=== PATIENT | female | born 1950 | race Caucasian/White ===

== ENCOUNTER 2021-11-17 01:15 | Day surgery (SDC) | payer OTHER, SELFPAY ==
--- NOTE | 2021-10-16 11:09 | SUR.PREOP ---
called pt in regards to upcoming procedure and the prep. message left on voicemail
[2021-10-31 13:36] VITALS: BMI 25.9
--- NOTE | 2021-11-16 14:51 | WPDANESEPPF ---
Anes - Initial Pre Proc Eval Procedure: Operation Date: 11/17/21 10:45 Proposed Procedures p Screening Colonoscopy - Ibrahima Holland MD <Jackson Christopher DO - Last Filed: 11/16/21 14:52> Date/Time: 11/16/21 14:51 <Jackson Christopher DO - Last Filed: 11/16/21 14:52> Surgeon: Ibrahima Holland MD <Jackson Chirstopher DO - Last Filed: 11/16/21 14:52> Pre Op Diagnosis: hx of colon polyps <Jackson Christopher DO - Last Filed: 11/16/21 14:52> Patient Data Age: 71 Gender: F Height: 1.7 m Weight: 75 kg <Jackson Christopher DO - Last Filed: 11/16/21 14:52> Allergies Allergy/AdvReac Type Severity Reaction Status Date / Time erythromycin base Allergy Mild CAUSES Verified 11/17/21 10:13 DIARRHEA <Jackson Christopher DO - Last Filed: 11/16/21 14:52> Home Medications Medication Instructions Recorded Confirmed Type betamethasone dipropionate 0.05 % 1 ea topical EVERY OTHER DAY 10/31/21 10/31/21 History lotion butalbital 50 mg-acetaminophen 325 1 cap PO TID PRN Headache 10/31/21 10/31/21 History mg-caffeine 40 mg-codeine 30 mg cap clobetasol 0.05 % scalp solution 1 applic topical DAILY 10/31/21 10/31/21 History meloxicam 15 mg tablet 1 tablet PO DAILY 10/31/21 10/31/21 History omeprazole 40 mg capsule,delayed 1 cap PO DAILY 10/31/21 10/31/21 History release propranolol 120 mg capsule,24 1 cap PO BID 10/31/21 10/31/21 History hr,extended release raloxifene 60 mg tablet 1 tablet PO DAILY 10/31/21 10/31/21 History rizatriptan 10 mg tablet 1 tablet PO DAILY PRN Migraine 10/31/21 10/31/21 History Headache tramadol 50 mg tablet See Rx Instructions .Route 10/31/21 10/31/21 History .COMPLEX PRN Pain <Jackson Christopher DO - Last Filed: 11/16/21 14:52> Patient hx anesthesia problems: none <Leslie Orozco CRNA - Last Filed: 11/17/21 10:52> Family hx anesthesia problems: none <Leslie Orozco CRNA - Last Filed: 11/17/21 10:52> Results Review: All pre-operative results and documents have been reviewed as part of the pre-operative evaluation. <Jackson Christopher DO - Last Filed: 11/16/21 14:52> [facility] Past Medical History Medical History: Medical History History of skin cancer Hypertrophic cardiomyopathy Irregular heart beat <Jackson Christopher DO - Last Filed: 11/16/21 14:52> Social History Social History: Social History Years smoked: 55 Smoking status: Current every day smoker Tobacco type: cigarettes Living arrangements: with family Spiritual care concerns: No <Jackson Christopher DO - Last Filed: 11/16/21 14:52> Comments pt followed by intravenous therapy nurse in [place]. no records for review. pt denies any complications. states doing well, good activity tolerance. <Leslie Orozco CRNA - Last Filed: 11/17/21 10:52> Anes - Eval Final PreProcedure Day of Procedure 11/16/21 14:51 <Jackson Christopher DO - Last Filed: 11/16/21 14:52> Patient weight: overweight <Jackson Christopher DO - Last Filed: 11/16/21 14:52> Heart: regular rate and rhythm <Jackson Christopher DO - Last Filed: 11/16/21 14:52> Lungs: clear to auscultation <Jackson Christopher DO - Last Filed: 11/16/21 14:52> Airway: Mallampati scale class II <Jackson Christopher DO - Last Filed: 11/16/21 14:52> Neurological: alert and oriented <Jackson Christopher DO - Last Filed: 11/16/21 14:52> Last oral intake: >/= 8 hours <Jackson Christopher DO - Last Filed: 11/16/21 14:52> ASA classification: III <Jackson Christopher DO - Last Filed: 11/16/21 14:52> Emergent: no <Jackson Christopher DO - Last Filed: 11/16/21 14:52> Anesthetic plan: proceed <Jackson Christopher DO - Last Filed: 11/16/21 14:52> A
[2021-11-17 10:14] VITALS: BP 126/70; PULSE 63; RESP 20; TEMP 36.4; O2SAT 98; BMI 25.3
[2021-11-17] MEDS: LACTATED RINGERS 1,000 ML 150 ML IV CONT (10:27)
--- NOTE | 2021-11-17 10:42 | P.HP_ITS ---
H&P: HPI History of Present Illness Date/Time: 11/17/21 10:42 Chief Complaint: history of colon polyps. Narrative: This is a 71-year-old white female patient presents for surveillance colonoscopy. Patient has a history of colon polyps in the past. On several occasions these have been adenomatous polyps. Patient's current weight appetite and bowel movements are normal. She denies abdominal pain. She has had no bleeding. Family history is noncontributory. Review of Systems Review of Systems: Review of systems noncontributory. [facility] Past Medical History Medical History (Updated 11/17/21 @ 10:44 by Ibrahima Holland MD) History of skin cancer Hypertrophic cardiomyopathy Irregular heart beat Social History Social History Years smoked: 55 Smoking status: Current every day smoker Tobacco type: cigarettes Living arrangements: with family Spiritual care concerns: No Meds Home Medications and Allergies Home Medications Medication Instructions Recorded Confirmed Type betamethasone dipropionate 0.05 % 1 ea topical EVERY OTHER DAY 10/31/21 10/31/21 History lotion butalbital 50 mg-acetaminophen 325 1 cap PO TID PRN Headache 10/31/21 10/31/21 History mg-caffeine 40 mg-codeine 30 mg cap clobetasol 0.05 % scalp solution 1 applic topical DAILY 10/31/21 10/31/21 History meloxicam 15 mg tablet 1 tablet PO DAILY 10/31/21 10/31/21 History omeprazole 40 mg capsule,delayed 1 cap PO DAILY 10/31/21 10/31/21 History release propranolol 120 mg capsule,24 1 cap PO BID 10/31/21 10/31/21 History hr,extended release raloxifene 60 mg tablet 1 tablet PO DAILY 10/31/21 10/31/21 History rizatriptan 10 mg tablet 1 tablet PO DAILY PRN Migraine 10/31/21 10/31/21 Hi story Headache tramadol 50 mg tablet See Rx Instructions .Route 10/31/21 10/31/21 History .COMPLEX PRN Pain Allergies Allergy/AdvReac Type Severity Reaction Status Date / Time erythromycin base Allergy Mild CAUSES Verified 11/17/21 10:13 DIARRHEA Vital Signs Vital Signs - 24 hr 11/17/21 10:14 Temperature 97.5 F L Pulse Rate 63 Respiratory Rate 20 Blood Pressure 126/70 Pulse Oximetry 98 Oxygen Delivery Room Air Exam Narrative: Physical exam reveals patient to be alert. Vital signs stable. HEENT exam is unremarkable. Patient is anicteric. Lungs are clear to auscultation and to percussion. Heart is without murmur or extra sounds. Abdominal exam bowel sounds present soft nontender with no organomegaly. Digital external rectal exam is normal. Assessment and Plan Assessment and plan (1) History of colon polyps: Code(s): Z86.010 - Personal history of colonic polyps Status: Acute Assessment and Plan: Patient has a prior history of colon polyps. For this reason surveillance colonoscopy is recommended now and at intervals in the future. Further recommendations will be given after endoscopy.
[2021-11-17 11:26] VITALS: BP 107/64; PULSE 67; RESP 20; O2SAT 97
[2021-11-17 11:36] VITALS: BP 112/61; PULSE 67; RESP 20; O2SAT 98
[2021-11-17 11:46] VITALS: BP 128/81; PULSE 62; RESP 20; O2SAT 99
[2021-11-17 11:55] VITALS: BP 135/78; PULSE 78; RESP 19; O2SAT 100
== END 2021-11-17 11:54 | disposition home or self-care (01) ==
PROVIDERS: Visit Provider Internal Medicine Gastroenterology
PROC: 0DJD8ZZ Inspection of Lower Intestinal Tract, Via Natural or Artificial Opening Endoscopic (ICD-10-PCS; CPT 45378; principal; 2021-11-17 10:45)
DX: Z12.11 Encounter for screening for malignant neoplasm of colon (principal); D12.2 Benign neoplasm of ascending colon; D12.3 Benign neoplasm of transverse colon; D12.5 Benign neoplasm of sigmoid colon; K57.30 Diverticulosis of large intestine without perforation or abscess without bleeding; K64.8 Other hemorrhoids; Z85.828 Personal history of other malignant neoplasm of skin; F17.210 Nicotine dependence, cigarettes, uncomplicated
CPT/HCPCS: 45385; 88305; J2704; J7120

== ENCOUNTER 2024-09-30 21:39 | Emergency (ER) | payer OTHER, SELFPAY ==
--- NOTE | ~2024-09-30 | XR_ITS ---
XR hand RT min 3V Ordering provider: Shaji [place] History: . fall . Comparison: None. FINDINGS: BONES: No acute fracture or dislocation. JOINT SPACES: Narrowing of the proximal and distal interphalangeal joints. Osteoarthritic changes of the first carpometacarpal joint. Narrowing of the radiocarpal joint. SOFT TISSUES: Normal. IMPRESSION: No acute osseous abnormality right hand. Polyarticular osteoarthritic changes. Reviewed, dictated and finalized at location A.
--- NOTE | ~2024-09-30 | XR_ITS ---
XR foot RT min 3V Ordering provider: Shaji [place] MD History: . fall . Comparison: None. FINDINGS: BONES: Longitudinal fractures seen in the proximal phalanx of the right big toe extending to the join t space. JOINT SPACES: Normal. No tarsal coalition. SOFT TISSUES: Normal. IMPRESSION: Fracture in the proximal phalanx of the right big toe Reviewed, dictated and finalized at location A.
--- NOTE | ~2024-09-30 | XR_ITS ---
XR knee RT 3V Ordering provider: Shaji [place] MD History: . fall . Comparison: None. FINDINGS: BONES: No acute fracture or dislocation. JOINT SPACES: Normal. SOFT TISSUES: Normal. IMPRESSION: No acute osseous abnormality right knee. Reviewed, dictated and finalized at location A.
--- OUTSIDE RECORDS SUMMARY | 2024-09-30 21:42 | XMS_ITS | Encounter Summary ---
Author Organization [facility] Facility Care Team Providers Care Nurse Staff Industrial Name Role Phone Calin Christina MD Primary Care Provi hallie Jaqueline Stark NP Primary Care Provider Calin Christina MD Primary Care Provi hallie Jaqueline Stark CULINARY ASSISTANT Primary Care Provider Sultan Roly Elizondo MD Unavailable [phone] Carmen Singletary MD Unavailable [phone] Mary Spencer DO Primary Care Provider + Encounter Details Date Type Department Care Team (Latest Contact Info) Description 11/14/2017 Orders Only [facility] CLINCONV ProviderJosefina MD [address] [place] [address] Social History Tobacco Use Types Packs/Day Years Used Date Smoking Tobacco: Never Assessed Comments Unknown Sex and Gender Information Value Date Recorded Sex Assigned at Not on file 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 us Historical Provider [facility] Final Result documented in this encounter Visit Diagnoses Not on filedocumented in this encounter Care Teams Nurse Staff Industrial Relationship Specialty Start Date End Date Calin Christina MD [address] [place] [address] PCP - General 09/18/18 11/13/21 Jaqueline Stark NP [address] [place] [address] PCP - General Internal Medicine 11/14/21 04/16/22 Calin Christina MD [address] [place] [address] PCP - General Family Medicine 04/17/22 04/19/22 [place] [address] [place] [address] [address] [place], [place] [address] PCP - General Internal Medicine 04/20/22 05/18/24 Mary Spencer DO [address] [place] [address] [place] [address] PCP - General Family Medicine 05/19/24 Sultan Roly Elizondo MD [address] [facility] [place] [address] Consulting Physician Cardiovascular Disease 10/16/22 Carmen Singletary MD [address] [place] [address] Referring Physician Dermatology 10/16/22 documented as of this encounter
--- OUTSIDE RECORDS SUMMARY | 2024-09-30 21:42 | XMS_ITS | Encounter Summary ---
Author Organization [facility] Facility Care Team Providers Care Hot End Operator Name Role Phone Calin Christina MD Primary Care Provi hallie Jaqueline Stark NP Primary Care Provider Calin Christina MD Primary Care Provi hallie Jaqueline Stark AUTOCAD TECHNICIAN Primary Care Provider Sultan Roly Elizondo MD Unavailable [phone] Carmen Singletary MD Unavailable [phone] Mary Spencer DO Primary Care Provider + Encounter Details Date Type Department Care Team (Latest Contact Info) Description 11/02/2017 Orders Only [facility] CLINCONV ProviderJosefina MD [address] [place] [address] Social History Tobacco Use Types Packs/Day Years Used Date Smoking Tobacco: Never Assessed Comments Unknown Sex and Gender Information Value Date Recorded Sex Assigned at Not on file 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 us Historical Provider [facility] Final Result documented in this encounter Visit Diagnoses Not on filedocumented in this encounter Care Teams Hot End Operator Relationship Specialty Start Date End Date Calin Christina MD [address] [place] [address] PCP - General 09/18/18 11/13/21 Jaqueline Stark NP [address] [place] [address] PCP - General Internal Medicine 11/14/21 04/16/22 Calin Christina MD [address] [place] [address] PCP - General Family Medicine 04/17/22 04/19/22 [place] [address] [place] [address] [address] [place], [place] [address] PCP - General Internal Medicine 04/20/22 05/18/24 Mary Spencer DO [address] [place] [address] [place] [address] PCP - General Family Medicine 05/19/24 Sultan Roly Elizondo MD [address] [facility] [place] [address] Consulting Physician Cardiovascular Disease 10/16/22 Carmen Singletary MD [address] [place] [address] Referring Physician Dermatology 10/16/22 documented as of this encounter
--- OUTSIDE RECORDS SUMMARY | 2024-09-30 21:42 | XMS_ITS | Encounter Summary ---
Author Organization [facility] Facility Care Team Providers Care Police Shift Commander Name Role Phone Calin Christina MD Primary Care Provi hallie Jaqueline Stark NP Primary Care Provider Calin Christina MD Primary Care Provi hallie Jaqueline Stark LOADING MACHINE OPERATOR HELPER Primary Care Provider Sultan Roly Elizondo MD Unavailable [phone] Carmen Singletary MD Unavailable [phone] Mary Spencer DO Primary Care Provider + Encounter Details Date Type Department Care Team (Latest Contact Info) Description 11/11/2017 Orders Only [facility] CLINCONV ProviderJosefina MD [address] [place] [address] Social History Tobacco Use Types Packs/Day Years Used Date Smoking Tobacco: Never Assessed Comments Unknown Sex and Gender Information Value Date Recorded Sex Assigned at Not on file 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 us Historical Provider [facility] Final Result documented in this encounter Visit Diagnoses Not on filedocumented in this encounter Care Teams Police Shift Commander Relationship Specialty Start Date End Date Calin Christina MD [address] [place] [address] PCP - General 09/18/18 11/13/21 Jaqueline Stark NP [address] [place] [address] PCP - General Internal Medicine 11/14/21 04/16/22 Calin Christina MD [address] [place] [address] PCP - General Family Medicine 04/17/22 04/19/22 [place] [address] [place] [address] [address] [place], [place] [address] PCP - General Internal Medicine 04/20/22 05/18/24 Mary Spencer DO [address] [place] [address] [place] [address] PCP - General Family Medicine 05/19/24 Sultan Roly Elizondo MD [address] [facility] [place] [address] Consulting Physician Cardiovascular Disease 10/16/22 Carmen Singletary MD [address] [place] [address] Referring Physician Dermatology 10/16/22 documented as of this encounter
--- OUTSIDE RECORDS SUMMARY | 2024-09-30 21:42 | XMS_ITS | Encounter Summary ---
Author Organization [facility] Address [address] [place] [address] [place] [address] Care Team Providers Care Lamination Inspector Name Role Phone Unavailable Primary Care Provider Unavailabl e Encounter Details Date Type Department Care Team (Late st Contact Info) Description 07/17/2019 Lab Requisition [facility] DermPath Lab [address] [facility] [place] [id number] [phone] Carmen Singletary MD [address] [facility] [address] [place] [address] Social History Tobacco Use Types Packs/Day Years Used Date Smoking Tobacco: Never Assessed Comments Unknown Sex and Gender Information Value Date Recorded Sex Assigned at Not on file Legal Sex Female 5:21 PM CYBER 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 SPECIALIST Gender Identity Not on file Sexual Orientation Not on file documented as of this encounter Plan of Treatment Not on file documented as of this encounter Procedures Procedure Name Priority Date/Time Associated Diagnosis Comments DERMATOPATHOLOGY Routine 07/16/2019 12:0 0 AM CDT documented in this encounter Results * DERMATOPATHOLOGY (07/16/2019 12:00 AM CDT) Case Report Dermatopathology Report Case: [id number] Authorizing Provider: Carmen Singletary MD Collected: 07/16/2019 12:00 AM Ordering Location: [facility] DermPath Lab Received: 07/17/2019 07:28 AM Pathologist: Vivian Terrell MD Specimen: Skin, left mejia 0 3:53 PM CDT DERMATOPATHOLOGY LABORATORY Final Diagnosis Specimen A. SKIN, left mejia: SQUAMOUS CELL CARCINOMA, WELL DIFFERENTIATED (C44.729) 0 3:53 PM CDT DERMATOPATHOLOGY LABORATORY at 1553 CDT Clinical History R/O SCC 0 3:53 PM CDT DERMATOPATHOLOGY LABORATORY Gross Description Specimen A: Received is one formalin filled container labeled with the patient's name and designated left mejia. The specimen consists of a shave biopsy measuring [id number] mm, bisected. Jar 0. 0 3:53 PM CDT DERMATOPATHOLOGY LABORATORY Microscopic Description Specimen A. SKIN, left mejia: Arising in the epidermis and extending into the dermis there are irregularly shaped aggregates of keratinocytes showing evidence of premature cornification. 0 3:53 PM CDT DERMATOPATHOLOGY LABORATORY Disclaimer An external and internal positive and negative controls are appropriate for the histochemical, immunohistochemical and immunofluorescence stain(s) in this case (if any), except where stated explicitly. The performance characteristics of the stain(s) cited in this report were developed and its performance characteristic determined by the Dermatopathology Laboratory at [facility], directed by Dr. Pete Guo. These tests need not be, and therefore are not, approved by the [place] Food and Drug Administration. The tests are used for clinical purposes. Billing Codes Specimen Charges Stain Charges 25175 1 0 3:53 PM CDT DERMATOPATHOLOGY LABORATORY Embedded Images 0 3:53 PM CDT DERMATOPATHOLOGY LABORATORY Pathology/Cytolog y TISSUE SPECIMEN FROM SKIN / Unknown 07/16/2019 07/17/2019 7:28 AM CDT us Carmen Singletary MD LAB - PATHOLOGY/CYTOLOGY ORD ERABLES Final Result DERMATOPATHOLOGY LABORATORY [facility] - Department of Dermatology [address] [place] [address], [address] [place] [address], [facility] [phone] documented in this encounter Visit Diagnoses Not on filedocumented in this encounter
--- OUTSIDE RECORDS SUMMARY | 2024-09-30 21:42 | XMS_ITS | Encounter Summary ---
Author Organization [facility] Facility Care Team Providers Care Timber Incisor Operator Name Role Phone Calin Christina MD Primary Care Provi hallie Jaqueline Stark NP Primary Care Provider Calin Christina MD Primary Care Provi hallie Jaqueline Stark LANGUAGE SPECIALIST Primary Care Provider Sultan Roly Elizondo MD Unavailable [phone] Carmen Singletary MD Unavailable [phone] Mary Spencer DO Primary Care Provider + Encounter Details Date Type Department Care Team (Latest Contact Info) Description 11/19/2017 Orders Only [facility] CLINCONV ProviderJosefina MD [address] [place] [address] Social History Tobacco Use Types Packs/Day Years Used Date Smoking Tobacco: Never Assessed Comments Unknown Sex and Gender Information Value Date Recorded Sex Assigned at Not on file 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 us Historical Provider [facility] Final Result documented in this encounter Visit Diagnoses Not on filedocumented in this encounter Care Teams Timber Incisor Operator Relationship Specialty Start Date End Date Calin Christina MD [address] [place] [address] PCP - General 09/18/18 11/13/21 Jaqueline Stark NP [address] [place] [address] PCP - General Internal Medicine 11/14/21 04/16/22 Calin Christina MD [address] [place] [address] PCP - General Family Medicine 04/17/22 04/19/22 [place] [address] [place] [address] [address] [place], [place] [address] PCP - General Internal Medicine 04/20/22 05/18/24 Mary Spencer DO [address] [place] [address] [place] [address] PCP - General Family Medicine 05/19/24 Sultan Roly Elizondo MD [address] [facility] [place] [address] Consulting Physician Cardiovascular Disease 10/16/22 Carmen Singletary MD [address] [place] [address] Referring Physician Dermatology 10/16/22 documented as of this encounter
--- OUTSIDE RECORDS SUMMARY | 2024-09-30 21:42 | XMS_ITS | Encounter Summary ---
Author Organization [facility] Facility Care Team Providers Care Cytotechnologist/Histotechnologist Name Role Phone Calin Christina MD Primary Care Provi hallie Jaqueline Stark NP Primary Care Provider Calin Christina MD Primary Care Provi hallie Jaqueline Stark SPORTS AGENT Primary Care Provider Sultan Roly Elizondo MD Unavailable [phone] Carmen Singletary MD Unavailable [phone] Mary Spencer DO Primary Care Provider + Encounter Details Date Type Department Care Team (Latest Contact Info) Description 11/07/2017 Orders Only [facility] CLINCONV ProviderJosefina MD [address] [place] [address] Social History Tobacco Use Types Packs/Day Years Used Date Smoking Tobacco: Never Assessed Comments Unknown Sex and Gender Information Value Date Recorded Sex Assigned at Not on file 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 us Historical Provider [facility] Final Result documented in this encounter Visit Diagnoses Not on filedocumented in this encounter Care Teams Cytotechnologist/Histotechnologist Relationship Specialty Start Date End Date Calin Christina MD [address] [place] [address] PCP - General 09/18/18 11/13/21 Jaqueline Stark NP [address] [place] [address] PCP - General Internal Medicine 11/14/21 04/16/22 Calin Christina MD [address] [place] [address] PCP - General Family Medicine 04/17/22 04/19/22 [place] [address] [place] [address] [address] [place], [place] [address] PCP - General Internal Medicine 04/20/22 05/18/24 Mary Spencer DO [address] [place] [address] [place] [address] PCP - General Family Medicine 05/19/24 Sultan Roly Elizondo MD [address] [facility] [place] [address] Consulting Physician Cardiovascular Disease 10/16/22 Carmen Singletary MD [address] [place] [address] Referring Physician Dermatology 10/16/22 documented as of this encounter
--- OUTSIDE RECORDS SUMMARY | 2024-09-30 21:42 | XMS_ITS | Encounter Summary ---
Author Organization [facility] Facility Care Team Providers Care Broker Associate Name Role Phone Calin Christina MD Primary Care Provi hallie Jaqueline Stark NP Primary Care Provider Calin Christina MD Primary Care Provi hallie Jaqueline Stark ASSEMBLER MUSICAL INSTRUMENTS Primary Care Provider Sultan Roly Elizondo MD Unavailable [phone] Carmen Singletary MD Unavailable [phone] Mary Spencer DO Primary Care Provider + Encounter Details Date Type Department Care Team (Latest Contact Info) Description 11/10/2017 Orders Only [facility] CLINCONV ProviderJosefina MD [address] [place] [address] Social History Tobacco Use Types Packs/Day Years Used Date Smoking Tobacco: Never Assessed Comments Unknown Sex and Gender Information Value Date Recorded Sex Assigned at Not on file 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 us Historical Provider CV CARDIAC SERVICES PROCE DURES Final Result * CARDIOLOGY REPORT (11/10/2017 12:00 AM CDT) Anatomical Region Laterality Modality Other Narrative 11/10/2017 12:00 AM CDT Ordered by an unspecified provider. us Historical Provider CV CARDIAC SERVICES PROCE DURES Final Result documented in this encounter Visit Diagnoses Not on filedocumented in this encounter Care Teams Broker Associate Relationship Specialty Start Date End Date Calin Christina MD [address] [place] [address] PCP - General 09/18/18 11/13/21 Jaqueline Stark NP [facility] [address] [place] [address] PCP - General Internal Medicine 11/14/21 04/16/22 Calin Christina MD [address] [place] [address] PCP - General Family Medicine 04/17/22 04/19/22 Jaqueline Stark NP [address] [place] [address] PCP - General Internal Medicine 04/20/22 05/18/24 Mary Spencer DO [address] [place] [address] [address] [place] [address] PCP - General Family Medicine 05/19/24 Sultan Roly Elizondo MD [address] [facility] [address] [address] Consulting Physician Cardiovascular Disease 10/16/22 Carmen Singletary MD [address] [place] [address] Referring Physician Dermatology 10/16/22 documented as of this encounter
--- OUTSIDE RECORDS SUMMARY | 2024-09-30 21:42 | XMS_ITS | Encounter Summary ---
Author Organization [facility] Facility Care Team Providers Care Beating Machine Operator Name Role Phone Calin Christina MD Primary Care Provi hallie Jaqueline Stark NP Primary Care Provider Calin Christina MD Primary Care Provi hallie Jaqueline Stark OBSTETRICS TECHNICIAN Primary Care Provider Sultan Roly Elizondo MD Unavailable [phone] Carmen Singletary MD Unavailable [phone] Mary Spencer DO Primary Care Provider + Encounter Details Date Type Department Care Team (Latest Contact Info) Description 11/28/2017 Orders Only [facility] CLINCONV ProviderJosefina MD [address] [place] [address] Social History Tobacco Use Types Packs/Day Years Used Date Smoking Tobacco: Never Assessed Comments Unknown Sex and Gender Information Value Date Recorded Sex Assigned at Not on file 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 us Historical Provider CV CARDIAC SERVICES PROCE DURES Final Result * CARDIOLOGY REPORT (11/28/2017 12:00 AM CDT) Anatomical Region Laterality Modality Other Narrative 11/28/2017 12:00 AM CDT Ordered by an unspecified provider. us Historical Provider CV CARDIAC SERVICES PROCE DURES Final Result documented in this encounter Visit Diagnoses Not on filedocumented in this encounter Care Teams Beating Machine Operator Relationship Specialty Start Date End Date Calin Christina MD [address] [place] [address] PCP - General 09/18/18 11/13/21 Jaqueline Stark NP [facility] [address] [place] [address] PCP - General Internal Medicine 11/14/21 04/16/22 Calin Christina MD [address] [place] [address] PCP - General Family Medicine 04/17/22 04/19/22 Jaqueline Stark NP [address] [place] [address] PCP - General Internal Medicine 04/20/22 05/18/24 Mary Spencer DO [address] [place] [address] [address] [place] [address] PCP - General Family Medicine 05/19/24 Sultan Roly Elizondo MD [address] [facility] [address] [address] Consulting Physician Cardiovascular Disease 10/16/22 Carmen Singletary MD [address] [place] [address] Referring Physician Dermatology 10/16/22 documented as of this encounter
--- OUTSIDE RECORDS SUMMARY | 2024-09-30 21:42 | XMS_ITS | Encounter Summary ---
Author Organization [facility] Facility Care Team Providers Care Gunite Mixer Name Role Phone Calin Christina MD Primary Care Provi hallie Jaqueline Stark NP Primary Care Provider Calin Christina MD Primary Care Provi hallie Jaqueline Stark CONTAINER PACKER OPERATOR Primary Care Provider Sultan Roly Elizondo MD Unavailable [phone] Carmen Singletary MD Unavailable [phone] Mary Spencer DO Primary Care Provider + Encounter Details Date Type Department Care Team (Latest Contact Info) Description 10/31/2017 Orders Only [facility] CLINCONV ProviderJosefina MD [address] [place] [address] Social History Tobacco Use Types Packs/Day Years Used Date Smoking Tobacco: Never Assessed Comments Unknown Sex and Gender Information Value Date Recorded Sex Assigned at Not on file 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 us Historical Provider CV CARDIAC SERVICES MILES ACUNA Final Result documented in this encounter Visit Diagnoses Not on filedocumented in this encounter Care Teams Gunite Mixer Relationship Specialty Start Date End Date Calin Christina MD [address] [place] [address] PCP - General 09/18/18 11/13/21 Jaqueline Stark NP [address] [place] [address] PCP - General Internal Medicine 11/14/21 04/16/22 Calin Christina MD [address] [place] [address] PCP - General Family Medicine 04/17/22 04/19/22 [place] [address] [place] [address] [address] [place], [place] [address] PCP - General Internal Medicine 04/20/22 05/18/24 Mary Spencer DO [address] [place] [address] [place] [address] PCP - General Family Medicine 05/19/24 Sultan Roly Elizondo MD [address] [facility] [place] [address] Consulting Physician Cardiovascular Disease 10/16/22 Carmen Singletary MD [address] [place] [address] Referring Physician Dermatology 10/16/22 documented as of this encounter
--- OUTSIDE RECORDS SUMMARY | 2024-09-30 21:42 | XMS_ITS | Encounter Summary ---
Author Organization [facility] Address [address] [place] [address] [place] [address] Care Team Providers Care Technical Specialist Name Role Phone Unavailable Primary Care Provider Unavailabl e Encounter Details Date Type Department Care Team (Late st Contact Info) Description 12/14/2019 Lab Requisition [facility] DermPath Lab [address] [facility] [place] [address] Carmen Singletary MD [address] [facility] 3 [place] [address] Social History Tobacco Use Types Packs/Day Years Used Date Smoking Tobacco: Never Assessed Comments Unknown Sex and Gender Information Value Date Recorded Sex Assigned at Not on file 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 Gender Identity Not on file Sexual Orientation Not on file documented as of this encounter Plan of Treatment Not on file documented as of this encounter Procedures Procedure Name Priority Date/Time Associated Diagnosis Comments DERMATOPATHOLOGY Routine 12/10/2019 12:0 0 AM CDT documented in this encounter Results * DERMATOPATHOLOGY (12/10/2019 12:00 AM CDT) Case Report Dermatopathology Report Case: [id number] Authorizing Provider: Carmen Singletary MD Collected: 12/10/2019 12:00 AM Ordering Location: [facility] Care DermPath Lab Received: 12/14/2019 12:22 PM Pathologist: Donte Guo MD Specimen: Skin, left chest 0 12:21 PM CDT DERMATOPATHOLOGY LABORATORY Final Diagnosis Specimen A. SKIN, left chest: SQUAMOUS CELL CARCINOMA, KERATOACANTHOMA TYPE (C44.529) 0 12:21 PM CDT DERMATOPATHOLOGY LABORATORY at 1221 CDT Clinical History R/O SCC 0 12:21 PM CDT DERMATOPATHOLOGY LABORATORY Gross Description Specimen A: Received is one formalin filled container labeled with the patient's name and designated left chest. The specimen consists of a shave biopsy measuring 10x9x6 mm, bisected. Jar 0. 0 12:21 PM CDT DERMATOPATHOLOGY LABORATORY Microscopic Description Specimen A. SKIN, left chest: Sections show an endo exophytic crateriform lesion with a keratotic plug, formed by confluent follicle-like structures with relatively large keratinocytes and neutrophilic abscesses. 0 12:21 PM CDT DERMATOPATHOLOGY LABORATORY Disclaimer An external and internal positive and negative controls are appropriate for the histochemical, immunohistochemical and immunofluorescence stain(s) in this case (if any), except where stated explicitly. The performance characteristics of the stain(s) cited in this report were developed and its performance characteristic determined by the Dermatopathology Laboratory at [facility], directed by Dr. Pete Guo. These tests need not be, and therefore are not, approved by the [place] Food and Drug Administration. The tests are used for clinical purposes. Billing Codes Specimen Charges Stain Charges 54862 1 0 12:21 PM CDT DERMATOPATHOLOGY LABORATORY Embedded Images 0 12:21 PM CDT DERMATOPATHOLOGY LABORATORY Pathology/Cytolog y TISSUE SPECIMEN FROM SKIN / Unknown 12/10/2019 12/14/2019 12:22 PM CDT us Carmen Singletary MD LAB - PATHOLOGY/CYTOLOGY ORD ERABLES Final Result DERMATOPATHOLOGY LABORATORY [facility] - Department of Dermatology [facility] [place] [place] [address], [facility] [phone] documented in this encounter Visit Diagnoses Not on filedocumented in this encounter
--- OUTSIDE RECORDS SUMMARY | 2024-09-30 21:42 | XMS_ITS | Encounter Summary ---
Author Organization [facility] Facility Care Team Providers Care Blind Lacer Name Role Phone Calin Christina MD Primary Care Provi hallie Jaqueline Stark NP Primary Care Provider Calin Christina MD Primary Care Provi hallie Jaqueline Stark REEL TENDER Primary Care Provider Sultan Roly Elizondo MD Unavailable [phone] Carmen Singletary MD Unavailable [phone] Mary Spencer DO Primary Care Provider + Encounter Details Date Type Department Care Team (Latest Contact Info) Description 11/09/2017 Orders Only [facility] CLINCONV ProviderJosefina MD [address] [place] [address] Social History Tobacco Use Types Packs/Day Years Used Date Smoking Tobacco: Never Assessed Comments Unknown Sex and Gender Information Value Date Recorded Sex Assigned at Not on file 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 us Historical Provider CV CARDIAC SERVICES MILES ACUNA Final Result documented in this encounter Visit Diagnoses Not on filedocumented in this encounter Care Teams Blind Lacer Relationship Specialty Start Date End Date Calin Christina MD [address] [place] [address] PCP - General 09/18/18 11/13/21 Jaqueline Stark NP [address] [place] [address] PCP - General Internal Medicine 11/14/21 04/16/22 Calin Christina MD [address] [place] [address] PCP - General Family Medicine 04/17/22 04/19/22 [place] [address] [place] [address] [address] [place], [place] [address] PCP - General Internal Medicine 04/20/22 05/18/24 Mary Spencer DO [address] [place] [address] [place] [address] PCP - General Family Medicine 05/19/24 Sultan Roly Elizondo MD [address] [facility] [place] [address] Consulting Physician Cardiovascular Disease 10/16/22 Carmen Singletary MD [address] [place] [address] Referring Physician Dermatology 10/16/22 documented as of this encounter
--- OUTSIDE RECORDS SUMMARY | 2024-09-30 21:42 | XMS_ITS | Encounter Summary ---
Author Organization [facility] Facility Care Team Providers Care Pearl Fisherman Name Role Phone Calin Christina MD Primary Care Provi hallie Jaqueline Stark NP Primary Care Provider Calin Christina MD Primary Care Provi hallie Jaqueline Stark DOWEL MAKER Primary Care Provider Sultan Roly Elizondo MD Unavailable [phone] Carmen Singletary MD Unavailable [phone] Mary Spencer DO Primary Care Provider + Encounter Details Date Type Department Care Team (Latest Contact Info) Description 11/18/2017 Orders Only [facility] CLINCONV ProviderJosefina MD [address] [place] [address] Social History Tobacco Use Types Packs/Day Years Used Date Smoking Tobacco: Never Assessed Comments Unknown Sex and Gender Information Value Date Recorded Sex Assigned at Not on file 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 VP FOUNDATION Gender Identity Not on file Sexual Orientation Not on file documented as of this encounter Plan of Treatment Not on file documented as of this encounter Procedures Procedure Name Priority Date/Time Associated Diagnosis Comments CARDIOLOGY REPORT 11/20/2017 12: 00 AM CDT documented in this encounter Results * CARDIOLOGY REPORT (11/20/2017 12:00 AM CDT) Anatomical Region Laterality Modality Other Narrative 11/20/2017 12:00 AM CDT Ordered by an unspecified provider. us Historical Provider CV CARDIAC SERVICES MILES ACUNA Final Result documented in this encounter Visit Diagnoses Not on filedocumented in this encounter Care Teams Pearl Fisherman Relationship Specialty Start Date End Date Calin Christina MD [address] [place] [address] PCP - General 09/18/18 11/13/21 Jaqueline Stark NP [address] [place] [address] PCP - General Internal Medicine 11/14/21 04/16/22 Calin Christina MD [address] [place] [address] PCP - General Family Medicine 04/17/22 04/19/22 [place] [address] [place] [address] [address] [place], [place] [address] PCP - General Internal Medicine 04/20/22 05/18/24 Mary Spencer DO [address] [place] [address] [place] [address] PCP - General Family Medicine 05/19/24 Sultan Roly Elizondo MD [address] [facility] [place] [address] Consulting Physician Cardiovascular Disease 10/16/22 Carmen Singletary MD [address] [place] [address] Referring Physician Dermatology 10/16/22 documented as of this encounter
--- OUTSIDE RECORDS SUMMARY | 2024-09-30 21:42 | XMS_ITS | Encounter Summary ---
Author Organization [facility] Facility Care Team Providers Care All Source Intelligence Technician Name Role Phone Calin Christina MD Primary Care Provi hallie Jaqueline Stark NP Primary Care Provider Calin Christina MD Primary Care Provi hallie Jaqueline Stark CONCAVER Primary Care Provider Sultan Roly Elizondo MD Unavailable [phone] Carmen Singletary MD Unavailable [phone] Mary Spencer DO Primary Care Provider + Encounter Details Date Type Department Care Team (Latest Contact Info) Description 11/15/2017 Orders Only [facility] CLINCONV ProviderJosefina MD [address] [place] [address] Social History Tobacco Use Types Packs/Day Years Used Date Smoking Tobacco: Never Assessed Comments Unknown Sex and Gender Information Value Date Recorded Sex Assigned at Not on file 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 us Historical Provider CV CARDIAC SERVICES MILES ACUNA Final Result documented in this encounter Visit Diagnoses Not on filedocumented in this encounter Care Teams All Source Intelligence Technician Relationship Specialty Start Date End Date Calin Christina MD [address] [place] [address] PCP - General 09/18/18 11/13/21 Jaqueline Stark NP [address] [place] [address] PCP - General Internal Medicine 11/14/21 04/16/22 Calin Christina MD [address] [place] [address] PCP - General Family Medicine 04/17/22 04/19/22 [place] [address] [place] [address] [address] [place], [place] [address] PCP - General Internal Medicine 04/20/22 05/18/24 Mary Spencer DO [address] [place] [address] [place] [address] PCP - General Family Medicine 05/19/24 Sultan Roly Elizondo MD [address] [facility] [place] [address] Consulting Physician Cardiovascular Disease 10/16/22 Carmen Singletary MD [address] [place] [address] Referring Physician Dermatology 10/16/22 documented as of this encounter
--- OUTSIDE RECORDS SUMMARY | 2024-09-30 21:42 | XMS_ITS | Encounter Summary ---
Author Organization [facility] Address [address] [place], [place] [address] [address] Care Team Providers Care Nursing Technician Name Role Phone Unavailable Primary Care Provider Unavailabl e Encounter Details Date Type Department Care Team (Late st Contact Info) Description 03/04/2024 Lab Requisition [facility] - DermPath Lab [address] [facility], [place] [address] Carmen Singletary MD [address] [facility] 3 [place] [address] Social History Tobacco Use Types Packs/Day Years Used Date Smoking Tobacco: Never Assessed Comments Unknown Sex and Gender Information Value Date Recorded Sex Assigned at Not on file 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 Gender Identity Not on file Sexual Orientation Not on file documented as of this encounter Plan of Treatment Not on file documented as of this encounter Procedures Procedure Name Priority Date/Time Associated Diagnosis Comments DERMATOPATHOLOGY Routine 03/04/2024 10:2 8 AM CDT documented in this encounter Results * DERMATOPATHOLOGY (03/04/2024 10:28 AM CDT) Case Report Dermatopathology Report Case: [id number] Authorizing Provider: Carmen Singletary MD Collected: 03/04/2024 10:28 AM Ordering Location: [facility] Physician [facility] - Received: 03/05/2024 07:21 AM DermPath Lab Pathologist: Monica Terrell MD Specimen: Skin, right index 4 5:30 PM [facility] DERMATOPATHOLOGY LABORATORY Final Diagnosis Specimen A. 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 The specimen consists of a shave biopsy measuring 8x5x1 mm. Jar 0. 5:30 PM [facility] DERMATOPATHOLOGY LABORATORY Microscopic Description Specimen A. SKIN, right index: There are lymphocytes around blood vessels and histiocytes between collagen bundles some of which are arranged in a palisade. The collagen is focally altered. Grocott's methenamine silver (GMS) stain is negative for fungal elements in the sections examined. Foster stain is negative for mycobacteria. A haro-cytokeratin stain is negative within the dermal infiltrate. 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 Clinicopathologic correlation is recommended. 5:30 PM [facility] DERMATOPATHOLOGY LABORATORY Disclaimer An external and internal positive and negative controls are appropriate for the histochemical, immunohistochemical and immunofluorescence stain(s) in this case (if any), except where stated explicitly. The performance characteristics of the stain(s) cited in this report were developed and its performance characteristic determined by the Dermatopathology Laboratory at [facility], directed by Dr. Pete Guo. These tests need not be, and therefore are not, approved by the [place] Food and Drug Administration. The tests are used for clinical purposes. Billing Codes Specimen Charges Stain Charges 99356 1 [id number] 58990 1 1 1 5:30 PM [facility] DERMATOPATHOLOGY LABORATORY Embedded Images 5:30 PM [facility] DERMATOPATHOLOGY LABORATORY Pathology/Cytolo gy TISSUE SPECIMEN FROM SKIN / Unknown 03/04/2024 10:28 AM CDT 03/05/2024 7:21 AM CDT us Carmen Singletary MD LAB - PATHOLOGY/CYTOLOGY ORD ERABLES Final Result DERMATOPATHOLOGY LABORATORY [facility] - Department of Dermatology [address], [address] [phone] documented in this encounter Visit Diagnoses Not on filedocumented in this encounter
--- OUTSIDE RECORDS SUMMARY | 2024-09-30 21:42 | XMS_ITS | Encounter Summary ---
Author Organization [facility] Care Team Providers Care Hide Dyer Name Role Phone Calin Christina MD Primary Care Provi hallie Jaqueline Stark NP Primary Care Provider Calin Christina MD Primary Care Provi hallie Jaqueline Stark RIM FIRE CHARGER OPERATOR Primary Care Provider Sultan Roly Elizondo MD Unavailable [phone] Carmen Singletary MD Unavailable [phone] Mary Spencer DO Primary Care Provider + Encounter Details Date Type Department Care Team (Latest Contact Info) Description 11/23/2017 Orders Only [facility] CLINCON[facility] ProviderJosefina MD [address] [place] [address] Social History Tobacco Use Types Packs/Day Years Used Date Smoking Tobacco: Never Assessed Comments Unknown Sex and Gender Information Value Date Recorded Sex Assigned at Not on file 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 us Historical Provider [facility] Final Result documented in this encounter Visit Diagnoses Not on filedocumented in this encounter Care Teams Hide Dyer Relationship Specialty Start Date End Date Calin Christina MD [address] [place] [address] PCP - General 09/18/18 11/13/21 Jaqueline Stark NP [address] [place] [address] PCP - General Internal Medicine 11/14/21 04/16/22 Calin Christina MD [address] [place] [address] PCP - General Family Medicine 04/17/22 04/19/22 [place] [address] [place] [address] [address] [place], [place] [address] PCP - General Internal Medicine 04/20/22 05/18/24 Mary Spencer DO [address] [place] [address] [place] [address] PCP - General Family Medicine 05/19/24 Sultan Roly Elizondo MD [address] [facility] [place] [address] Consulting Physician Cardiovascular Disease 10/16/22 Carmen Singletary MD [address] [place] [address] Referring Physician Dermatology 10/16/22 documented as of this encounter
--- OUTSIDE RECORDS SUMMARY | 2024-09-30 21:42 | XMS_ITS | Encounter Summary ---
Author Organization [facility] Care Team Providers Care Travel Assistant Name Role Phone Calin Christina MD Primary Care Provi hallie Jaqueline Stark NP Primary Care Provider Calin Christina MD Primary Care Provi hallie Jaqueline Stark PHYSICIAN PRACTICE MARKET MANAGER Primary Care Provider Sultan Roly Elizondo MD Unavailable [phone] Carmen Singletary MD Unavailable [phone] Mary Spencer DO Primary Care Provider + Encounter Details Date Type Department Care Team (Latest Contact Info) Description 11/17/2017 Orders Only [facility] CLINCONV ProviderJosefina MD [address] [place] [address] Social History Tobacco Use Types Packs/Day Years Used Date Smoking Tobacco: Never Assessed Comments Unknown Sex and Gender Information Value Date Recorded Sex Assigned at Not on file 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 us Historical Provider [facility] Final Result documented in this encounter Visit Diagnoses Not on filedocumented in this encounter Care Teams Travel Assistant Relationship Specialty Start Date End Date Calin Christina MD [address] [place] [address] PCP - General 09/18/18 11/13/21 Jaqueline Stark NP [address] [place] [address] PCP - General Internal Medicine 11/14/21 04/16/22 Calin Christina MD [address] [place] [address] PCP - General Family Medicine 04/17/22 04/19/22 [place] [address] [place] [address] [address] [place], [place] [address] PCP - General Internal Medicine 04/20/22 05/18/24 Mary Spencer DO [address] [place] [address] [place] [address] PCP - General Family Medicine 05/19/24 Sultan Roly Elizondo MD [address] [facility] [place] [address] Consulting Physician Cardiovascular Disease 10/16/22 Carmen Singletary MD [address] [place] [address] Referring Physician Dermatology 10/16/22 documented as of this encounter
--- OUTSIDE RECORDS SUMMARY | 2024-09-30 21:42 | XMS_ITS | Clinical Summary ---
Author Organization [facility] [address] Address [address] [place] [address] Care Team Providers Care Plumber Assistant Name Role Phone Sultan Roly Elizondo MD Unavailable Carmen Singletary MD Unavailable [phone] Mary Spencer DO Primary Care Provider + Allergies Active Allergy Reactions Criticality Noted Date Comments Erythromycin Diarrhea Low 10/13/2018 Medications cholecalciferol (VITAMIN D-3) 2000 unit tablet 1 tablet (2,000 Units total) 2 (two) times a day Active fluticasone propionate (FLONASE) 50 mcg/actuation nasal spray 2 sprays daily Act andrew vit B complex no.12/niacin,B3, (VITAMIN B COMPLEX NO.12-NIACIN ORAL) daily Active clobetasoL (TEMOVATE) 0.05 % external solution 1 Active betamethasone dipropionate (DIPROLENE) 0.05 % lotion 2 Active risankizumab-rzaa (Skyrizi) 150 mg/mL pen injector Inject 1 Dose under the skin every 3 (three) months Active traZODone (DESYREL) 50 mg tabletIndications :Primary insomnia TAKE 1 TO 2 TABLETS BY MOUTH EVERY NIGHT AT BEDTIME NEEDED 180 tablet 1 3 Active meloxicam (MOBIC) 15 mg tabletIndications :Acute pain of left knee,Left hip pain TAKE 1 TABLET (15 MG TOTAL) BY MOUTH DAILY. 90 tablet 3 4 Active omeprazole (PriLOSEC) 40 mg capsule TAKE 1 CAPSULE BY MOUTH EVERY DAY 90 capsule 3 4 Active rizatriptan (MAXALT) 10 mg tabletIndications :Migraine with status migrainosus, not intractable, unspecified migraine type Take 1 tablet (10 mg total) by mouth once as needed for migraine May repeat in 2 hours if unresolved. Do not exceed 30 mg in 24 hours. 12 tablet 5 4 Active traMADoL (ULTRAM) 50 mg tablet Take 1 tablet (50 mg total) by mouth every 6 (six) hours as needed for pain 28 tablet 4 Active butalbital-acetam inophen-caffeine- codeine (FIORICET WITH CODEINE) [id number] mg per capsule Take 1 capsule by mouth every 6 (six) hours as needed for headaches 120 capsule 2 4 Active raloxifene (EVISTA) 60 mg tablet TAKE 1 TABLET BY MOUTH EVERY DAY 100 tablet 4 Active propranolol LA (INDERAL LA) 120 mg 24 hr capsule Take 1 capsule (120 mg total) by mouth 2 (two) times a day 180 capsule 1 5 Active rosuvastatin (CRESTOR) 10 mg tablet TAKE 1 TABLET BY MOUTH EVERY DAY AT NIGHT 90 tablet 2 5 Active Active Problems Problem Noted Date Diagnosed Date Coronary artery calcification 04/17/2022 Mixed hyperlipidemia 04/17/2022 Dilatation of thoracic aorta 04/17/2022 Age-related osteoporosis wit hout current pathological fracture 09/26/2021 Multiple thyroid nodules 09/26/2021 Vitamin D deficiency 09/26/2021 Migraine with status migrainosus, not intractabl e 09/26/2021 Primary insomnia 09/26/2021 Fluttering sensation of heart 11/25/2018 Assessment & Plan (01/13/2021 2:54 PM CDT): T4 and a TSH July 2020 were within normal limits. Inderal LA 120 mg b.i.d.. No palpitations described on this visit. Assessment & Plan (07/08/2020 3:22 PM TRAFFIC ENGINEERING TECHNICIAN): Continue to have heart fluttering. The Inderal LA a was changed to 120 mg b.i.d., with some improvement in the heart fluttering. Particularly those occurring in the evenings before the next dose. Previously she had been taking 240 mg bedtime daily. Had heart fluttering for 1 full week recently. EKG today shows normal sinus rhythm, left ventricular hypertrophy, left axis deviation. Will check T4 and TSH. She was told to contact my office if she has recurrence of the heart fluttering. It will be nice to have a a monitor done while she is having the heart fluttering. Assessment & Plan (09/29/2019 11:02 AM CDT): Inderal LA. Continues to have heart fluttering mostly in the evenings. I told to start taking the Inderal LA 120 mg p.o. b.i.d. rather than 240 mg at bedtime daily Assessment & Plan (11/25/2018 8:53 PM CDT): Controlled with Inderal LA. Dyspnea on exertion 11/25/2018 Assessment & Plan (01/12/2021 6:11 PM CDT): Stress echo 11/15/2017 was negative for ischemia. Decreased exercise capacity due to the leg weakness. Dyspnea felt to be due to the variant hypertrophic cardiomyopathy. Assessment & Plan (07/07/2020 7:04 PM TRAFFIC ENGINEERING TECHNICIAN): Stress echo 11/15/2017 was negative for ischemia. Decreased exercise capacity due to the leg weakness Dyspnea due to the variant hypertrophic cardiomyopathy Assessment & Plan (09/25/2019 3:21 PM CDT): Stress echo 11/15/2017 was negative for ischemia. Decreased exercise capacity due to leg weakness. Variant hypertrophic cardiomyopathy. Assessment & Plan (11/25/2018 8:56 PM CDT): The stress echo on 11/15/2017 was negative for ischemia. Decreased exercise capacity due to the leg weakness. The highest heart rate was 136. Echo showed normal left ventricular systolic function. Asymmetrical hypertrophy of the left ventricle with end systolic left ventricular cavity obliteration, suggesting a variant of the hypertrophic. Cardiomyopathy. No outflow tract gradient. Hypertrophic cardiomyopathy 01/08/2018 Assessment & Plan (01/12/2021 6:07 PM CDT): Variant hypertrophic cardiomyopathy. Asymmetrical septal hypertrophy with end systolic cavity obliteration. No outflow tract gradient. Inderal LA. Assessment & Plan (07/07/2020 7:06 PM TRAFFIC ENGINEERING TECHNICIAN): Variant hypertrophic cardiomyopathy. Asymmetrical septal hypertrophy with end systolic cavity obliteration. No outflow tract gradient. Inderal LA. Assessment & Plan (09/25/2019 3:18 PM CDT): Showed normal ejection fraction. Asymmetrical septal hypertrophy with end systolic cavity obliteration of the left ventricle. No abnormal outflow tract gradient. A variant of hypertrophic cardiomyopathy. Inderal LA. Assessment & Plan (11/26/2018 4:03 PM CDT): Echo showed normal left ventricular systolic function. Asymmetrical septal hypertrophy for the end systolic cavity obliteration of the left ventricle. Suggesting a variant of the hypertrophic cardiomyopathy. No abnormal outflow tract gradient. Continue the Inderal LA. EKG today shows normal sinus rhythm, left ventricular hypertrophy, left axis deviation, ST changes. PSVT (paroxysmal supraventricular tachycardia) 0 01/08/2018 Assessment & Plan (01/12/2021 6:08 PM CDT): Recurrent episodes of PSVT on the monitor at 1 point. Inderal LA. Assessment & Plan (07/07/2020 7:07 PM TRAFFIC ENGINEERING TECHNICIAN): Recurrent episodes of PSVT on the monitor at one point. Inderal LA. Assessment & Plan (09/25/2019 3:19 PM CDT): Recurrent episodes of PSVT on the monitor at 1 point. Controlled with Inderal LA. Assessment & Plan (11/25/2018 8:53 PM CDT): Recurrent episodes of PSVT on the monitor at 1 point. Controlled with Inderal LA. Adenomatous polyp of descending colon 10/02/2017 Cigarette nicotine dependence without complicati on 10/02/2017 Annual physical exam 08/27/2016 Assessment & Plan (11/21/2023 12:08 PM CDT): Follow-up 1 year for annual physical. Continue eating healthy. Limit processed foods like white starches, fast food, sweets and soda. Increase your vegetable intake and limit red meat. Continue exercising and wearing your seatbelt at all times. No texting and driving. Continue to manage your stress in a healthy manner. Assessment & Plan (10/16/2022 11:26 AM CDT): Follow-up 1 year for annual physical. Continue eating healthy. Limit processed foods like white starches, fast food, sweets and soda. Increase your vegetable intake and limit red meat. Continue exercising and wearing your seatbelt at all times. No texting and driving. Continue to manage your stress in a healthy manner. Assessment & Plan (09/26/2021 10:45 AM CDT): Follow-up 1 year for annual physical. Continue eating healthy. Limit processed foods like white starches, fast food, sweets and soda. Increase your vegetable intake and limit red meat. Continue exercising and wearing your seatbelt at all times. No texting and driving. Continue to manage your stress in a healthy manner. Assessment & Plan (10/15/2019 10:01 AM CDT): Follow-up 1 year for annual physical. Continue eating healthy. Limit processed foods like white starches, fast food, sweets and soda. Increase your vegetable intake and limit red meat. Continue exercising and wearing your seatbelt at all times. No texting and driving. Continue to manage your stress in a healthy manner. Other specified health status 08/27/2016 Overweight (BMI 25.0-29.9) 08/27/2016 Psoriatic arthritis 08/27/2016 Gastroesophageal reflux disease without esophagi tis 08/09/2016 Low back pain 08/09/2016 Other chronic pain 08/09/2016 Seasonal allergic rhinitis 08/09/2016 Resolved Problems Problem Noted Date Diagnosed Date Resolved Date Atrial flutter 01/01/2018 11/25/2018 Encounters Date Type Department Care Team Description 07/17/2024 Results Follow-Up [facility] [address] [place] [address] Chest WO Contrast F/U Lung Screen Protocol 07/13/2024 11:05 AM CDT - 07/13/2024 11:59 PM CDT Hospital Encounter [facility] [address] [place] [address] Pulmonary nodule; Abnormal screening CT of chest Discharge Disposition: Discharge to home or self care from Last 3 Months Immunizations Immunization Administration Dates Next Due COVID-19 MRNA (MODERNA) .5 M L (50 MCG) VACCINE (12 YEARS AND UP) 02/07/2024 Influenza, Quad, Adjuvantate d, Intramuscular 02/16/2023 Influenza, Quadrivalent, Hig h Dose, Preservative Free, Intrr 01/26/2022,02/21/2021,02/06/2020 Influenza, Trivalent, High D ose, Split, Preservative Free, Intramuscular 02/07/2024,02/23/2019,03/08/2018 Influenza, Trivalent, IM (MDV) 03/08/2018 Influenza, Unspecified 02/09/2022,02/06/2020 Pfizer SARS-CoV-2 Monovalent Vaccination (12+ Yrs) PURPLE 03/07/2021,07/22/2020,07/01/2020 Pneumococcal Conjugate PCV 13 03/08/2018 Pneumococcal Polysaccharide PPV23 07/26/2020 Sars-cov-2 Covid-19 Mrna, Bi valent, Original/omicron Ba.1 02/16/2023 ZOSTER Recombinant 10/07/2021 Surgical History Surgery Date Site/Laterality Comments SKIN CANCER EXCISION back of right leg BREAST CYST ASPIRATION Medical History Medical History Date Comments Allergic Lumbago Headache GERD (gastroesophageal reflux disease) Palpitations Macular degeneration Family History Medical History Relation Name Comments No Known Problems Father No Known Problems Mother No Known Problems Other Son Family his tory of stroke, [place], Nervous illness and liver disease Relation Name Status Comments Father unknown Mother unknown Other Son Alive Social History Tobacco Use Types Packs/Day Years Used Date Smoking Tobacco: Every Day Cigarettes 1 58.4 Started: 1966 Smokeless Tobacco: Never Tobacco Cessation:Ready to Q uit: Not Asked; Counseling Given: Not Answered Comments:Has smoked 1/4 packs per day for the last 6-7 years. 52 pack year history. Alcohol Use Standard Drinks/Week Comments Not Currently 0 (1 standard drink = 0.6 oz pur e alcohol) AUDIT-C Answer Date Recorded Q1: How often do you have a drink containing alcohol? Never 11/21/2023 Q2: How many drinks containi ng alcohol do you have on a typical day when you are drinking? Patient does not drink Q3: How often do you have si x or more drinks on one occasion? Never 11/21/2023 PHQ-2 Answer Date Recorded PHQ-2 Total Score (If total score is 3 or more points, staff should administer the PHQ-9) 2 11/21/2023 Comments No Sex and Gender Information Value Date Recorded Sex Assigned at Not on file 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 TRAFFIC ENGINEERING TECHNICIAN Gender Identity Not on file Sexual Orientation Not on file Obstetrics History Para Term AB IAB SAB Ectopic Multiple Livin g Live Births 2 2 2 Date Outcome GA Total Labor Labor/2nd/3rd Weight Sex Type Anes PTL Lacy A1 A5 Name Clin Term Term Last Filed Vital Signs Vital Sign Reading Time Taken Comments Blood Pressure 110/60 06/29/2024 10:09 AM TRAFFIC ENGINEERING TECHNICIAN Pulse 73 06/29/2024 10:09 AM TRAFFIC ENGINEERING TECHNICIAN Temperature 36.4 C (97.6 F) 11/21/2023 11:32 AM CDT Respiratory Rate 18 11/21/2023 11:32 AM CDT Oxygen Saturation 98% 06/29/2024 10:09 AM TRAFFIC ENGINEERING TECHNICIAN Inhaled Oxygen Concentration - - Weight 68 kg (150 lb) 07/13/2024 11:33 AM CDT Height 170.2 cm (5' 7) 07/13/2024 11:33 AM CDT Body Mass Index 23.49 07/13/2024 11:33 AM CDT Plan of Treatment Health Maintenance Due Date Last Done Comments DTaP/Tdap/Td Vaccine (1 - Tdap) 1961 Hepatitis B Screening 1968 Zoster Vaccine (2 of 2) 12/02/2021 10/07/2021 Colon Cancer Screening-Colonoscopy 11/17/2024 11/17/2021, 09/27/2015, 09/27/2015 Depression Screening 11/20/2024 11/21/2023, 10/16/2022, 10/16/2022, Additional history exists Fall Risk Assessment 11/20/2024 11/21/2023, 10/16/2022, 09/26/2021, Additional history exists Well Visit 65+ 11/20/2024 11/21/2023, 10/04, 09/26/2021, Additional history exists Lung Cancer Screening 01/09/2025 07/13/2024 , 03/24/2024, 01/29/2023, Additional history exists Osteoporosis Screening-Bone Density Scan 01/29/2025 01/29/2023, 11/22/2020, 10/25/2017, Additional history exists Breast Cancer Screening-Mammogram 03/24/2025 03/24/2024, 01/29/2023, 12/19/2021, Additional history exists Pneumococcal vaccine 65+ Completed 07/26/2020, 07/2017 Hepatitis C Screening Completed 09/05/2021 Colon Cancer Screening-CT Colonography Discontinued 11/17/2021, 09/27/2015, 09/27/2015 Colon Cancer Screening-DNA Stool Discontinued 11/17/2021, 09/27/2015, 09/27/2015 Colon Cancer Screening-FIT Discontinued 11/17, 09/27/2015, 09/27/2015, Additional history exists Colon Cancer Screening-Sigmoidoscopy Discontinued 11/17/2021, 09/27/2015, 09/27/2015 Covid-19 Vaccine Discontinued 02/07/2024, , 02/16/2023, Additional history exists Influenza Vaccine Completed 02/07/2024, , 02/09/2022, Additional history exists Procedures Procedure Name Priority Date/Time Associated Diagnosis Comments CT CHEST WO CONTRAST F/U LUNG SCREEN PROTOCOL Schedule Routine, Read Routine (OP Routine) 07/13/2024 11:30 AM CDT Pulmonary nodule Abnormal screening CT of chest SCREENING MAMMOGRAM BILATERAL W GENARO Schedule Routine, Read Routine (OP Routine) 03/24/2024 9:24 AM TRAFFIC ENGINEERING TECHNICIAN Encounter for screening mammogram for malignant neoplasm of breast DEXA AXIAL SKELETON BONE DENSITY 1 OR MORE SITES Schedule Routine, Read Routine (OP Routine) 01/29/2023 12:54 AM CDT Age-related osteoporosis without current pathological fracture COLONOSCOPY Routine 11/17/2021 HEPATITIS PANEL, ACUTE Routine 09/05/2021 10:55 AM CDT from Last 3 Months or Most Recently Relevant to Health Maintenance Results * CT Chest WO Contrast F/U Lung Screen Protocol (07/13/2024 11:30 AM CDT) Anatomical Region Laterality Modality Chest N/A Computed Tomogra phy 07/16/2024 5:58 PM CDT Narrative 07/16/2024 6:10 PM CDT EXAM DESCRIPTION: CT CHEST WO CONTRAST F/U LUNG SCREEN PROTOCOL REASON FOR STUDY: Screening CT of the chest in a current smoker with a 57 pack year smoking history. Additional history: Category 4 examination on 03/24/2024. TECHNIQUE: Low dose CT scan of the chest was performed without intravenous contrast using helical scanning technique. The exam extends from the lung apices through the lung bases. Automatic exposure control was used as a dose optimization technique. NOTE: This study was performed for the specific purposes of lung cancer screening and is not an alternative to diagnostic chest CT. RADIATION DOSE: CT dose index volume (CTDIvol) = 2.37 mGy COMPARISON: 03/24/2024 FINDINGS: SMOKING RELATED LUNG DISEASE: Moderate emphysema. Bibasilar ground-glass and reticulation as evidence for fibrosis. LUNG NODULES: Stable 7 mm right middle lobe nodule (216). 3 mm pleural left upper lobe nodule appears slightly more prominent compared to the prior (148). A 6 mm pleural lingula nodule, previously measured approximately 5 mm (285). An 8 mm pleural left lower lobe nodule, previously measured approximately 9 mm (294). Stable 5 mm central left lower lobe rule along the diaphragm (271). Other smaller nodules are noted. OTHER: No pleural effusion or pneumothorax. No mediastinal hilar lymphadenopathy. Thyroid nodules are better evaluated on thyroid ultrasound dated 03/24/2024. Please refer to that report. The heart is normal in size. Mild coronary calcification is present. The aorta is mildly aneurysmal measuring 4.0 cm. No axillary lymphadenopathy. No chest wall mass is seen. Images of the upper abdomen demonstrate a prominent common bile duct. Indeterminate left renal masses are noted. For reference is a 16 mm lesion (354). 12 mm lesion (332). Bone windows demonstrate no suspicious lytic or sclerotic lesion. No IMPRESSION: 1. Grossly stable pulmonary nodules compared to 03/24/2024. 2. Indeterminate left renal masses. Incompletely evaluated prominent common bile duct. A follow-up abdominal MRI may be performed for further evaluation. Lung-RADS category 3S: Probably benign. Finding other than a pulmonary nodule which is potentially clinically significant. Recommendation: Low dose CT of chest in 6 months. THIS IS AN ELECTRONICALLY VERIFIED FINAL REPORT 07/16/2024 6:10 PM - Electronically signed by Cristobal Armijo M.D. AG: DEMARCUS Report ID: [id number] Reading Location: [id number] Procedure Note Cristobal Armijo MD - 07/16/2024 EXAM DESCRIPTION: CT CHEST WO CONTRAST F/U LUNG SCREEN PROTOCOL REASON FOR STUDY: Screening CT of the chest in a current smoker with a57 pack year smoking history. Additional history: Category 4 examination on 03/24/2024. TECHNIQUE: Low dose CT scan of the chest was performed without intravenous contrast using helical scanning technique. The exam extends from the lung apices through the lung bases. Automatic exposure control was used as adose optimization technique. NOTE: This study was performed for the specific purposes of lung cancer screening and is not an alternative to diagnostic chest CT. RADIATION DOSE: CT dose index volume (CTDIvol) = 2.37 mGy COMPARISON: 03/24/2024 FINDINGS: SMOKING RELATED LUNG DISEASE: Moderate emphysema. Bibasilar ground-glass and reticulation as evidence for fibrosis. LUNG NODULES: Stable 7 mm right middle lobe nodule (216). 3 mm pleuralleft upper lobe nodule appears slightly more prominent compared to the prior(148). A 6 mm pleural lingula nodule, previously measured approximately 5 mm(285). An 8 mm pleural left lower lobe nodule, previously measured approximately9 mm (294). Stable 5 mm central left lower lobe rule along the diaphragm(271). Other smaller nodules are noted. OTHER: No pleural effusion or pneumothorax. No mediastinal hilar lymphadenopathy. Thyroid nodules are better evaluated on thyroidultrasound dated 03/24/2024. Please refer to that report. The heart is normal insize. Mild coronary calcification is present. The aorta is mildly aneurysmal measuring 4.0 cm. No axillary lymphadenopathy. No chest wall mass isseen. Images of the upper abdomen demonstrate a prominent common bile duct. Indeterminate left renal masses are noted. For reference is a 16 mmlesion (354). 12 mm lesion (332). Bone windows demonstrate no suspicious lyticor sclerotic lesion. No IMPRESSION: 1. Grossly stable pulmonary nodules compared to 03/24/2024. 2. Indeterminate left renal masses. Incompletely evaluated prominentcommon bile duct. A follow-up abdominal MRI may be performed for furtherevaluation. Lung-RADS category 3S: Probably benign. Finding other than a pulmonarynodule which is potentially clinically significant. Recommendation: Low dose CT of chest in 6 months. THIS IS AN ELECTRONICALLY VERIFIED FINAL REPORT 07/16/2024 6:10 PM - Electronically signed by Cristobal Armijo M.D. AG: [facility] Report ID: [id number] Reading Location: [place] [address] Jaquelinelulu Mcgill Stark BINDER STRIPPER MACHINE IMG CT PROCEDURES Final Result * Screening Mammogram Bilateral W Genaro (03/24/2024 9:24 AM TRAFFIC ENGINEERING TECHNICIAN) Anatomical Region Laterality Modality Breast Bilateral Mammography Impressions 03/24/2024 10:49 AM TRAFFIC ENGINEERING TECHNICIAN BI-RADS ATLAS category (overall): 1 - Negative There is no mammographic evidence of malignancy. A 1 year screening mammogram is recommended. The patient has been or will be contacted. We recommend annual screening mammography for women at average risk of breast cancer beginning at age 40, based on guidelines of the [place] [employer] (ACR Practice Parameter for the Performance of Screening and Diagnostic Mammography) and [place] [employer]. For women with and elevated risk of breast cancer, please refer to the ACR Practice Parameter for specific screening recommendations. The patient will be entered into a reminder system with a target due date of 1 year for her next screening exam. Narrative 03/24/2024 10:49 AM TRAFFIC ENGINEERING TECHNICIAN Screening Mammogram Bilateral W Genaro: 03/24/24 The study was acquired using full field digital technology and interpreted from soft copy. 2D digital mammographic views, as well as 3D digital tomosynthesis were performed in the CC and MLO projections. CLINICAL: Encounter for screening mammogram for malignant neoplasm of breast. No relevant medical history has been documented for this patient. No known family history of breast cancer. COMPARISONS: 01/29/2023 SCREENING MAMMOGRAM BILATERAL W GENARO 12/19/2021 Screening Mammogram Bilateral W Genaro 11/22/2020 Screening Mammogram Bilateral W Genaro 10/01/2019 Breast Imaging Screening Outside Reference BREAST TISSUE: There are scattered areas of fibroglandular density. FINDINGS: No suspicious masses, suspicious calcifications, or other suspicious findings are seen within either breast. There has been no suspicious change. 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 LEFT HIP: Total BMD is 0.617 g/cm2 T-score is -2.7 This is decreased in comparison to prior exam which is statistically significant. Femoral neck BMD is 0.5.5 g/cm2 T-score is -3.0 FRAX: FRAX not reported due to T-scores of hip, femoral neck and/or spine being at or below -2.5 (Osteoporosis). IMPRESSION: Osteoporosis. REFERENCE: Bone mineral density: Normal (T-score above or = -1.0) Low bone mass (T-score between -1.0 and -2.5) replaces the previously used term osteopenia Osteoporosis (T-score = or below -2.5) Medical evaluation for secondary causes of low bone mineral density may be appropriate. FRAX is a World Health Organization validated fracture risk assessment tool that calculates a person's 10 year probability of a major osteoporosis related fracture and hip fracture. According to the National Osteoporosis Foundation guidelines, postmenopausal women and men age 50 or older with low bone mass and a 10 year probability of a major osteoporosis related fracture = or greater than 20% or a 10 year probability of a hip fracture = or greater than 3% should be considered for treatment. For further information, including treatment recommendations, please refer to the 2019 ISCD Official Positions (http://www.iscd.org) and the NOF's Clinician's Guide to Prevention and Treatment of Osteoporosis (http://www.nof.org/professionals/clinical-guidelines) THIS IS AN ELECTRONICALLY VERIFIED FINAL REPORT 01/29/2023 9:27 PM - Electronically signed by Pavan Eller M.D. 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 LEFT HIP: Total BMD is 0.617 g/cm2 T-score is -2.7 This is decreased in comparison to prior exam which is statistically significant. Femoral neck BMD is 0.5.5 g/cm2 T-score is -3.0 FRAX: FRAX not reported due to T-scores of hip, femoral neck and/or spine beingat or below -2.5 (Osteoporosis). IMPRESSION: Osteoporosis. REFERENCE: Bone mineral density: Normal (T-score above or = -1.0) Low bone mass (T-score between -1.0 and -2.5) replaces thepreviously used term osteopenia Osteoporosis (T-score = or below -2.5) Medical evaluation for secondary causes of low bone mineral density may be appropriate. FRAX is a World Health Organization validated fracture risk assessmenttool that calculates a person's 10 year probability of a major osteoporosisrelated fracture and hip fracture. According to the National OsteoporosisFoundation guidelines, postmenopausal women and men age 50 or older with low bonemass and a 10 year probability of a major osteoporosis related fracture = or greater than 20% or a 10 year probability of a hip fracture = or greaterthan 3% should be considered for treatment. For further information, including treatment recommendations, please referto the 2019 ISCD Official Positions (http://www.iscd.org) and the NOF's Clinician's Guide to Prevention and Treatment of Osteoporosis (http://www.nof.org/professionals/clinical-guidelines) THIS IS AN ELECTRONICALLY VERIFIED FINAL REPORT 01/29/2023 9:27 PM - Electronically signed by Pavan Eller M.D. MF: [email or web address] Report ID: [id number] Reading Location: [id number] Jaqueline Stark BINDER STRIPPER MACHINE IMG DXA PROCEDURES Marilia l Result * Colonoscopy (11/17/2021) Anatomical Region Laterality Modality Other 11/17/2021 Impressions 11/17/2021 Internal hemorrhoids Diverticulosis Colon polyps removed Repeat in 3 years Historical Provider MD ENDOSCOPY PROCEDURES Marilia l Result * Hepatitis panel, acute (09/05/2021 10:55 AM CDT) Hep A IgM Nonreactive Nonreactive [facility] Comment: Interpretive Data: If Hep A IgM Ab is reported as Equivocal, a new sample should be drawn in two weeks for testing. Current interpretive data was last revised on 19. Hep B core IgM Nonreactive Nonreactive [facility] Comment: Interpretive Data If HepB Core IgM Ab is reported as Equivocal, a new sample should be drawn in two weeks for testing. Current interpretive data was last revised on 19. Hep C Ab Nonreactive Nonreactive [facility] Comment: Interpretive Data Nonreactive: Antibodies to HCV not detected. Does NOT exclude the possibility of recent exposure to HCV. Equivocal: Equivocal for HCV antibodies. Supplemental molecular testing will be automatically performed to determine infection status in accordance with current CDC screening recommendations. Reactive: Positive for HCV antibodies. This may represent current or past HCV infection. Supplemental molecular testing will be automatically performed to determine current infection status in accordance with current CDC screening recommendations. Interpretive data was last revised on 2019. HepBsAg Nonreactive Nonreactive [facility] Blood 09/05/2021 10:5 5 AM CDT 09/05/2021 12:33 PM CDT Carmen Singletary MD LAB MICROBIOLOGY - GENERA L ORDERABLES Final Result [facility] [address] [facility] Department [place] [address] from Last 3 Months or Most Recently Relevant to Health Maintenance Insurance [facility] Care Teams Plumber Assistant Relationship Specialty Start Date End Date Mary Spencer DO [address] [place] [address] [place] [address] PCP - General Family Medicine 05/19/24 Sultan Roly Elizondo MD [address] [facility] [place] [address] Consulting Physician Cardiovascular Disease 10/16/22 Carmen Singletary MD [address] [place] [address] Referring Physician Dermatology 10/16/22
--- OUTSIDE RECORDS SUMMARY | 2024-09-30 21:42 | XMS_ITS | Encounter Summary ---
Author Organization [facility] Facility Care Team Providers Care Fisher Hand Line Name Role Phone Calin Christina MD Primary Care Provi hallie Jaqueline Stark NP Primary Care Provider Calin Christina MD Primary Care Provi hallie Jaqueline Stark MERCHANDISE APPRAISER Primary Care Provider Sultan Roly Eilzondo MD Unavailable [phone] Carmen Singletary MD Unavailable [phone] Mary Spencer DO Primary Care Provider + Encounter Details Date Type Department Care Team (Latest Contact Info) Description 11/27/2017 Orders Only [facility] CLINCONV ProviderJosefina MD [address] [place] [address] Social History Tobacco Use Types Packs/Day Years Used Date Smoking Tobacco: Never Assessed Comments Unknown Sex and Gender Information Value Date Recorded Sex Assigned at Not on file 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 us Historical Provider CV CARDIAC SERVICES PROCE DURES Final Result * CARDIOLOGY REPORT (11/27/2017 12:00 AM CDT) Anatomical Region Laterality Modality Other Narrative 11/27/2017 12:00 AM CDT Ordered by an unspecified provider. us Historical Provider CV CARDIAC SERVICES PROCE DURES Final Result documented in this encounter Visit Diagnoses Not on filedocumented in this encounter Care Teams Fisher Hand Line Relationship Specialty Start Date End Date Calin Christina MD [address] [place] [address] PCP - General 09/18/18 11/13/21 Jaqueline Stark NP [facility] [address] [place] [address] PCP - General Internal Medicine 11/14/21 04/16/22 Calin Christina MD [address] [place] [address] PCP - General Family Medicine 04/17/22 04/19/22 Jaqueline Stakr NP [address] [place] [address] PCP - General Internal Medicine 04/20/22 05/18/24 Mary Spencer DO [address] [place] [address] [address] [place] [address] PCP - General Family Medicine 05/19/24 Sultan Roly Elizondo MD [address] [facility] [address] [address] Consulting Physician Cardiovascular Disease 10/16/22 Carmen Singletary MD [address] [place] [address] Referring Physician Dermatology 10/16/22 documented as of this encounter
--- OUTSIDE RECORDS SUMMARY | 2024-09-30 21:42 | XMS_ITS | Referral Summary ---
Author Organization [facility] [address] Address [address] [place] [address] Care Team Providers Care Therapist Respiratory Name Role Phone Sultan Roly Elizondo MD Unavailable [phone] Carmen Singletary MD Unavailable [phone] Mary Spencer DO Primary Care Provider + Encounters Date Type Department Care Team Description 07/17/2024 Results Follow-Up [facility] Family Medicine [address] [place] [address] Chest WO Contrast F/U Lung Screen Protocol 07/13/2024 11:05 AM CDT - 07/13/2024 11:59 PM CDT Hospital Encounter [facility] [address] [place] [address] [id number] Pulmonary nodule; Abnormal screening CT of chest Discharge Disposition: Discharge to home or self care from Last 3 Months Allergies Active Allergy Reactions Criticality Noted Date [...] Active butalbital-acetam inophen-caffeine- codeine (FIORICET WITH CODEINE) 64-151-09-30 mg per capsule Take 1 capsule by [...] visit. Assessment & Plan (07/08/2020 3:22 PM CHIEF QUALITY OFFICER): Continue to have heart fluttering. The Inderal [...] cardiomyopathy. Assessment & Plan (07/07/2020 7:04 PM CHIEF QUALITY OFFICER): Stress echo 11/15/2017 was negative for ischemia. [...] [place]. Assessment & Plan (07/07/2020 7:06 PM CHIEF QUALITY OFFICER): Variant hypertrophic cardiomyopathy. Asymmetrical septal hypertrophy with [...] [place]. 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 [...] Date Resolved Date Atrial flutter 01/01/2018 11/25/2018 Immunizations Immunization Administration Dates Next Due COVID-19 [...] valent, Original/omicron Ba.1 02/16/2023 ZOSTER Recombinant 10/07/2021 Social History Tobacco Use Types Packs/Day Years [...] on file 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 CHIEF QUALITY OFFICER Gender Identity Not on file Sexual Orientation Not on file Last Filed Vital Signs Vital Sign Reading Time Taken Comments Blood Pressure 110/60 06/29/2024 10:09 AM CHIEF QUALITY OFFICER Pulse 73 06/29/2024 10:09 AM CHIEF QUALITY OFFICER Temperature 36.4 C (97.6 F) 11/21/2023 11:32 AM CDT Respiratory Rate 18 11/21/2023 11:32 AM CDT Oxygen Saturation 98% 06/29/2024 10:09 AM CHIEF QUALITY OFFICER Inhaled Oxygen Concentration - - Weight 68 kg (150 lb) 07/13/2024 11:33 AM CDT Height 170.2 cm (5' 7) 07/13/2024 11:33 AM CDT Body Mass Index 23.49 07/13/2024 11:33 AM CDT Plan of Treatment Not on file Procedures Procedure Name Priority Date/Time Associated Diagnosis Comments CT CHEST WO CONTRAST F/U LUNG SCREEN PROTOCOL Schedule Routine, Read Routine (OP Routine) 07/13/2024 11:30 AM CDT Pulmonary nodule Abnormal screening CT of chest SCREENING MAMMOGRAM BILATERAL W GENARO Schedule Routine, Read Routine (OP Routine) 03/24/2024 9:24 AM CHIEF QUALITY OFFICER Encounter for screening mammogram for malignant neoplasm [...] Cristobal Armijo M.D. AG: DEMARCUS Report ID: [id number] Reading Location: [id number] Procedure Note Cristobal Armijo MD - 07/16/2024 [...] Cristobal Armijo M.D. AG: DEMARCUS Report ID: [id number] Reading Location: [place] [address] Jaqueline Stark CUSTODY OFFICER IMG CT PROCEDURES Final Result * Screening Mammogram Bilateral W Genaro (03/24/2024 9:24 AM CHIEF QUALITY OFFICER) Anatomical Region Laterality Modality Breast Bilateral Mammography Impressions 03/24/2024 10:49 AM CHIEF QUALITY OFFICER BI-RADS ATLAS category (overall): 1 - Negative There is no mammographic evidence of malignancy. A 1 year screening mammogram is recommended. The patient has been or will be contacted. We recommend annual screening mammography for women at average risk of breast cancer beginning at age 40, based on guidelines of the [employer] (ACR Practice Parameter for the Performance of Screening and Diagnostic Mammography) and [employer] of Obstetricians [employer] Gynecologists. For women with and elevated risk of breast cancer, please refer to the ACR Practice Parameter for specific screening recommendations. The patient will be entered into a reminder system with a target due date of 1 year for her next screening exam. Narrative 03/24/2024 10:49 AM CHIEF QUALITY OFFICER Screening Mammogram Bilateral W Genaro: 03/24/24 The [...] given history of: screening for osteoporosis Postmenopausal Room Service Manager/Model: [employer] A (S/N [id number]) CLINICAL INFORMATION: Current height: 66.5 inches Maximum [...] Pavan Eller M.D. MF: [email or web address] Report ID: [id number] Reading Location: [place] [address] Procedure Note Pavan Eller MD - 01/29/2023 EXAM DESCRIPTION: DEXA AXIAL SKELETON BONE DENSITY 1 OR MORE SITES REASON FOR STUDY: 72 y/o year old F with given history of: screeningfor osteoporosis Postmenopausal Room Service Manager/Model: [employer] Horizon A (S/N [id number]) CLINICAL INFORMATION: Current height: 66.5 inches Maximum [...] Pavan Eller M.D. MF: VIVEK Report ID: [id number] Reading Location: [place] [address] Jaqueline Stark NP IMG DXA PROCEDURES Marilia l Result * Colonoscopy (11/17/2021) Anatomical Region Laterality Modality Other 11/17/2021 Impressions 11/17/2021 Internal hemorrhoids Diverticulosis Colon polyps removed Repeat in 3 years Historical Provider MD ENDOSCOPY PROCEDURES Marilia l Result * Hepatitis panel, acute (09/05/2021 10:55 AM CDT) Hep A IgM Nonreactive Nonreactive [facility] Comment: Interpretive Data: If Hep A IgM Ab is reported as Equivocal, a new sample should be drawn in two weeks for testing. Current interpretive data was last revised on 19. Hep B core IgM Nonreactive Nonreactive [facility] Comment: Interpretive Data If HepB Core IgM Ab is reported as Equivocal, a new sample should be drawn in two weeks for testing. Current interpretive data was last revised on 19. Hep C Ab Nonreactive Nonreactive [facility] Comment: Interpretive Data Nonreactive: Antibodies to HCV [...] last revised on 2019. HepBsAg Nonreactive Nonreactive [facility] Blood 09/05/2021 10:5 5 AM CDT 09/05/2021 12:33 PM CDT Carmen Singletary MD LAB MICROBIOLOGY - [facility] L ORDERABLES Final Result [facility] [address] [facility] Department [place] [address] from Last 3 Months or Most Recently Relevant to Health Maintenance Insurance [facility] Care Teams Therapist Respiratory Relationship Specialty Start Date End Date Mary Spencer DO [address] [place] [address] [address] [place] [address] PCP - General Family Medicine 05/19/24 Sultan Roly Elizondo MD [address] [facility] [address] Consulting Physician Cardiovascular Disease 10/16/22 Carmen Singletary MD [address] [place] [address] Referring Physician Dermatology 10/16/22
--- OUTSIDE RECORDS SUMMARY | 2024-09-30 21:42 | XMS_ITS | Clinical Summary ---
Author Organization [facility] Address [address] [place] [address] Care Team Providers Care Demonstrator Knitting Name Role Phone Unavailable Primary Care Provider Unavailabl e Source Comments [facility],non-owned Affiliates and Associated Physician Practices is amultiple site organization consisting of ambulatory clinics and hospital sitesin [place], [place], [place] and [place]. This disclosure is being madepursuant to the Care Everywhere program and may not contain all information available regarding this patient. Last updated 18.[facility] [employer] Social History Tobacco Use Types Packs/Day Years Used Date Smoking Tobacco: Never Assessed Comments Unknown Sex and Gender Information Value Date Recorded Sex Assigned at Not on file Legal Sex Female 5:21 PM EXPRESS CLERK Gender Identity Not on file Sexual Orientation Not on file Plan of Treatment Health Maintenance Due Date Last Done Comments BONE DENSITY TESTING 1950 COLOGUARD (AGES 45-75) - COL ON CA SCREENING 1950 COLON MONITORING 1950 COLONOSCOPY - COLON CA SCREENING 1950 CT COLONOGRAPHY - COLON CA SCREENING 1950 Colorectal Cancer Screening 1950 FIT - COLON CA SCREENING 1950 FLEX SIG - COLON CA SCREENING 1950 LIPID TESTING 1950 MAMMOGRAM 1950 MEDICARE AWV 12 MONTHS 1950 HEPATITIS C SCREENING 06/05/1968 DTAP/TDAP/TD VACCINES (1 - Tdap) 1969 PNEUMOCOCCAL VACCINE 50+ (1 of 1 - PCV) 2000 ZOSTER VACCINE (1 of 2) 2000 COVID-19 VACCINE ( - 2023-2 5 season) 2024 DEPRESSION SCREENING 05/06/2024 INFLUENZA VACCINE (Season Ended) 2025 Respiratory Syncytial Virus (RSV) Vaccine Pt: or over 60 yrs (1 - 1-dose 75+ series) 2025 HEPATITIS B VACCINE Aged Out No longe r eligible based on patient's age to complete this topic HIB VACCINE Aged Out No longer eligi ble based on patient's age to complete this topic HPV VACCINE Aged Out No longer eligi ble based on patient's age to complete this topic MENINGOCOCCAL (Group B) VACC INE SHARED DECISION-MAKING Aged Out No longer eligibl e based on patient's age to complete this topic MENINGOCOCCAL GROUPS A/C/Y/W VACCINE Aged Out No longer eligible b ased on patient's age to complete this topic Insurance [employer]ENCE [employer]ICARE E[employer]ENCE MEDICARE
--- OUTSIDE RECORDS SUMMARY | 2024-09-30 21:42 | XMS_ITS | Encounter Summary ---
Author Organization [facility] Facility Care Team Providers Care Body Care Manager Name Role Phone Calin Christina MD Primary Care Provi hallie Jaqueline Stark NP Primary Care Provider Calin Christina MD Primary Care Provi hallie Jaqueline Stark TRADE ECONOMIST Primary Care Provider Sultan Roly Elizondo MD Unavailable [phone] Carmen Singletary MD Unavailable [phone] Mary Spencer DO Primary Care Provider + Encounter Details Date Type Department Care Team (Latest Contact Info) Description 10/30/2017 Orders Only [facility] CLINCONV ProviderJosefina MD [address] [place] [address] Social History Tobacco Use Types Packs/Day Years Used Date Smoking Tobacco: Never Assessed Comments Unknown Sex and Gender Information Value Date Recorded Sex Assigned at Not on file 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 OUTPATIENT CODER Gender Identity Not on file Sexual Orientation [...] on filedocumented in this encounter Care Teams Body Care Manager Relationship Specialty Start Date End Date Calin Christina MD [address] [place] [address] PCP - General 09/18/18 11/13/21 Jaqueline Stark NP [address] [place] [address] PCP - General Internal Medicine 11/14/21 04/16/22 Calin Christina MD [address] [place] [address] PCP - General Family Medicine 04/17/22 04/19/22 [place] [address] [place] [address] [address] [place], [place] [address] PCP - General Internal Medicine 04/20/22 05/18/24 Mary Spencer DO [address] [place] [address] [place] [address] PCP - General Family Medicine 05/19/24 Sultan Roly Elizondo MD [address] [facility] [place] [address] Consulting Physician Cardiovascular Disease 10/16/22 Carmen Singletary MD [address] [place] [address] Referring Physician Dermatology 10/16/22 documented as of this encounter
--- OUTSIDE RECORDS SUMMARY | 2024-09-30 21:42 | XMS_ITS | Encounter Summary ---
Author Organization [facility] Facility Care Team Providers Care Entertainment & Media Correspondent Name Role Phone Calin Christina MD Primary Care Provi hallie Jaqueline Stark NP Primary Care Provider Calin Christina MD Primary Care Provi hallie Jaqueline Stark CARRIAGE RIDER Primary Care Provider Sultan Roly Elizondo MD Unavailable [phone] Carmen Singletary MD Unavailable [phone] Mary Spencer DO Primary Care Provider + Encounter Details Date Type Department Care Team (Latest Contact Info) Description 11/01/2017 Orders Only [facility]G CLINCONV ProviderJosefina MD [address] [place] [address] Social History Tobacco Use Types Packs/Day Years Used Date Smoking Tobacco: Never Assessed Comments Unknown Sex and Gender Information Value Date Recorded Sex Assigned at Not on file 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 us Historical Provider CV CARDIAC SERVICES MILES ACUNA Final Result documented in this encounter Visit Diagnoses Not on filedocumented in this encounter Care Teams Entertainment & Media Correspondent Relationship Specialty Start Date End Date Calin Christina MD [address] [place] [address] PCP - General 09/18/18 11/13/21 Jaqueline Stark NP [address] [place] [address] PCP - General Internal Medicine 11/14/21 04/16/22 Calin Christina MD [address] [place] [address] PCP - General Family Medicine 04/17/22 04/19/22 [place] [address] [place] [address] [address] [place], [place] [address] PCP - General Internal Medicine 04/20/22 05/18/24 Mary Spencer DO [address] [place] [address] [place] [address] PCP - General Family Medicine 05/19/24 Sultan Roly Elizondo MD [address] [facility] [address] Consulting Physician Cardiovascular Disease 10/16/22 Carmen Singletary MD [address] [place] [address] Referring Physician Dermatology 10/16/22 documented as of this encounter
--- OUTSIDE RECORDS SUMMARY | 2024-09-30 21:42 | XMS_ITS | Encounter Summary ---
Author Organization [facility] Facility Care Team Providers Care Project Management Professional Name Role Phone Calin Christina MD Primary Care Provi hallie Jaqueline Stark NP Primary Care Provider Calin Christina MD Primary Care Provi hallie Jaqueline Stark ANODIC TREATER Primary Care Provider Sultan Roly Elizondo MD Unavailable [phone] Carmen Singletary MD Unavailable [phone] Mary Spencer DO Primary Care Provider + Encounter Details Date Type Department Care Team (Latest Contact Info) Description 11/22/2017 Orders Only [facility] CLINCONV ProviderJosefina MD [address] [place] [address] Social History Tobacco Use Types Packs/Day Years Used Date Smoking Tobacco: Never Assessed Comments Unknown Sex and Gender Information Value Date Recorded Sex Assigned at Not on file 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 us Historical Provider CV CARDIAC SERVICES MILES ACUNA Final Result documented in this encounter Visit Diagnoses Not on filedocumented in this encounter Care Teams Project Management Professional Relationship Specialty Start Date End Date Calin Christina MD [address] [place] [address] PCP - General 09/18/18 11/13/21 Jaqueline Stark NP [address] [place] [address] PCP - General Internal Medicine 11/14/21 04/16/22 Calin Christina MD [address] [place] [address] PCP - General Family Medicine 04/17/22 04/19/22 [place] [address] [place] [address] [address] [place], [place] [address] PCP - General Internal Medicine 04/20/22 05/18/24 Mary Spencer DO [address] [place] [address] [place] [address] PCP - General Family Medicine 05/19/24 Sultan Roly Elizondo MD [address] [facility] [place] [address] Consulting Physician Cardiovascular Disease 10/16/22 Carmen Singletary MD [address] [place] [address] Referring Physician Dermatology 10/16/22 documented as of this encounter
--- OUTSIDE RECORDS SUMMARY | 2024-09-30 21:42 | XMS_ITS | Encounter Summary ---
Author Organization [facility] Facility Care Team Providers Care Wrapper Counter Name Role Phone Calin Christina MD Primary Care Provi hallie Jaqueline Stark NP Primary Care Provider Calin Christina MD Primary Care Provi hallie Jaqueline Stark CULINARY ARTS TEACHER Primary Care Provider Sultan Roly Elizondo MD Unavailable [phone] Carmen Singletary MD Unavailable [phone] Mary Spencer DO Primary Care Provider + Encounter Details Date Type Department Care Team (Latest Contact Info) Description 11/04/2017 Orders Only [facility] CLINCONV ProviderJosefina MD [address] [place] [address] Social History Tobacco Use Types Packs/Day Years Used Date Smoking Tobacco: Never Assessed Comments Unknown Sex and Gender Information Value Date Recorded Sex Assigned at Not on file 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 us Historical Provider [facility] AC[facility]NA Final Result documented in this encounter Visit Diagnoses Not on filedocumented in this encounter Care Teams Wrapper Counter Relationship Specialty Start Date End Date Calin Christina MD [address] [place] [address] PCP - General 09/18/18 11/13/21 Jaqueline Stark NP [address] [place] [address] PCP - General Internal Medicine 11/14/21 04/16/22 Calin Christina MD [address] [place] [address] PCP - General Family Medicine 04/17/22 04/19/22 [place] [address] [place] [address] [address] [place], [place] [address] PCP - General Internal Medicine 04/20/22 05/18/24 Mary Spencer DO [address] [place] [address] [place] [address] PCP - General Family Medicine 05/19/24 Sultan Roly Elizondo MD [address] [facility] [place] [address] Consulting Physician Cardiovascular Disease 10/16/22 Carmen Singletary MD [address] [place] [address] Referring Physician Dermatology 10/16/22 documented as of this encounter
--- OUTSIDE RECORDS SUMMARY | 2024-09-30 21:42 | XMS_ITS | Encounter Summary ---
Author Organization [facility] Facility Care Team Providers Care Transit Clerk Name Role Phone Calin Christina MD Primary Care Provi hallie Jaqueline Stark NP Primary Care Provider Calin Christina MD Primary Care Provi hallie Jaqueline Stark TRACK MAINTAINER Primary Care Provider Sultan Roly Elizondo MD Unavailable [phone] Carmen Singletary MD Unavailable [phone] Mary Spencer DO Primary Care Provider + Encounter Details Date Type Department Care Team (Latest Contact Info) Description 09/27/2015 Orders Only [facility] CLINCONV ProviderJosefina MD [address] [place] [address] Social History Tobacco Use Types Packs/Day Years Used Date Smoking Tobacco: Never Assessed Comments Unknown Sex and Gender Information Value Date Recorded Sex Assigned at Not on file 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 us Historical Provider Final Res ult documented in this encounter Visit Diagnoses Not on filedocumented in this encounter Care Teams Transit Clerk Relationship Specialty Start Date End Date Calin Christina MD [address] [place] [address] PCP - General 09/18/18 11/13/21 Jaqueline Stark, ALIA [address] [place] [address] PCP - General Internal Medicine 11/14/21 04/16/22 Calin Crhistina MD [address] [place] [address] PCP - General Family Medicine 04/17/22 04/19/22 Jaquelnie Stark, ALIA [address] [place], [place] [address] PCP - General Internal Medicine 04/20/22 05/18/24 Mary Spencer DO [address] [place] [address] [place] [address] PCP - General Family Medicine 05/19/24 Sultan Roly Elizondo MD [address] [facility] [place] [address] Consulting Physician Cardiovascular Disease 10/16/22 Carmen Singletary MD [address] [place] [address] Referring Physician Dermatology 10/16/22 documented as of this encounter
--- OUTSIDE RECORDS SUMMARY | 2024-09-30 21:42 | XMS_ITS | Encounter Summary ---
Author Organization [facility] Facility Care Team Providers Care Lobby Concierge Name Role Phone Calin Christina MD Primary Care Provi hallie Jaqueline Stark NP Primary Care Provider Calin Christina MD Primary Care Provi hallie Jaqueline Stark GLUING MACHINE ADJUSTER Primary Care Provider Sultan Roly Elizondo MD Unavailable [phone] Carmen Singletary MD Unavailable [phone] Mary Spencer DO Primary Care Provider + Encounter Details Date Type Department Care Team (Latest Contact Info) Description 11/03/2017 Orders Only [facility] CLINCONV ProviderJosefina MD [address] [place] [address] Social History Tobacco Use Types Packs/Day Years Used Date Smoking Tobacco: Never Assessed Comments Unknown Sex and Gender Information Value Date Recorded Sex Assigned at Not on file 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 Gender Identity Not on file Sexual Orientation [...] on filedocumented in this encounter Care Teams Lobby Concierge Relationship Specialty Start Date End Date Calin Christina MD [address] [place] [address] PCP - General 09/18/18 11/13/21 Jaqueline Stark NP [address] [place] [address] PCP - General Internal Medicine 11/14/21 04/16/22 Calin Christina MD [address] [place] [address] PCP - General Family Medicine 04/17/22 04/19/22 [place] [address] [place] [address] [address] [place], [place] [address] PCP - General Internal Medicine 04/20/22 05/18/24 Mary Spencer DO [address] [place] [address] [place] [address] PCP - General Family Medicine 05/19/24 Sultan Roly Elizondo MD [address] [facility] [place] [address] Consulting Physician Cardiovascular Disease 10/16/22 Carmen Singletary MD [address] [place] [address] Referring Physician Dermatology 10/16/22 documented as of this encounter
--- OUTSIDE RECORDS SUMMARY | 2024-09-30 21:42 | XMS_ITS | Encounter Summary ---
Author Organization [facility] Facility Care Team Providers Care Dispensing And Measuring Optician Name Role Phone Calin Christina MD Primary Care Provi hallie Jaqueline Stark NP Primary Care Provider Calin Christina MD Primary Care Provi hallie Jaqueline Stark UTILITY CLERK Primary Care Provider Sultan Roly Elizondo MD Unavailable [phone] Carmen Singletary MD Unavailable [phone] Mary Spencer DO Primary Care Provider + Encounter Details Date Type Department Care Team (Latest Contact Info) Description 11/12/2016 Orders Only [facility] CLINCONV ProviderJosefina MD [address] [place] [address] Social History Tobacco Use Types Packs/Day Years Used Date Smoking Tobacco: Never Assessed Comments Unknown Sex and Gender Information Value Date Recorded Sex Assigned at Not on file 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 us Historical Provider CV CARDIAC [facility] ACUNA Final Result documented in this encounter Visit Diagnoses Not on filedocumented in this encounter Care Teams Dispensing And Measuring Optician Relationship Specialty Start Date End Date Calin Christina MD [address] [place] [address] PCP - General 09/18/18 11/13/21 Jaqueline Stark NP [address] [place] [address] PCP - General Internal Medicine 11/14/21 04/16/22 Calin Christina MD [address] [place] [address] PCP - General Family Medicine 04/17/22 04/19/22 [place] [address] [place] [address] [address] [place], [place] [address] PCP - General Internal Medicine 04/20/22 05/18/24 Mary Spencer DO [address] [place] [address] [place] [address] PCP - General Family Medicine 05/19/24 Sultan Roly Elizondo MD [address] [facility] [place] [address] Consulting Physician Cardiovascular Disease 10/16/22 Carmen Singletary MD [address] [place] [address] Referring Physician Dermatology 10/16/22 documented as of this encounter
--- OUTSIDE RECORDS SUMMARY | 2024-09-30 21:42 | XMS_ITS | Encounter Summary ---
Author Organization [facility] Address [address] [place], [place] [address] [address] Care Team Providers Care Cath Lab Manager Name Role Phone Unavailable Primary Care Provider Unavailabl e Encounter Details Date Type Department Care Team (Late st Contact Info) Description 08/13/2019 Lab Requisition [facility] DermPath Lab [address] [facility], [facility] [place] [address] Carmen Singletary MD [address] [facility] 3 [place] [address] Social History Tobacco Use Types Packs/Day Years Used Date Smoking Tobacco: Never Assessed Comments Unknown Sex and Gender Information Value Date Recorded Sex Assigned at Not on file 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 Gender Identity Not on file Sexual Orientation Not on file documented as of this encounter Plan of Treatment Not on file documented as of this encounter Procedures Procedure Name Priority Date/Time Associated Diagnosis Comments DERMATOPATH TECHNICAL REPORT Routine 08/13/2019 12:00 AM CDT documented in this encounter Results * DERMATOPATH TECHNICAL REPORT (08/13/2019 12:00 AM CDT) Case Report Dermatopathology Report Case: [id number] Authorizing Provider: Carmen Singletary MD Collected: 08/13/2019 12:00 AM Ordering Location: [facility] DermPath Lab Received: 08/13/2019 02:22 PM Pathologist: Donte Guo MD Specimen: Skin, left mejia 0 2:22 PM CDT DERMATOPATHOLOGY LABORATORY Addendum 1 At the request of the diagnosing physician, technical component for Magdaleno-Ep4 was performed on block 5 at [facility] Dermatopathology Laboratory. 0 2:22 PM CDT DERMATOPATHOLOGY LABORATORY Addendum electronically signed by Donte Guo MD on 08/18/2019 at 1422 CDT Clinical History Bx proven SCC, well diff. 0 2:22 PM CDT DERMATOPATHOLOGY LABORATORY Gross Description Specimen A: Received is one formalin filled container labeled with the patient's name and designated left mejia.The specimen consists of an ellipse measuring 09o09u0wn and is oriented with the notch at the 3 o'clock position, not labeled on the requisition. The 12 to 6 o'clock margin is inked green. The 6 o'clock to 12 o'clock margin is inked black. The 12 o'clock tip is submitted in cassette 1. The 6 o'clock tip is submitted in cassette 2. The remainder of the ellipse is serially sectioned and submitted in cassettes 3-5. Jar 0. [facility] Dermatopathology Laboratory performed the technical component only. 0 2:22 PM CDT DERMATOPATHOLOGY LABORATORY Embedded Images 0 2:22 PM CDT DERMATOPATHOLOGY LABORATORY DISCLAIMER An external and internal positive and negative controls are appropriate for the histochemical, immunohistochemical and immunofluorescence stain(s) in this case (if any), except where stated explicitly. The performance characteristics of the stain(s) cited in this report were developed and its performance characteristic determined by the Dermatopathology Laboratory at [facility], directed by Dr. Pete Guo. These tests need not be, and therefore are not, approved by the [place] Food and Drug Administration. The tests are used for clinical purposes. 0 2:22 PM CDT DERMATOPATHOLOGY LABORATORY at 1531 CDT Pathology/Cytolog y TISSUE SPECIMEN FROM SKIN / Unknown 08/13/2019 08/13/2019 2:22 PM CDT us Carmen Singletary MD LAB - PATHOLOGY/CYTOLOGY ORD ERABLES Edited Result - Final DERMATOPATHOLOGY LABORATORY [facility] - Department of Dermatology [facility] [facility], 5th [place] [address], [facility] [phone] documented in this encounter Visit Diagnoses Not on filedocumented in this encounter
--- OUTSIDE RECORDS SUMMARY | 2024-09-30 21:42 | XMS_ITS | Encounter Summary ---
Author Organization [facility] Facility Care Team Providers Care Kettle Girl Name Role Phone Calin Christina MD Primary Care Provi hallie Jaqueline Stark NP Primary Care Provider Calin Christina MD Primary Care Provi hallie Jaqueline Stark ASSISTANT PROFESSOR OF GEOGRAPHY Primary Care Provider Sultan Roly Elizondo MD Unavailable [phone] Carmen Singletary MD Unavailable [phone] Mary Spencer DO Primary Care Provider + Encounter Details Date Type Department Care Team (Latest Contact Info) Description 11/16/2017 Orders Only [facility] CLINCONV ProviderJosefina MD [address] [place] [address] Social History Tobacco Use Types Packs/Day Years Used Date Smoking Tobacco: Never Assessed Comments Unknown Sex and Gender Information Value Date Recorded Sex Assigned at Not on file 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 Gender Identity Not on file Sexual [...] on filedocumented in this encounter Care Teams Kettle Girl Relationship Specialty Start Date End Date Calin Christina MD [address] [place] [address] PCP - General 09/18/18 11/13/21 Jaqueline Stark NP [address] [place] [address] PCP - General Internal Medicine 11/14/21 04/16/22 Calin Christina MD [address] [place] [address] PCP - General Family Medicine 04/17/22 04/19/22 [place] [address] [place] [address] [address] [place], [place] [address] PCP - General Internal Medicine 04/20/22 05/18/24 Mary Spencer DO [address] [place] [address] [place] [address] PCP - General Family Medicine 05/19/24 Sultan Roly Elizondo MD [address] [facility] [place] [address] Consulting Physician Cardiovascular Disease 10/16/22 Carmen Singletary MD [address] [place] [address] Referring Physician Dermatology 10/16/22 documented as of this encounter
--- OUTSIDE RECORDS SUMMARY | 2024-09-30 21:42 | XMS_ITS | Encounter Summary ---
Author Organization [facility] Facility Care Team Providers Care Sales Training Manager Name Role Phone Calin Christina MD Primary Care Provi hallie Jaqueline Stark NP Primary Care Provider Calin Christina MD Primary Care Provi hallie Jaqueline Stark DENIAL MANAGEMENT REPRESENTATIVE Primary Care Provider Sultan Roly Elizondo MD Unavailable [phone] Carmen Singletary MD Unavailable [phone] Mary Spencer DO Primary Care Provider + Encounter Details Date Type Department Care Team (Latest Contact Info) Description 11/12/2017 Orders Only [facility] CLINCONV ProviderJosefina MD [address] [place] [address] Social History Tobacco Use Types Packs/Day Years Used Date Smoking Tobacco: Never Assessed Comments Unknown Sex and Gender Information Value Date Recorded Sex Assigned at Not on file 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 Gender Identity Not on file Sexual [...] on filedocumented in this encounter Care Teams Sales Training Manager Relationship Specialty Start Date End Date Calin Christina MD [address] [place] [address] PCP - General 09/18/18 11/13/21 Jaqueline Stark NP [address] [place] [address] PCP - General Internal Medicine 11/14/21 04/16/22 Calin Christina MD [address] [place] [address] PCP - General Family Medicine 04/17/22 04/19/22 [place] [address] [place] [address] [address] [place], [place] [address] PCP - General Internal Medicine 04/20/22 05/18/24 Mary Spencer DO [address] [place] [address] [place] [address] PCP - General Family Medicine 05/19/24 Sultan Roly Elizondo MD [address] [facility] [place] [address] Consulting Physician Cardiovascular Disease 10/16/22 Carmen Singletary MD [address] [place] [address] Referring Physician Dermatology 10/16/22 documented as of this encounter
--- OUTSIDE RECORDS SUMMARY | 2024-09-30 21:42 | XMS_ITS | Encounter Summary ---
Author Organization [facility] Address [address] [place], [place] [address] [address] Care Team Providers Care Educational Manager Name Role Phone Unavailable Primary Care Provider Unavailabl e Encounter Details Date Type Department Care Team (Late st Contact Info) Description 01/01/2020 Lab Requisition [facility] DermPath Lab [address] [facility], [facility] [place] [address] Carmen Singletary MD [address] [facility] 3 [place] [address] Social History Tobacco Use Types Packs/Day Years Used Date Smoking Tobacco: Never Assessed Comments Unknown Sex and Gender Information Value Date Recorded Sex Assigned at Not on file 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 Gender Identity Not on file Sexual Orientation Not on file documented as of this encounter Plan of Treatment Not on file documented as of this encounter Procedures Procedure Name Priority Date/Time Associated Diagnosis Comments DERMATOPATHOLOGY Routine 12/31/2019 12:0 0 AM CDT documented in this encounter Results * DERMATOPATHOLOGY (12/31/2019 12:00 AM CDT) Case Report Dermatopathology Report Case: [id number] Authorizing Provider: Carmen Singletary MD Collected: 12/31/2019 12:00 AM Ordering Location: [facility] DermPath Lab Received: 01/01/2020 07:16 AM Pathologist: Nano Henderson MD Specimen: Skin, left chest 0 4:37 PM CDT DERMATOPATHOLOGY LABORATORY Final Diagnosis Specimen A. SKIN, left chest: SQUAMOUS CELL CARCINOMA, WELL DIFFERENTIATED (C44.529) NOT PRESENT AT MARGIN DERMAL SCAR (L90.5) 0 4:37 PM CDT DERMATOPATHOLOGY LABORATORY at 1637 CDT Clinical History R/O SCC, keratoacanthoma type; biopsy proven. Previus Bx:[id number]. 0 4:37 PM CDT DERMATOPATHOLOGY LABORATORY Gross Description Specimen A: Received is one formalin filled container labeled with the patient's name and designated left chest.The specimen consists of an ellipse measuring 89x70x5ma and is oriented with the notch at the 3 o'clock position labeled on the requisition as superior. The epidermal surface consists of a centrally located 10x8mm previous biopsy site. The 12 to 6 o'clock margin is inked green. The 6 o'clock to 12 o'clock margin is inked black. The 12 o'clock tip is submitted in cassette 1. The 6 o'clock tip is submitted in cassette 2. The remainder of the ellipse is serially sectioned and submitted in cassettes 3-4. Jar 0. 0 4:37 PM CDT DERMATOPATHOLOGY LABORATORY Microscopic Description Specimen A. SKIN, left chest: Arising in the epidermis and extending into the dermis there are irregularly shaped aggregates of keratinocytes showing evidence of premature cornification. This lesion is not present at the margin of the specimen. There are fibroblasts and collagen bundles oriented parallel to the skin surface with elongated blood vessels, some of which are oriented perpendicular to the skin surface. 0 4:37 PM CDT DERMATOPATHOLOGY LABORATORY Disclaimer An external and internal positive and negative controls are appropriate for the histochemical, immunohistochemical and immunofluorescence stain(s) in this case (if any), except where stated explicitly. The performance characteristics of the stain(s) cited in this report were developed and its performance characteristic determined by the Dermatopathology Laboratory at [facility], directed by Dr. Pete Guo. These tests need not be, and therefore are not, approved by the [place] Food and Drug Administration. The tests are used for clinical purposes. Billing Codes Specimen Charges Stain Charges 03600 1 0 4:37 PM CDT DERMATOPATHOLOGY LABORATORY Embedded Images 0 4:37 PM CDT DERMATOPATHOLOGY LABORATORY Pathology/Cytolog y TISSUE SPECIMEN FROM SKIN / Unknown 12/31/2019 01/01/2020 7:16 AM CDT us Carmen Singletary MD LAB - PATHOLOGY/CYTOLOGY ORD ERABLES Final Result DERMATOPATHOLOGY LABORATORY [facility] - Department of Dermatology [facility] [address] [place] [address], [address] [phone] documented in this encounter Visit Diagnoses Not on filedocumented in this encounter
--- OUTSIDE RECORDS SUMMARY | 2024-09-30 21:42 | XMS_ITS | Encounter Summary ---
Author Organization [facility] Address [address] [place] [address] Care Team Providers Care Market Research Worker Name Role Phone Calin Christina MD Primary Care Provi hallie Jaqueline Stark NP Primary Care Provider Calin Christina MD Primary Care Provi hallie Jaqueline Stark NP Primary Care Provider Sultan Roly Elizondo MD Unavailable [phone] Carmen Singletary MD Unavailable [phone] Mary Spencer DO Primary Care Provider + Encounter Details Date Type Department Care Team (Late st Contact Info) Description 09/27/2015 Orders Only [facility] Health Information Management [address] [place] [address] Scanning, Provider Social History Tobacco Use Types Packs/Day Years Used Date Smoking Tobacco: Never Assessed Comments Unknown Sex and Gender Information Value Date Recorded Sex Assigned at Not on file 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 Gender Identity Not on file Sexual Orientation Not on file documented as of this encounter Plan of Treatment Not on file documented as of this encounter Procedures Procedure Name Priority Date/Time Associated Diagnosis Comments GI - RESULT 09/27/2015 documented in this encounter Results * GI - RESULT (09/27/2015) Anatomical Region Laterality Modality Other us Provider Scanning Final Result documented in this encounter Visit Diagnoses Not on filedocumented in this encounter Care Teams Market Research Worker Relationship Specialty Start Date End Date Calin Christina MD [address] [place] [address] PCP - General 09/18/18 11/13/21 Jaqueline Stark, ALIA [address] [place] [address] PCP - General Internal Medicine 11/14/21 04/16/22 Calin Christina MD [address] [place] [address] PCP - General Family Medicine 04/17/22 04/19/22 Jaqueline Stark, ALIA [address] [place] [address] PCP - General Internal Medicine 04/20/22 05/18/24 Mary Spencer DO [address] [place] [address] [place] [address] PCP - General Family Medicine 05/19/24 Sultan Roly Elizondo MD [address] [facility] [place] [place] [address] Consulting Physician Cardiovascular Disease 10/16/22 Carmen Singletary MD [address] [place] [address] Referring Physician Dermatology 10/16/22 documented as of this encounter
--- OUTSIDE RECORDS SUMMARY | 2024-09-30 21:42 | XMS_ITS | Encounter Summary ---
Author Organization [facility] Facility Care Team Providers Care Supervisor Roller Printing Name Role Phone Calin Christina MD Primary Care Provi hallie Jaqueline Stark NP Primary Care Provider Calin Christina MD Primary Care Provi hallie Jaqueline Stark ANNEALING TORCH OPERATOR Primary Care Provider Sultan Roly Elizondo MD Unavailable [phone] Carmen Singletary MD Unavailable [phone] Mary Spencer DO Primary Care Provider + Encounter Details Date Type Department Care Team (Latest Contact Info) Description 11/20/2017 Orders Only [facility] ProviderJosefina MD [address] [place] [address] Social History Tobacco Use Types Packs/Day Years Used Date Smoking Tobacco: Never Assessed Comments Unknown Sex and Gender Information Value Date Recorded Sex Assigned at Not on file 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 us Historical Provider CV CARDIAC SERVICES PROCE DURES Final Result * CARDIOLOGY REPORT (11/22/2017 12:00 AM CDT) Anatomical Region Laterality Modality Other Narrative 11/22/2017 12:00 AM CDT Ordered by an unspecified provider. us Historical Provider CV CARDIAC SERVICES PROCE DURES Final Result documented in this encounter Visit Diagnoses Not on filedocumented in this encounter Care Teams Supervisor Roller Printing Relationship Specialty Start Date End Date Calin Christina MD [address] [place] [address] PCP - General 09/18/18 11/13/21 Jaqueline Stark NP [facility] [address] [place] [address] PCP - General Internal Medicine 11/14/21 04/16/22 Calin Christina MD [address] [place] [address] PCP - General Family Medicine 04/17/22 04/19/22 Jaqueline Stark NP [address] [place] [address] PCP - General Internal Medicine 04/20/22 05/18/24 Mary Spencer DO [address] [place] [address] [address] [place] [address] PCP - General Family Medicine 05/19/24 Sultan Roly Elizondo MD [address] [facility] [address] [address] Consulting Physician Cardiovascular Disease 10/16/22 Carmen Singletary MD [address] [place] [address] Referring Physician Dermatology 10/16/22 documented as of this encounter
--- OUTSIDE RECORDS SUMMARY | 2024-09-30 21:42 | XMS_ITS | Encounter Summary ---
Author Organization [facility] Facility Care Team Providers Care Radio Engineering Teacher Name Role Phone Calin Christina MD Primary Care Provi hallie Jaqueline Stark NP Primary Care Provider Calin Christina MD Primary Care Provi hallie Jaqueline Stark PEELED POTATO INSPECTOR Primary Care Provider Sultan Roly Elizondo MD Unavailable [phone] Carmen Singletary MD Unavailable [phone] Mary Spencer DO Primary Care Provider + Encounter Details Date Type Department Care Team (Latest Contact Info) Description 11/25/2017 Orders Only [facility] ProviderJosefina MD [address] [place] [address] Social History Tobacco Use Types Packs/Day Years Used Date Smoking Tobacco: Never Assessed Comments Unknown Sex and Gender Information Value Date Recorded Sex Assigned at Not on file 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 us Historical Provider CV CARDIAC SERVICES MILES ACUNA Final Result documented in this encounter Visit Diagnoses Not on filedocumented in this encounter Care Teams Radio Engineering Teacher Relationship Specialty Start Date End Date Calin Christina MD [address] [place] [address] PCP - General 09/18/18 11/13/21 Jaqueline Stark NP [address] [place] [address] PCP - General Internal Medicine 11/14/21 04/16/22 Calin Christina MD [address] [place] [address] PCP - General Family Medicine 04/17/22 04/19/22 [place] [address] [place] [address] [address] [place], [place] [address] PCP - General Internal Medicine 04/20/22 05/18/24 Mary Spencer DO [address] [place] [address] [place] [address] PCP - General Family Medicine 05/19/24 Sultan Roly Elizondo MD [address] [facility] [place] [address] Consulting Physician Cardiovascular Disease 10/16/22 Carmen Singletary MD [address] [place] [address] Referring Physician Dermatology 10/16/22 documented as of this encounter
--- OUTSIDE RECORDS SUMMARY | 2024-09-30 21:42 | XMS_ITS | Encounter Summary ---
Author Organization [facility] Facility Care Team Providers Care Car Attendant Name Role Phone Calin Christina MD Primary Care Provi hallie Jaqueline Stark NP Primary Care Provider Calin Christina MD Primary Care Provi hallie Jaqueline Stark IN STORE DEMONSTRATOR Primary Care Provider Sultan Roly Elizondo MD Unavailable [phone] Carmen Singletary MD Unavailable [phone] Mary Spencer DO Primary Care Provider + Encounter Details Date Type Department Care Team (Latest Contact Info) Description 11/24/2017 Orders Only [facility] ProviderJosefina MD [address] [place] [address] Social History Tobacco Use Types Packs/Day Years Used Date Smoking Tobacco: Never Assessed Comments Unknown Sex and Gender Information Value Date Recorded Sex Assigned at Not on file 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 ADJUTANT GENERAL Gender Identity Not on file Sexual Orientation Not on file documented as of this encounter Plan of Treatment Not on file documented as of this encounter Procedures Procedure Name Priority Date/Time Associated Diagnosis Comments CARDIOLOGY REPORT 11/24/2017 12: 00 AM CDT documented in this encounter Results * CARDIOLOGY REPORT (11/24/2017 12:00 AM CDT) Anatomical Region Laterality Modality Other Narrative 11/24/2017 12:00 AM CDT Ordered by an unspecified provider. us Historical Provider CV CARDIAC SERVICES MILES ACUNA Final Result documented in this encounter Visit Diagnoses Not on filedocumented in this encounter Care Teams Car Attendant Relationship Specialty Start Date End Date Calin Christina MD [address] [place] [address] PCP - General 09/18/18 11/13/21 Jaqueline Stark NP [address] [place] [address] PCP - General Internal Medicine 11/14/21 04/16/22 Calin Christina MD [address] [place] [address] PCP - General Family Medicine 04/17/22 04/19/22 [place] [address] [place] [address] [address] [place], [place] [address] PCP - General Internal Medicine 04/20/22 05/18/24 Mary pSencer DO [address] [place] [address] [place] [address] PCP - General Family Medicine 05/19/24 Sultan Roly Elizondo MD [address] [facility] [place] [address] Consulting Physician Cardiovascular Disease 10/16/22 Carmen Singletary MD [address] [place] [address] Referring Physician Dermatology 10/16/22 documented as of this encounter
--- OUTSIDE RECORDS SUMMARY | 2024-09-30 21:42 | XMS_ITS | Encounter Summary ---
Author Organization [facility] Facility Care Team Providers Care Weigher Operator Name Role Phone Calin Christina MD Primary Care Provi hallie Jaqueline Stark NP Primary Care Provider Calin Christina MD Primary Care Provi hallie Jaqueline Stark MANAGER OF TRAINING AND DEVELOPMENT Primary Care Provider Sultan Roly Elizondo MD Unavailable [phone] Carmen Singletary MD Unavailable [phone] Mary Spencer DO Primary Care Provider + Encounter Details Date Type Department Care Team (Latest Contact Info) Description 11/21/2017 Orders Only [facility] ProviderJosefina MD [address] [place] [address] Social History Tobacco Use Types Packs/Day Years Used Date Smoking Tobacco: Never Assessed Comments Unknown Sex and Gender Information Value Date Recorded Sex Assigned at Not on file 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 MECHANICAL ENGINEER Gender Identity Not on file Sexual [...] on filedocumented in this encounter Care Teams Weigher Operator Relationship Specialty Start Date End Date Calin Christina MD [address] [place] [address] PCP - General 09/18/18 11/13/21 Jaqueline Stark NP [address] [place] [address] PCP - General Internal Medicine 11/14/21 04/16/22 Calin Christina MD [address] [place] [address] PCP - General Family Medicine 04/17/22 04/19/22 [place] [address] [place] [address] [address] [place], [place] [address] PCP - General Internal Medicine 04/20/22 05/18/24 Mary Spencer DO [address] [place] [address] [place] [address] PCP - General Family Medicine 05/19/24 Sultan Roly Elizondo MD [address] [facility] [place] [address] Consulting Physician Cardiovascular Disease 10/16/22 Carmen Singletary MD [address] [place] [address] Referring Physician Dermatology 10/16/22 documented as of this encounter
--- OUTSIDE RECORDS SUMMARY | 2024-09-30 21:42 | XMS_ITS | Encounter Summary ---
Author Organization [facility] Facility Care Team Providers Care Land Appraiser Name Role Phone Calin Christina MD Primary Care Provi hallie Jaqueline Stark NP Primary Care Provider Calin Christina MD Primary Care Provi hallie Jaqueline Stark STAFFING ASSOCIATE Primary Care Provider Sultan Roly Elizondo MD Unavailable [phone] Carmen Singletary MD Unavailable [phone] Mary Spencer DO Primary Care Provider + Encounter Details Date Type Department Care Team (Latest Contact Info) Description 11/08/2017 Orders Only [facility] ProviderJosefina MD [address] [place] [address] Social History Tobacco Use Types Packs/Day Years Used Date Smoking Tobacco: Never Assessed Comments Unknown Sex and Gender Information Value Date Recorded Sex Assigned at Not on file 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 us Historical Provider CV CARDIAC SERVICES PROCE DURES Final Result * CARDIOLOGY REPORT (11/08/2017 12:00 AM CDT) Anatomical Region Laterality Modality Other Narrative 11/08/2017 12:00 AM CDT Ordered by an unspecified provider. us Historical Provider CV CARDIAC SERVICES PROCE DURES Final Result documented in this encounter Visit Diagnoses Not on filedocumented in this encounter Care Teams Land Appraiser Relationship Specialty Start Date End Date Calin Christina MD [address] [place] [address] PCP - General 09/18/18 11/13/21 Jaqueline Stark NP [facility] [address] [place] [address] PCP - General Internal Medicine 11/14/21 04/16/22 Calin Christina MD [address] [place] [address] PCP - General Family Medicine 04/17/22 04/19/22 Jaqueline Stark NP [address] [place] [address] PCP - General Internal Medicine 04/20/22 05/18/24 Mary Spencer DO [address] [place] [address] [address] [place] [address] PCP - General Family Medicine 05/19/24 Sultan Roly Elizondo MD [address] [facility] [address] [address] Consulting Physician Cardiovascular Disease 10/16/22 Carmen Singletary MD [address] [place] [address] Referring Physician Dermatology 10/16/22 documented as of this encounter
--- OUTSIDE RECORDS SUMMARY | 2024-09-30 21:42 | XMS_ITS | Encounter Summary ---
Author Organization [facility] Facility Care Team Providers Care It Sales Executive Name Role Phone Calin Christina MD Primary Care Provi hallie Jaqueline Stark NP Primary Care Provider Calin Christina MD Primary Care Provi hallie Jaqueline Stark ACID PURIFIER Primary Care Provider Sultan Roly Elizondo MD Unavailable [phone] Carmen Singletary MD Unavailable [phone] Mary Spencer DO Primary Care Provider + Encounter Details Date Type Department Care Team (Latest Contact Info) Description 11/13/2017 Orders Only [facility] ProviderJosefina MD [address] [place] [address] Social History Tobacco Use Types Packs/Day Years Used Date Smoking Tobacco: Never Assessed Comments Unknown Sex and Gender Information Value Date Recorded Sex Assigned at Not on file 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 Gender Identity Not on file Sexual Orientation [...] on filedocumented in this encounter Care Teams It Sales Executive Relationship Specialty Start Date End Date Calin Christina MD [address] [place] [address] PCP - General 09/18/18 11/13/21 Jaqueline Stark NP [address] [place] [address] PCP - General Internal Medicine 11/14/21 04/16/22 Calin Christina MD [address] [place] [address] PCP - General Family Medicine 04/17/22 04/19/22 [place] [address] [place] [address] [address] [place], [place] [address] PCP - General Internal Medicine 04/20/22 05/18/24 Mary Spencer DO [address] [place] [address] [place] [address] PCP - General Family Medicine 05/19/24 Sultan Roly Elizondo MD [address] [facility] [place] [address] Consulting Physician Cardiovascular Disease 10/16/22 Carmen Singletary MD [address] [place] [address] Referring Physician Dermatology 10/16/22 documented as of this encounter
--- OUTSIDE RECORDS SUMMARY | 2024-09-30 21:42 | XMS_ITS | Encounter Summary ---
Author Organization [facility] Facility Care Team Providers Care Transfer Controller Name Role Phone Calin Christina MD Primary Care Provi hallie Jaqueline Stark NP Primary Care Provider Calin Christina MD Primary Care Provi hallie Jaqueline Stark ONLINE BANKING SPECIALIST Primary Care Provider Sultan Roly Elizondo MD Unavailable [phone] Carmen Singletary MD Unavailable [phone] Mary Spencer DO Primary Care Provider + Encounter Details Date Type Department Care Team (Latest Contact Info) Description 10/20/2015 Orders Only [facility] ProviderJosefina MD [address] [place] [address] Social History Tobacco Use Types Packs/Day Years Used Date Smoking Tobacco: Never Assessed Comments Unknown Sex and Gender Information Value Date Recorded Sex Assigned at Not on file 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 Historical Provider Final Res ult * SCAN - LABS (10/25/2015 12:00 AM CDT) Narrative 10/25/2015 12:00 AM CDT Ordered by an unspecified provider. Historical Provider Final Res ult * SCAN - LABS (10/24/2015 12:00 AM CDT) Narrative 10/24/2015 12:00 AM CDT Ordered by an unspecified provider. [facility] Provider Final Res ult * SCAN - LABS (10/21/2015 12:00 AM CDT) Narrative 10/21/2015 12:00 AM CDT Ordered by an unspecified provider. [facility] Provider Final Res ult documented in this encounter Visit Diagnoses Not on filedocumented in this encounter Care Teams Transfer Controller Relationship Specialty Start Date End Date Calin Christina MD [address] [place] [address] PCP - General 09/18/18 11/13/21 Jaqueline Stark NP [address] [place] [address] PCP - General Internal Medicine 11/14/21 04/16/22 Calin Christina MD [address] [place] [address] PCP - General Family Medicine 04/17/22 04/19/22 [place] [address] [place] [address] PCP - General Internal Medicine 04/20/22 05/18/24 Mary Spencer DO [facility] [facility] [address] [place] [address] PCP - General Family Medicine 05/19/24 Sultan Roly Elizondo MD [address] [facility] [address] [address] Consulting Physician Cardiovascular Disease 10/16/22 Carmen Singletary MD [address] [place] [address] Referring Physician Dermatology 10/16/22 documented as of this encounter
[2024-09-30 21:54] VITALS: BP 162/102; PULSE 81; RESP 18; TEMP 36.6; O2SAT 97
--- OUTSIDE RECORDS SUMMARY | 2024-10-01 00:31 | XMS_ITS | Encounter Summary ---
Author Organization [facility] Facility Care Team Providers Care Digital Director Name Role Phone Calin Christina MD Primary Care Provi hallie Jaqueline Stark NP Primary Care Provider Calin Christina MD Primary Care Provi hallie Jaqueline Stark SECURITY CONTROLS ASSESSOR Primary Care Provider Sultan Roly Elizondo MD Unavailable [phone] Carmen Singletary MD Unavailable [phone] Mary Spencer DO Primary Care Provider + Encounter Details Date Type Department Care Team (Latest Contact Info) Description 11/08/2017 Orders Only [facility]IN[facility] ProviderJosefina MD [address] [place] [address] Social History Tobacco Use Types Packs/Day Years Used Date Smoking Tobacco: Never Assessed Comments Unknown Sex and Gender Information Value Date Recorded Sex Assigned at Not on file 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 Gender Identity Not on file Sexual Orientation [...] on filedocumented in this encounter Care Teams Digital Director Relationship Specialty Start Date End Date Calin Christina MD [address] [place] [address] PCP - General 09/18/18 11/13/21 Jaqueline Stark NP [facility] [address] [place] [address] PCP - General Internal Medicine 11/14/21 04/16/22 Calin Christina MD [address] [place] [address] PCP - General Family Medicine 04/17/22 04/19/22 Jaqueline Stark NP [address] [place] [address] PCP - General Internal Medicine 04/20/22 05/18/24 Mary Spencer DO [address] [place] [address] [address] [place] [address] PCP - General Family Medicine 05/19/24 Sultan Roly Elizondo MD [address] [facility] [address] [address] Consulting Physician Cardiovascular Disease 10/16/22 Carmen Singletary MD [address] [place] [address] Referring Physician Dermatology 10/16/22 documented as of this encounter
--- OUTSIDE RECORDS SUMMARY | 2024-10-01 00:31 | XMS_ITS | Encounter Summary ---
Author Organization [facility] Facility Care Team Providers Care Import Customs Clearing Agent Name Role Phone Calin Christina MD Primary Care Provi hallie Jaqueline Stark NP Primary Care Provider Calin Christina MD Primary Care Provi hallie Jaqueline Stark PUNCH MOLDER Primary Care Provider Sultan Roly Elizondo MD Unavailable [phone] Carmen Singletary MD Unavailable [phone] Mary Spencer DO Primary Care Provider + Encounter Details Date Type Department Care Team (Latest Contact Info) Description 11/23/2017 Orders Only [facility] CLINCONV ProviderJosefina MD [address] [place] [address] Social History Tobacco Use Types Packs/Day Years Used Date Smoking Tobacco: Never Assessed Comments Unknown Sex and Gender Information Value Date Recorded Sex Assigned at Not on file 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 DRAW FRAME 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 Gender Identity Not on file Sexual Orientation [...] on filedocumented in this encounter Care Teams Import Customs Clearing Agent Relationship Specialty Start Date End Date Calin Christina MD [address] [place] [address] PCP - General 09/18/18 11/13/21 Jaqueline Stark NP [address] [place] [address] PCP - General Internal Medicine 11/14/21 04/16/22 Calin Christina MD [address] [place] [address] PCP - General Family Medicine 04/17/22 04/19/22 [place] [address] [place] [address] [address] [place], [place] [address] PCP - General Internal Medicine 04/20/22 05/18/24 Mary Spencer DO [address] [place] [address] [place] [address] PCP - General Family Medicine 05/19/24 Sultan Roly Elizondo MD [address] [facility] [address] Consulting Physician Cardiovascular Disease 10/16/22 Carmen Singletary MD [address] [place] [address] Referring Physician Dermatology 10/16/22 documented as of this encounter
--- OUTSIDE RECORDS SUMMARY | 2024-10-01 00:31 | XMS_ITS | Encounter Summary ---
Author Organization [facility] Facility Care Team Providers Care Upholstery Cleaner Name Role Phone Calin Christina MD Primary Care Provi hallie Jaqueline Stark NP Primary Care Provider Calin Christina MD Primary Care Provi hallie Jaqueline Stark ALLERGIST Primary Care Provider Sultan Roly Elizondo MD Unavailable [phone] Carmen Singletary MD Unavailable [phone] Mary Spencer DO Primary Care Provider + Encounter Details Date Type Department Care Team (Latest Contact Info) Description 11/12/2017 Orders Only [facility] CLINCONV ProviderJosefina MD [address] [place] [address] Social History Tobacco Use Types Packs/Day Years Used Date Smoking Tobacco: Never Assessed Comments Unknown Sex and Gender Information Value Date Recorded Sex Assigned at Not on file 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 Gender Identity Not on file Sexual Orientation [...] on filedocumented in this encounter Care Teams Upholstery Cleaner Relationship Specialty Start Date End Date Calin Christina MD [address] [place] [address] PCP - General 09/18/18 11/13/21 Jaqueline Stark NP [address] [place] [address] PCP - General Internal Medicine 11/14/21 04/16/22 Calin Christina MD [address] [place] [address] PCP - General Family Medicine 04/17/22 04/19/22 [place] [address] [place] [address] [address] [place], [place] [address] PCP - General Internal Medicine 04/20/22 05/18/24 Mary Spencer DO [address] [place] [address] [place] [address] PCP - General Family Medicine 05/19/24 Sultan Roly Elizondo MD [address] [facility] [place] [address] Consulting Physician Cardiovascular Disease 10/16/22 Carmen Singletary MD [address] [place] [address] Referring Physician Dermatology 10/16/22 documented as of this encounter
--- OUTSIDE RECORDS SUMMARY | 2024-10-01 00:31 | XMS_ITS | Encounter Summary ---
Author Organization [facility] Facility Care Team Providers Care Setter Automatic Spinning Lathe Name Role Phone Calin Christina MD Primary Care Provi hallie Jaqueline Stark NP Primary Care Provider Calin Christina MD Primary Care Provi hallie Jaqueline Stark AIR ANALYSIS TECHNICIAN Primary Care Provider Sultan Roly Elizondo MD Unavailable [phone] Carmen Singletary MD Unavailable [phone] Mary Spencer DO Primary Care Provider + Encounter Details Date Type Department Care Team (Latest Contact Info) Description 11/04/2017 Orders Only [facility] CLINCONV ProviderJosefina MD [address] [place] [address] Social History Tobacco Use Types Packs/Day Years Used Date Smoking Tobacco: Never Assessed Comments Unknown Sex and Gender Information Value Date Recorded Sex Assigned at Not on file 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 Gender Identity Not on file Sexual Orientation [...] on filedocumented in this encounter Care Teams Setter Automatic Spinning Lathe Relationship Specialty Start Date End Date Calin Christina MD [address] [place] [address] PCP - General 09/18/18 11/13/21 Jaqueline Stark NP [address] [place] [address] PCP - General Internal Medicine 11/14/21 04/16/22 Calin Christina MD [address] [place] [address] PCP - General Family Medicine 04/17/22 04/19/22 [place] [address] [place] [address] [address] [place], [place] [address] PCP - General Internal Medicine 04/20/22 05/18/24 Mary Spencer DO [address] [place] [address] [place] [address] PCP - General Family Medicine 05/19/24 Sultan Roly Elizondo MD [address] [facility] [place] [place] [address] Consulting Physician Cardiovascular Disease 10/16/22 Carmen Singletary MD [address] [place] [address] Referring Physician Dermatology 10/16/22 documented as of this encounter
--- OUTSIDE RECORDS SUMMARY | 2024-10-01 00:31 | XMS_ITS | Clinical Summary ---
Author Organization [facility] Address [address] [facility] [place] [address] Care Team Providers Care Crew Foreman Name Role Phone Unavailable Primary Care Provider Unavailabl e Source Comments [facility],non-owned Affiliates and Associated Physician Practices is amultiple site organization consisting of ambulatory clinics and hospital sitesin [place], [place], [place] and [place]. This disclosure is being madepursuant to the Care Everywhere program and may not contain all information available regarding this patient. Last updated 18.[facility] [employer] Social History Tobacco Use Types Packs/Day Years Used Date Smoking Tobacco: Never Assessed Comments Unknown Sex and Gender Information Value Date Recorded Sex Assigned at Not on file Legal Sex Female 5:21 PM TRANSPLANT SURGEON Gender Identity Not on file Sexual Orientation [...] to complete this topic Insurance [employer] [facility] Address: [facility] [employer] [address] [place] [address] [employer]
--- OUTSIDE RECORDS SUMMARY | 2024-10-01 00:31 | XMS_ITS | Encounter Summary ---
Author Organization [facility] Address [address] [place] [address] [place] [address] Care Team Providers Care Marketing Regional Consultant Name Role Phone Unavailable Primary Care Provider Unavailabl e Encounter Details Date Type Department Care Team (Late st Contact Info) Description 12/14/2019 Lab Requisition [facility] DermPath Lab [address] [facility], [facility] [place] [address] Carmen Singletary MD [address] [facility] [address] [place] [address] Social History Tobacco Use Types Packs/Day Years Used Date Smoking Tobacco: Never Assessed Comments Unknown Sex and Gender Information Value Date Recorded Sex Assigned at Not on file 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 Gender Identity Not on file Sexual Orientation Not on file documented as of this encounter Plan of Treatment Not on file documented as of this encounter Procedures Procedure Name Priority Date/Time Associated Diagnosis Comments DERMATOPATHOLOGY Routine 12/10/2019 12:0 0 AM CDT documented in this encounter Results * DERMATOPATHOLOGY (12/10/2019 12:00 AM CDT) Case Report Dermatopathology Report Case: [id number] Authorizing Provider: Carmen Singletary MD Collected: 12/10/2019 12:00 AM Ordering Location: [facility] Care DermPath Lab Received: 12/14/2019 12:22 PM [...] characteristic determined by the Dermatopathology Laboratory at [facility], directed by Dr. Pete Guo. These tests need not be, and therefore are not, approved by the [place] Food and Drug Administration. The tests are used for clinical purposes. Billing Codes Specimen Charges Stain Charges 05873 1 0 12:21 PM CDT DERMATOPATHOLOGY LABORATORY Embedded Images 0 12:21 PM CDT DERMATOPATHOLOGY LABORATORY Pathology/Cytolog y TISSUE SPECIMEN FROM SKIN / Unknown 12/10/2019 12/14/2019 12:22 PM CDT us Carmen Singletary MD LAB - PATHOLOGY/CYTOLOGY ORD ERABLES Final Result DERMATOPATHOLOGY LABORATORY [facility] - Department of Dermatology [facility] [place] [address], [facility] [phone] documented in this encounter Visit Diagnoses Not on filedocumented in this encounter
--- OUTSIDE RECORDS SUMMARY | 2024-10-01 00:31 | XMS_ITS | Encounter Summary ---
Author Organization [facility] Facility Care Team Providers Care Disk Sander Name Role Phone Calin Christina MD Primary Care Provi hallie Jaqueline Stark NP Primary Care Provider Calin Christina MD Primary Care Provi hallie Jaqueline Stark GLAZIER HELPER Primary Care Provider Sultan Roly Elizondo MD Unavailable [phone] Carmen Singletary MD Unavailable [phone] Mary Spencer DO Primary Care Provider + Encounter Details Date Type Department Care Team (Latest Contact Info) Description 11/24/2017 Orders Only [facility] CLINCONV ProviderJosefina MD [address] [place] [address] Social History Tobacco Use Types Packs/Day Years Used Date Smoking Tobacco: Never Assessed Comments Unknown Sex and Gender Information Value Date Recorded Sex Assigned at Not on file 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 Gender Identity Not on file Sexual Orientation [...] on filedocumented in this encounter Care Teams Disk Sander Relationship Specialty Start Date End Date Calin Christina MD [address] [place] [address] PCP - General 09/18/18 11/13/21 Jaqueline Stark NP [address] [place] [address] PCP - General Internal Medicine 11/14/21 04/16/22 Calin Christina MD [address] [place] [address] PCP - General Family Medicine 04/17/22 04/19/22 [place] [address] [place] [address] [address] [place], [place] [address] PCP - General Internal Medicine 04/20/22 05/18/24 Mary Spencer DO [address] [place] [address] [place] [address] PCP - General Family Medicine 05/19/24 Sultan Roly Elizondo MD [address] [facility] [place] [address] Consulting Physician Cardiovascular Disease 10/16/22 Carmen Singletary MD [address] [place] [address] Referring Physician Dermatology 10/16/22 documented as of this encounter
--- OUTSIDE RECORDS SUMMARY | 2024-10-01 00:31 | XMS_ITS | Referral Summary ---
Author Organization [facility] [address] Address [address] [place] [address] Care Team Providers Care Regulatory Affairs Spec Name Role Phone Sultan Roly Elizondo MD Unavailable [phone] Carmen Singletary MD Unavailable [phone] Mary Spencer DO Primary Care Provider + Encounters Date Type Department Care Team Description 07/17/2024 Results Follow-Up [facility] Family Medicine [address] [place] [address] Chest WO Contrast F/U Lung Screen Protocol 07/13/2024 11:05 AM CDT - 07/13/2024 11:59 PM CDT Hospital Encounter [facility] [address] [place] [phone] Pulmonary nodule; Abnormal screening CT of chest [...] Active butalbital-acetam inophen-caffeine- codeine (FIORICET WITH CODEINE) 06-729-74-30 mg per capsule Take 1 capsule by [...] visit. Assessment & Plan (07/08/2020 3:22 PM PRICING STRATEGIST): Continue to have heart fluttering. The Inderal [...] cardiomyopathy. Assessment & Plan (07/07/2020 7:04 PM PRICING STRATEGIST): Stress echo 11/15/2017 was negative for ischemia. [...] LA. 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 Assessment & Plan (07/07/2020 7:07 PM PRICING STRATEGIST): Recurrent episodes of PSVT on the monitor [...] on file 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 PRICING STRATEGIST Gender Identity Not on file Sexual Orientation Not on file Last Filed Vital Signs Vital Sign Reading Time Taken Comments Blood Pressure 110/60 06/29/2024 10:09 AM PRICING STRATEGIST Pulse 73 06/29/2024 10:09 AM PRICING STRATEGIST Temperature 36.4 C (97.6 F) 11/21/2023 11:32 AM CDT Respiratory Rate 18 11/21/2023 11:32 AM CDT Oxygen Saturation 98% 06/29/2024 10:09 AM PRICING STRATEGIST Inhaled Oxygen Concentration - - Weight 68 [...] Read Routine (OP Routine) 03/24/2024 9:24 AM PRICING STRATEGIST Encounter for screening mammogram for malignant neoplasm [...] Cristobal Armijo M.D. AG: DEMARCUS Report ID: [id number] Reading Location: [id number] Procedure Note Cristobal Armijo MD - 07/16/2024 [...] Cristobal Armijo M.D. AG: DEMARCUS Report ID: [id number] Reading Location: [place] [address] Jaqueline Stark TEXTILE MACHINERY SALES REPRESENTATIVE IMG CT PROCEDURES Final Result * Screening Mammogram Bilateral W Genaro (03/24/2024 9:24 AM PRICING STRATEGIST) Anatomical Region Laterality Modality Breast Bilateral Mammography Impressions 03/24/2024 10:49 AM PRICING STRATEGIST BI-RADS ATLAS category (overall): 1 - Negative There is no mammographic evidence of malignancy. A 1 year screening mammogram is recommended. The patient has been or will be contacted. We recommend annual screening mammography for women at average risk of breast cancer beginning at age 40, based on guidelines of the [employer] (ACR Practice Parameter for the Performance of Screening and Diagnostic Mammography) and [employer] of Obstetric[employer] and Gynec[employer]. For women with and elevated risk of breast cancer, please refer to the ACR Practice Parameter for specific screening recommendations. The patient will be entered into a reminder system with a target due date of 1 year for her next screening exam. Narrative 03/24/2024 10:49 AM PRICING STRATEGIST Screening Mammogram Bilateral W Genaro: 03/24/24 The [...] given history of: screening for osteoporosis Postmenopausal Hand Trimmer/Model: IROCKE A (S/N [id number]) CLINICAL INFORMATION: Current height: 66.5 inches Maximum [...] Pavan Eller M.D. MF: VIVEK Report ID: [id number] Reading Location: [place] [address] Procedure Note Pavan Eller MD - 01/29/2023 EXAM DESCRIPTION: DEXA AXIAL SKELETON BONE DENSITY 1 OR MORE SITES REASON FOR STUDY: 72 y/o year old F with given history of: screeningfor osteoporosis Postmenopausal Hand Trimmer/Model: [employer] Horizon A (S/N [id number]) CLINICAL INFORMATION: Current height: 66.5 inches Maximum [...] Pavan Eller M.D. MF: VIVEK Report ID: [id number] Reading Location: [place] [address] Jaqueline Stark NP IMG DXA PROCEDURES Marilia [...] CDT Carmen Singletary MD LAB MICROBIOLOGY - [facility] ORDERABLES Final Result [facility] [address] [facility] Department [place] [address] from Last 3 Months or Most Recently Relevant to Health Maintenance Insurance [facility] Care Teams Regulatory Affairs Spec Relationship Specialty Start Date End Date Mary Spencer DO [address] [place] [address] [address] [place] [address] PCP - General Family Medicine 05/19/24 Sultan Roly Elizondo MD [address] [facility] [place] [address] Consulting Physician Cardiovascular Disease 10/16/22 Carmen Singletary MD [address] [place] [address] Referring Physician Dermatology 10/16/22
--- OUTSIDE RECORDS SUMMARY | 2024-10-01 00:31 | XMS_ITS | Encounter Summary ---
Author Organization [facility] Address [address] [facility] [address] [place] [address] Care Team Providers Care Community Living Coach Name Role Phone Calin Christina MD Primary Care Provi hallie Jaqueline Stark NP Primary Care Provider Calin Christina MD Primary Care Provi hallie Jaqueline Stark NP Primary Care Provider Sultan Roly Elizondo MD Unavailable [phone] Carmen Singletary MD Unavailable [phone] Mary Spencer DO Primary Care Provider + Encounter Details Date Type Department Care Team (Late st Contact Info) Description 09/27/2015 Orders Only [facility] Management [address] [place] [address] Scanning, Provider Social History Tobacco Use Types Packs/Day Years Used Date Smoking Tobacco: Never Assessed Comments Unknown Sex and Gender Information Value Date Recorded Sex Assigned at Not on file 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 DIRECTOR OF RADIO SERVICES Gender Identity Not on file Sexual Orientation [...] on filedocumented in this encounter Care Teams Community Living Coach Relationship Specialty Start Date End Date Calin Christina MD [address] [place] [address] PCP - General 09/18/18 11/13/21 Jaqueline Stark, ALIA [address] [place] [address] PCP - General Internal Medicine 11/14/21 04/16/22 Calin Christina MD [address] [place] [address] PCP - General Family Medicine 04/17/22 04/19/22 Jaqueline Stark, ALIA [address] [place] [address] PCP - General Internal Medicine 04/20/22 05/18/24 Mary Spencer DO [address] [place] [address] [place] [address] PCP - General Family Medicine 05/19/24 Sultan Roly Elizondo MD [address] [facility] [place] [address] Consulting Physician Cardiovascular Disease 10/16/22 Carmen Singletary MD [address] [place] [address] Referring Physician Dermatology 10/16/22 documented as of this encounter
--- OUTSIDE RECORDS SUMMARY | 2024-10-01 00:31 | XMS_ITS | Encounter Summary ---
Author Organization [facility] Facility Care Team Providers Care Resort Housekeeper Name Role Phone Calin Christina MD Primary Care Provi hallie Jaqueline Stark NP Primary Care Provider Calin Christina MD Primary Care Provi hallie Jaqueline Stark RIGHT OF WAY MAN Primary Care Provider Sultan Roly Elizondo MD Unavailable [phone] Carmen Singletary MD Unavailable [phone] Mary Spencer DO Primary Care Provider + Encounter Details Date Type Department Care Team (Latest Contact Info) Description 11/10/2017 Orders Only [facility] CLINCONV ProviderJosefina MD [address] [place] [address] Social History Tobacco Use Types Packs/Day Years Used Date Smoking Tobacco: Never Assessed Comments Unknown Sex and Gender Information Value Date Recorded Sex Assigned at Not on file 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 Gender Identity Not on file Sexual Orientation [...] on filedocumented in this encounter Care Teams Resort Housekeeper Relationship Specialty Start Date End Date Calin Christina MD [address] [place] [address] PCP - General 09/18/18 11/13/21 Jaqueline Stark NP [facility] [address] [place] [address] PCP - General Internal Medicine 11/14/21 04/16/22 Calin Christina MD [address] [place] [address] PCP - General Family Medicine 04/17/22 04/19/22 Jaqueline Stark NP [address] [place] [address] PCP - General Internal Medicine 04/20/22 05/18/24 Mary Spencer DO [address] [place] [address] [address] [place] [address] PCP - General Family Medicine 05/19/24 Sultan Roly Elizondo MD [address] [facility] [address] [address] Consulting Physician Cardiovascular Disease 10/16/22 Carmen Singletary MD [address] [place] [address] Referring Physician Dermatology 10/16/22 documented as of this encounter
--- OUTSIDE RECORDS SUMMARY | 2024-10-01 00:31 | XMS_ITS | Encounter Summary ---
Author Organization [facility] Facility Care Team Providers Care Fan Engine Engineer Name Role Phone Calin Christina MD Primary Care Provi hallie Jaqueline Stark NP Primary Care Provider Calin Christina MD Primary Care Provi hallie Jaquleine Stark CHICKEN CATCHER Primary Care Provider Sultan Roly Elizondo MD Unavailable [phone] Carmen Singletary MD Unavailable [phone] Mary Spencer DO Primary Care Provider + Encounter Details Date Type Department Care Team (Latest Contact Info) Description 11/17/2017 Orders Only [facility] CLINCONV ProviderJosefina MD [address] [place] [address] Social History Tobacco Use Types Packs/Day Years Used Date Smoking Tobacco: Never Assessed Comments Unknown Sex and Gender Information Value Date Recorded Sex Assigned at Not on file 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 Gender Identity Not on file Sexual [...] on filedocumented in this encounter Care Teams Fan Engine Engineer Relationship Specialty Start Date End Date Calin Christina MD [address] [place] [address] PCP - General 09/18/18 11/13/21 Jaqueline Stark NP [address] [place] [address] PCP - General Internal Medicine 11/14/21 04/16/22 Calin Christina MD [address] [place] [address] PCP - General Family Medicine 04/17/22 04/19/22 [place] [address] [place] [address] [address] [place], [place] [address] PCP - General Internal Medicine 04/20/22 05/18/24 Mary Spencer DO [address] [place] [address] [place] [address] PCP - General Family Medicine 05/19/24 Sultan Roly Elizondo MD [address] [facility] [place] [address] Consulting Physician Cardiovascular Disease 10/16/22 Carmen Singletary MD [address] [place] [address] Referring Physician Dermatology 10/16/22 documented as of this encounter
--- OUTSIDE RECORDS SUMMARY | 2024-10-01 00:31 | XMS_ITS | Encounter Summary ---
Author Organization [facility] Facility Care Team Providers Care Technical Services Assistant Name Role Phone Calin Christina MD Primary Care Provi hallie Jaqueline Stark NP Primary Care Provider Calin Christina MD Primary Care Provi hallie Jaqueline Stark OFFICE WORKER Primary Care Provider Sultan Roly Elizondo MD Unavailable [phone] Carmen Singletary MD Unavailable [phone] Mary Spencer DO Primary Care Provider + Encounter Details Date Type Department Care Team (Latest Contact Info) Description 11/14/2017 Orders Only [facility] CLINCONV ProviderJosefina MD [address] [place] [address] Social History Tobacco Use Types Packs/Day Years Used Date Smoking Tobacco: Never Assessed Comments Unknown Sex and Gender Information Value Date Recorded Sex Assigned at Not on file 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 Gender Identity Not on file Sexual Orientation [...] on filedocumented in this encounter Care Teams Technical Services Assistant Relationship Specialty Start Date End Date Calin Christina MD [address] [place] [address] PCP - General 09/18/18 11/13/21 Jaqueline Stark NP [address] [place] [address] PCP - General Internal Medicine 11/14/21 04/16/22 Calin Christina MD [address] [place] [address] PCP - General Family Medicine 04/17/22 04/19/22 [place] [address] [place] [address] [address] [place], [place] [address] PCP - General Internal Medicine 04/20/22 05/18/24 Mary Spencer DO [address] [place] [address] [place] [address] PCP - General Family Medicine 05/19/24 Sultan Roly Elizondo MD [address] [facility] [place] [address] Consulting Physician Cardiovascular Disease 10/16/22 Carmen Singletary MD [address] [place] [address] Referring Physician Dermatology 10/16/22 documented as of this encounter
--- OUTSIDE RECORDS SUMMARY | 2024-10-01 00:31 | XMS_ITS | Encounter Summary ---
Author Organization [facility] Facility Care Team Providers Care Trimming Inspector Name Role Phone Calin Christina MD Primary Care Provi hallie Jaqueline Stark NP Primary Care Provider Calin Christina MD Primary Care Provi hallie Jaqueline Stark BOLT SORTER Primary Care Provider Sultan Roly Elizondo MD Unavailable [phone] Carmen Singletary MD Unavailable [phone] Mary Spencer DO Primary Care Provider + Encounter Details Date Type Department Care Team (Latest Contact Info) Description 11/03/2017 Orders Only [facility] CLINCONV ProviderJosefina MD [address] [place] [address] Social History Tobacco Use Types Packs/Day Years Used Date Smoking Tobacco: Never Assessed Comments Unknown Sex and Gender Information Value Date Recorded Sex Assigned at Not on file 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 Gender Identity Not on file Sexual [...] on filedocumented in this encounter Care Teams Trimming Inspector Relationship Specialty Start Date End Date Calin Christina MD [address] [place] [address] PCP - General 09/18/18 11/13/21 Jaqueline Stark NP [address] [place] [address] PCP - General Internal Medicine 11/14/21 04/16/22 Calin Christina MD [address] [place] [address] PCP - General Family Medicine 04/17/22 04/19/22 [place] [address] [place] [address] [address] [place], [place] [address] PCP - General Internal Medicine 04/20/22 05/18/24 Mary Spencer DO [address] [place] [address] [place] [address] PCP - General Family Medicine 05/19/24 Sultan Roly Elizondo MD [address] [facility] [place] [address] Consulting Physician Cardiovascular Disease 10/16/22 Carmen Singletary MD [address] [place] [address] Referring Physician Dermatology 10/16/22 documented as of this encounter
--- OUTSIDE RECORDS SUMMARY | 2024-10-01 00:31 | XMS_ITS | Encounter Summary ---
Author Organization [facility] Facility Care Team Providers Care Cross Country Truck Driver Name Role Phone Calin Christina MD Primary Care Provi hallie Jaqueline Stark NP Primary Care Provider Calin Christina MD Primary Care Provi hallie Jaqueline Stark TRACKLESS TROLLEY DRIVER Primary Care Provider Sultan Roly Elizondo MD Unavailable [phone] Carmen Singletary MD Unavailable [phone] Mary Spencer DO Primary Care Provider + Encounter Details Date Type Department Care Team (Latest Contact Info) Description 11/01/2017 Orders Only [facility] CLINCONV ProviderJosefina MD [address] [place] [address] Social History Tobacco Use Types Packs/Day Years Used Date Smoking Tobacco: Never Assessed Comments Unknown Sex and Gender Information Value Date Recorded Sex Assigned at Not on file 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 IMPORT/EXPORT CLERK Gender Identity Not on file Sexual [...] on filedocumented in this encounter Care Teams Cross Country Truck Driver Relationship Specialty Start Date End Date Calin Christina MD [address] [place] [address] PCP - General 09/18/18 11/13/21 Jaqueline Stark NP [address] [place] [address] PCP - General Internal Medicine 11/14/21 04/16/22 Calin Christina MD [address] [place] [address] PCP - General Family Medicine 04/17/22 04/19/22 [place] [address] [place] [address] [address] [place], [place] [address] PCP - General Internal Medicine 04/20/22 05/18/24 Mary Spencer DO [address] [place] [address] [place] [address] PCP - General Family Medicine 05/19/24 Sultan Roly Elizondo MD [address] [facility] [place] [address] Consulting Physician Cardiovascular Disease 10/16/22 Carmen Singletary MD [address] [place] [address] Referring Physician Dermatology 10/16/22 documented as of this encounter
--- OUTSIDE RECORDS SUMMARY | 2024-10-01 00:31 | XMS_ITS | Clinical Summary ---
Author Organization [facility] [address] Address [address] [place] [address] Care Team Providers Care Telephone Assembler Name Role Phone Sultan Roly Elizondo MD Unavailable [phone] Carmen Singletary MD Unavailable [phone] Mary Spencer DO Primary Care Provider + [...] Active butalbital-acetam inophen-caffeine- codeine (FIORICET WITH CODEINE) 32-074-49-30 mg per capsule Take 1 capsule by [...] visit. Assessment & Plan (07/08/2020 3:22 PM FOUNDER AND CHIEF EXECUTIVE OFFICER): Continue to have heart fluttering. The [...] cardiomyopathy. Assessment & Plan (07/07/2020 7:04 PM FOUNDER AND CHIEF EXECUTIVE OFFICER): Stress echo 11/15/2017 was negative for [...] LA. Assessment & Plan (07/07/2020 7:06 PM FOUNDER AND CHIEF EXECUTIVE OFFICER): Variant hypertrophic cardiomyopathy. Asymmetrical septal hypertrophy [...] LA. Assessment & Plan (07/07/2020 7:07 PM FOUNDER AND CHIEF EXECUTIVE OFFICER): Recurrent episodes of PSVT on the [...] Department Care Team Description 07/17/2024 Results Follow-Up [facility] Family Medicine [address] [place] [address] Chest WO Contrast F/U Lung Screen Protocol 07/13/2024 11:05 AM CDT - 07/13/2024 11:59 PM CDT Hospital Encounter [facility] [address] [place] [address] Pulmonary nodule; Abnormal screening CT of chest [...] on file 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 FOUNDER AND CHIEF EXECUTIVE OFFICER Gender Identity Not on file Sexual Orientation Not on file Obstetrics History Para Term AB IAB SAB Ectopic Multiple Livin g Live Births 2 2 2 Date Outcome GA Total Labor Labor/2nd/3rd Weight Sex Type Anes PTL Lacy A1 A5 Name Clin Term Term Last Filed Vital Signs Vital Sign Reading Time Taken Comments Blood Pressure 110/60 06/29/2024 10:09 AM FOUNDER AND CHIEF EXECUTIVE OFFICER Pulse 73 06/29/2024 10:09 AM FOUNDER AND CHIEF EXECUTIVE OFFICER Temperature 36.4 C (97.6 F) 11/21/2023 11:32 AM CDT Respiratory Rate 18 11/21/2023 11:32 AM CDT Oxygen Saturation 98% 06/29/2024 10:09 AM FOUNDER AND CHIEF EXECUTIVE OFFICER Inhaled Oxygen Concentration - - Weight [...] Read Routine (OP Routine) 03/24/2024 9:24 AM FOUNDER AND CHIEF EXECUTIVE OFFICER Encounter for screening mammogram for malignant [...] Cristobal Armijo M.D. AG: DEMARCUS Report ID: [id number] Reading Location: [id number] Procedure Note Cristobal Armijo MD - 07/16/2024 [...] Cristobal Armijo M.D. AG: DEMARCUS Report ID: [id number] Reading Location: [place] [address] Jaquelinelulu Mcgill Stark CHIEF PRIVACY OFFICER IMG CT PROCEDURES Final Result * Screening Mammogram Bilateral W Genaro (03/24/2024 9:24 AM FOUNDER AND CHIEF EXECUTIVE OFFICER) Anatomical Region Laterality Modality Breast Bilateral Mammography Impressions 03/24/2024 10:49 AM FOUNDER AND CHIEF EXECUTIVE OFFICER BI-RADS ATLAS category (overall): 1 - Negative There is no mammographic evidence of malignancy. A 1 year screening mammogram is recommended. The patient has been or will be contacted. We recommend annual screening mammography for women at average risk of breast cancer beginning at age 40, based on guidelines of the [place] [employer] (ACR Practice Parameter for the Performance of Screening and Diagnostic Mammography) and [place] [employer]. For women with and elevated risk of breast cancer, please refer to the ACR Practice Parameter for specific screening recommendations. The patient will be entered into a reminder system with a target due date of 1 year for her next screening exam. Narrative 03/24/2024 10:49 AM FOUNDER AND CHIEF EXECUTIVE OFFICER Screening Mammogram Bilateral W Genaro: 03/24/24 [...] given history of: screening for osteoporosis Postmenopausal Hedge Fund Principal/Model: [employer] A (S/N [id number]) CLINICAL INFORMATION: Current height: 66.5 inches Maximum [...] Pavan Eller M.D. MF: VIVEK Report ID: [id number] Reading Location: [address] Note Pavan Eller MD - 01/29/2023 EXAM DESCRIPTION: DEXA AXIAL SKELETON BONE DENSITY 1 OR MORE SITES REASON FOR STUDY: 72 y/o year old F with given history of: screeningfor osteoporosis Postmenopausal Hedge Fund Principal/Model: [employer] A (S/N [id number]) CLINICAL INFORMATION: Current height: 66.5 inches Maximum [...] Pavan Eller M.D. MF: VIVEK Report ID: [id number] Reading Location: [id number] Jaqueline Stark CHIEF PRIVACY OFFICER IMG DXA PROCEDURES Marilia l Result * Colonoscopy (11/17/2021) Anatomical Region Laterality Modality Other 11/17/2021 Impressions 11/17/2021 Internal hemorrhoids Diverticulosis Colon polyps removed Repeat in 3 years Historical Provider MD ENDOSCOPY PROCEDURES Marilia l Result * Hepatitis panel, acute (09/05/2021 10:55 AM CDT) Hep A IgM Nonreactive Nonreactive [facility] Comment: Interpretive Data: If Hep A IgM Ab is reported as Equivocal, a new sample should be drawn in two weeks for testing. Current interpretive data was last revised on 19. Hep B core IgM Nonreactive Nonreactive [facility] Comment: Interpretive Data If HepB Core IgM Ab is reported as Equivocal, a new sample should be drawn in two weeks for testing. Current interpretive data was last revised on 19. Hep C Ab Nonreactive Nonreactive [facility] Comment: Interpretive Data Nonreactive: Antibodies to HCV [...] last revised on 2019. HepBsAg Nonreactive Nonreactive [facility] Blood 09/05/2021 10:5 5 AM CDT 09/05/2021 12:33 PM CDT Carmen Singletary MD LAB MICROBIOLOGY - GENERA L ORDERABLES Final Result [facility] [address] [facility] [place] [address] from Last 3 Months or Most Recently Relevant to Health Maintenance Insurance [facility] Care Teams Telephone Assembler Relationship Specialty Start Date End Date Mary Spencer DO [address] [place] [address] [place] [address] PCP - General Family Medicine 05/19/24 Sultan Roly Elizondo MD [address] [facility] [place] [address] Consulting Physician Cardiovascular Disease 10/16/22 Carmen Singletary MD [address] [place] [address] Referring Physician Dermatology 10/16/22
--- OUTSIDE RECORDS SUMMARY | 2024-10-01 00:31 | XMS_ITS | Encounter Summary ---
Author Organization [facility] Facility Care Team Providers Care Him Coder Name Role Phone Calin Christina MD Primary Care Provi hallie Jaqueline Stark NP Primary Care Provider Calin Christina MD Primary Care Provi hallie Jaqueline Stark TRIM AND BURR OPERATOR Primary Care Provider Sultan Roly Elizondo MD Unavailable [phone] Carmen Singletary MD Unavailable [phone] Mary Spencer DO Primary Care Provider + Encounter Details Date Type Department Care Team (Latest Contact Info) Description 11/11/2017 Orders Only [facility] CLINCONV ProviderJosefina MD [address] [place] [address] Social History Tobacco Use Types Packs/Day Years Used Date Smoking Tobacco: Never Assessed Comments Unknown Sex and Gender Information Value Date Recorded Sex Assigned at Not on file 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 SECURITY REP Gender Identity Not on file Sexual Orientation [...] on filedocumented in this encounter Care Teams Him Coder Relationship Specialty Start Date End Date Calin Christina MD [address] [place] [address] PCP - General 09/18/18 11/13/21 Jaqueline Stark NP [address] [place] [address] PCP - General Internal Medicine 11/14/21 04/16/22 Calin Christina MD [address] [place] [address] PCP - General Family Medicine 04/17/22 04/19/22 [place] [address] [place] [address] [address] [place], [place] [address] PCP - General Internal Medicine 04/20/22 05/18/24 Mary Spencer DO [address] [place] [address] [place] [address] PCP - General Family Medicine 05/19/24 Sultan Roly Elizondo MD [address] [facility] [place] [address] Consulting Physician Cardiovascular Disease 10/16/22 Carmen Singletary MD [address] [place] [address] Referring Physician Dermatology 10/16/22 documented as of this encounter
--- OUTSIDE RECORDS SUMMARY | 2024-10-01 00:31 | XMS_ITS | Encounter Summary ---
Author Organization [facility] Address [address] [place] [address] [place] [address] Care Team Providers Care Label Drier Name Role Phone Unavailable Primary Care Provider Unavailabl e Encounter Details Date Type Department Care Team (Late st Contact Info) Description 07/17/2019 Lab Requisition [facility] DermPath Lab [address] [facility] [place] [address] [phone] Carmen Singletary MD [address] [facility] 3 DEPT [place] [address] Social History Tobacco Use Types Packs/Day Years Used Date Smoking Tobacco: Never Assessed Comments Unknown Sex and Gender Information Value Date Recorded Sex Assigned at Not on file Legal Sex Female 5:21 PM DYE BLENDER Gender Identity Not on file Sexual Orientation Not on file documented as of this encounter Plan of Treatment Not on file documented as of this encounter Procedures Procedure Name Priority Date/Time Associated Diagnosis Comments DERMATOPATHOLOGY Routine 07/16/2019 12:0 0 AM CDT documented in this encounter Results * DERMATOPATHOLOGY (07/16/2019 12:00 AM CDT) Case Report Dermatopathology Report Case: [id number] Authorizing Provider: Carmen Singletary MD Collected: 07/16/2019 12:00 AM Ordering Location: [facility] DermPath Lab Received: 07/17/2019 07:28 AM Pathologist: [...] specimen consists of a shave biopsy measuring 84c57y2 mm, bisected. Jar 0. 0 3:53 PM [...] characteristic determined by the Dermatopathology Laboratory at [facility], directed by Dr. Pete Guo. These tests need not be, and therefore are not, approved by the [place] Food and Drug Administration. The tests are used for clinical purposes. Billing Codes Specimen Charges Stain Charges 57868 1 0 3:53 PM CDT DERMATOPATHOLOGY LABORATORY Embedded Images 0 3:53 PM CDT DERMATOPATHOLOGY LABORATORY Pathology/Cytolog y TISSUE SPECIMEN FROM SKIN / Unknown 07/16/2019 07/17/2019 7:28 AM CDT us Carmen Singletary MD LAB - PATHOLOGY/CYTOLOGY ORD ERABLES Final Result DERMATOPATHOLOGY LABORATORY [facility] - Department of Dermatology [address] [place] [address], 5th [place] [address], [facility] [phone] documented in this encounter Visit Diagnoses Not on filedocumented in this encounter
--- OUTSIDE RECORDS SUMMARY | 2024-10-01 00:31 | XMS_ITS | Encounter Summary ---
Author Organization [facility] Facility Care Team Providers Care Extension Edger Name Role Phone Calin Christina MD Primary Care Provi hallie Jaqueline Stark NP Primary Care Provider Calin Christina MD Primary Care Provi hallie Jaqueline Stark FINANCE ADVISOR Primary Care Provider Sultan Roly Elizondo MD Unavailable [phone] Carmen Singletary MD Unavailable [phone] Mary Spencer DO Primary Care Provider + Encounter Details Date Type Department Care Team (Latest Contact Info) Description 10/31/2017 Orders Only [facility]G CLINCONV ProviderJosefina MD [address] [place] [address] Social History Tobacco Use Types Packs/Day Years Used Date Smoking Tobacco: Never Assessed Comments Unknown Sex and Gender Information Value Date Recorded Sex Assigned at Not on file 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 ASSEMBLER MOVEMENT Gender Identity Not on file Sexual Orientation [...] on filedocumented in this encounter Care Teams Extension Edger Relationship Specialty Start Date End Date Calin Christina MD [address] [place] [address] PCP - General 09/18/18 11/13/21 Jaqueline Stark NP [address] [place] [address] PCP - General Internal Medicine 11/14/21 04/16/22 Calin Christina MD [address] [place] [address] PCP - General Family Medicine 04/17/22 04/19/22 [place] [address] [place] [address] [address] [place], [place] [address] PCP - General Internal Medicine 04/20/22 05/18/24 Mary Spencer DO [address] [place] [address] [place] [address] PCP - General Family Medicine 05/19/24 Sultan Roly Elizondo MD [address] [facility] [place] [address] Consulting Physician Cardiovascular Disease 10/16/22 Carmen Singletary MD [address] [place] [address] Referring Physician Dermatology 10/16/22 documented as of this encounter
--- OUTSIDE RECORDS SUMMARY | 2024-10-01 00:31 | XMS_ITS | Encounter Summary ---
Author Organization [facility] Facility Care Team Providers Care Veterinary Meat Inspector Name Role Phone Calin Christina MD Primary Care Provi hallie Jaqueline Stark NP Primary Care Provider Calin Christina MD Primary Care Provi hallie Jaqueline Stark SLEEVE FIXER Primary Care Provider Sultan Roly Elizondo MD Unavailable [phone] Carmen Singletary MD Unavailable [phone] Mary Spencer DO Primary Care Provider + Encounter Details Date Type Department Care Team (Latest Contact Info) Description 11/20/2017 Orders Only [facility]G CLINCONV ProviderJosefina MD [address] [place] [address] Social History Tobacco Use Types Packs/Day Years Used Date Smoking Tobacco: Never Assessed Comments Unknown Sex and Gender Information Value Date Recorded Sex Assigned at Not on file 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 IMPLEMENTATION TECHNICIAN Gender Identity Not on file Sexual [...] on filedocumented in this encounter Care Teams Veterinary Meat Inspector Relationship Specialty Start Date End Date Calin Christina MD [address] [place] [address] PCP - General 09/18/18 11/13/21 Jaqueline Stark NP [facility] [address] [place] [address] PCP - General Internal Medicine 11/14/21 04/16/22 Calin Christina MD [address] [place] [address] PCP - General Family Medicine 04/17/22 04/19/22 Jaqueline Stark NP [address] [place] [address] PCP - General Internal Medicine 04/20/22 05/18/24 Mary Spencer DO [address] [place] [address] [address] [place] [address] PCP - General Family Medicine 05/19/24 Sultan Roly Elizondo MD [address] [facility] [address] [address] Consulting Physician Cardiovascular Disease 10/16/22 Carmen Singletary MD [address] [place] [address] Referring Physician Dermatology 10/16/22 documented as of this encounter
--- OUTSIDE RECORDS SUMMARY | 2024-10-01 00:31 | XMS_ITS | Encounter Summary ---
Author Organization [facility] Facility Care Team Providers Care Lawyer Real Estate Name Role Phone Calin Christina MD Primary Care Provi hallie Jaqueline Stark NP Primary Care Provider Calin Christina MD Primary Care Provi hallie Jaqueline Stark RURAL CARRIER Primary Care Provider Sultan Roly Elizondo MD Unavailable [phone] Carmen Singletary MD Unavailable [phone] Mary Spencer DO Primary Care Provider + Encounter Details Date Type Department Care Team (Latest Contact Info) Description 11/12/2016 Orders Only [facility] CLINCONV ProviderJosefina MD [address] [place] [address] Social History Tobacco Use Types Packs/Day Years Used Date Smoking Tobacco: Never Assessed Comments Unknown Sex and Gender Information Value Date Recorded Sex Assigned at Not on file 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 EXECUTIVE COACH Gender Identity Not on file Sexual Orientation [...] on filedocumented in this encounter Care Teams Lawyer Real Estate Relationship Specialty Start Date End Date Calni Christina MD [address] [place] [address] PCP - General 09/18/18 11/13/21 Jaqueline Stark NP [address] [place] [address] PCP - General Internal Medicine 11/14/21 04/16/22 Calin Christina MD [address] [place] [address] PCP - General Family Medicine 04/17/22 04/19/22 [place] [address] [place] [address] [address] [place], [place] [address] PCP - General Internal Medicine 04/20/22 05/18/24 Mary Spencer DO [address] [place] [address] [place] [address] PCP - General Family Medicine 05/19/24 Sultan Roly Elizondo MD [address] [facility] [place] [address] Consulting Physician Cardiovascular Disease 10/16/22 Carmen Singletary MD [address] [place] [address] Referring Physician Dermatology 10/16/22 documented as of this encounter
--- OUTSIDE RECORDS SUMMARY | 2024-10-01 00:31 | XMS_ITS | Encounter Summary ---
Author Organization [facility] Facility Care Team Providers Care Case Repairer Name Role Phone Calin Christina MD Primary Care Provi hallie Jaqueline Stark NP Primary Care Provider Calin Christina MD Primary Care Provi hallie Jaqueline Stark PROFESSIONAL FEE CODER Primary Care Provider Sultan Roly Elizondo MD Unavailable [phone] Carmen Singletary MD Unavailable [phone] Mary Spencer DO Primary Care Provider + Encounter Details Date Type Department Care Team (Latest Contact Info) Description 11/02/2017 Orders Only [facility] CLINCONV ProviderJosefina MD [address] [place] [address] Social History Tobacco Use Types Packs/Day Years Used Date Smoking Tobacco: Never Assessed Comments Unknown Sex and Gender Information Value Date Recorded Sex Assigned at Not on file 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 GRAPHIC ART TECHNICIAN Gender Identity Not on file Sexual [...] on filedocumented in this encounter Care Teams Case Repairer Relationship Specialty Start Date End Date Calin Christina MD [address] [place] [address] PCP - General 09/18/18 11/13/21 Jaqueline Stark NP [address] [place] [address] PCP - General Internal Medicine 11/14/21 04/16/22 Calin Christina MD [address] [place] [address] PCP - General Family Medicine 04/17/22 04/19/22 [place] [address] [place] [address] [address] [place], [place] [address] PCP - General Internal Medicine 04/20/22 05/18/24 Mary Spencer DO [address] [place] [address] [place] [address] PCP - General Family Medicine 05/19/24 Sultan Roly Elizondo MD [address] [facility] [place] [address] Consulting Physician Cardiovascular Disease 10/16/22 Carmen Singletary MD [address] [place] [address] Referring Physician Dermatology 10/16/22 documented as of this encounter
--- OUTSIDE RECORDS SUMMARY | 2024-10-01 00:31 | XMS_ITS | Encounter Summary ---
Author Organization [facility] Facility Care Team Providers Care Airline Stewardess Name Role Phone Calin Christina MD Primary Care Provi hallie Jaqueline Stark NP Primary Care Provider Calin Christina MD Primary Care Provi hallie Jaqueline Stark CRITICAL CARE NURSE SPECIALIST Primary Care Provider Sultan Roly Elizondo MD Unavailable [phone] Carmen Singletary MD Unavailable [phone] Mary Spencer DO Primary Care Provider + Encounter Details Date Type Department Care Team (Latest Contact Info) Description 11/27/2017 Orders Only [facility] CLINCONV ProviderJosefina MD [address] [place] [address] Social History Tobacco Use Types Packs/Day Years Used Date Smoking Tobacco: Never Assessed Comments Unknown Sex and Gender Information Value Date Recorded Sex Assigned at Not on file 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 INDUSTRIAL TECHNOLOGY EDUCATION TEACHER Gender Identity Not on file Sexual Orientation [...] on filedocumented in this encounter Care Teams Airline Stewardess Relationship Specialty Start Date End Date Calin Christina MD [address] [place] [address] PCP - General 09/18/18 11/13/21 Jaqueline Stark NP [facility] [address] [place] [address] PCP - General Internal Medicine 11/14/21 04/16/22 Calin Christina MD [address] [place] [address] PCP - General Family Medicine 04/17/22 04/19/22 Jaqueline Stark NP [address] [place] [address] PCP - General Internal Medicine 04/20/22 05/18/24 Mary Spencer DO [address] [place] [address] [address] [place] [address] PCP - General Family Medicine 05/19/24 Sultan Roly Elizondo MD [address] [facility] [address] [address] Consulting Physician Cardiovascular Disease 10/16/22 Carmen Singletary MD [address] [place] [address] Referring Physician Dermatology 10/16/22 documented as of this encounter
--- OUTSIDE RECORDS SUMMARY | 2024-10-01 00:31 | XMS_ITS | Encounter Summary ---
Author Organization [facility] Address [address] [place], [place] [address] [address] Care Team Providers Care Translator Name Role Phone Unavailable Primary Care Provider Unavailabl e Encounter Details Date Type Department Care Team (Late st Contact Info) Description 01/01/2020 Lab Requisition [facility] DermPath Lab [address] [facility] [place] [address] Carmen Singletary MD [address] [facility] [address] [place] [address] Social History Tobacco Use Types Packs/Day Years Used Date Smoking Tobacco: Never Assessed Comments Unknown Sex and Gender Information Value Date Recorded Sex Assigned at Not on file Legal Sex Female 5:21 PM LOAN 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 Gender Identity Not on file Sexual Orientation Not on file documented as of this encounter Plan of Treatment Not on file documented as of this encounter Procedures Procedure Name Priority Date/Time Associated Diagnosis Comments DERMATOPATHOLOGY Routine 12/31/2019 12:0 0 AM CDT documented in this encounter Results * DERMATOPATHOLOGY (12/31/2019 12:00 AM CDT) Case Report Dermatopathology Report Case: [id number] Authorizing Provider: Carmen Singletary MD Collected: 12/31/2019 12:00 AM Ordering Location: [facility] DermPath Lab Received: 01/01/2020 07:16 AM Pathologist: Nano Henderson MD Specimen: Skin, left chest 0 4:37 PM CDT DERMATOPATHOLOGY LABORATORY Final Diagnosis Specimen A. SKIN, left chest: SQUAMOUS CELL CARCINOMA, WELL DIFFERENTIATED (C44.529) NOT PRESENT AT MARGIN DERMAL SCAR (L90.5) 0 4:37 PM CDT DERMATOPATHOLOGY LABORATORY at 1637 CDT Clinical History R/O SCC, keratoacanthoma type; biopsy proven. Previus Bx:[id number]. 0 4:37 PM CDT DERMATOPATHOLOGY LABORATORY Gross Description Specimen A: Received is one formalin filled container labeled with the patient's name and designated left chest.The specimen consists of an ellipse measuring [id number] and is oriented with the notch at [...] determined by the Dermatopathology Laboratory at [facility], directed by Dr. Pete Guo. These tests need not be, and therefore are not, approved by the [place] Food and Drug Administration. The tests are used for clinical purposes. Billing Codes Specimen Charges Stain Charges 63928 1 0 4:37 PM CDT DERMATOPATHOLOGY LABORATORY Embedded Images 0 4:37 PM CDT DERMATOPATHOLOGY LABORATORY Pathology/Cytolog y TISSUE SPECIMEN FROM SKIN / Unknown 12/31/2019 01/01/2020 7:16 AM CDT us Carmen Singletary MD LAB - PATHOLOGY/CYTOLOGY ORD ERABLES Final Result DERMATOPATHOLOGY LABORATORY [facility] - Department of Dermatology [facility] [address] [place] [address], [address] [phone] documented in this encounter Visit Diagnoses Not on filedocumented in this encounter
--- OUTSIDE RECORDS SUMMARY | 2024-10-01 00:31 | XMS_ITS | Encounter Summary ---
Author Organization [facility] Facility Care Team Providers Care Warp Trucker Name Role Phone Calin Christina MD Primary Care Provi hallie Jaqueline Stark NP Primary Care Provider Calin Christina MD Primary Care Provi hallie Jaqueline Stark LICENSED FINAL EXPENSE AGENTS Primary Care Provider Sultan Roly Elizondo MD Unavailable [phone] Carmen Singletary MD Unavailable [phone] Mary Spencer DO Primary Care Provider + Encounter Details Date Type Department Care Team (Latest Contact Info) Description 11/18/2017 Orders Only [facility] CLINCONV ProviderJosefina MD [address] [place] [address] Social History Tobacco Use Types Packs/Day Years Used Date Smoking Tobacco: Never Assessed Comments Unknown Sex and Gender Information Value Date Recorded Sex Assigned at Not on file 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 WINDER TENDER Gender Identity Not on file Sexual [...] on filedocumented in this encounter Care Teams Warp Trucker Relationship Specialty Start Date End Date Calin Christina MD [address] [place] [address] PCP - General 09/18/18 11/13/21 Jaqueline Stark NP [address] [place] [address] PCP - General Internal Medicine 11/14/21 04/16/22 Calin Christina MD [address] [place] [address] PCP - General Family Medicine 04/17/22 04/19/22 [place] [address] [place] [address] [address] [place], [place] [address] PCP - General Internal Medicine 04/20/22 05/18/24 Mary Spencer DO [address] [place] [address] [place] [address] PCP - General Family Medicine 05/19/24 Sultan Roly Elizondo MD [address] [facility] [place] [address] Consulting Physician Cardiovascular Disease 10/16/22 Carmen Singletary MD [address] [place] [address] Referring Physician Dermatology 10/16/22 documented as of this encounter
--- OUTSIDE RECORDS SUMMARY | 2024-10-01 00:31 | XMS_ITS | Encounter Summary ---
Author Organization [facility]/Health system Facility Care Team Providers Care Landcare Facilitator Name Role Phone Calin Christina MD Primary Care Provi hallie Jaqueline Stark NP Primary Care Provider Calin Christina MD Primary Care Provi hallie Jaqueline Stark DIESEL AUTOMOTIVE TECHNICIAN Primary Care Provider Sultan Roly Elizondo MD Unavailable [phone] Carmen Singletary MD Unavailable [phone] Mary Spencer DO Primary Care Provider + Encounter Details Date Type Department Care Team (Latest Contact Info) Description 11/21/2017 Orders Only [facility] CLINCONV ProviderJosefina MD [address] [place] [address] Social History Tobacco Use Types Packs/Day Years Used Date Smoking Tobacco: Never Assessed Comments Unknown Sex and Gender Information Value Date Recorded Sex Assigned at Not on file 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 REFERENCE SERVICES HEAD Gender Identity Not on file Sexual Orientation [...] on filedocumented in this encounter Care Teams Landcare Facilitator Relationship Specialty Start Date End Date Calin Christina MD [address] [place] [address] PCP - General 09/18/18 11/13/21 Jaqueline Stark NP [address] [place] [address] PCP - General Internal Medicine 11/14/21 04/16/22 Calin Christina MD [address] [place] [address] PCP - General Family Medicine 04/17/22 04/19/22 [place] [address] [place] [address] [address] [place], [place] [address] PCP - General Internal Medicine 04/20/22 05/18/24 Mary Spencer DO [address] [place] [address] [place] [address] PCP - General Family Medicine 05/19/24 Sultan Roly Elizondo MD [address] [place] [address] Consulting Physician Cardiovascular Disease 10/16/22 Carmen Singletary MD [address] [place] [address] Referring Physician Dermatology 10/16/22 documented as of this encounter
--- OUTSIDE RECORDS SUMMARY | 2024-10-01 00:31 | XMS_ITS | Encounter Summary ---
Author Organization [facility] Facility Care Team Providers Care Grain Buyer Name Role Phone Calin Christina MD Primary Care Provi hallie Jaqueline Stark NP Primary Care Provider Calin Christina MD Primary Care Provi hallie Jaqueline Stark PRECINCT COMMANDING OFFICER Primary Care Provider Sultan Roly Elizondo MD Unavailable [phone] Carmen Singletary MD Unavailable [phone] Mary Spencer DO Primary Care Provider + Encounter Details Date Type Department Care Team (Latest Contact Info) Description 10/20/2015 Orders Only [facility] CLINCONV ProviderJosefina MD [address] [place] [address] Social History Tobacco Use Types Packs/Day Years Used Date Smoking Tobacco: Never Assessed Comments Unknown Sex and Gender Information Value Date Recorded Sex Assigned at Not on file 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 PASSENGER SOLICITOR Gender Identity Not on file Sexual Orientation [...] AM CDT Ordered by an unspecified provider. [facility] Provider Final Res ult * SCAN - LABS (10/21/2015 12:00 AM CDT) Narrative 10/21/2015 12:00 AM CDT Ordered by an unspecified provider. [facility] Provider Final Res ult documented in this encounter Visit Diagnoses Not on filedocumented in this encounter Care Teams Grain Buyer Relationship Specialty Start Date End Date Calin Christina MD [address] [place] [address] PCP - General 09/18/18 11/13/21 Jaqueline Stark NP [address] [place] [address] PCP - General Internal Medicine 11/14/21 04/16/22 Calin Christina MD [address] [place] [address] PCP - General Family Medicine 04/17/22 04/19/22 [place] [address] [place] [address] PCP - General Internal Medicine 04/20/22 05/18/24 Mary Spencer DO [facility] [facility] [address] [place] [address] PCP - General Family Medicine 05/19/24 Sultan Roly Elizondo MD [address] [facility] [address] [address] Consulting Physician Cardiovascular Disease 10/16/22 Carmen Singletary MD [address] [place] [address] Referring Physician Dermatology 10/16/22 documented as of this encounter
--- OUTSIDE RECORDS SUMMARY | 2024-10-01 00:31 | XMS_ITS | Encounter Summary ---
Author Organization [facility] Facility Care Team Providers Care Microsoft Access Developer Name Role Phone Calin Christina MD Primary Care Provi hallie Jaqueline Stark NP Primary Care Provider Calin Christina MD Primary Care Provi hallie Jaqueline Stark FLAT KNITTER HELPER Primary Care Provider Sultan Roly Elizondo MD Unavailable [phone] Carmen Singletary MD Unavailable [phone] Mary Spencer DO Primary Care Provider + Encounter Details Date Type Department Care Team (Latest Contact Info) Description 10/30/2017 Orders Only [facility] CLINCONV ProviderJosefina MD [address] [place] [address] Social History Tobacco Use Types Packs/Day Years Used Date Smoking Tobacco: Never Assessed Comments Unknown Sex and Gender Information Value Date Recorded Sex Assigned at Not on file 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 AWNING CRAFTSPERSON Gender Identity Not on file Sexual Orientation [...] on filedocumented in this encounter Care Teams Microsoft Access Developer Relationship Specialty Start Date End Date Calin Christina MD [address] [place] [address] PCP - General 09/18/18 11/13/21 Jaqueline Stark NP [address] [place] [address] PCP - General Internal Medicine 11/14/21 04/16/22 Calin Christina MD [address] [place] [address] PCP - General Family Medicine 04/17/22 04/19/22 [place] [address] [place] [address] [address] [place], [place] [address] PCP - General Internal Medicine 04/20/22 05/18/24 Mary Spencer DO [address] [place] [address] [place] [address] PCP - General Family Medicine 05/19/24 Sultan Roly Elizondo MD [address] [facility] [place] [address] Consulting Physician Cardiovascular Disease 10/16/22 Carmen Singletary MD [address] [place] [address] Referring Physician Dermatology 10/16/22 documented as of this encounter
--- OUTSIDE RECORDS SUMMARY | 2024-10-01 00:31 | XMS_ITS | Encounter Summary ---
Author Organization [facility] Facility Care Team Providers Care Almond Roaster Name Role Phone Calin Christina MD Primary Care Provi hallie Jaqueline Stark NP Primary Care Provider Calin Christina MD Primary Care Provi hallie Jaqueline Stark TREATMENT SUPERVISOR Primary Care Provider Sultan Roly Elizondo MD Unavailable [phone] Carmen Singletary MD Unavailable [phone] Mary Spencer DO Primary Care Provider + Encounter Details Date Type Department Care Team (Latest Contact Info) Description 11/16/2017 Orders Only [facility] CLINCONV ProviderJosefina MD [address] [place] [address] Social History Tobacco Use Types Packs/Day Years Used Date Smoking Tobacco: Never Assessed Comments Unknown Sex and Gender Information Value Date Recorded Sex Assigned at Not on file 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 RN ENDOSCOPY Gender Identity Not on file Sexual Orientation [...] on filedocumented in this encounter Care Teams Almond Roaster Relationship Specialty Start Date End Date Calin Christina MD [address] [place] [address] PCP - General 09/18/18 11/13/21 Jaqueline Stark NP [address] [place] [address] PCP - General Internal Medicine 11/14/21 04/16/22 Calin Christina MD [address] [place] [address] PCP - General Family Medicine 04/17/22 04/19/22 [place] [address] [place] [address] [address] [place], [place] [address] PCP - General Internal Medicine 04/20/22 05/18/24 Mary Spencer DO [address] [place] [address] [place] [address] PCP - General Family Medicine 05/19/24 Sultan Roly Elizondo MD [address] [facility] [place] [address] Consulting Physician Cardiovascular Disease 10/16/22 Carmen Singletary MD [address] [place] [address] Referring Physician Dermatology 10/16/22 documented as of this encounter
--- OUTSIDE RECORDS SUMMARY | 2024-10-01 00:31 | XMS_ITS | Encounter Summary ---
Author Organization [facility] Facility Care Team Providers Care Assistant Hall Director Name Role Phone Calin Christina MD Primary Care Provi hallie Jaqueline Stark NP Primary Care Provider Calin Christina MD Primary Care Provi hallie Jaqueline Stark MAINTENANCE TECHNICIAN 3RD SHIFT Primary Care Provider Sultan Roly Elizondo MD Unavailable [phone] Carmen Singletary MD Unavailable [phone] Mary Spencer DO Primary Care Provider + Encounter Details Date Type Department Care Team (Latest Contact Info) Description 11/07/2017 Orders Only [facility]G CLINCONV ProviderJosefina MD [address] [place] [address] Social History Tobacco Use Types Packs/Day Years Used Date Smoking Tobacco: Never Assessed Comments Unknown Sex and Gender Information Value Date Recorded Sex Assigned at Not on file 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 RADIOLOGY TRANSPORTER Gender Identity Not on file Sexual Orientation [...] on filedocumented in this encounter Care Teams Assistant Hall Director Relationship Specialty Start Date End Date Calin Christina MD [address] [place] [address] PCP - General 09/18/18 11/13/21 Jaqueline Stark NP [address] [place] [address] PCP - General Internal Medicine 11/14/21 04/16/22 Calin Christina MD [address] [place] [address] PCP - General Family Medicine 04/17/22 04/19/22 [place] [address] [place] [address] [address] [place], [place] [address] PCP - General Internal Medicine 04/20/22 05/18/24 Mary Spencer DO [address] [place] [address] [place] [address] PCP - General Family Medicine 05/19/24 Sultan Roly Elizondo MD [address] [facility] [place] [address] Consulting Physician Cardiovascular Disease 10/16/22 Carmen Singletary MD [address] [place] [address] Referring Physician Dermatology 10/16/22 documented as of this encounter
--- OUTSIDE RECORDS SUMMARY | 2024-10-01 00:31 | XMS_ITS | Encounter Summary ---
Author Organization [facility] Facility Care Team Providers Care Internal Sales Name Role Phone Calin Christina MD Primary Care Provi hallie Jaqueline Stark NP Primary Care Provider Calin Christina MD Primary Care Provi hallie Jaqueline Stark PROTEIN PURIFICATION SCIENTIST Primary Care Provider Sultan Roly Elizondo MD Unavailable [phone] Carmen Singletary MD Unavailable [phone] Mary Spencer DO Primary Care Provider + Encounter Details Date Type Department Care Team (Latest Contact Info) Description 11/15/2017 Orders Only [facility]G CLINCONV ProviderJosefina MD [address] [place] [address] Social History Tobacco Use Types Packs/Day Years Used Date Smoking Tobacco: Never Assessed Comments Unknown Sex and Gender Information Value Date Recorded Sex Assigned at Not on file 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 REMELT SUGAR BOILER Gender Identity Not on file Sexual Orientation [...] on filedocumented in this encounter Care Teams Internal Sales Relationship Specialty Start Date End Date Calin Christina MD [address] [place] [address] PCP - General 09/18/18 11/13/21 Jaqueline Stark NP [address] [place] [address] PCP - General Internal Medicine 11/14/21 04/16/22 Calin Christina MD [address] [place] [address] PCP - General Family Medicine 04/17/22 04/19/22 [place] [address] [place] [address] [address] [place], [place] [address] PCP - General Internal Medicine 04/20/22 05/18/24 Mary Specner DO [address] [place] [address] [place] [address] PCP - General Family Medicine 05/19/24 Sultan Roly Elizondo MD [address] [facility] [place] [address] Consulting Physician Cardiovascular Disease 10/16/22 Carmen Singletary MD [address] [place] [address] Referring Physician Dermatology 10/16/22 documented as of this encounter
--- OUTSIDE RECORDS SUMMARY | 2024-10-01 00:31 | XMS_ITS | Encounter Summary ---
Author Organization [facility] Facility Care Team Providers Care Groover And Striper Operator Name Role Phone Calin Christina MD Primary Care Provi hallie Jaqueline Stark NP Primary Care Provider Calin Christina MD Primary Care Provi hallie Jaqueline Stark INSURANCE BUSINESS ANALYST Primary Care Provider Sultan Roly Elizondo MD Unavailable [phone] Carmen Singletary MD Unavailable [phone] Mary Spencer DO Primary Care Provider + Encounter Details Date Type Department Care Team (Latest Contact Info) Description 11/13/2017 Orders Only [facility] CLINCONV ProviderJosefina MD [address] [place] [address] Social History Tobacco Use Types Packs/Day Years Used Date Smoking Tobacco: Never Assessed Comments Unknown Sex and Gender Information Value Date Recorded Sex Assigned at Not on file 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 DELIVERY TECHNICIAN Gender Identity Not on file Sexual [...] on filedocumented in this encounter Care Teams Groover And Striper Operator Relationship Specialty Start Date End Date Calin Christina MD [address] [place] [address] PCP - General 09/18/18 11/13/21 Jaqueline Stark NP [address] [place] [address] PCP - General Internal Medicine 11/14/21 04/16/22 Calin Christina MD [address] [place] [address] PCP - General Family Medicine 04/17/22 04/19/22 [place] [address] [place] [address] [address] [place], [place] [address] PCP - General Internal Medicine 04/20/22 05/18/24 Mary Spencer DO [address] [place] [address] [place] [address] PCP - General Family Medicine 05/19/24 Sultan Roly Elizondo MD [address] [facility] [place] [address] Consulting Physician Cardiovascular Disease 10/16/22 Carmen Singletary MD [address] [place] [address] Referring Physician Dermatology 10/16/22 documented as of this encounter
--- OUTSIDE RECORDS SUMMARY | 2024-10-01 00:31 | XMS_ITS | Encounter Summary ---
Author Organization [facility] Facility Care Team Providers Care Canvass Manager Name Role Phone Calin Christina MD Primary Care Provi hallie Jaqueline Stark NP Primary Care Provider Calin Christina MD Primary Care Provi hallie Jaqueline Stark STOCK PARTS FABRICATOR Primary Care Provider Sultan Roly Elizondo MD Unavailable [phone] Carmen Singletary MD Unavailable [phone] Mary Spencer DO Primary Care Provider + Encounter Details Date Type Department Care Team (Latest Contact Info) Description 11/25/2017 Orders Only [facility] CLINCONV ProviderJosefina MD [address] [place] [address] Social History Tobacco Use Types Packs/Day Years Used Date Smoking Tobacco: Never Assessed Comments Unknown Sex and Gender Information Value Date Recorded Sex Assigned at Not on file 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 INDUSTRIAL MILLWRIGHT Gender Identity Not on file Sexual Orientation [...] on filedocumented in this encounter Care Teams Canvass Manager Relationship Specialty Start Date End Date Calin Christina MD [address] [place] [address] PCP - General 09/18/18 11/13/21 Jaqueline Stark NP [address] [place] [address] PCP - General Internal Medicine 11/14/21 04/16/22 Calin Christina MD [address] [place] [address] PCP - General Family Medicine 04/17/22 04/19/22 [place] [address] [place] [address] [address] [place], [place] [address] PCP - General Internal Medicine 04/20/22 05/18/24 Mary Spencer DO [address] [place] [address] [place] [address] PCP - General Family Medicine 05/19/24 Sultan Roly Elizondo MD [address] [facility] [place] [address] Consulting Physician Cardiovascular Disease 10/16/22 Carmen Singletary MD [address] [place] [place] [address] Referring Physician Dermatology 10/16/22 documented as of this encounter
--- OUTSIDE RECORDS SUMMARY | 2024-10-01 00:31 | XMS_ITS | Encounter Summary ---
Author Organization [facility] Facility Care Team Providers Care Fire Extinguisher Tester Name Role Phone Calin Christina MD Primary Care Provi hallie Jaqueline Stark NP Primary Care Provider Calin Christina MD Primary Care Provi hallie Jaqueline Stark MESS ATTENDANT Primary Care Provider Sultan Roly Elizondo MD Unavailable [phone] Carmen Singletary MD Unavailable [phone] Mary Spencer DO Primary Care Provider + Encounter Details Date Type Department Care Team (Latest Contact Info) Description 11/09/2017 Orders Only [facility]G CLINCONV ProviderJosefina MD [address] [place] [address] Social History Tobacco Use Types Packs/Day Years Used Date Smoking Tobacco: Never Assessed Comments Unknown Sex and Gender Information Value Date Recorded Sex Assigned at Not on file 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 PSYCHIATRIC THERAPIST Gender Identity Not on file Sexual Orientation [...] on filedocumented in this encounter Care Teams Fire Extinguisher Tester Relationship Specialty Start Date End Date Calin Christina MD [address] [place] [address] PCP - General 09/18/18 11/13/21 Jaqueline Stark NP [address] [place] [address] PCP - General Internal Medicine 11/14/21 04/16/22 Calin Christina MD [address] [place] [address] PCP - General Family Medicine 04/17/22 04/19/22 [place] [address] [place] [address] [address] [place], [place] [address] PCP - General Internal Medicine 04/20/22 05/18/24 Mary Spencer DO [address] [place] [address] [place] [address] PCP - General Family Medicine 05/19/24 Sultan Roly Elizondo MD [address] [facility] [place] [address] Consulting Physician Cardiovascular Disease 10/16/22 Carmen Singletary MD [address] [place] [address] Referring Physician Dermatology 10/16/22 documented as of this encounter
--- OUTSIDE RECORDS SUMMARY | 2024-10-01 00:31 | XMS_ITS | Encounter Summary ---
Author Organization [facility] Facility Care Team Providers Care Supervisor Hairspring Fabrication Name Role Phone Calin Christina MD Primary Care Provi hallie Jaqueline Stark NP Primary Care Provider Calin Christina MD Primary Care Provi hallie Jaqueline Stark AUTOMATIC TIRE TESTER Primary Care Provider Sultan Roly Elizondo MD Unavailable [phone] Carmen Singletary MD Unavailable [phone] Mary Spencer DO Primary Care Provider + Encounter Details Date Type Department Care Team (Latest Contact Info) Description 11/22/2017 Orders Only [facility]G CLINCONV ProviderJosefina MD [address] [place] [address] Social History Tobacco Use Types Packs/Day Years Used Date Smoking Tobacco: Never Assessed Comments Unknown Sex and Gender Information Value Date Recorded Sex Assigned at Not on file 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 ELECTRICAL MACHINE BUILDER Gender Identity Not on file Sexual Orientation [...] filedocumented in this encounter Care Teams Supervisor Hairspring Fabrication Relationship Specialty Start Date End Date Calin Christina MD [address] [place] [address] PCP - General 09/18/18 11/13/21 Jaqueline Stark NP [address] [place] [address] PCP - General Internal Medicine 11/14/21 04/16/22 Calin Christina MD [address] [place] [address] PCP - General Family Medicine 04/17/22 04/19/22 [place] [address] [place] [address] [address] [place], [place] [address] PCP - General Internal Medicine 04/20/22 05/18/24 Mary Spencer DO [address] [place] [address] [place] [address] PCP - General Family Medicine 05/19/24 Sultan Roly Elizondo MD [address] [facility] [place] [address] Consulting Physician Cardiovascular Disease 10/16/22 Carmen Singletary MD [address] [place] [address] Referring Physician Dermatology 10/16/22 documented as of this encounter
--- OUTSIDE RECORDS SUMMARY | 2024-10-01 00:31 | XMS_ITS | Encounter Summary ---
Author Organization [facility] Facility Care Team Providers Care Immigration Case Manager Name Role Phone Calin Christina MD Primary Care Provi hallie Jaqueline Stark NP Primary Care Provider Calin Christina MD Primary Care Provi hallie Jaqueline Stark LINE HAUL DRIVER Primary Care Provider Sultan Roly Elizondo MD Unavailable [phone] Carmen Singletary MD Unavailable [phone] Mary Spencer DO Primary Care Provider + Encounter Details Date Type Department Care Team (Latest Contact Info) Description 11/28/2017 Orders Only [facility]G CLINCONV ProviderJosefina MD [address] [place] [address] Social History Tobacco Use Types Packs/Day Years Used Date Smoking Tobacco: Never Assessed Comments Unknown Sex and Gender Information Value Date Recorded Sex Assigned at Not on file 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 DISPENSER OPERATOR Gender Identity Not on file Sexual [...] on filedocumented in this encounter Care Teams Immigration Case Manager Relationship Specialty Start Date End Date Calin Christina MD [address] [place] [address] PCP - General 09/18/18 11/13/21 Jaqueline Stark NP [facility] [address] [place] [address] PCP - General Internal Medicine 11/14/21 04/16/22 Calin Christina MD [address] [place] [address] PCP - General Family Medicine 04/17/22 04/19/22 Jaqueline Stark NP [address] [place] [address] PCP - General Internal Medicine 04/20/22 05/18/24 Mary Spencer DO [address] [place] [address] [address] [place] [address] PCP - General Family Medicine 05/19/24 Sultan Roly Elizondo MD [address] [facility] [address] [address] Consulting Physician Cardiovascular Disease 10/16/22 Carmen Singletary MD [address] [place] [address] Referring Physician Dermatology 10/16/22 documented as of this encounter
--- OUTSIDE RECORDS SUMMARY | 2024-10-01 00:31 | XMS_ITS | Encounter Summary ---
Author Organization [facility] Address [address] [place], [place] [address] [address] Care Team Providers Care Chief Unit Forester Name Role Phone Unavailable Primary Care Provider Unavailabl e Encounter Details Date Type Department Care Team (Late st Contact Info) Description 03/04/2024 Lab Requisition [facility] - DermPath Lab [address] [facility], [place] [address] Carmen Singletary MD [address] [facility] 3 [place] [address] Social History Tobacco Use Types Packs/Day Years Used Date Smoking Tobacco: Never Assessed Comments Unknown Sex and Gender Information Value Date Recorded Sex Assigned at Not on file Legal Sex Female 5:21 PM FISHER PURSE SEINE Gender Identity Not on file Sexual Orientation Not on file documented as of this encounter Plan of Treatment Not on file documented as of this encounter Procedures Procedure Name Priority Date/Time Associated Diagnosis Comments DERMATOPATHOLOGY Routine 03/04/2024 10:2 8 AM CDT documented in this encounter Results * DERMATOPATHOLOGY (03/04/2024 10:28 AM CDT) Case Report Dermatopathology Report Case: [id number] Authorizing Provider: Carmen Singletary MD Collected: 03/04/2024 10:28 AM Ordering Location: [facility] - Received: 03/05/2024 07:21 AM DermPath Lab Pathologist: Monica Terrell MD Specimen: Skin, right index 4 5:30 PM [facility] DERMATOPATHOLOGY LABORATORY Final Diagnosis Specimen A. SKIN, right index: PALISADED AND NECROBIOTIC GRANULOMATOUS DERMATITIS, SUPERFICIAL PORTIONS OF (L92.0) (see microscopic description and comment) 4 5:30 PM [facility] DERMATOPATHOLOGY LABORATORY at [address] Clinical History Favor GA; annular pink plaque 5:30 PM [facility] DERMATOPATHOLOGY LABORATORY Gross Description Specimen A: Received is one formalin filled container labeled with the patient's name and designated right index. The specimen consists of a shave biopsy measuring 8x5x1 mm. Jar 0. 5:30 PM [facility] DERMATOPATHOLOGY LABORATORY Microscopic Description Specimen [...] annulare. Clinicopathologic correlation is recommended. 5:30 PM [facility] DERMATOPATHOLOGY LABORATORY Disclaimer An external [...] purposes. Billing Codes Specimen Charges Stain Charges 81089 1 [id number] 1 1 1 5:30 PM [facility] DERMATOPATHOLOGY LABORATORY Embedded Images 5:30 PM [facility] DERMATOPATHOLOGY LABORATORY Pathology/Cytolo gy TISSUE SPECIMEN FROM SKIN / Unknown 03/04/2024 10:28 AM CDT 03/05/2024 7:21 AM CDT us Carmen Singletary MD LAB - PATHOLOGY/CYTOLOGY ORD ERABLES Final Result DERMATOPATHOLOGY LABORATORY [facility] - Department of Dermatology [address], [address] [phone] documented in this encounter Visit Diagnoses Not on filedocumented in this encounter
--- OUTSIDE RECORDS SUMMARY | 2024-10-01 00:31 | XMS_ITS | Encounter Summary ---
Author Organization [facility] Address [address] [place], [place] [address] [address] Care Team Providers Care Claims Coordinator Name Role Phone Unavailable Primary Care Provider Unavailabl e Encounter Details Date Type Department Care Team (Late st Contact Info) Description 08/13/2019 Lab Requisition [facility] DermPath Lab [address] [facility] [place] [address] Carmen Singletary MD [address] [facility] 3 [place] [address] Social History Tobacco Use Types Packs/Day Years Used Date Smoking Tobacco: Never Assessed Comments Unknown Sex and Gender Information Value Date Recorded Sex Assigned at Not on file 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 Gender Identity Not on file Sexual Orientation Not on file documented as of this encounter Plan of Treatment Not on file documented as of this encounter Procedures Procedure Name Priority Date/Time Associated Diagnosis Comments DERMATOPATH TECHNICAL REPORT Routine 08/13/2019 12:00 AM CDT documented in this encounter Results * DERMATOPATH TECHNICAL REPORT (08/13/2019 12:00 AM CDT) Case Report Dermatopathology Report Case: [id number] Authorizing Provider: Carmen Singletary MD Collected: 08/13/2019 12:00 AM Ordering Location: [facility] DermPath Lab Received: 08/13/2019 02:22 PM Pathologist: Donte Guo MD Specimen: Skin, left mejia 0 2:22 PM CDT DERMATOPATHOLOGY LABORATORY Addendum 1 At the request of the diagnosing physician, technical component for Magdaleno-Ep4 was performed on block 5 at [facility] Dermatopathology Laboratory. 0 2:22 PM CDT DERMATOPATHOLOGY LABORATORY Addendum electronically signed by Donte Guo MD on 08/18/2019 at 1422 CDT Clinical History Bx proven SCC, well diff. 0 2:22 PM CDT DERMATOPATHOLOGY LABORATORY Gross Description Specimen A: Received is one formalin filled container labeled with the patient's name and designated left mejia.The specimen consists of an ellipse measuring [id number] and is oriented with the notch at [...] and submitted in cassettes 3-5. Jar 0. [facility] Dermatopathology Laboratory performed the technical [...] characteristic determined by the Dermatopathology Laboratory at [facility], directed by Dr. Pete Guo. [...] DERMATOPATHOLOGY LABORATORY [facility] - Department of Dermatology [facility] [facility], 5th [place] [address], [facility] [phone] documented in this encounter Visit Diagnoses Not on filedocumented in this encounter
--- OUTSIDE RECORDS SUMMARY | 2024-10-01 00:31 | XMS_ITS | Encounter Summary ---
Author Organization [facility] Facility Care Team Providers Care Excelsior Picker Name Role Phone Calin Christina MD Primary Care Provi hallie Jaqueline Stark NP Primary Care Provider Calin Christina MD Primary Care Provi hallie Jaqueline Stark SILK SCREEN PAINTER Primary Care Provider Sultan Roly Elizondo MD Unavailable [phone] Carmen Singletary MD Unavailable [phone] Mary Spencer DO Primary Care Provider + Encounter Details Date Type Department Care Team (Latest Contact Info) Description 11/19/2017 Orders Only [facility] CLINCONV ProviderJosefina MD [address] [place] [address] Social History Tobacco Use Types Packs/Day Years Used Date Smoking Tobacco: Never Assessed Comments Unknown Sex and Gender Information Value Date Recorded Sex Assigned at Not on file 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 Gender Identity Not on file Sexual Orientation [...] on filedocumented in this encounter Care Teams Excelsior Picker Relationship Specialty Start Date End Date Calin Christina MD [address] [place] [address] PCP - General 09/18/18 11/13/21 Jaqueline Stark NP [address] [place] [address] PCP - General Internal Medicine 11/14/21 04/16/22 Calin Christina MD [address] [place] [address] PCP - General Family Medicine 04/17/22 04/19/22 [place] [address] [place] [address] [address] [place], [place] [address] PCP - General Internal Medicine 04/20/22 05/18/24 Mary Spencer DO [address] [place] [address] [place] [address] PCP - General Family Medicine 05/19/24 Sultan Roly Elizondo MD [address] [facility] [place] [place] [address] Consulting Physician Cardiovascular Disease 10/16/22 Carmen Singletary MD [address] [place] [address] Referring Physician Dermatology 10/16/22 documented as of this encounter
--- OUTSIDE RECORDS SUMMARY | 2024-10-01 00:32 | XMS_ITS | Encounter Summary ---
Author Organization [facility] Facility Care Team Providers Care Film Library Clerk Name Role Phone Calin Christina MD Primary Care Provi hallie Jaqueline Stark NP Primary Care Provider Calin Christina MD Primary Care Provi hallie Jaqueline Stark COUNTERINTELLIGENCE/HUMINT SPECIALIST Primary Care Provider Sultan Roly Elizondo MD Unavailable [phone] Carmen Singletary MD Unavailable [phone] Mary Spencer DO Primary Care Provider + Encounter Details Date Type Department Care Team (Latest Contact Info) Description 09/27/2015 Orders Only [facility]G CLINCONV ProviderJosefina MD [address] [place] [address] Social History Tobacco Use Types Packs/Day Years Used Date Smoking Tobacco: Never Assessed Comments Unknown Sex and Gender Information Value Date Recorded Sex Assigned at Not on file 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 Gender Identity Not on file Sexual [...] on filedocumented in this encounter Care Teams Film Library Clerk Relationship Specialty Start Date End Date Calin Christina MD [address] [place] [address] PCP - General 09/18/18 11/13/21 Jaqueline Stark, ALIA [address] [place] [address] PCP - General Internal Medicine 11/14/21 04/16/22 Calin Christina MD [address] [place] [address] PCP - General Family Medicine 04/17/22 04/19/22 Jaqueline Stark, ALIA [address] [place], [place] [address] PCP - General Internal Medicine 04/20/22 05/18/24 Mary Spencer DO [address] [place] [address] [place] [address] PCP - General Family Medicine 05/19/24 Sultan Roly Elizondo MD [address] [facility] [place] [address] Consulting Physician Cardiovascular Disease 10/16/22 Carmen Singletary MD [address] [place] [address] Referring Physician Dermatology 10/16/22 documented as of this encounter
[2024-10-01 00:37] VITALS: BP 141/90; PULSE 83; RESP 16; O2SAT 99
[2024-10-01 00:39] VITALS: BP 141/90; TEMP 36.7; O2SAT 100
[2024-10-01 00:40] VITALS: O2SAT 99
[2024-10-01] MEDS: HYDROcodone/acetaminophen (*CRX) 5-325 MG TABLET 1 TAB PO (00:58)
--- NOTE | 2024-10-01 01:04 | ED_ITS ---
HPI - Fall General Chief Complaint: Fall Stated Complaint: Fall, injury to RT foot and RT thumb Time Seen by Provider: 10/01/24 00:23 History of Present Illness HPI Narrative: Patient is a 74-year-old female who presents to the ER after sustaining a fall at her house. She reports she was walking in kitchen and tripped over the station worker. At time of examination patient endorses pain to her right knee, right hand, and right great toe. She denies any decreased range of motion besides in her right great toe. Patient is unsure when she had tetanus shot and has an open laceration to her right pinky finger. She has a medical history of high blood pressure, migraine headaches, and arthritis. Patient denies any calf pain, hip pain, urinary symptoms, or numbness/tingling in her extremities. Related Data Home Medications ?Medication ?Instructions ?Recorded ?Confirmed ?Last Taken ?Type clobetasol 0.05 % scalp solution 1 applic topical DAILY 10/31/21 06/03/24 Unknown History omeprazole 40 mg capsule,delayed 1 cap PO DAILY 10/31/21 06/03/24 11/16/21 History release propranolol 120 mg capsule,24 1 cap PO BID 10/31/21 06/03/24 11/17/21 History hr,extended release rizatriptan 10 mg tablet 1 tablet PO DAILY PRN Migraine 10/31/21 06/03/24 Unknown History Headache betamethasone dipropionate 0.05 % 1 ea topical DAILY 06/03/24 06/03/24 Unknown History lotion butalbital 50 mg-acetaminophen 325 1 cap PO QID PRN Headache 06/03/24 06/03/24 Unknown History mg-caffeine 40 mg-codeine 30 mg cap cholecalciferol (vitamin D3) 50 50 mcg PO DAILY 06/03/24 06/03/24 Unknown History mcg (2,000 unit) capsule docusate sodium 100 mg capsule 100 mg PO DAILY 06/03/24 06/03/24 Unknown History (Stool Softener) magnesium 200 mg tablet 200 mg PO DAILY 06/03/24 06/03/24 Unknown History mecobalamin (vitamin B12) 1,000 1,000 mcg PO DAILY 06/03/24 06/03/24 Unknown History mcg chewable tablet risankizumab-rzaa [Skyrizi] subcut 06/03/24 06/03/24 Unknown History rosuvastatin 10 mg tablet 10 mg PO DAILY 06/03/24 06/03/24 Unknown History trazodone 50 mg tablet 50 mg PO QHS 06/03/24 06/03/24 Unknown History Allergies Allergy/AdvReac Type Severity Reaction Status Date / Time erythromycin base Allergy Mild CAUSES Verified 06/03/24 11:26 DIARRHEA Review of Systems Review of Systems: All systems reviewed & are unremarkable except as noted in HPI and below PMFSH Past Medical History Medical History Psoriasis Thyroid disorder Heart disease Migraine COPD (chronic obstructive pulmonary disease) Arthritis History of skin cancer Irregular heart beat Hypertrophic cardiomyopathy Surgical History Surgical History Status post surgical removal of malignant neoplasm of skin Family History Family History Father Alcoholism Carcinoma of colon Sibling Alcoholism Cervical cancer Other Throat cancer Child Social History Social History Social History: Caffeine-3 cups daily Years smoked: 55 Smoking status: Current every day smoker Tobacco type: cigarettes Alcohol intake: never Substance use: never Substance use type: does not use Do You Feel Safe in your Home?: Yes Lack of Transportation: No Lack of Food: Never True Current Housing: I Have Housing Concerned About Future Housing: No Difficulty Paying Gas/Electric Bills: No Difficulty Paying for Meds: No Currently Unemployed: No Education: High School Diploma/GED Difficulty w/ Childcare or Family Care: YES Living arrangements: with family Occupation/Education: retired Gender identity (if verbalized by the patient): Female Spiritual care concerns: No Agree to blood products: Yes Exam Narrative: GENERAL: Well appearing, well-nourished, non-toxic, in no acute distress. HEAD: Normocephalic, atraumatic. NECK: Supple. No adenopathy, no masses. RESPIRATORY: Airway patent, respirations nonlabored. Clear to auscultation bilaterally, no rales, rhonchi, wheezing. CARDIOVASCULAR: Regular rate and rhythm without murmurs, rubs, or gallops. Peripheral pulses 2+ and equal bilaterally. ABDOMINAL: Soft, nontender, nondistended, no hepatosplenomegaly. Normoactive BS. MUSCULOSKELETAL: Moves all extremities. Strength/ROM intact without gross deformities. Decreased ROM in R great toe. SKIN: Warm, dry, normal color. No rashes. R pinky finger laceration approximately 1/2 cm, bleeding controlled. Hematoma to pt's R great toe with bruising down first and second metatarsal. Mild R knee edema. NEURO: A&O X3. Speech clear. Cranial nerves II-XII intact. No ataxic movements. PSYCHIATRIC: Appropriate mood and affect. Normal interaction. Course Vital Signs Vital signs: Vital Signs Temperature 36.6 C 09/30/24 21:54 Pulse Rate 81 09/30/24 21:54 Respiratory Rate 18 09/30/24 21:54 Blood Pressure 162/102 H 09/30/24 21:54 Pulse Oximetry 97 09/30/24 21:54 Oxygen Delivery Room Air 09/30/24 21:54 Temperature 36.6 C 09/30/24 21:54 Pulse Rate 83 10/01/24 00:37 Respiratory Rate 16 10/01/24 00:37 Blood Pressure 141/90 H 10/01/24 00:37 Pulse Oximetry 99 10/01/24 00:37 Oxygen Delivery Room Air 09/30/24 21:54 MDM - Fall MDM Narrative Medical decision making narrative: Patient is a 74-year-old female who presents to the ER after sustaining a fall at her house. She reports she was walking in kitchen and tripped over the station worker. At time of examination patient endorses pain to her right knee, right hand, and right great toe. She denies any decreased range of motion besides in her right great toe. Patient is unsure when she had tetanus shot and has an open laceration to her right pinky finger. She has a medical history of high blood pressure, migraine headaches, and arthritis. Patient denies any calf pain, hip pain, urinary symptoms, or numbness/tingling in her extremities. Imaging Ordered: Right hand x-ray, right knee x-ray, right foot x-ray Medications Ordered: Couderay p.o., Tdap Results: Pt's R hand x-ray indicates fracture in the proximal phalanx of the right big toe. No other acute abnormalities on x-rays. Diagnosis: R proximal phalanx fracture Consults: orthopedics (outpatient), drencher (outpatient) Patient Education/Shared MDM: Results of imaging shared with patient. She endorses ongoing pain with the most significant pain in her R distal foot/first, second, and third metatarsals. Will give pt a Couderay for pain control. Pt's this is will be wrapped with an Reg wrap and she will be placed in a walking boot. She was given strict instructions to not walk on her injured foot, although patient is declining crutches. Pt reports she has a wheelchair and walker at home she can use. Patient should follow-up with orthopedics or podiatrics as soon as possible. Until then patient should rest, ice and elevate the right lower extremity. Patient's right pinky was irrigated with saline. Super glue was placed on patient's right pinky laceration. Steri-Strips were placed over the site and it was covered with a dressing by RN. She will be discharged home with a prescription for Couderay. Strict return precautions provided. Patient verbalized understanding and is in agreement with plan. Vital signs stable at time of discharge. All questions answered. Differential Diagnosis Differential diagnosis: Likely other (Right metatarsal fracture, right ankle fracture, right knee fracture, right knee sprain, right wrist fracture, right 5th digit fracture, right 5th digit laceration) Lab Data Attestation: I reviewed the patient's lab results. Imaging Data Attestation: I personally reviewed and interpreted this imaging study as follows: Radiologist's impression: Impressions Foot X-Ray 09/30/24 23:41 IMPRESSION: Fracture in the proximal phalanx of the right big toe Knee X-Ray 09/30/24 23:43 IMPRESSION: No acute osseous abnormality right knee. Hand X-Ray 09/30/24 23:45 IMPRESSION: No acute osseous abnormality right hand. Polyarticular osteoarthritic changes. Discharge Plan Discharge Clinical Impression: Closed fracture of proximal phalanx of right great toe, Laceration of right little finger, Traumatic hematoma of right knee, Acute pain of right foot Patient Disposition: Home Condition: Stable Instructions: Antibiotic Form, Laceration (ED), Toe Fracture (ED), P.R.I.C.E. Treatment (ED) Additional Instructions: Please return to the ER with any worsening symptoms. Follow-up with orthopedics or podiatry as soon as possible. Take all medications as prescribed, including regularly scheduled medications. You may use Couderay for pain control. Please try not to put any pressure on your right foot/right toe. Keep your foot wrapped in in the walking boot until you have follow-up. Patient Language: Mohawk Prescriptions: New hydrocodone-acetaminophen 5-325 mg tablet 1 tablet PO Q6H PRN (Reason: pain) Qty: 14 0RF No Action trazodone 50 mg tablet 50 mg PO QHS rosuvastatin 10 mg tablet 10 mg PO DAILY docusate sodium [Stool Softener] 100 mg capsule 100 mg PO DAILY cholecalciferol (vitamin D3) 50 mcg (2,000 unit) capsule 50 mcg PO DAILY mecobalamin (vitamin B12) 1,000 mcg tablet,chewable 1,000 mcg PO DAILY magnesium 200 mg tablet 200 mg PO DAILY risankizumab-rzaa [Skyrizi] subcut tramadol 50 mg tablet See Rx Instructions .ROUTE .COMPLEX PRN (Reason: Pain) Qty: 28 0RF Rx Instructions: 1 tablet orally as needed every 6 hrs rizatriptan 10 mg tablet 1 tablet PO DAILY PRN (Reason: Migraine Headache) omeprazole 40 mg capsule,delayed release(DR/EC) 1 cap PO DAILY propranolol 120 mg capsule,extended release 24 hr 1 cap PO BID clobetasol 0.05 % solution 1 applic TOPICAL DAILY betamethasone dipropionate 0.05 % lotion 1 ea TOPICAL DAILY mcblbntlbn-yzweqnlrtr-cmm-cod 25-784-98-30 mg capsule 1 cap PO QID PRN (Reason: Headache) meloxicam 15 mg tablet 15 mg PO DAILY Qty: 90 1RF raloxifene 60 mg tablet 60 mg PO DAILY Qty: 90 1RF Follow-up/Referrals: Vlad Gonzales DPM [Physician] - (podiatry) Collins De Dios MD [Physician] - (orthopedics) Jose Reddy Jr., DPM [Physician] - (podiatry ) Mary Spencer DO [Primary Care Provider] - Time of Disposition: 02:00
[2024-10-01 01:31] VITALS: BP 147/99; O2SAT 98
[2024-10-01] MEDS: TETANUS,DIPHTHERIA,AC PERTUSSIS ADULT (0.5 ML) BOOSTRIX IM (01:34)
== END 2024-10-01 02:37 | disposition home or self-care (01) ==
PROVIDERS: Emergency Provider Registered Nurse; PCP Family Medicine
DX: S61.216A Laceration without foreign body of right little finger without damage to nail, initial encounter (principal); S92.411A Displaced fracture of proximal phalanx of right great toe, initial encounter for closed fracture; S80.01XA Contusion of right knee, initial encounter; S90.31XA Contusion of right foot, initial encounter; Z23 Encounter for immunization; I42.2 Other hypertrophic cardiomyopathy; I11.9 Hypertensive heart disease without heart failure; J44.9 Chronic obstructive pulmonary disease, unspecified; E07.9 Disorder of thyroid, unspecified; L40.9 Psoriasis, unspecified; M19.90 Unspecified osteoarthritis, unspecified site; Z85.828 Personal history of other malignant neoplasm of skin; F17.210 Nicotine dependence, cigarettes, uncomplicated; Z79.899 Other long term (current) drug therapy; W18.09XA Striking against other object with subsequent fall, initial encounter
CPT/HCPCS: 12001; 73130; 73562; 73630; 90471; 90715; 99284; A9270

== ENCOUNTER 2025-01-21 11:47 | Outpatient (CLI) | payer OTHER, SELFPAY ==
--- OUTSIDE RECORDS SUMMARY | 2025-01-21 12:02 | XMS_ITS | Encounter Summary ---
Author Organization [facility] Facility Care Team Providers Care Philosophy Instructor Name Role Phone Calin Christina MD Primary Care Provi hallie Jaqueline Stark NP Primary Care Provider Calin Christina MD Primary Care Provi hallie Jaqueline Stark PARAPROFESSIONAL INTERPRETER Primary Care Provider Sultan Roly Elizondo MD Unavailable [phone] Carmen Singletary MD Unavailable [phone] Mary Spencer DO Primary Care Provider + Encounter Details Date Type Department Care Team (Latest Contact Info) Description 11/18/2017 Orders Only [facility] CLINCONV ProviderJosefina MD [address] [place] [address] Social History Tobacco Use Types Packs/Day Years Used Date Smoking Tobacco: Never Assessed Comments Unknown Sex and Gender Information Value Date Recorded Sex Assigned at Not on file 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 Gender Identity Not on file Sexual [...] on filedocumented in this encounter Care Teams Philosophy Instructor Relationship Specialty Start Date End Date Calin Christina MD [address] [place] [address] PCP - General 09/18/18 11/13/21 Jaqueline Stark, ALIA [address] [place] [address] PCP - General Internal Medicine 11/14/21 04/16/22 Calin Christina MD [address] [place] [address] PCP - General Family Medicine 04/17/22 04/19/22 Jaqueline Stark, ALIA [address] [place] [address] PCP - General Internal Medicine 04/20/22 05/18/24 Mary Spencer DO [address] [place] [address] [address] [place] [address] PCP - General Family Medicine 05/19/24 Sultan Roly Elizondo MD [address] [place] [address] Consulting Physician Cardiovascular Disease 10/16/22 Cramen Singletary MD [address] [place] [address] Referring Physician Dermatology 10/16/22 documented as of this encounter
--- OUTSIDE RECORDS SUMMARY | 2025-01-21 12:02 | XMS_ITS | Encounter Summary ---
Author Organization [facility] Facility Care Team Providers Care Analyst Market Intelligence Name Role Phone Calin Christina MD Primary Care Provi hallie Jaqueline Stark NP Primary Care Provider Calin Christina MD Primary Care Provi hallie Jaqueline Stark PRESS SETUP OPERATOR Primary Care Provider Sultan Roly Elizondo MD Unavailable [phone] Carmen Singletary MD Unavailable [phone] Mary Spencer DO Primary Care Provider + Encounter Details Date Type Department Care Team (Latest Contact Info) Description 11/14/2017 Orders Only [facility] CLINCONV ProviderJosefina MD [address] [place] [address] Social History Tobacco Use Types Packs/Day Years Used Date Smoking Tobacco: Never Assessed Comments Unknown Sex and Gender Information Value Date Recorded Sex Assigned at Not on file 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 Gender Identity Not on file Sexual Orientation [...] on filedocumented in this encounter Care Teams Analyst Market Intelligence Relationship Specialty Start Date End Date Calin Christina MD [address] [place] [address] PCP - General 09/18/18 11/13/21 Jaqueline Stark, ALIA [address] [place] [address] PCP - General Internal Medicine 11/14/21 04/16/22 Calin Christina MD [address] [place] [address] PCP - General Family Medicine 04/17/22 04/19/22 Jaqueline Strak, ALIA [address] [place] [address] PCP - General Internal Medicine 04/20/22 05/18/24 Mary Spencer DO [address] [place] [address] [address] [place] [address] PCP - General Family Medicine 05/19/24 Sultan Roly Elizondo MD [address] [facility] [place] [address] Consulting Physician Cardiovascular Disease 10/16/22 Carmen Singletary MD [address] [place] [address] Referring Physician Dermatology 10/16/22 documented as of this encounter
--- OUTSIDE RECORDS SUMMARY | 2025-01-21 12:02 | XMS_ITS | Encounter Summary ---
Author Organization [facility] Care Team Providers Care Pants Maker Name Role Phone Calin Christina MD Primary Care Provi hallie Jaqueline Stark NP Primary Care Provider Calin Christina MD Primary Care Provi hallie Jaqueline Stark SHOE STICKS REPAIRER Primary Care Provider Sultan Roly Elizondo MD Unavailable [phone] Carmen Singletary MD Unavailable [phone] Mary Spencer DO Primary Care Provider + Encounter Details Date Type Department Care Team (Latest Contact Info) Description 11/16/2017 Orders Only [facility] CLINCONV ProviderJosefina MD [address] [place] [address] Social History Tobacco Use Types Packs/Day Years Used Date Smoking Tobacco: Never Assessed Comments Unknown Sex and Gender Information Value Date Recorded Sex Assigned at Not on file 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 Gender Identity Not on file Sexual [...] on filedocumented in this encounter Care Teams Pants Maker Relationship Specialty Start Date End Date Calin Christina MD [address] [place] [address] PCP - General 09/18/18 11/13/21 Jaqueline Stark, ALIA [address] [place] [address] PCP - General Internal Medicine 11/14/21 04/16/22 Calin Christina MD [address] [place] [address] PCP - General Family Medicine 04/17/22 04/19/22 Jaqueline Stark, ALIA [address] [place] [address] PCP - General Internal Medicine 04/20/22 05/18/24 Mary Spencer DO [address] [place] [address] [address] [place] [address] PCP - General Family Medicine 05/19/24 Sultan Roly Elizondo MD [address] [facility] [place] [address] Consulting Physician Cardiovascular Disease 10/16/22 Carmen iSngletary MD [address] [place] [address] Referring Physician Dermatology 10/16/22 documented as of this encounter
--- OUTSIDE RECORDS SUMMARY | 2025-01-21 12:02 | XMS_ITS | Encounter Summary ---
Author Organization [facility] Facility Care Team Providers Care Glass Selector Name Role Phone Calin Christina MD Primary Care Provi hallie Jaqueline Stark NP Primary Care Provider Calin Christina MD Primary Care Provi hallie Jaqueline Stark BYPRODUCTS SUPERVISOR Primary Care Provider Sultan Roly Elizondo MD Unavailable [phone] Carmen Singletary MD Unavailable [phone] Mary Spencer DO Primary Care Provider + Encounter Details Date Type Department Care Team (Latest Contact Info) Description 11/15/2017 Orders Only [facility] CLINCONV ProviderJosefina MD [address] [place] [address] Social History Tobacco Use Types Packs/Day Years Used Date Smoking Tobacco: Never Assessed Comments Unknown Sex and Gender Information Value Date Recorded Sex Assigned at Not on file 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 Gender Identity Not on file Sexual [...] on filedocumented in this encounter Care Teams Glass Selector Relationship Specialty Start Date End Date Calin Christina MD [address] [place] [address] PCP - General 09/18/18 11/13/21 Jaqueline Stark, ALIA [address] [place] [address] PCP - General Internal Medicine 11/14/21 04/16/22 Calin Christina MD [address] [place] [address] PCP - General Family Medicine 04/17/22 04/19/22 Jaqueline Stark, ALIA [address] [place] [address] PCP - General Internal Medicine 04/20/22 05/18/24 Mary Spencer DO [address] [place] [address] [address] [place] [address] PCP - General Family Medicine 05/19/24 Sultan Roly Elizondo MD [address] [facility] [place] [address] Consulting Physician Cardiovascular Disease 10/16/22 Carmen Singletary MD [address] [place] [address] Referring Physician Dermatology 10/16/22 documented as of this encounter
--- OUTSIDE RECORDS SUMMARY | 2025-01-21 12:02 | XMS_ITS | Clinical Summary ---
Author Organization [facility] Address [address] [place] [address] Care Team Providers Care Coke Worker Name Role Phone Unavailable Primary Care Provider Unavailabl e Source Comments [facility],non-owned Affiliates and Associated Physician Practices is amultiple site organization consisting of ambulatory clinics and hospital sitesin [place], [place], [place] and [place]. This disclosure is being madepursuant to the Care Everywhere program and may not contain all information available regarding this patient. 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
--- OUTSIDE RECORDS SUMMARY | 2025-01-21 12:02 | XMS_ITS | Encounter Summary ---
Author Organization [facility] Facility Care Team Providers Care Foundation Drill Operator Helper Name Role Phone Calin Christina MD Primary Care Provi hallie Jaqueline Stark NP Primary Care Provider Calin Christina MD Primary Care Provi hallie Jaqueline Stark TEXTILE SCRAP SALVAGER Primary Care Provider Sultan Roly Elizondo MD Unavailable [phone] Carmen Singletary MD Unavailable [phone] Mary Spencer DO Primary Care Provider + Encounter Details Date Type Department Care Team (Latest Contact Info) Description 11/17/2017 Orders Only [facility] CLINCONV ProviderJosefina MD [address] [place] [address] Social History Tobacco Use Types Packs/Day Years Used Date Smoking Tobacco: Never Assessed Comments Unknown Sex and Gender Information Value Date Recorded Sex Assigned at Not on file 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 Gender Identity Not on file Sexual Orientation [...] on filedocumented in this encounter Care Teams Foundation Drill Operator Helper Relationship Specialty Start Date End Date Calin Christina MD [address] [place] [address] PCP - General 09/18/18 11/13/21 Jaqueline Stark, ALIA [address] [place] [address] PCP - General Internal Medicine 11/14/21 04/16/22 Calin Christina MD [address] [place] [address] PCP - General Family Medicine 04/17/22 04/19/22 Jaqueline Stark, ALIA [address] [place] [address] PCP - General Internal Medicine 04/20/22 05/18/24 Mary Spencer DO [address] [place] [address] [address] [place] [address] PCP - General Family Medicine 05/19/24 Sultan Roly Elizondo MD [address] [facility] [place] [address] Consulting Physician Cardiovascular Disease 10/16/22 Carmen Singletary MD [address] [place] [address] Referring Physician Dermatology 10/16/22 documented as of this encounter
--- OUTSIDE RECORDS SUMMARY | 2025-01-21 12:03 | XMS_ITS | Encounter Summary ---
Author Organization [facility] Address [address] [place], [place] [address] [address] Care Team Providers Care Waiter/Waitress Informal Name Role Phone Unavailable Primary Care Provider Unavailabl e Encounter Details Date Type Department Care Team (Late st Contact Info) Description 01/01/[address] 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 DermPath Lab Received: 01/01/2020 07:16 AM Pathologist: Nano Henderson MD Specimen: Skin, left chest 0 4:37 PM CDT DERMATOPATHOLOGY LABORATORY Final Diagnosis Specimen A. SKIN, left chest: SQUAMOUS CELL CARCINOMA, WELL DIFFERENTIATED (C44.529) NOT PRESENT AT MARGIN DERMAL SCAR (L90.5) 0 4:37 PM CDT DERMATOPATHOLOGY LABORATORY at 1637 CDT Clinical History R/O SCC, keratoacanthoma type; biopsy proven. Previus Bx:[id number]. 0 4:37 PM CDT DERMATOPATHOLOGY LABORATORY Gross Description Specimen A: Received is one formalin filled container labeled with the patient's name and designated left chest.The specimen consists of an ellipse measuring [id number] and is oriented with the notch at [...] characteristic determined by the Dermatopathology Laboratory at [facility], directed by Dr. Pete Guo. These tests need not be, and therefore are not, approved by the [place] Food and Drug Administration. The tests are used for clinical purposes. Billing Codes Specimen Charges Stain Charges 53900 1 0 4:37 PM CDT DERMATOPATHOLOGY LABORATORY Embedded Images 0 4:37 PM CDT DERMATOPATHOLOGY LABORATORY Pathology/Cytolog y TISSUE SPECIMEN FROM SKIN / Unknown 12/31/2019 01/01/2020 7:16 AM CDT us Carmen Singletary MD LAB - PATHOLOGY/CYTOLOGY ORD ERABLES Final Result DERMATOPATHOLOGY LABORATORY [facility] - Department of Dermatology [facility] [address] [place] [address], [address]rd Floor [address] [phone] documented in this encounter Visit Diagnoses Not on filedocumented in this encounter
--- OUTSIDE RECORDS SUMMARY | 2025-01-21 12:03 | XMS_ITS | Encounter Summary ---
Author Organization [facility] Facility Care Team Providers Care Cutting Table Operator First Name Role Phone Calin Christina MD Primary Care Provi hallie Jaqueline Stark NP Primary Care Provider Calin Christina MD Primary Care Provi hallie Jaqueline Stark NAILING MACHINE OPERATOR Primary Care Provider Sultan Roly Elizondo MD Unavailable [phone] Carmen Singletary MD Unavailable [phone] Mary Spencer DO Primary Care Provider + Encounter Details Date Type Department Care Team (Latest Contact Info) Description 11/20/2017 Orders Only [facility] CLINCONV ProviderJosefina MD [address] [place] [address] Social History Tobacco Use Types Packs/Day Years Used Date Smoking Tobacco: Never Assessed Comments Unknown Sex and Gender Information Value Date Recorded Sex Assigned at Not on file 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 Historical Provider CV CARDIAC SERVICES PROCE DURES Final Result * CARDIOLOGY REPORT (11/22/2017 12:00 AM CDT) Anatomical Region Laterality Modality Other Narrative 11/22/2017 12:00 AM CDT Ordered by an unspecified provider. Historical Provider CV CARDIAC SERVICES PROCE DURES Final Result documented in this encounter Visit Diagnoses Not on filedocumented in this encounter Care Teams Cutting Table Operator First Relationship Specialty Start Date End Date Calin Christina MD [address] [place] [address] PCP - General 09/18/18 11/13/21 Jaqueline Stark NP [address] [place] [address] PCP - General Internal Medicine 11/14/21 04/16/22 Calin Christina MD [address] [place], [place] [address] PCP - General Family Medicine 04/17/22 04/19/22 Jaqueline Stark NP [address] [place], [place] [address] PCP - General Internal Medicine 04/20/22 05/18/24 Mary Spencer DO [address] [place] [address] [address] PA[address] [place] [id number] PCP - General Family Medicine 05/19/24 Sultan Roly Elizondo MD [address] [facility] [address] [address] Consulting Physician Cardiovascular Disease 10/16/22 Carmen Singletary MD [address] [place] [address] Referring Physician Dermatology 10/16/22 documented as of this encounter
--- OUTSIDE RECORDS SUMMARY | 2025-01-21 12:03 | XMS_ITS | Encounter Summary ---
Author Organization [facility] Facility Care Team Providers Care Line Walker Name Role Phone Calin Christina MD Primary Care Provi hallie Jaqueline Stark NP Primary Care Provider Calin Christina MD Primary Care Provi hallie Jaqueline Stark WORKDAY CONSULTANT Primary Care Provider Sultan Roly Elizondo MD Unavailable [phone] Carmen Singletary MD Unavailable [phone] Mary Spencer DO Primary Care Provider + Encounter Details Date Type Department Care Team (Latest Contact Info) Description 10/30/2017 Orders Only [facility] CLINCONV ProviderJosefina MD [address] [place] [address] Social History Tobacco Use Types Packs/Day Years Used Date Smoking Tobacco: Never Assessed Comments Unknown Sex and Gender Information Value Date Recorded Sex Assigned at Not on file 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 Gender Identity Not on file Sexual Orientation [...] on filedocumented in this encounter Care Teams Line Walker Relationship Specialty Start Date End Date Calin Christina MD [address] [place] [address] PCP - General 09/18/18 11/13/21 Jaqueline Stark, ALIA [address] [place] [address] PCP - General Internal Medicine 11/14/21 04/16/22 Calin Christina MD [address] [place] [address] PCP - General Family Medicine 04/17/22 04/19/22 Jaqueline Stark, ALIA [address] [place] [address] PCP - General Internal Medicine 04/20/22 05/18/24 Mary Spencer DO [address] [place] [address] [address] PA[address] [place] [address] PCP - General Family Medicine 05/19/24 Sultan Roly Elizondo MD [address] [facility] [place] [address] Consulting Physician Cardiovascular Disease 10/16/22 Carmen Singletary MD [address] [place] [address] Referring Physician Dermatology 10/16/22 documented as of this encounter
--- OUTSIDE RECORDS SUMMARY | 2025-01-21 12:03 | XMS_ITS | Encounter Summary ---
Author Organization [facility] Facility Care Team Providers Care Animator Name Role Phone Calin Christina MD Primary Care Provi hallie Jaqueline Stark NP Primary Care Provider Calin Christina MD Primary Care Provi hallie Jaqueline Stark SPRING WINDER Primary Care Provider Sultan Roly Elizondo MD Unavailable [phone] Carmen Singletary MD Unavailable [phone] Mary Spencer DO Primary Care Provider + Encounter Details Date Type Department Care Team (Latest Contact Info) Description 11/01/2017 Orders Only [facility] CLINCONV ProviderJosefina MD [address] [place] [address] Social History Tobacco Use Types Packs/Day Years Used Date Smoking Tobacco: Never Assessed Comments Unknown Sex and Gender Information Value Date Recorded Sex Assigned at Not on file 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 Gender Identity Not on file Sexual [...] on filedocumented in this encounter Care Teams Animator Relationship Specialty Start Date End Date Calin Christina MD [address] [place] [address] PCP - General 09/18/18 11/13/21 Jaqueline Stark, ALIA [address] [place] [address] PCP - General Internal Medicine 11/14/21 04/16/22 Calin Christina MD [address] [place] [address] PCP - General Family Medicine 04/17/22 04/19/22 Jaqueline Stark, ALIA [address] [place] [address] PCP - General Internal Medicine 04/20/22 05/18/24 Mary Spencer DO [address] [place] [address] [address] [place] [address] PCP - General Family Medicine 05/19/24 Sultan Roly Elizondo MD [address] [place] [address] Consulting Physician Cardiovascular Disease 10/16/22 Carmen Singletary MD [address] [place] [address] Referring Physician Dermatology 10/16/22 documented as of this encounter
--- OUTSIDE RECORDS SUMMARY | 2025-01-21 12:03 | XMS_ITS | Encounter Summary ---
Author Organization [facility] Facility Care Team Providers Care Emergency Room Rn Name Role Phone Calin Christina MD Primary Care Provi hallie Jaqueline Stark NP Primary Care Provider Calin Christina MD Primary Care Provi hallie Jaqueline Stark POCKETED SPRING MACHINE OPERATOR Primary Care Provider Sultan Roly Elizondo MD Unavailable [phone] Carmen Singletary MD Unavailable [phone] Mary Spencer DO Primary Care Provider + Encounter Details Date Type Department Care Team (Latest Contact Info) Description 11/23/2017 Orders Only [facility] CLINCONV ProviderJosefina MD [address] [place] [address] Social History Tobacco Use Types Packs/Day Years Used Date Smoking Tobacco: Never Assessed Comments Unknown Sex and Gender Information Value Date Recorded Sex Assigned at Not on file 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 Gender Identity Not on file Sexual Orientation [...] on filedocumented in this encounter Care Teams Emergency Room Rn Relationship Specialty Start Date End Date Calin Christina MD [address] [place] [address] PCP - General 09/18/18 11/13/21 Jaqueline Stark, ALIA [address] [place] [address] PCP - General Internal Medicine 11/14/21 04/16/22 Calin Christina MD [address] [place] [address] PCP - General Family Medicine 04/17/22 04/19/22 Jaqueline Stark, ALIA [address] [place] [address] PCP - General Internal Medicine 04/20/22 05/18/24 Mary Spencer DO [address] [place] [address] [address] [place] [address] PCP - General Family Medicine 05/19/24 Sultan Roly Elizondo MD [address] [facility] [place] [address] Consulting Physician Cardiovascular Disease 10/16/22 Carmen Singletary MD [address] [place] [address] Referring Physician Dermatology 10/16/22 documented as of this encounter
--- OUTSIDE RECORDS SUMMARY | 2025-01-21 12:03 | XMS_ITS | Clinical Summary ---
Author Organization [facility] Address [address] [place] [address] Care Team Providers Care Landscaping Manager Name Role Phone Calin Christina MD Primary Care Provider Social History Tobacco Use Types Packs/Day Years Used Date Smoking Tobacco: Never Assessed Comments Unknown Sex and Gender Information Value Date Recorded Sex Assigned at Not on file Legal Sex Female 5:07 PM CDT Gender Identity Not on file Sexual Orientation Not on file Plan of Treatment Health Maintenance Due Date Last Done Comments Colorectal Cancer Screening Colonoscopy (10 Years) 1950 DTaP, Tdap and Td Vaccines ( 1 - Tdap) 1969 Zoster Vaccines (1 of 2) 2000 Annual Medicare Wellness Visit 2015 Pneumococcal Vaccine: 50+ Years (2 of 2 - PPSV23) 03/08/2019 03/08/2018 Mammogram Screening 09/30/2021 10/01/2019, 10/25/2017 COVID-19 Vaccine ( - 2023-2 5 season) 2025 RSV Immunization or 60+ Years (1 - 1-dose 75+ series) 2025 Hepatitis C Completed 10/20/2015 Dexa Scan (General) Completed 10/25/2017 Meningococcal B Vaccine Aged Out No l onger eligible based on patient's age to complete this topic Meningococcal Vaccine Aged Out No jagruti lucinda eligible based on patient's age to complete this topic RSV Immunizations Under 20 Months Aged Out No longer eligible b ased on patient's age to complete this topic Procedures Procedure Name Priority Date/Time Associated Diagnosis Comments MG SCREENING W EMILEE MERRICK DIGI Routine 10/01/2019 10:35 AM CDT Encounter for screening mammogram for malignant neoplasm of breast BONE DENSITY/DEXA Routine 10/25/2017 1:2 1 PM CDT Screening for osteoporosis HEPATITIS C ANTIBODY Routine 10/20/2015 4:07 PM CDT from Last 3 Months or Most Recently Relevant to Health Maintenance Results * MG SCREENING W EMILEE MERRICK DIGI (10/01/2019 10:35 AM CDT) Anatomical Region Laterality Modality Breast Bilateral Mammography 10/01/2019 11:2 7 AM CDT Impressions 10/01/2019 11:36 AM CDT =====IMPRESSION:===== No mammographic findings suggestive of malignancy. ASSESSMENT: ACR BI-RADS CATEGORY 2 - BENIGN FINDING(S) RECOMMENDATION: 1: Routine screening mammogram bilateral in 1 year COMMENTS: Narrative 10/01/2019 11:36 AM CDT EXAMINATION: Digital bilateral screening mammogram with 3-D tomosynthesis EXAM DATE/TIME: 10/01/2019 10:19 AM REASON FOR EXAM: Encounter for screening mammogram for malignant neoplasm of breast No current complaints COMPARISON: 10/25/2017, 09/24/2016, 07/29/2015 TECHNIQUE: Digital screening mammography of both breasts was performed in addition to 3-D Tomosynthesis technique. This study was read with the assistance of a computer-aided detection system. TISSUE DENSITY: The breast tissue contains scattered fibroglandular densities. FINDINGS: No suspicious masses, malignant appearing calcifications, skin thickening or other abnormalities are present. No significant change from the prior exam. us Calin Christina MD MAMMO Final Result * BONE DENSITY/DEXA (10/25/2017 1:21 PM CDT) Anatomical Region Laterality Modality Bone Mammography 10/25/2017 2:27 PM CDT Impressions 10/25/2017 2:29 PM CDT =====IMPRESSION:===== Lumbar spine bone density: Osteoporosis. Bilateral femoral neck bone density: Osteoporosis. Bilateral total femur bone density: Osteoporosis Narrative 10/25/2017 2:29 PM CDT Examination: Bone Density Axial Exam date/time: 10/25/2017 1:21 PM Reason For Exam: Postmenopausal. Fosamax therapy. Previous fracture. Family history of fracture. Smoking history. Rheumatoid arthritis. Steroid usage. Comparison: None Findings: DEXA bone densitometry The bone mineral density (BMD) was determined by dual-energy x-ray absorptiometry, the results are as follows: AP Lumbar Spine L1 through L4 BMD Patient (GM/SQCM): 0.750 T-Score (Standard deviations from young adult peak bone density): -2.7 Bilateral femoral neck: BMD Patient (GM/SQCM): 0.528 T-Score (Standard deviations from young adult peak bone density): -2.9 Total femur: BMD Patient (GM/SQCM): 0.625 T-Score (Standard deviations from young adult peak bone density): -2.6 Procedure Note Brian Bolanos MD - 10/25/2017 Examination: Bone Density Axial Exam date/time: 10/25/2017 1:21 PM Reason For Exam: Postmenopausal. Fosamax therapy. Previous fracture. Family history of fracture. Smoking history. Rheumatoid arthritis. Steroid usage. Comparison: None Findings: DEXA bone densitometry The bone mineral density (BMD) was determined by dual-energy x-ray absorptiometry, the results are as follows: AP Lumbar Spine L1 through L4 BMD Patient (GM/SQCM): 0.750 T-Score (Standard deviations from young adult peakbone density): -2.7 Bilateral femoral neck: BMD Patient (GM/SQCM): 0.528 T-Score (Standard deviations from young adult peakbone density): -2.9 Total femur: BMD Patient (GM/SQCM): 0.625 T-Score (Standard deviations from young adult peakbone density): -2.6 =====IMPRESSION:===== Lumbar spine bone density: Osteoporosis. Bilateral femoral neck bone density: Osteoporosis. Bilateral total femur bone density: Osteoporosis us Calin Christina MD DEXA Final Result * HEPATITIS C ANTIBODY (10/20/2015 4:07 PM CDT) HEPATITIS C AB NON-REACTI VE NON-REACTI VE 10/21/2015 5:51 PM CDT [facility] Comment: TESTING PERFORMED AT [facility] [address] [place] [address] SERUM OR PLASMA SPECIMEN / Unknown 10/20/2015 4:07 PM CDT 10/20/2015 4:56 PM CDT us Generic Conversion Md [facility] Final R esult [facility] [address] [place] [address], [place] [phone] from Last 3 Months or Most Recently Relevant to Health [place] [id number] Care Teams Landscaping Manager Relationship Specialty Start Date End Date Calin Christina MD PCP - General 09/24/16
--- OUTSIDE RECORDS SUMMARY | 2025-01-21 12:03 | XMS_ITS | Encounter Summary ---
Author Organization [facility] Facility Care Team Providers Care Refrigerator Assembler Name Role Phone Calin Christina MD Primary Care Provi hallie Jaqueline Stark NP Primary Care Provider Calin Christina MD Primary Care Provi hallie Jaqueline Stark HAZMAT TANKER DRIVER Primary Care Provider Sultan Roly Elizondo MD Unavailable [phone] Carmen Singletary MD Unavailable [phone] Mary Spencer DO Primary Care Provider + Encounter Details Date Type Department Care Team (Latest Contact Info) Description 11/04/2017 Orders Only MMG CLINCONV ProviderJosefina MD [address] [place] [address] Social History Tobacco Use Types Packs/Day Years Used Date Smoking Tobacco: Never Assessed Comments Unknown Sex and Gender Information Value Date Recorded Sex Assigned at Not on file 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 Gender Identity Not on file Sexual Orientation [...] on filedocumented in this encounter Care Teams Refrigerator Assembler Relationship Specialty Start Date End Date Calin Christina MD [address] [place] [address] PCP - General 09/18/18 11/13/21 Jaqueline Stark, ALIA [address] [place] [address] PCP - General Internal Medicine 11/14/21 04/16/22 Calin Christina MD [address] [place] [address] PCP - General Family Medicine 04/17/22 04/19/22 Jaqueline Stark, ALIA [address] [place] [address] PCP - General Internal Medicine 04/20/22 05/18/24 Mary Spencer DO [address] [place] [address] [address] [place] [address] PCP - General Family Medicine 05/19/24 Sultan Roly Elizondo MD [address] [facility] [place] [address] Consulting Physician Cardiovascular Disease 10/16/22 Carmen Singletary MD [address] [place] [address] Referring Physician Dermatology 10/16/22 documented as of this encounter
--- OUTSIDE RECORDS SUMMARY | 2025-01-21 12:03 | XMS_ITS | Encounter Summary ---
Author Organization [facility] Facility Care Team Providers Care Chronometer Adjuster Name Role Phone Calin Christina MD Primary Care Provi hallie Jaqueline Stark NP Primary Care Provider Calin Christina MD Primary Care Provi hallie Jaqueline Stark WELL DRILLER HELPER Primary Care Provider Sultan Roly Elizondo MD Unavailable [phone] Carmen Singletary MD Unavailable [phone] Mary Spencer DO Primary Care Provider + Encounter Details Date Type Department Care Team (Latest Contact Info) Description 11/12/2016 Orders Only [facility]G CLINCONV ProviderJosefina MD [address] [place] [address] Social History Tobacco Use Types Packs/Day Years Used Date Smoking Tobacco: Never Assessed Comments Unknown Sex and Gender Information Value Date Recorded Sex Assigned at Not on file 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 AND 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 Gender Identity Not on file Sexual Orientation [...] on filedocumented in this encounter Care Teams Chronometer Adjuster Relationship Specialty Start Date End Date Calin Christina MD [address] [place] [address] PCP - General 09/18/18 11/13/21 Jaqueline Stark, ALIA [address] [place] [address] PCP - General Internal Medicine 11/14/21 04/16/22 Calin Christina MD [address] [place] [address] PCP - General Family Medicine 04/17/22 04/19/22 Jaqueline Stark, ALIA [address] [place] [address] PCP - General Internal Medicine 04/20/22 05/18/24 Mary Spencer DO [address] [place] [address] [address] [place] [address] PCP - General Family Medicine 05/19/24 Sultan Roly Elizondo MD [address] [facility] [place] [address] Consulting Physician Cardiovascular Disease 10/16/22 Carmen Singletary MD [address] [place] [address] Referring Physician Dermatology 10/16/22 documented as of this encounter
--- OUTSIDE RECORDS SUMMARY | 2025-01-21 12:03 | XMS_ITS | Encounter Summary ---
Author Organization [facility] Facility Care Team Providers Care Xerox Machine Operator Name Role Phone Calin Christina MD Primary Care Provi hallie Jaqueline Stark NP Primary Care Provider Calin Christina MD Primary Care Provi hallie Jaqueline Stark DIRECTOR OF EXTENSION WORK Primary Care Provider Sultan Roly Elizondo MD Unavailable [phone] Carmen Singletary MD Unavailable [phone] Mary Spencer DO Primary Care Provider + Encounter Details Date Type Department Care Team (Latest Contact Info) Description 11/13/2017 Orders Only [facility]G CLINCONV ProviderJosefina MD [address] [place] [address] Social History Tobacco Use Types Packs/Day Years Used Date Smoking Tobacco: Never Assessed Comments Unknown Sex and Gender Information Value Date Recorded Sex Assigned at Not on file 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 Gender Identity Not on file [...] on filedocumented in this encounter Care Teams Xerox Machine Operator Relationship Specialty Start Date End Date Calin Christina MD [address] [place] [address] PCP - General 09/18/18 11/13/21 Jaqueline Stark, ALIA [address] [place] [address] PCP - General Internal Medicine 11/14/21 04/16/22 Calin Christina MD [address] [place] [address] PCP - General Family Medicine 04/17/22 04/19/22 Jaqueline Stark, ALIA [address] [place] [address] PCP - General Internal Medicine 04/20/22 05/18/24 Mary Spencer DO [address] [place] [address] [address] [place] [address] PCP - General Family Medicine 05/19/24 Sultan Roly Elizondo MD [address] [facility] [place] [address] Consulting Physician Cardiovascular Disease 10/16/22 Carmen Singletary MD [address] [place] [address] Referring Physician Dermatology 10/16/22 documented as of this encounter
--- OUTSIDE RECORDS SUMMARY | 2025-01-21 12:03 | XMS_ITS | Encounter Summary ---
Author Organization [facility] Address [address] [place], [place] [address] [address] Care Team Providers Care Networking Technician Name Role Phone Unavailable Primary Care Provider Unavailabl e Encounter Details Date Type Department Care Team (Late st Contact Info) Description 03/04/2024 Lab Requisition [facility] - DermPath Lab [address] [facility], [place] [address] Carmen Singletary MD [address] [facility] 3 [place] [address] Social History Tobacco Use Types Packs/Day Years Used Date Smoking Tobacco: Never Assessed Comments Unknown Sex and Gender Information Value Date Recorded Sex Assigned at Not on file Legal Sex Female 5:21 PM AIRCONDITIONING ENGINEER Gender Identity Not on file Sexual Orientation Not on file documented as of this encounter Plan of Treatment Not on file documented as of this encounter Procedures Procedure Name Priority Date/Time Associated Diagnosis Comments DERMATOPATHOLOGY Routine 03/04/2024 10:2 8 AM CDT documented in this encounter Results * DERMATOPATHOLOGY (03/04/2024 10:28 AM CDT) Case Report Dermatopathology Report Case: [id number] Authorizing Provider: Carmen Singletary MD Collected: 03/04/2024 10:28 AM Ordering Location: [facility] Physician [facility] - Received: 03/05/2024 07:21 AM DermPath Lab Pathologist: Monica Terrell MD Specimen: Skin, right index 4 5:30 PM [facility] Final Diagnosis Specimen A. SKIN, right index: PALISADED AND NECROBIOTIC GRANULOMATOUS DERMATITIS, SUPERFICIAL PORTIONS OF (L92.0) (see microscopic description and comment) 4 5:30 PM [facility]ERMAT[facility] at 1730 AIRCONDITIONING ENGINEER Clinical History Favor [place]; annular pink plaque 5:30 PM [facility] Gross Description Specimen A: Received is one formalin filled container labeled with the patient's name and designated right index. The specimen consists of a shave biopsy measuring 8x5x1 mm. Jar 0. 5:30 PM [facility] Microscopic Description Specimen A. SKIN, [...] annulare. Clinicopathologic correlation is recommended. 5:30 PM [facility] Disclaimer An external and internal positive and negative controls are appropriate for the histochemical, immunohistochemical and immunofluorescence stain(s) in this case (if any), except where stated explicitly. The performance characteristics of the stain(s) cited in this report were developed and its performance characteristic determined by the Dermatopathology Laboratory at [facility], directed by Dr. Pete Guo. These tests need not be, and therefore are not, approved by the [place] Food and Drug Administration. The tests are used for clinical purposes. Billing Codes Specimen Charges Stain Charges 02827 1 17718 33330 50491 1 1 1 5:30 PM [facility] Embedded Images 5:30 PM [facility] Pathology/Cytolo gy TISSUE SPECIMEN FROM SKIN / Unknown 03/04/2024 10:28 AM CDT 03/05/2024 7:21 AM CDT us Carmen Singletary MD LAB - PATHOLOGY/CYTOLOGY ORD ERABLES Final Result DERMATOPATHOLOGY LABORATORY [facility] - Department of Dermatology [address], [address] Floor [address] [phone] documented in this encounter Visit Diagnoses Not on filedocumented in this encounter
--- OUTSIDE RECORDS SUMMARY | 2025-01-21 12:03 | XMS_ITS | Encounter Summary ---
Author Organization [facility] Facility Care Team Providers Care Polysilicon Preparation Worker Name Role Phone Calin Christina MD Primary Care Provi hallie Jaqueline Stark NP Primary Care Provider Calin Christina MD Primary Care Provi hallie Jaqueline Stark ALL AROUND PRESSER Primary Care Provider Sultan Roly Elizondo MD Unavailable [phone] Carmen Singletary MD Unavailable [phone] Mary Spencer DO Primary Care Provider + Encounter Details Date Type Department Care Team (Latest Contact Info) Description 09/27/2015 Orders Only [facility] CLINCON[facility] ProviderJosefina MD [address] [place] [address] Social History Tobacco Use Types Packs/Day Years Used Date Smoking Tobacco: Never Assessed Comments Unknown Sex and Gender Information Value Date Recorded Sex Assigned at Not on file 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 AIR DIRECTOR Gender Identity Not on file Sexual [...] on filedocumented in this encounter Care Teams Polysilicon Preparation Worker Relationship Specialty Start Date End Date Calin Christina MD [address] [place] [address] PCP - General 09/18/18 11/13/21 Jaqueline Stark, ALIA [address] [place] [address] PCP - General Internal Medicine 11/14/21 04/16/22 Calin Christina MD [address] [place] [address] PCP - General Family Medicine 04/17/22 04/19/22 Jaqueline Stark, ALIA [address] [place] [address] PCP - General Internal Medicine 04/20/22 05/18/24 Mary Spencer DO [address] [place] [address] [place] [address] PCP - General Family Medicine 05/19/24 Sultan Roly Elizondo MD [address] [facility] [place] [address] Consulting Physician Cardiovascular Disease 10/16/22 Carmen Singletary MD [address] [place] [address] Referring Physician Dermatology 10/16/22 documented as of this encounter
--- OUTSIDE RECORDS SUMMARY | 2025-01-21 12:03 | XMS_ITS | Encounter Summary ---
Author Organization [facility] Facility Care Team Providers Care Production Posting Clerk Name Role Phone Calin Christina MD Primary Care Provi hallie Jaqueline Stark NP Primary Care Provider Calin Christina MD Primary Care Provi hallie Jaqueline Stark BRANCH SALES AND SERVICE REPRESENTATIVE Primary Care Provider Sultan Roly Elizondo MD Unavailable [phone] Carmen Singletary MD Unavailable [phone] Mary Spencer DO Primary Care Provider + Encounter Details Date Type Department Care Team (Latest Contact Info) Description 11/10/2017 Orders Only [facility] CLINCON[facility] ProviderJosefina MD [address] [place] [address] Social History Tobacco Use Types Packs/Day Years Used Date Smoking Tobacco: Never Assessed Comments Unknown Sex and Gender Information Value Date Recorded Sex Assigned at Not on file 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 MANAGER Gender Identity Not on file Sexual [...] on filedocumented in this encounter Care Teams Production Posting Clerk Relationship Specialty Start Date End Date Calin Christina MD [address] [place] [address] PCP - General 09/18/18 11/13/21 Jaqueline Stark NP [address] [place] [address] PCP - General Internal Medicine 11/14/21 04/16/22 Calin Christina MD [address] [place], [place] [address] PCP - General Family Medicine 04/17/22 04/19/22 Jaqueline Stark NP [address] [place], [place] [address] PCP - General Internal Medicine 04/20/22 05/18/24 Mary Spencer DO [address] [place] [address] [address] PA[address] [place] [id number] PCP - General Family Medicine 05/19/24 Sultan Roly Elizondo MD [address] [facility] [address] [address] Consulting Physician Cardiovascular Disease 10/16/22 Carmen Singletary MD [address] [place] [address] Referring Physician Dermatology 10/16/22 documented as of this encounter
--- OUTSIDE RECORDS SUMMARY | 2025-01-21 12:03 | XMS_ITS | Encounter Summary ---
Author Organization [facility] Facility Care Team Providers Care Liaison Planner Name Role Phone Calin Christina MD Primary Care Provi hallie Jaqueline Stark NP Primary Care Provider Calin Christina MD Primary Care Provi hallie Jaqueline Stark MARINE FIRE FIGHTER Primary Care Provider Sultan Roly Elizondo MD Unavailable [phone] Carmen Singletary MD Unavailable [phone] Mary Spencer DO Primary Care Provider + Encounter Details Date Type Department Care Team (Latest Contact Info) Description 11/22/2017 Orders Only [facility] CLINCON[facility] ProviderJosefina MD [address] [place] [address] Social History Tobacco Use Types Packs/Day Years Used Date Smoking Tobacco: Never Assessed Comments Unknown Sex and Gender Information Value Date Recorded Sex Assigned at Not on file 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 DIE MAKER TRIM Gender Identity Not on file Sexual Orientation [...] on filedocumented in this encounter Care Teams Liaison Planner Relationship Specialty Start Date End Date Calin Christina MD [address] [place] [address] PCP - General 09/18/18 11/13/21 Jaqueline Stark, ALIA [address] [place] [address] PCP - General Internal Medicine 11/14/21 04/16/22 Calin Christina MD [address] [place] [address] PCP - General Family Medicine 04/17/22 04/19/22 Jaqueline Stark, ALIA [address] [place] [address] PCP - General Internal Medicine 04/20/22 05/18/24 Mary Spencer DO [address] [place] [address] [address] [place] [address] PCP - General Family Medicine 05/19/24 Sultan Roly Elizondo MD [address] [facility] [place] [address] Consulting Physician Cardiovascular Disease 10/16/22 Carmen Singletary MD [address] [place] [address] Referring Physician Dermatology 10/16/22 documented as of this encounter
--- OUTSIDE RECORDS SUMMARY | 2025-01-21 12:03 | XMS_ITS | Encounter Summary ---
Author Organization [facility] Address [address] [facility] [address] [place] [address] Care Team Providers Care Anatomic Pathology Assistant Name Role Phone Calin Christina MD Primary Care Provi hallie Jaqueline Stark CLEAT BLANKER Primary Care Provider Calin Christina MD Primary Care Provi hallie Jaqueline Stark CLEAT BLANKER Primary Care Provider Sultan Roly Elizondo MD Unavailable [phone] Carmen Singletary MD Unavailable [phone] Mary Spencer DO Primary Care Provider + Encounter Details Date Type Department Care Team (Late st Contact Info) Description 09/27/2015 Orders Only [facility] Health Information Management [address] [place] [address] Scanning, Provider Social History Tobacco Use Types Packs/Day Years Used Date Smoking Tobacco: Never Assessed Comments Unknown Sex and Gender Information Value Date Recorded Sex Assigned at Not on file 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 WINDER CONTORT OPERATOR Gender Identity Not on file Sexual [...] on filedocumented in this encounter Care Teams Anatomic Pathology Assistant Relationship Specialty Start Date End Date Calin Christina MD [address] [place] [address] PCP - General 09/18/18 11/13/21 Jaqueline Stark, ALIA [address] [place] [address] PCP - General Internal Medicine 11/14/21 04/16/22 Calin Christina MD [address] [place], [place] [address] PCP - General Family Medicine 04/17/22 04/19/22 Jaqueline Stark, ALIA [address] [place], [place] [address] PCP - General Internal Medicine 04/20/22 05/18/24 Mary Spencer DO [address] [place] [address] [place] [address] PCP - General Family Medicine 05/19/24 Sultan Roly Elizondo MD [address] [facility] [place] [address] Consulting Physician Cardiovascular Disease 10/16/22 Carmen Singletary MD [facility] [place] [address] Referring Physician Dermatology 10/16/22 documented as of this encounter
--- OUTSIDE RECORDS SUMMARY | 2025-01-21 12:03 | XMS_ITS | Encounter Summary ---
Author Organization [facility] Facility Care Team Providers Care Clark Driver Name Role Phone Calin Christina MD Primary Care Provi hallie Jaqueline Stark NP Primary Care Provider Calin Christina MD Primary Care Provi hallie Jaqueline Stark HAND TIRE TRIMMER Primary Care Provider Sultan Roly Elizondo MD Unavailable [phone] Carmen Singletary MD Unavailable [phone] Mary Spencer DO Primary Care Provider + Encounter Details Date Type Department Care Team (Latest Contact Info) Description 11/21/2017 Orders Only [facility] CLINCON[facility] ProviderJosefina MD [address] [place] [address] Social History Tobacco Use Types Packs/Day Years Used Date Smoking Tobacco: Never Assessed Comments Unknown Sex and Gender Information Value Date Recorded Sex Assigned at Not on file 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 AQUACULTURE DIRECTOR Gender Identity Not on file Sexual [...] on filedocumented in this encounter Care Teams Clark Driver Relationship Specialty Start Date End Date Calin Christina MD [address] [place] [address] PCP - General 09/18/18 11/13/21 Jaqueline Stark, ALIA [address] [place] [address] PCP - General Internal Medicine 11/14/21 04/16/22 Calin Christina MD [address] [place] [address] PCP - General Family Medicine 04/17/22 04/19/22 Jaqueline Stark, ALIA [address] [place] [address] PCP - General Internal Medicine 04/20/22 05/18/24 Mary Spencer DO [address] [place] [address] DR [address] [place] [address] PCP - General Family Medicine 05/19/24 Sultan Roly Elizondo MD [address] [facility] [place] [address] Consulting Physician Cardiovascular Disease 10/16/22 Carmen Singletary MD [address] [place] [address] Referring Physician Dermatology 10/16/22 documented as of this encounter
--- OUTSIDE RECORDS SUMMARY | 2025-01-21 12:03 | XMS_ITS | Encounter Summary ---
Author Organization [facility] Facility Care Team Providers Care Fabrication Inspector Name Role Phone Calin Christina MD Primary Care Provi hallie Jaqueline Stark NP Primary Care Provider Calin Christina MD Primary Care Provi hallie Jaqueline Stark IT SOFTWARE ENGINEER Primary Care Provider Sultan Roly Elizondo MD Unavailable [phone] Carmen Singletary MD Unavailable [phone] Mary Spencer DO Primary Care Provider + Encounter Details Date Type Department Care Team (Latest Contact Info) Description 10/20/2015 Orders Only [facility] CLINCONV ProviderJosefina MD [address] [place] [address] Social History Tobacco Use Types Packs/Day Years Used Date Smoking Tobacco: Never Assessed Comments Unknown Sex and Gender Information Value Date Recorded Sex Assigned at Not on file 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 SPLIT LEATHER DEPARTMENT SUPERVISOR Gender Identity Not on file Sexual [...] unspecified provider. Historical Provider Final Res ult documented in this encounter Visit Diagnoses Not on filedocumented in this encounter Care Teams Fabrication Inspector Relationship Specialty Start Date End Date Calin Christina MD [address] [address] [place], [place] [address] PCP - General 09/18/18 11/13/21 Jaqueline Stark NP [address] [facility] [address] [place], [place] [address] PCP - General Internal Medicine 11/14/21 04/16/22 Calin Christina MD [address] [place] [address] [address] [place], [place] [address] PCP - General Family Medicine 04/17/22 04/19/22 Jaqueline Stark NP [address] [facility] [address] [place] [address] PCP - General Internal Medicine 04/20/22 05/18/24 Mary Spencer DO [address] [place] [address] [address] [place] [address] PCP - General Family Medicine 05/19/24 Sultan Rloy Elizondo MD [address] [facility] [address] [address] Consulting Physician Cardiovascular Disease 10/16/22 Carmen Singletary MD [address] [place] [address] Referring Physician Dermatology 10/16/22 documented as of this encounter
--- OUTSIDE RECORDS SUMMARY | 2025-01-21 12:03 | XMS_ITS | Encounter Summary ---
Author Organization [facility] Facility Care Team Providers Care Water Jet Operator Name Role Phone Calin Christina MD Primary Care Provi hallie Jaqueline Stark NP Primary Care Provider Calin Christina MD Primary Care Provi hallie Jaqueline Stark FLUTE POLISHER Primary Care Provider Sultan Roly Elizondo MD Unavailable [phone] Carmen Singletary MD Unavailable [phone] Mary Spencer DO Primary Care Provider + Encounter Details Date Type Department Care Team (Latest Contact Info) Description 11/24/2017 Orders Only [facility] CLINCONV ProviderJosefina MD [address] [place] [address] Social History Tobacco Use Types Packs/Day Years Used Date Smoking Tobacco: Never Assessed Comments Unknown Sex and Gender Information Value Date Recorded Sex Assigned at Not on file 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 CUT OFF WORKER Gender Identity Not on file Sexual Orientation [...] on filedocumented in this encounter Care Teams Water Jet Operator Relationship Specialty Start Date End Date Calin Christina MD [address] [place] [address] PCP - General 09/18/18 11/13/21 Jaqueline Stark, ALIA [address] [place] [address] PCP - General Internal Medicine 11/14/21 04/16/22 Calin Christina MD [address] [place] [address] PCP - General Family Medicine 04/17/22 04/19/22 Jaqueline Stark, ALIA [address] [place] [address] PCP - General Internal Medicine 04/20/22 05/18/24 Mary Spencer DO [address] [place] [address] [place] [address] PCP - General Family Medicine 05/19/24 Sultan Roly Elizondo MD [address] [facility] [place] [address] Consulting Physician Cardiovascular Disease 10/16/22 Carmen Singletary MD [address] [place] [address] Referring Physician Dermatology 10/16/22 documented as of this encounter
--- OUTSIDE RECORDS SUMMARY | 2025-01-21 12:03 | XMS_ITS | Encounter Summary ---
Author Organization [facility] Facility Care Team Providers Care Photographic Enlarger Operator Name Role Phone Calin Christina MD Primary Care Provi hallie Jaqueline Stark NP Primary Care Provider Calin Christina MD Primary Care Provi hallie Jaqueline Stark ELECTRICAL INSPECTOR Primary Care Provider Sultan Roly Elizondo MD Unavailable [phone] Carmen Singletary MD Unavailable [phone] Mary Spencer DO Primary Care Provider + Encounter Details Date Type Department Care Team (Latest Contact Info) Description 11/12/2017 Orders Only [facility] CLINCONV ProviderJosefina MD [address] [place] [address] Social History Tobacco Use Types Packs/Day Years Used Date Smoking Tobacco: Never Assessed Comments Unknown Sex and Gender Information Value Date Recorded Sex Assigned at Not on file 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 WINCH DERRICK OPERATOR Gender Identity Not on file Sexual [...] on filedocumented in this encounter Care Teams Photographic Enlarger Operator Relationship Specialty Start Date End Date Calin Christina MD [address] [place] [address] PCP - General 09/18/18 11/13/21 Jaqueline Stark, ALIA [address] [place] [address] PCP - General Internal Medicine 11/14/21 04/16/22 Calin Christina MD [address] [place] [address] PCP - General Family Medicine 04/17/22 04/19/22 Jaqueline Stark, ALIA [address] [place] [address] PCP - General Internal Medicine 04/20/22 05/18/24 Mary Spencer DO [address] [place] [address] [address] [place] [address] PCP - General Family Medicine 05/19/24 Sultan Roly Elizondo MD [address] [facility] [place] [address] Consulting Physician Cardiovascular Disease 10/16/22 Carmen Singletary MD [address] [place] [address] Referring Physician Dermatology 10/16/22 documented as of this encounter
--- OUTSIDE RECORDS SUMMARY | 2025-01-21 12:03 | XMS_ITS | Encounter Summary ---
Author Organization [facility] Facility Care Team Providers Care Exterminator Name Role Phone Calin Christina MD Primary Care Provi hallie Jaqueline Stark NP Primary Care Provider Calin Christina MD Primary Care Provi hallie Jaqueline Stark SKIDDER RUNNER Primary Care Provider Sultan Roly Elizondo MD Unavailable [phone] Carmen Singletary MD Unavailable [phone] Mary Spencer DO Primary Care Provider + Encounter Details Date Type Department Care Team (Latest Contact Info) Description 11/19/2017 Orders Only [facility] CLINCONV ProviderJosefina MD [address] [place] [address] Social History Tobacco Use Types Packs/Day Years Used Date Smoking Tobacco: Never Assessed Comments Unknown Sex and Gender Information Value Date Recorded Sex Assigned at Not on file 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 MEAT SCRUBBER Gender Identity Not on file Sexual Orientation [...] on filedocumented in this encounter Care Teams Exterminator Relationship Specialty Start Date End Date Calin Christina MD [address] [place] [address] PCP - General 09/18/18 11/13/21 Jaqueline Stark, ALIA [address] [place] [address] PCP - General Internal Medicine 11/14/21 04/16/22 Calin Christina MD [address] [place] [address] PCP - General Family Medicine 04/17/22 04/19/22 Jaqueline Stark, ALIA [address] [place] [address] PCP - General Internal Medicine 04/20/22 05/18/24 Mary Spencer DO [address] [place] [address] [address] [place] [address] PCP - General Family Medicine 05/19/24 Sultan Roly Elizondo MD [address] [facility] [place] [address] Consulting Physician Cardiovascular Disease 10/16/22 Carmen Singletary MD [address] [place] [address] Referring Physician Dermatology 10/16/22 documented as of this encounter
--- OUTSIDE RECORDS SUMMARY | 2025-01-21 12:03 | XMS_ITS | Encounter Summary ---
Author Organization [facility] Facility Care Team Providers Care Storekeeper Engineering Name Role Phone Calin Christina MD Primary Care Provi hallie Jaqueline Stark NP Primary Care Provider Calin Christina MD Primary Care Provi hallie Jaqueline Stark PRIVATE MORTGAGE BANKER SAFE Primary Care Provider Sultan Roly Elizondo MD Unavailable [phone] Carmen Singletary MD Unavailable [phone] Mary Spencer DO Primary Care Provider + Encounter Details Date Type Department Care Team (Latest Contact Info) Description 11/11/2017 Orders Only [facility] CLINCONV ProviderJosefina MD [address] [place] [address] Social History Tobacco Use Types Packs/Day Years Used Date Smoking Tobacco: Never Assessed Comments Unknown Sex and Gender Information Value Date Recorded Sex Assigned at Not on file 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 ONLINE CONTENT COORDINATOR Gender Identity Not on file Sexual [...] on filedocumented in this encounter Care Teams Storekeeper Engineering Relationship Specialty Start Date End Date Calin Christina MD [address] [place] [address] PCP - General 09/18/18 11/13/21 Jaqueline Stark, ALIA [address] [place] [address] PCP - General Internal Medicine 11/14/21 04/16/22 Calin Christina MD [address] [place] [address] PCP - General Family Medicine 04/17/22 04/19/22 Jaqueline Stark, ALIA [address] [place] [address] PCP - General Internal Medicine 04/20/22 05/18/24 Mary Spencer DO [address] [place] [address] [address] [place] [address] PCP - General Family Medicine 05/19/24 Sultan Roly Elizondo MD [address] [facility] [place] [address] Consulting Physician Cardiovascular Disease 10/16/22 Carmen Singletary MD [address] [place] [address] Referring Physician Dermatology 10/16/22 documented as of this encounter
--- OUTSIDE RECORDS SUMMARY | 2025-01-21 12:03 | XMS_ITS | Encounter Summary ---
Author Organization [facility] Facility Care Team Providers Care Potato Inspector Name Role Phone Calin Christina MD Primary Care Provi hallie Jaqueline Stark NP Primary Care Provider Calin Christina MD Primary Care Provi hallie Jaqueline Stark TRAIN STATION SERVER Primary Care Provider Sultan Roly Elizondo MD Unavailable [phone] Carmen Singletary MD Unavailable [phone] Mary Spencer DO Primary Care Provider + Encounter Details Date Type Department Care Team (Latest Contact Info) Description 11/02/2017 Orders Only [facility] CLINCONV ProviderJosefina MD [address] [place] [address] Social History Tobacco Use Types Packs/Day Years Used Date Smoking Tobacco: Never Assessed Comments Unknown Sex and Gender Information Value Date Recorded Sex Assigned at Not on file 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 Gender Identity Not on file Sexual [...] on filedocumented in this encounter Care Teams Potato Inspector Relationship Specialty Start Date End Date Calin Christina MD [address] [place] [address] PCP - General 09/18/18 11/13/21 Jaqueline Stark, ALIA [address] [place] [address] PCP - General Internal Medicine 11/14/21 04/16/22 Calin Christina MD [address] [place] [address] PCP - General Family Medicine 04/17/22 04/19/22 Jaqueline Stark, ALIA [address] [place] [address] PCP - General Internal Medicine 04/20/22 05/18/24 Mary Spencer DO [address] [place] [address] [address] PA[address] [place] [address] PCP - General Family Medicine 05/19/24 Sultan Roly Elizondo MD [address] [facility] [place] [address] Consulting Physician Cardiovascular Disease 10/16/22 Carmen Singletary MD [address] [place] [address] Referring Physician Dermatology 10/16/22 documented as of this encounter
--- OUTSIDE RECORDS SUMMARY | 2025-01-21 12:03 | XMS_ITS | Encounter Summary ---
Author Organization [facility] Facility Care Team Providers Care Ballistic Technician Name Role Phone Calin Christina MD Primary Care Provi hallie Jaqueline Stark NP Primary Care Provider Calin Christina MD Primary Care Provi hallie Jaqueline Stark SHELLACKER Primary Care Provider Sultan Roly Elizondo MD Unavailable [phone] Carmen Singletary MD Unavailable [phone] Mary Spencer DO Primary Care Provider + Encounter Details Date Type Department Care Team (Latest Contact Info) Description 11/09/2017 Orders Only [facility] CLINCONV ProviderJosefina MD [address] [place] [address] Social History Tobacco Use Types Packs/Day Years Used Date Smoking Tobacco: Never Assessed Comments Unknown Sex and Gender Information Value Date Recorded Sex Assigned at Not on file 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 Gender Identity Not on file Sexual Orientation [...] on filedocumented in this encounter Care Teams Ballistic Technician Relationship Specialty Start Date End Date Calin Christina MD [address] [place] [address] PCP - General 09/18/18 11/13/21 Jaqueline Stark, ALIA [address] [place] [address] PCP - General Internal Medicine 11/14/21 04/16/22 Calin Christina MD [address] [place] [address] PCP - General Family Medicine 04/17/22 04/19/22 Jaqueline Stark, ALIA [address] [place] [address] PCP - General Internal Medicine 04/20/22 05/18/24 Mary Spencer DO [address] [place] [address] [address] [place] [address] PCP - General Family Medicine 05/19/24 Sultan Roly Elizondo MD [address] [facility] [place] [address] Consulting Physician Cardiovascular Disease 10/16/22 Carmen Singletary MD [address] [place] [address] Referring Physician Dermatology 10/16/22 documented as of this encounter
--- OUTSIDE RECORDS SUMMARY | 2025-01-21 12:03 | XMS_ITS | Encounter Summary ---
Author Organization [facility] Facility Care Team Providers Care Stock Sorter Name Role Phone Calin Christina MD Primary Care Provi hallie Jaqueline Stark NP Primary Care Provider Calin Christina MD Primary Care Provi hallie Jaqueline Stark GUIDE DELEGATE Primary Care Provider Sultan Roly Elizondo MD Unavailable [phone] Carmen Singletary MD Unavailable [phone] Mary Spencer DO Primary Care Provider + Encounter Details Date Type Department Care Team (Latest Contact Info) Description 11/27/2017 Orders Only [facility] CLINCONV ProviderJosefina MD [address] [place] [address] Social History Tobacco Use Types Packs/Day Years Used Date Smoking Tobacco: Never Assessed Comments Unknown Sex and Gender Information Value Date Recorded Sex Assigned at Not on file 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 COUNTER TOP 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 Gender Identity Not on file Sexual Orientation [...] on filedocumented in this encounter Care Teams Stock Sorter Relationship Specialty Start Date End Date Calin Christina MD [address] [place] [address] PCP - General 09/18/18 11/13/21 Jaqueline Stark NP [address] [place] [address] PCP - General Internal Medicine 11/14/21 04/16/22 Calin Christina MD [address] [place], [place] [address] PCP - General Family Medicine 04/17/22 04/19/22 Jaqueline Stark NP [address] [place], [place] [address] PCP - General Internal Medicine 04/20/22 05/18/24 Mary Spencer DO [address] [place] [address] [address] [place] [id number] PCP - General Family Medicine 05/19/24 Sultan Roly Elizondo MD [address] [facility] [address] [address] Consulting Physician Cardiovascular Disease 10/16/22 Carmen Singletary MD [address] [place] [address] Referring Physician Dermatology 10/16/22 documented as of this encounter
--- OUTSIDE RECORDS SUMMARY | 2025-01-21 12:03 | XMS_ITS | Encounter Summary ---
Author Organization [facility] Facility Care Team Providers Care Wind Project Manager Name Role Phone Calin Christina MD Primary Care Provi hallie Jaqueline Stark NP Primary Care Provider Calin Christina MD Primary Care Provi hallie Jaqueline Stark PUMPER GAUGER Primary Care Provider Sultan Roly Elizondo MD Unavailable [phone] Carmen Singletary MD Unavailable [phone] Mary Spencer DO Primary Care Provider + Encounter Details Date Type Department Care Team (Latest Contact Info) Description 11/07/2017 Orders Only [facility] CLINCONV ProviderJosefina MD [address] [place] [address] Social History Tobacco Use Types Packs/Day Years Used Date Smoking Tobacco: Never Assessed Comments Unknown Sex and Gender Information Value Date Recorded Sex Assigned at Not on file 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 Gender Identity Not on file Sexual [...] on filedocumented in this encounter Care Teams Wind Project Manager Relationship Specialty Start Date End Date Calin Christina MD [address] [place] [address] PCP - General 09/18/18 11/13/21 Jaqueline Stark, ALIA [address] [place] [address] PCP - General Internal Medicine 11/14/21 04/16/22 Calin Christina MD [address] [place] [address] PCP - General Family Medicine 04/17/22 04/19/22 Jaqueline Stark, ALIA [address] [place] [address] PCP - General Internal Medicine 04/20/22 05/18/24 Mary Spencer DO [address] [place] [address] [address] [place] [address] PCP - General Family Medicine 05/19/24 Sultan Roly Elizondo MD [address] [facility] [place] [address] Consulting Physician Cardiovascular Disease 10/16/22 Carmen Singletary MD [address] [place] [address] Referring Physician Dermatology 10/16/22 documented as of this encounter
--- OUTSIDE RECORDS SUMMARY | 2025-01-21 12:03 | XMS_ITS | Encounter Summary ---
Author Organization [facility] Facility Care Team Providers Care Window Assembler Name Role Phone Calin Christina MD Primary Care Provi hallie Jaqueline Stark NP Primary Care Provider Calin Christina MD Primary Care Provi hallie Jaqueline Stark CERTIFIED FRAUD EXAMINER Primary Care Provider Sultan Roly Elizondo MD Unavailable [phone] Carmen Singletary MD Unavailable [phone] Mary Spencer DO Primary Care Provider + Encounter Details Date Type Department Care Team (Latest Contact Info) Description 10/31/2017 Orders Only [facility] CLINCONV ProviderJosefina MD [address] [place] [address] Social History Tobacco Use Types Packs/Day Years Used Date Smoking Tobacco: Never Assessed Comments Unknown Sex and Gender Information Value Date Recorded Sex Assigned at Not on file 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 Gender Identity Not on file Sexual [...] on filedocumented in this encounter Care Teams Window Assembler Relationship Specialty Start Date End Date Calin Christina MD [address] [place] [address] PCP - General 09/18/18 11/13/21 Jaqueline Stark, ALIA [address] [place] [address] PCP - General Internal Medicine 11/14/21 04/16/22 Calin Christina MD [address] [place] [address] PCP - General Family Medicine 04/17/22 04/19/22 Jaqueline Stark, ALIA [address] [place] [address] PCP - General Internal Medicine 04/20/22 05/18/24 Mary Spencer DO [address] [place] [address] [address] [place] [address] PCP - General Family Medicine 05/19/24 Sultan Roly Elizondo MD [address] [facility] [place] [address] Consulting Physician Cardiovascular Disease 10/16/22 Carmen Singletary MD [address] [place] [address] Referring Physician Dermatology 10/16/22 documented as of this encounter
--- OUTSIDE RECORDS SUMMARY | 2025-01-21 12:03 | XMS_ITS | Encounter Summary ---
Author Organization [facility] Facility Care Team Providers Care Wholesale And Retail Merchant Name Role Phone Calin Christina MD Primary Care Provi hallie Jaqueline Stark NP Primary Care Provider Calin Christina MD Primary Care Provi hallie Jaqueline Stark MANAGER STERILE Primary Care Provider Sultan Roly Elizondo MD Unavailable [phone] Carmen Singletary MD Unavailable [phone] Mary Spencer DO Primary Care Provider + Encounter Details Date Type Department Care Team (Latest Contact Info) Description 11/08/2017 Orders Only [facility] CLINCONV ProviderJosefina MD [address] [place] [address] Social History Tobacco Use Types Packs/Day Years Used Date Smoking Tobacco: Never Assessed Comments Unknown Sex and Gender Information Value Date Recorded Sex Assigned at Not on file 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 Gender Identity Not on file Sexual Orientation [...] on filedocumented in this encounter Care Teams Wholesale And Retail Merchant Relationship Specialty Start Date End Date Calin Christina MD [address] [place] [address] PCP - General 09/18/18 11/13/21 Jaqueline Stark NP [address] [place] [address] PCP - General Internal Medicine 11/14/21 04/16/22 Calin Christina MD [address] [place], [place] [address] PCP - General Family Medicine 04/17/22 04/19/22 Jaqueline Stark NP [address] [place], [place] [address] PCP - General Internal Medicine 04/20/22 05/18/24 Mary Spencer DO [address] [place] [address] [address] [place] [id number] PCP - General Family Medicine 05/19/24 Sultan Roly Elizondo MD [address] [facility] [address] [address] Consulting Physician Cardiovascular Disease 10/16/22 Carmen Singletary MD [address] [place] [address] Referring Physician Dermatology 10/16/22 documented as of this encounter
--- OUTSIDE RECORDS SUMMARY | 2025-01-21 12:03 | XMS_ITS | Encounter Summary ---
Author Organization [facility] Address [address] [place] [address] [place] [address] Care Team Providers Care Forensic Chemist Name Role Phone Unavailable Primary Care Provider Unavailabl e Encounter Details Date Type Department Care Team (Late st Contact Info) Description 12/14/2019 Lab Requisition [facility] DermPath Lab [address] [facility], [facility] [place] [address] Carmen Singletary MD [address] [facility] [address] [place] [address] Social History Tobacco Use Types Packs/Day Years Used Date Smoking Tobacco: Never Assessed Comments Unknown Sex and Gender Information Value Date Recorded Sex Assigned at Not on file Legal Sex Female 5:21 PM CAPITAL PROJECT ENGINEER Gender Identity Not on file Sexual Orientation Not on file documented as of this encounter Plan of Treatment Not on file documented as of this encounter Procedures Procedure Name Priority Date/Time Associated Diagnosis Comments DERMATOPATHOLOGY Routine 12/10/2019 12:0 0 AM CDT documented in this encounter Results * DERMATOPATHOLOGY (12/10/2019 12:00 AM CDT) Case Report Dermatopathology Report Case: [id number] Authorizing Provider: Carmen Singletary MD Collected: 12/10/2019 12:00 AM Ordering Location: [facility] Care DermPath Lab Received: 12/14/2019 12:22 PM [...] characteristic determined by the Dermatopathology Laboratory at [facility], directed by Dr. Pete Guo. These tests need not be, and therefore are not, approved by the [place] Food and Drug Administration. The tests are used for clinical purposes. Billing Codes Specimen Charges Stain Charges 13626 1 0 12:21 PM CDT DERMATOPATHOLOGY LABORATORY Embedded Images 0 12:21 PM CDT DERMATOPATHOLOGY LABORATORY Pathology/Cytolog y TISSUE SPECIMEN FROM SKIN / Unknown 12/10/2019 12/14/2019 12:22 PM CDT us Carmen Singletary MD LAB - PATHOLOGY/CYTOLOGY ORD ERABLES Final Result DERMATOPATHOLOGY LABORATORY [facility] - Department of Dermatology [facility] [place] [address], [facility] [phone] documented in this encounter Visit Diagnoses Not on filedocumented in this encounter
--- OUTSIDE RECORDS SUMMARY | 2025-01-21 12:03 | XMS_ITS | Encounter Summary ---
Author Organization [facility] Facility Care Team Providers Care Food And Drink Factory Workers Name Role Phone Calin Christina MD Primary Care Provi hallie Jaqueline Stark NP Primary Care Provider Calin Christina MD Primary Care Provi hallie Jaqueline Stark NETWORK ENGINEER ADMINISTRATOR Primary Care Provider Sultan Roly Elizondo MD Unavailable [phone] Carmen Singletary MD Unavailable [phone] Mary Spencer DO Primary Care Provider + Encounter Details Date Type Department Care Team (Latest Contact Info) Description 11/25/2017 Orders Only [facility] CLINCONV ProviderJosefina MD [address] [place] [address] Social History Tobacco Use Types Packs/Day Years Used Date Smoking Tobacco: Never Assessed Comments Unknown Sex and Gender Information Value Date Recorded Sex Assigned at Not on file 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 BEHAVIORAL 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 ASSISTANT Gender Identity Not on file Sexual Orientation [...] on filedocumented in this encounter Care Teams Food And Drink Factory Workers Relationship Specialty Start Date End Date Calin Christina MD [address] [place] [address] PCP - General 09/18/18 11/13/21 Jaqueline Stark, ALIA [address] [place] [address] PCP - General Internal Medicine 11/14/21 04/16/22 Calin Christina MD [address] [place] [address] PCP - General Family Medicine 04/17/22 04/19/22 Jaqueline Stark, ALIA [address] [place] [address] PCP - General Internal Medicine 04/20/22 05/18/24 Mary Spencer DO [address] [place] [address] [address] [place] [address] PCP - General Family Medicine 05/19/24 Sultan Roly Elizondo MD [address] [facility] [place] [address] Consulting Physician Cardiovascular Disease 10/16/22 Carmen Singletary MD [address] [place] [address] Referring Physician Dermatology 10/16/22 documented as of this encounter
--- OUTSIDE RECORDS SUMMARY | 2025-01-21 12:03 | XMS_ITS | Clinical Summary ---
Author Organization [facility] [address] Address [address] [place] [address] Care Team Providers Care Electrodynamicist Name Role Phone Sultan Roly Elizondo MD Unavailable [phone] Carmen Singletary MD Unavailable [phone] Mary Spencer DO Primary Care Provider + [...] Active butalbital-acetam inophen-caffeine- codeine (FIORICET WITH CODEINE) [phone] mg per capsule Take 1 capsule by mouth every 6 (six) hours as needed for headaches 120 capsule 2 4 Active raloxifene (EVISTA) 60 mg tablet TAKE 1 TABLET BY MOUTH EVERY DAY 100 tablet 4 Active rosuvastatin (CRESTOR) 10 mg tablet TAKE 1 TABLET BY MOUTH EVERY DAY AT NIGHT 90 tablet 2 5 Active propranolol LA (INDERAL LA) 120 mg 24 hr capsule TAKE 1 CAPSULE BY MOUTH TWICE A DAY 180 capsule 5 Active HYDROcodone-aceta minophen (VICODIN) 5-300 mg per tablet Take 1 tablet by mouth every 6 (six) hours as needed for moderate pain (pain scale 5-7) Active Active Problems Problem Noted Date Diagnosed [...] visit. Assessment & Plan (07/08/2020 3:22 PM TAKE DOWN INSPECTOR): Continue to have heart fluttering. The Inderal [...] cardiomyopathy. Assessment & Plan (07/07/2020 7:04 PM TAKE DOWN INSPECTOR): Stress echo 11/15/2017 was negative for ischemia. [...] LA. 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 Assessment & Plan (07/07/2020 7:07 PM TAKE DOWN INSPECTOR): Recurrent episodes of PSVT on the monitor [...] Encounters Date Type Department Care Team Description 12/28/2024 10:15 AM CDT Office Visit [facility] Cardiology [address] [facility] [address] [place] [address] Sultan Roly Elizondo MD Mixed hyperlipidemia (Primary Dx) from Last 3 Months Immunizations Immunization Administration [...] Date Smoking Tobacco: Every Day Cigarettes 1 58.7 Started: 1966 Smokeless Tobacco: Never Tobacco Cessation:Ready [...] on file 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 TAKE DOWN INSPECTOR Gender Identity Not on file Sexual Orientation Not on file Obstetrics History Para Term AB IAB SAB Ectopic Multiple Livin g Live Births 2 2 2 Date Outcome GA Total Labor Labor/2nd/3rd Weight Sex Type Anes PTL Lacy A1 A5 Name Clin Term Term Last Filed Vital Signs Vital Sign Reading Time Taken Comments Blood Pressure 120/74 12/28/2024 10:16 AM CDT Pulse 73 12/28/2024 10:16 AM CDT Temperature 36.4 C (97.6 F) 11/21/2023 11:32 AM CDT Respiratory Rate 18 11/21/2023 11:32 AM CDT Oxygen Saturation 96% 12/28/2024 10:16 AM CDT Inhaled Oxygen Concentration - - Weight 68 kg (150 lb) 12/28/2024 10:16 AM CDT Height 170.2 cm (5' 7) 07/13/2024 11:33 AM CDT Body Mass Index 23.49 07/13/2024 11:33 AM CDT Plan of Treatment Health Maintenance Due Date Last Done Comments Hepatitis B Screening 1968 Zoster Vaccine (2 of 2) 12/02/2021 10/07/2021 Colon Cancer Screening-Colonoscopy 11/17/2024 11/17/2021, 09/27/2015, 09/27/2015 Depression Screening 11/20/2024 11/21/2023, 10/16/2022, 10/16/2022, Additional history exists Fall Risk Assessment 11/20/2024 11/21/2023, 10/16/2022, 09/26/2021, Additional history exists Well Visit 65+ 11/20/2024 11/21/2023, 10/04, 09/26/2021, Additional history exists Influenza Vaccine (#1) 2025 , 02/16/2023, 02/09/2022, Additional history exists Lung Cancer Screening 01/09/2025 07/13/2024 , 03/24/2024, 01/29/2023, Additional history exists Osteoporosis Screening-Bone Density Scan 01/29/2025 01/29/2023, 11/22/2020, 10/25/2017, Additional history exists Breast Cancer Screening-Mammogram 03/24/2025 03/24/2024, 01/29/2023, 12/19/2021, Additional history exists DTaP/Tdap/Td Vaccine (2 - Td or Tdap) 10/01/2034 10/01/2024 Pneumococcal vaccine 65+ Completed 07/26/2020, 07/2017 Hepatitis C Screening Completed 09/05/2021 Colon Cancer Screening-CT Colonography Discontinued 11/17/2021, 09/27/2015, 09/27/2015 Colon Cancer Screening-DNA Stool Discontinued 11/17/2021, 09/27/2015, 09/27/2015 Colon Cancer Screening-FIT Discontinued 11/17, 09/27/2015, 09/27/2015, Additional history exists Colon Cancer Screening-Sigmoidoscopy Discontinued 11/17/2021, 09/27/2015, 09/27/2015 Covid-19 Vaccine Discontinued 02/07/2024, , 02/16/2023, Additional history exists Procedures Procedure Name Priority Date/Time Associated Diagnosis Comments CT CHEST WO CONTRAST F/U LUNG SCREEN PROTOCOL Schedule Routine, Read Routine (OP Routine) 07/13/2024 11:30 AM CDT Pulmonary nodule Abnormal screening CT of chest SCREENING MAMMOGRAM BILATERAL W GENARO Schedule Routine, Read Routine (OP Routine) 03/24/2024 9:24 AM TAKE DOWN INSPECTOR Encounter for screening mammogram for malignant neoplasm [...] Electronically signed by Cristobal Armijo M.D. AG: AG Report ID: [id number] Reading Location: [place] [address] Procedure Note Cristobal Armijo MD - 07/16/2024 [...] Cristobal Armijo M.D. AG: DEMARCUS Report ID: [id number] Reading Location: [id number] Jaqueline Stark DECORATOR MANNEQUIN IMG CT PROCEDURES Final Result * Screening Mammogram Bilateral W Genaro (03/24/2024 9:24 AM TAKE DOWN INSPECTOR) Anatomical Region Laterality Modality Breast Bilateral Mammography Impressions 03/24/2024 10:49 AM TAKE DOWN INSPECTOR BI-RADS ATLAS category (overall): 1 - Negative There is no mammographic evidence of malignancy. A 1 year screening mammogram is recommended. The patient has been or will be contacted. We recommend annual screening mammography for women at average risk of breast cancer beginning at age 40, based on guidelines of the [employer] (ACR Practice Parameter for the Performance of Screening and Diagnostic Mammography) and [employer]. For women with and elevated risk of breast cancer, please refer to the ACR Practice Parameter for specific screening recommendations. The patient will be entered into a reminder system with a target due date of 1 year for her next screening exam. Narrative 03/24/2024 10:49 AM TAKE DOWN INSPECTOR Screening Mammogram Bilateral W Genaro: 03/24/24 The [...] given history of: screening for osteoporosis Postmenopausal Mold Builder/Model: Lumiant A ([id number]/N [id number]) CLINICAL INFORMATION: Current height: 66.5 inches Maximum [...] Pavan Eller M.D. MF: VIVEK Report ID: [id number] Reading Location: [address] Note Pavan Eller MD - 01/29/2023 EXAM DESCRIPTION: DEXA AXIAL SKELETON BONE DENSITY 1 OR MORE SITES REASON FOR STUDY: 72 y/o year old F with given history of: screeningfor osteoporosis Postmenopausal Mold Builder/Model: Hologic Horizon A (S/N [id number]) CLINICAL INFORMATION: Current height: 66.5 inches Maximum [...] Pavan Eller M.D. MF: VIVEK Report ID: [id number] Reading Location: [id number] Jaqueline Stark DECORATOR MANNEQUIN IMG DXA PROCEDURES Marilia l Result * Colonoscopy (11/17/2021) Anatomical Region Laterality Modality Other 11/17/2021 Impressions 11/17/2021 Internal hemorrhoids Diverticulosis Colon polyps removed Repeat in 3 years Historical Provider MD ENDOSCOPY PROCEDURES Marilia l Result * Hepatitis panel, acute (09/05/2021 10:55 AM CDT) Hep A IgM Nonreactive Nonreactive [facility] Comment: Interpretive Data: If Hep A IgM Ab is reported as Equivocal, a new sample should be drawn in two weeks for testing. Current interpretive data was last revised on 19. Hep B core IgM Nonreactive Nonreactive [facility] Comment: Interpretive Data If HepB Core IgM Ab is reported as Equivocal, a new sample should be drawn in two weeks for testing. Current interpretive data was last revised on 19. Hep C Ab Nonreactive Nonreactive [facility] Comment: Interpretive Data Nonreactive: Antibodies to HCV [...] last revised on 2019. HepBsAg Nonreactive Nonreactive [facility] Blood 09/05/2021 10:5 5 AM CDT 09/05/2021 12:33 PM CDT Carmen Singletary MD LAB MICROBIOLOGY - GENERA L ORDERABLES Final Result [facility] [address] [facility] Department [place] [address] from Last 3 Months or Most Recently Relevant to Health Maintenance Insurance [facility] Care Teams Electrodynamicist Relationship Specialty Start Date End Date Mary Spencer DO [address] [place] [address] [place] [address] PCP - General Family Medicine 05/19/24 Sultan Roly Elizondo MD [address] [facility] [facility] [place] [address] Consulting Physician Cardiovascular Disease 10/16/22 Carmen Singletary MD [address] [place] [address] Referring Physician Dermatology 10/16/22
--- OUTSIDE RECORDS SUMMARY | 2025-01-21 12:03 | XMS_ITS | Encounter Summary ---
Author Organization [facility] Address [address] [place] [address] [place] [address] Care Team Providers Care Student Life Dean Name Role Phone Unavailable Primary Care Provider Unavailabl e Encounter Details Date Type Department Care Team (Late st Contact Info) Description 07/17/2019 Lab Requisition [facility] [address] [facility], [facility] [place] [phone] Carmen Singletary MD [address] [facility] [address] [place] [address] Social History Tobacco Use Types Packs/Day Years Used Date Smoking Tobacco: Never Assessed Comments Unknown Sex and Gender Information Value Date Recorded Sex Assigned at Not on file Legal Sex Female 5:21 PM NUT CULLER Gender Identity Not on file Sexual Orientation Not on file documented as of this encounter Plan of Treatment Not on file documented as of this encounter Procedures Procedure Name Priority Date/Time Associated Diagnosis Comments DERMATOPATHOLOGY Routine 07/16/2019 12:0 0 AM CDT documented in this encounter Results * DERMATOPATHOLOGY (07/16/2019 12:00 AM CDT) Case Report Dermatopathology Report Case: [id number] Authorizing Provider: Carmen Singletary MD Collected: 07/16/2019 12:00 AM Ordering Location: [facility] Received: 07/17/2019 07:28 AM Pathologist: [...] specimen consists of a shave biopsy measuring [id number] mm, bisected. Jar 0. 0 3:53 PM [...] by the Dermatopathology Laboratory at [facility], directed by Dr. Pete Guo. These tests need not be, and therefore are not, approved by the [place] Food and Drug Administration. The tests are used for clinical purposes. Billing Codes Specimen Charges Stain Charges 49895 1 0 3:53 PM CDT DERMATOPATHOLOGY LABORATORY Embedded Images 0 3:53 PM CDT DERMATOPATHOLOGY LABORATORY Pathology/Cytolog y TISSUE SPECIMEN FROM SKIN / Unknown 07/16/2019 07/17/2019 7:28 AM CDT us Carmen Singletary MD LAB - PATHOLOGY/CYTOLOGY ORD ERABLES Final Result DERMATOPATHOLOGY LABORATORY [facility] - Department of Dermatology [address] [place] [address], [address] [place] [address], [facility] [phone] documented in this encounter Visit Diagnoses Not on filedocumented in this encounter
--- OUTSIDE RECORDS SUMMARY | 2025-01-21 12:03 | XMS_ITS | Encounter Summary ---
Author Organization [facility] Facility Care Team Providers Care Picking Machine Operator Name Role Phone Calin Christina MD Primary Care Provi hallie Jaqueline Stark NP Primary Care Provider Calin Christina MD Primary Care Provi hallie Jaqueline Stark [employer] Primary Care Provider Sultan Roly Elizondo MD Unavailable [phone] Carmen Singletary MD Unavailable [phone] Mary Spencer DO Primary Care Provider + Encounter Details Date Type Department Care Team (Latest Contact Info) Description 11/28/2017 Orders Only [facility] CLINCONV ProviderJosefina MD [address] [place] [address] Social History Tobacco Use Types Packs/Day Years Used Date Smoking Tobacco: Never Assessed Comments Unknown Sex and Gender Information Value Date Recorded Sex Assigned at Not on file 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 JUSTICE 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 Gender Identity Not on file Sexual Orientation [...] on filedocumented in this encounter Care Teams Picking Machine Operator Relationship Specialty Start Date End Date Calin Christina MD [address] [place] [address] PCP - General 09/18/18 11/13/21 Jaqueline Stark NP [address] [place] [address] PCP - General Internal Medicine 11/14/21 04/16/22 Calin Christina MD [address] [place], [place] [address] PCP - General Family Medicine 04/17/22 04/19/22 Jaqueline Stark NP [address] [place], [place] [address] PCP - General Internal Medicine 04/20/22 05/18/24 Mary Spencer DO [address] [place] [address] [address] PA[address] [place] [id number] PCP - General Family Medicine 05/19/24 Sultan Roly Elizondo MD [address] [facility] [address] [address] Consulting Physician Cardiovascular Disease 10/16/22 Carmen Singletary MD [address] [place] [address] Referring Physician Dermatology 10/16/22 documented as of this encounter
--- OUTSIDE RECORDS SUMMARY | 2025-01-21 12:03 | XMS_ITS | Encounter Summary ---
Author Organization [facility] Address [address] [place], [place] [address] [address] Care Team Providers Care Lettuce Trimmer Name Role Phone Unavailable Primary Care Provider Unavailabl e Encounter Details Date Type Department Care Team (Late st Contact Info) Description 08/13/2019 Lab Requisition [facility] Lab [address] [facility], [facility] [place] [address] Carmen Singletary MD [address] [facility] 3 [place] [address] Social History Tobacco Use Types Packs/Day Years Used Date Smoking Tobacco: Never Assessed Comments Unknown Sex and Gender Information Value Date Recorded Sex Assigned at Not on file Legal Sex Female 5:21 PM KNOTTING MACHINE OPERATOR PORTABLE Gender Identity Not on file Sexual Orientation Not on file documented as of this encounter Plan of Treatment Not on file documented as of this encounter Procedures Procedure Name Priority Date/Time Associated Diagnosis Comments DERMATOPATH TECHNICAL REPORT Routine 08/13/2019 12:00 AM CDT documented in this encounter Results * DERMATOPATH TECHNICAL REPORT (08/13/2019 12:00 AM CDT) Case Report Dermatopathology Report Case: [id number] Authorizing Provider: Carmen Singletary MD Collected: 08/13/2019 12:00 AM Ordering Location: [facility] Care DermPath Lab Received: 08/13/2019 02:22 PM Pathologist: Donte Guo MD Specimen: Skin, left mejia 0 2:22 PM CDT DERMATOPATHOLOGY LABORATORY Addendum 1 At the request of the diagnosing physician, technical component for Magdaleno-Ep4 was performed on block 5 at [facility] Dermatopathology Laboratory. 0 2:22 PM CDT DERMATOPATHOLOGY LABORATORY Addendum electronically signed by Donte Guo MD on 08/18/2019 at 1422 CDT Clinical History Bx proven SCC, well diff. 0 2:22 PM CDT DERMATOPATHOLOGY LABORATORY Gross Description Specimen A: Received is one formalin filled container labeled with the patient's name and designated left mejia.The specimen consists of an ellipse measuring [id number] and is oriented with the notch at [...] and submitted in cassettes 3-5. Jar 0. [facility] Dermatopathology Laboratory performed the technical [...] characteristic determined by the Dermatopathology Laboratory at [facility], directed by Dr. Pete Guo. [...] DERMATOPATHOLOGY LABORATORY [facility] - Department of Dermatology [facility] [facility], 5th [place] [address], [facility] [phone] documented in this encounter Visit Diagnoses Not on filedocumented in this encounter
--- OUTSIDE RECORDS SUMMARY | 2025-01-21 12:03 | XMS_ITS | Encounter Summary ---
Author Organization [facility] Facility Care Team Providers Care Thoracic Surgeon Name Role Phone Calin Christina MD Primary Care Provi hallie Jaqueline Stark NP Primary Care Provider Calin Christina MD Primary Care Provi hallie Jaqueline Stark MANAGER CORPORATE Primary Care Provider Sultan Roly Elizondo MD Unavailable [phone] Carmen Singletary MD Unavailable [phone] Mary Spencer DO Primary Care Provider + Encounter Details Date Type Department Care Team (Latest Contact Info) Description 11/03/2017 Orders Only [facility] CLINCONV ProviderJosefina MD [address] [place] [address] Social History Tobacco Use Types Packs/Day Years Used Date Smoking Tobacco: Never Assessed Comments Unknown Sex and Gender Information Value Date Recorded Sex Assigned at Not on file 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 OFFC SPEC Gender Identity Not on file Sexual Orientation [...] on filedocumented in this encounter Care Teams Thoracic Surgeon Relationship Specialty Start Date End Date Calin Christina MD [address] [place] [address] PCP - General 09/18/18 11/13/21 Jaqueline Stark, ALIA [address] [place] [address] PCP - General Internal Medicine 11/14/21 04/16/22 Calin Christina MD [address] [place] [address] PCP - General Family Medicine 04/17/22 04/19/22 Jaqueline Stark, ALIA [address] [place] [address] PCP - General Internal Medicine 04/20/22 05/18/24 Mary Spencer DO [address] [place] [address] [address] [place] [address] PCP - General Family Medicine 05/19/24 Sultan Roly Elizondo MD [address] [facility] [place] [address] Consulting Physician Cardiovascular Disease 10/16/22 Carmen Singletary MD [address] [place] [address] Referring Physician Dermatology 10/16/22 documented as of this encounter
[2025-01-21 13:33] LABS: Hematocrit 41.1 % (37.0-47.0); Hemoglobin 13.4 g/dL (12.0-15.0); Immature Granulocyte Percent A 0.5 % (0-0.5); Lymphocytes Absolute Auto 2.19 K/mm3 (0.9-3.2); Mean Corpuscular HGB Conc 32.6 g/dl (32-36); Mean Corpuscular Hemoglobin 32.1 pg (26-34); Mean Corpuscular Volume 98.3 fl (80-100); Nucleated Red Blood Cells Absolute Auto 0.000 K/mm3 (0.0-0.012); Nucleated Red Blood Cells Perc 0.0 % (0.0-0.2); Platelet Count Result 215 k/mm3 (150-375); Red Blood Count 4.18 M/mm3 (4.2-5.4); White Blood Count 8.8 K/mm3 (4.5-10.0)
[2025-01-21 13:42] LABS: Hemoglobin A1C 5.0 % (<5.7)
[2025-01-21 13:55] LABS: Alanine Aminotransferase 11 U/L (6-35); Albumin Level 3.9 g/dL (3.5-5.1); Alkaline Phosphatase 110 U/L (38-126); Anion Gap 3 mmol/L (4-12); Aspartate Amino Transferase 25 U/L (14-36); Bilirubin,Total 0.6 mg/dL (0.2-1.3); Blood Urea Nitrogen 13 mg/dL (7-17); Calcium 9.6 mg/dL (8.4-10.2); Carbon Dioxide 32 mmol/L (22-30); Chloride 106 mmol/L (98-107); Cholesterol 130 mg/dL (0-200); Estimated Glomerular Filt Rate > 60; Glucose 91 mg/dL (65-110); HDL Direct 63 mg/dL; Potassium 3.2 mmol/L (3.4-5.0); Sodium 141 mmol/L (137-145); Total Protein 7.1 g/dL (6.3-8.2); Triglycerides 79 mg/dL (<150)
[2025-01-21 14:20] LABS: Free T4 Free Thyroxine 1.77 ng/dL (0.78-2.19)
[2025-01-21 14:30] LABS: Thyroid Stimulating Hormone 1.020 uIU/mL (0.465-4.680)
[2025-01-21 16:06] LABS: Vitamin B12 950.0 pg/mL (239-931)
== END 2025-01-21 11:48 | disposition home or self-care (01) ==
PROVIDERS: PCP Family Medicine; Referring Provider Dermatology; Visit Provider Family Medicine
DX: I42.2 Other hypertrophic cardiomyopathy (principal); I51.9 Heart disease, unspecified; E07.9 Disorder of thyroid, unspecified; M81.0 Age-related osteoporosis without current pathological fracture; R73.9 Hyperglycemia, unspecified; E55.9 Vitamin D deficiency, unspecified; R20.2 Paresthesia of skin; E78.2 Mixed hyperlipidemia
CPT/HCPCS: 36415; 80053; 80061; 82306; 82607; 83036; 84207; 84439; 84443; 85025; 86480

== ENCOUNTER 2025-01-27 13:31 | Outpatient (CLI) | payer OTHER, SELFPAY ==
--- NOTE | ~2025-01-27 | XR_ITS ---
MODIFIED ESOPHAGRAM HISTORY: Dysphagia. TECHNIQUE: Modified barium esophagram was performed on 01/27/2025. I administered fluoroscopy and performed the exam with speech pathologist. Patient was seated for lateral fluoroscopic imaging for ingestion of thin liquids, pudding, solids and quantified amounts, followed by thin liquids in uncontrolled amounts. This was recorded on tape. A single fluoroscopic spot image was also recorded. The DAP for this procedure was 0.5 Gycm2. The amount of fluoroscopy time used during this procedure was 0.9 minutes. FINDINGS: Oral stage: Adequate function. Pharyngeal stage: Adequate function. Cervical/esophageal stage: Adequate function. IMPRESSION: Patient tolerated regular consistency oral feedings in the upright position. Please correlate with speech pathologist findings and specific feeding recommendations. Reviewed, dictated and finalized at location A. IMPRESSION: Patient tolerated regular consistency oral feedings in the upright position. Please correlate with speech pathologist findings and specific feedi ng recommendations.
--- OUTSIDE RECORDS SUMMARY | 2025-01-27 13:37 | XMS_ITS | Encounter Summary ---
Author Organization [facility] Facility Care Team Providers Care Labor Relations Worker Name Role Phone Calin Christina MD Primary Care Provi hallie Jaqueline Stark NEUROLOGICAL PHYSIOTHERAPIST Primary Care Provider Calin Christina MD Primary Care Provi hallie Jaqueline Stark NEUROLOGICAL PHYSIOTHERAPIST Primary Care Provider Sultan Roly Elizondo MD Unavailable [phone] Carmen Singletary MD Unavailable [phone] Mary Spencer DO Primary Care Provider + Encounter Details Date Type Department Care Team (Latest Contact Info) Description 11/10/2017 Orders Only [facility] CLINCONV ProviderJosefina MD [address] [place] [address] Social History Tobacco Use Types Packs/Day Years Used Date Smoking Tobacco: Never Assessed Comments Unknown Sex and Gender Information Value Date Recorded Sex Assigned at Not on file 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 Gender Identity Not on file Sexual Orientation [...] on filedocumented in this encounter Care Teams Labor Relations Worker Relationship Specialty Start Date End Date Calin Christina MD [address] [place] [address] PCP - General 09/18/18 11/13/21 Jaqueline Stark NP [address] [place] [address] PCP - General Internal Medicine 11/14/21 04/16/22 Calin Christina MD [address] [place] [address] PCP - General Family Medicine 04/17/22 04/19/22 Jaqueline Stark NP [address] [place] [address] PCP - General Internal Medicine 04/20/22 05/18/24 Mary Spencer DO [address] [place] [address] [place] [address] PCP - General Family Medicine 05/19/24 Sultan Roly Elizondo MD [address] [facility] [address] [address] Consulting Physician Cardiovascular Disease 10/16/22 Carmen Singletary MD [address] [place] [address] Referring Physician Dermatology 10/16/22 documented as of this encounter
--- OUTSIDE RECORDS SUMMARY | 2025-01-27 13:37 | XMS_ITS | Clinical Summary ---
Author Organization [facility] Address [address] [place] [address] Care Team Providers Care Lapper Name Role Phone Calin Christina MD Primary [...] VE NON-REACTI VE 10/21/2015 5:51 PM CDT [facility] Comment: TESTING PERFORMED AT [facility] [address] [place] [address] SERUM OR PLASMA SPECIMEN / Unknown 10/20/2015 4:07 PM CDT 10/20/2015 4:56 PM CDT us Generic Conversion Md [facility] Final R esult [facility] [address] [place] [address], [place] [phone] from Last 3 Months or Most Recently Relevant to Health [id number] Care Teams Lapper Relationship Specialty Start Date End Date Calin Christina MD PCP - General 09/24/16
--- OUTSIDE RECORDS SUMMARY | 2025-01-27 13:37 | XMS_ITS | Encounter Summary ---
Author Organization [facility] Facility Care Team Providers Care Bowling Ball Weigher And Packer Name Role Phone Calin Christina MD Primary Care Provi hallie Jaqueline Stark [employer] Primary Care Provider Calin Christina MD Primary Care Provi hallie Jaqueline Stark [employer] Primary Care Provider Sultan Roly Elizondo MD Unavailable [phone] Carmen Singletary MD Unavailable [phone] Mary Spencer DO Primary Care Provider + Encounter Details Date Type Department Care Team (Latest Contact Info) Description 11/27/2017 Orders Only [facility] CLINCONV ProviderJosefina MD [address] [place] [address] Social History Tobacco Use Types Packs/Day Years Used Date Smoking Tobacco: Never Assessed Comments Unknown Sex and Gender Information Value Date Recorded Sex Assigned at Not on file 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 DINING ROOM ATTENDANT Gender Identity Not on file Sexual Orientation [...] on filedocumented in this encounter Care Teams Bowling Ball Weigher And Packer Relationship Specialty Start Date End Date Calin Christina MD [address] [place] [address] PCP - General 09/18/18 11/13/21 Jaqueline Stark NP [address] [place] [address] PCP - General Internal Medicine 11/14/21 04/16/22 Calin Christina MD [address] [place] [address] PCP - General Family Medicine 04/17/22 04/19/22 Jaqueline Stark NP [address] [place] [address] PCP - General Internal Medicine 04/20/22 05/18/24 Mary Spencer DO [address] [place] [address] [place] [address] PCP - General Family Medicine 05/19/24 Sultan Roly Elizondo MD [address] [facility] [address] [address] Consulting Physician Cardiovascular Disease 10/16/22 Carmen Singletary MD [address] [place] [address] Referring Physician Dermatology 10/16/22 documented as of this encounter
--- OUTSIDE RECORDS SUMMARY | 2025-01-27 13:37 | XMS_ITS | Encounter Summary ---
Author Organization [facility] Facility Care Team Providers Care Food Operations Manager Name Role Phone Calin Christina MD Primary Care Provi hallie Jaqueline Stark TECHNOLOGY INSTRUCTOR Primary Care Provider Calin Christina MD Primary Care Provi hallie Jaqueline Stark TECHNOLOGY INSTRUCTOR Primary Care Provider Sultan Roly Elizondo MD Unavailable [phone] Carmen Singletary MD Unavailable [phone] Mary Spencer DO Primary Care Provider + Encounter Details Date Type Department Care Team (Latest Contact Info) Description 10/31/2017 Orders Only [facility] CLINCONV ProviderJosefina MD [address] [place] [address] Social History Tobacco Use Types Packs/Day Years Used Date Smoking Tobacco: Never Assessed Comments Unknown Sex and Gender Information Value Date Recorded Sex Assigned at Not on file 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 DUSTLESS OPERATOR Gender Identity Not on file Sexual [...] filedocumented in this encounter Care Teams Food Operations Manager Relationship Specialty Start Date End Date Calin Christina MD [address] [place] [address] PCP - General 09/18/18 11/13/21 Jaqueline Stark NP [address] [place] [address] PCP - General Internal Medicine 11/14/21 04/16/22 Calin Christina MD [address] [place] [address] PCP - General Family Medicine 04/17/22 04/19/22 Jaqueline Stark, ALIA [address] [place] [address] PCP - General Internal Medicine 04/20/22 05/18/24 Mary Spencer DO [address] [place] [address] [place] [address] PCP - General Family Medicine 05/19/24 Sultan Roly Elizondo MD [address] [facility] [address] [place] [address] Consulting Physician Cardiovascular Disease 10/16/22 Carmen Singletary MD [address] [place] [address] Referring Physician Dermatology 10/16/22 documented as of this encounter
--- OUTSIDE RECORDS SUMMARY | 2025-01-27 13:37 | XMS_ITS | Encounter Summary ---
Author Organization [facility] Facility Care Team Providers Care Hogshead Stock Clerk Name Role Phone Calin Christina MD Primary Care Provi hallie Jaqueline Stark CERTIFIED OPTICIAN Primary Care Provider Calin Christina MD Primary Care Provi hallie Jaqueline Stark CERTIFIED OPTICIAN Primary Care Provider Sultan Roly Elizondo MD Unavailable [phone] Carmen Singletary MD Unavailable [phone] Mary Spencer DO Primary Care Provider + Encounter Details Date Type Department Care Team (Latest Contact Info) Description 09/27/2015 Orders Only [facility] CLINCONV ProviderJosefina MD [address] [place] [address] Social History Tobacco Use Types Packs/Day Years Used Date Smoking Tobacco: Never Assessed Comments Unknown Sex and Gender Information Value Date Recorded Sex Assigned at Not on file 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 ANIMAL LABORATORY TECHNICIAN Gender Identity Not on file Sexual [...] on filedocumented in this encounter Care Teams Hogshead Stock Clerk Relationship Specialty Start Date End Date Calin Christina MD [address] [place] [address] PCP - General 09/18/18 11/13/21 Jaqueline Stark NP [address] [place] [address] PCP - General Internal Medicine 11/14/21 04/16/22 Calin Christina MD [address] [place] [address] PCP - General Family Medicine 04/17/22 04/19/22 Jaqueline Stark, ALIA [address] [place] [address] PCP - General Internal Medicine 04/20/22 05/18/24 Mary Spencer DO [address] [place] [address] [place] [address] PCP - General Family Medicine 05/19/24 [place] [address] [place] [address] [place] [address] Consulting Physician Cardiovascular Disease 10/16/22 Carmen Singletary MD [address] [place] [address] Referring Physician Dermatology 10/16/22 documented as of this encounter
--- OUTSIDE RECORDS SUMMARY | 2025-01-27 13:37 | XMS_ITS | Encounter Summary ---
Author Organization [facility] Facility Care Team Providers Care Online Merchandiser Name Role Phone Calin Christina MD Primary Care Provi hallie Jaqueline Stark SPORTS INSTRUCTOR Primary Care Provider Calin Christina MD Primary Care Provi hallie Jaqueline Stark SPORTS INSTRUCTOR Primary Care Provider Sultan Roly Elizondo MD Unavailable [phone] Carmen Singletary MD Unavailable [phone] Mary Spencer DO Primary Care Provider + Encounter Details Date Type Department Care Team (Latest Contact Info) Description 10/20/2015 Orders Only [facility] CLINCONV ProviderJosefina MD [address] [place] [address] Social History Tobacco Use Types Packs/Day Years Used Date Smoking Tobacco: Never Assessed Comments Unknown Sex and Gender Information Value Date Recorded Sex Assigned at Not on file 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 TERADATA DEVELOPER Gender Identity Not on file Sexual Orientation [...] on filedocumented in this encounter Care Teams Online Merchandiser Relationship Specialty Start Date End Date Calin Christina MD [address] [place], [place] [address] PCP - General 09/18/18 11/13/21 Jaqueline Stark NP [address] [place], [place] [address] PCP - General Internal Medicine 11/14/21 04/16/22 Calin Christina MD [address] [place], [place] [address] PCP - General Family Medicine 04/17/22 04/19/22 Jaqueline Stark NP [facility] [place] [address] PCP - General Internal Medicine 04/20/22 05/18/24 Mary Spencer DO [address] [place] [address] [address] PA[address] [place] [address] PCP - General Family Medicine 05/19/24 Sultan Roly Elizondo MD [address] [facility] [place] [address] Consulting Physician Cardiovascular Disease 10/16/22 Carmen Singletary MD [address] [place] [address] Referring Physician Dermatology 10/16/22 documented as of this encounter
--- OUTSIDE RECORDS SUMMARY | 2025-01-27 13:37 | XMS_ITS | Encounter Summary ---
Author Organization [facility] Address [address] [place], [place] [address] [address] Care Team Providers Care Silvering Applicator Name Role Phone Unavailable Primary Care Provider Unavailabl e Encounter Details Date Type Department Care Team (Late st Contact Info) Description 03/04/2024 Lab Requisition [facility] - DermPath Lab [address] [facility], [place] [address] Carmen Singletary MD [address] [facility] [address] [place] [address] Social History Tobacco Use Types Packs/Day Years Used Date Smoking Tobacco: Never Assessed Comments Unknown Sex and Gender Information Value Date Recorded Sex Assigned at Not on file Legal Sex Female 5:21 PM SAMPLER PICKUP Gender Identity Not on file Sexual Orientation Not on file documented as of this encounter Plan of Treatment Not on file documented as of this encounter Procedures Procedure Name Priority Date/Time Associated Diagnosis Comments DERMATOPATHOLOGY Routine 03/04/2024 10:2 8 AM CDT documented in this encounter Results * DERMATOPATHOLOGY (03/04/2024 10:28 AM CDT) Case Report Dermatopathology Report Case: [id number] Authorizing Provider: Carmen Singletary MD Collected: 03/04/2024 10:28 AM Ordering Location: [facility] Physician [facility] - Received: 03/05/2024 07:21 AM DermPath Lab Pathologist: Monica Terrell MD Specimen: Skin, right index 4 5:30 PM [facility] DERMATOPATHOLOGY LABORATORY Final Diagnosis Specimen A. SKIN, right index: PALISADED AND NECROBIOTIC GRANULOMATOUS DERMATITIS, SUPERFICIAL PORTIONS OF (L92.0) (see microscopic description and comment) 4 5:30 PM [facility] DERMATOPATHOLOGY LABORATORY at 1730 SAMPLER PICKUP Clinical History Favor [place]; annular pink plaque 5:30 PM [facility] DERMATOPATHOLOGY LABORATORY Gross Description Specimen A: Received is one formalin filled container labeled with the patient's name and designated right index. The specimen consists of a shave biopsy measuring 8x5x1 mm. Jar 0. 5:30 PM [facility] DERMATOPATHOLOGY LABORATORY Microscopic Description [...] annulare. Clinicopathologic correlation is recommended. 5:30 PM [facility] DERMATOPATHOLOGY LABORATORY Disclaimer An external and internal positive and negative controls are appropriate for the histochemical, immunohistochemical and immunofluorescence stain(s) in this case (if any), except where stated explicitly. The performance characteristics of the stain(s) cited in this report were developed and its performance characteristic determined by the Dermatopathology Laboratory at [facility], directed by Dr. Pete Guo. These tests need not be, and therefore are not, approved by the [place] Food and Drug Administration. The tests are used for clinical purposes. Billing Codes Specimen Charges Stain Charges 72463 1 57028 24081 08204 1 1 1 5:30 PM [facility] DERMATOPATHOLOGY LABORATORY Embedded Images 5:30 PM [facility] DERMATOPATHOLOGY LABORATORY Pathology/Cytolo gy TISSUE SPECIMEN FROM SKIN / Unknown 03/04/2024 10:28 AM CDT 03/05/2024 7:21 AM CDT us Carmen Singletary MD LAB - PATHOLOGY/CYTOLOGY ORD ERABLES Final Result DERMATOPATHOLOGY LABORATORY [facility] - Department of Dermatology [address], [address] [phone] documented in this encounter Visit Diagnoses Not on filedocumented in this encounter
--- OUTSIDE RECORDS SUMMARY | 2025-01-27 13:37 | XMS_ITS | Encounter Summary ---
Author Organization [facility] Facility Care Team Providers Care Stockroom Helper Name Role Phone Calin Christina MD Primary Care Provi hallie Jaqueline Stark GREETER GUEST SERVICES Primary Care Provider Calin Christina MD Primary Care Provi hallie Jaqueline Stark GREETER GUEST SERVICES Primary Care Provider Sultan Roly Elizondo MD Unavailable [phone] Carmen Singletary MD Unavailable [phone] Mary Spencer DO Primary Care Provider + Encounter Details Date Type Department Care Team (Latest Contact Info) Description 11/22/2017 Orders Only [facility] CLINCONV ProviderJosefina MD [address] [place] [address] Social History Tobacco Use Types Packs/Day Years Used Date Smoking Tobacco: Never Assessed Comments Unknown Sex and Gender Information Value Date Recorded Sex Assigned at Not on file 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 WASTE COLLECTION DRIVER Gender Identity Not on file Sexual [...] on filedocumented in this encounter Care Teams Stockroom Helper Relationship Specialty Start Date End Date Calin Christina MD [address] [place] [address] PCP - General 09/18/18 11/13/21 Jaqueline Stark NP [address] [place] [address] PCP - General Internal Medicine 11/14/21 04/16/22 Calin Christina MD [address] [place] [address] PCP - General Family Medicine 04/17/22 04/19/22 Jaqueline Stark, ALIA [address] [place] [address] PCP - General Internal Medicine 04/20/22 05/18/24 Mary Spencer DO [address] [place] [address] [place] [address] PCP - General Family Medicine 05/19/24 Sultan Roly Elizondo MD [address] [facility] [place] [address] Consulting Physician Cardiovascular Disease 10/16/22 Carmen Singletary MD [address] [place] [address] Referring Physician Dermatology 10/16/22 documented as of this encounter
--- OUTSIDE RECORDS SUMMARY | 2025-01-27 13:37 | XMS_ITS | Encounter Summary ---
Author Organization [facility] Facility Care Team Providers Care Licensed Nuclear Control Room Operator Name Role Phone Calin Christina MD Primary Care Provi hallie Jaqueline Stark BIRTH CERTIFICATE CLERK Primary Care Provider Calin Christina MD Primary Care Provi hallie Jaqueline Stark BIRTH CERTIFICATE CLERK Primary Care Provider Sultan Roly Elizondo MD Unavailable [phone] Carmen Singletary MD Unavailable [phone] Mary Spencer DO Primary Care Provider + Encounter Details Date Type Department Care Team (Latest Contact Info) Description 11/14/2017 Orders Only [facility] CLINCONV ProviderJosefina MD [address] [place] [address] Social History Tobacco Use Types Packs/Day Years Used Date Smoking Tobacco: Never Assessed Comments Unknown Sex and Gender Information Value Date Recorded Sex Assigned at Not on file 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 Gender Identity Not on file Sexual [...] on filedocumented in this encounter Care Teams Licensed Nuclear Control Room Operator Relationship Specialty Start Date End Date Calin Christina MD [address] [place] [address] PCP - General 09/18/18 11/13/21 Jaqueline Stark NP [address] [place] [address] PCP - General Internal Medicine 11/14/21 04/16/22 Calin Christina MD [address] [place] [address] PCP - General Family Medicine 04/17/22 04/19/22 Jaqueline Stark, ALIA [address] [place] [address] PCP - General Internal Medicine 04/20/22 05/18/24 Mary Spencer DO [address] [place] [address] [place] [address] PCP - General Family Medicine 05/19/24 Sultan Roly Elizondo MD [address] [facility] [place] [address] Consulting Physician Cardiovascular Disease 10/16/22 Carmen Singletary MD [address] [place] [address] Referring Physician Dermatology 10/16/22 documented as of this encounter
--- OUTSIDE RECORDS SUMMARY | 2025-01-27 13:37 | XMS_ITS | Encounter Summary ---
Author Organization [facility] Facility Care Team Providers Care Nuclear Test Technician Name Role Phone Calin Christina MD Primary Care Provi hallie Jaqueline Stark PROMOTIONS MANAGER Primary Care Provider Calin Christina MD Primary Care Provi hallie Jaqueline Stark PROMOTIONS MANAGER Primary Care Provider Sultan Roly Elizondo MD Unavailable [phone] Carmen Singletary MD Unavailable [phone] Mary Spencer DO Primary Care Provider + Encounter Details Date Type Department Care Team (Latest Contact Info) Description 11/16/2017 Orders Only [facility] CLINCONV ProviderJosefina MD [address] [place] [address] Social History Tobacco Use Types Packs/Day Years Used Date Smoking Tobacco: Never Assessed Comments Unknown Sex and Gender Information Value Date Recorded Sex Assigned at Not on file 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 Gender Identity Not on file Sexual [...] on filedocumented in this encounter Care Teams Nuclear Test Technician Relationship Specialty Start Date End Date Calin Christina MD [address] [place] [address] PCP - General 09/18/18 11/13/21 Jaqueline Stark NP [address] [place] [address] PCP - General Internal Medicine 11/14/21 04/16/22 Calin Christina MD [address] [place] [address] PCP - General Family Medicine 04/17/22 04/19/22 Jaqueline Stark, ALIA [address] [place] [address] PCP - General Internal Medicine 04/20/22 05/18/24 Mary Spencer DO [address] [place] [address] [place] [address] PCP - General Family Medicine 05/19/24 Sultan Roly Elizondo MD [address] [facility] [place] [address] Consulting Physician Cardiovascular Disease 10/16/22 Carmen Singletary MD [address] [place] [address] Referring Physician Dermatology 10/16/22 documented as of this encounter
--- OUTSIDE RECORDS SUMMARY | 2025-01-27 13:37 | XMS_ITS | Encounter Summary ---
Author Organization [facility] Facility Care Team Providers Care Tunneling Machine Operator Name Role Phone Calin Christina MD Primary Care Provi hallie Jaqueline Stark NAIL ARTIST Primary Care Provider Calin Christina MD Primary Care Provi hallie Jaqueline Stark NAIL ARTIST Primary Care Provider Sultan Roly Elizondo MD Unavailable [phone] Carmen Singletary MD Unavailable [phone] Mary Spencer DO Primary Care Provider + Encounter Details Date Type Department Care Team (Latest Contact Info) Description 11/04/2017 Orders Only [facility] CLINCONV ProviderJosefina MD [address] [place] [address] Social History Tobacco Use Types Packs/Day Years Used Date Smoking Tobacco: Never Assessed Comments Unknown Sex and Gender Information Value Date Recorded Sex Assigned at Not on file 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 Gender Identity Not on file Sexual [...] on filedocumented in this encounter Care Teams Tunneling Machine Operator Relationship Specialty Start Date End Date Calin Christina MD [address] [place] [address] PCP - General 09/18/18 11/13/21 Jaqueline Stark NP [address] [place] [address] PCP - General Internal Medicine 11/14/21 04/16/22 Calin Christina MD [address] [place] [address] PCP - General Family Medicine 04/17/22 04/19/22 Jaqueline Stark, ALIA [address] [place] [address] PCP - General Internal Medicine 04/20/22 05/18/24 Mary Spencer DO [address] [place] [address] [place] [address] PCP - General Family Medicine 05/19/24 Sultan Roly Elizondo MD [address] [facility] [address] [place] [address] Consulting Physician Cardiovascular Disease 10/16/22 Carmen Singletary MD [address] [place] [address] Referring Physician Dermatology 10/16/22 documented as of this encounter
--- OUTSIDE RECORDS SUMMARY | 2025-01-27 13:37 | XMS_ITS | Encounter Summary ---
Author Organization [facility] Address [address] [facility] [address] [place] [address] Care Team Providers Care Fashion Buyer Name Role Phone Calin Christina MD Primary Care Provi hallie Jaqueline Stark RN SANE Primary Care Provider Calin Christina MD Primary Care Provi hallie Jaqueline Stark RN SANE Primary Care Provider Sultan Roly Elizondo MD Unavailable [phone] Carmen Singletary MD Unavailable [phone] Mary Spencer DO Primary Care Provider + Encounter Details Date Type Department Care Team (Late st Contact Info) Description 09/27/2015 Orders Only [facility] Health Information Management [address] [place] [address] Scanning, Provider Social History Tobacco Use Types Packs/Day Years Used Date Smoking Tobacco: Never Assessed Comments Unknown Sex and Gender Information Value Date Recorded Sex Assigned at Not on file 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 Gender Identity Not on file Sexual [...] on filedocumented in this encounter Care Teams Fashion Buyer Relationship Specialty Start Date End Date Calin Christina MD [address] [place] [address] PCP - General 09/18/18 11/13/21 Jaqueline Stark, ALIA [address] [place] [address] PCP - General Internal Medicine 11/14/21 04/16/22 Calin Christina MD [address] [place] [address] PCP - General Family Medicine 04/17/22 04/19/22 Jaqueline Stark, RN SANE [address] [place] [address] PCP - General Internal Medicine 04/20/22 05/18/24 Mary Spencer DO [address] [place] [address] [place] [address] PCP - General Family Medicine 05/19/24 Sultan Roly Elizondo MD [address] [facility] [place] [address] Consulting Physician Cardiovascular Disease 10/16/22 Carmen Singletary MD [facility] [place] [address] Referring Physician Dermatology 10/16/22 documented as of this encounter
--- OUTSIDE RECORDS SUMMARY | 2025-01-27 13:37 | XMS_ITS | Encounter Summary ---
Author Organization [facility] Facility Care Team Providers Care Textiles Sales Representative Name Role Phone Calin Christina MD Primary Care Provi hallie Jaqueline Stark CITY LIBRARY DIRECTOR Primary Care Provider Calin Christina MD Primary Care Provi hallie Jaqueline Stark CITY LIBRARY DIRECTOR Primary Care Provider Sultan Roly Elizondo MD Unavailable [phone] Carmen Singletary MD Unavailable [phone] Mary Spencer DO Primary Care Provider + Encounter Details Date Type Department Care Team (Latest Contact Info) Description 11/11/2017 Orders Only [facility] CLINCONV ProviderJosefina MD [address] [place] [address] Social History Tobacco Use Types Packs/Day Years Used Date Smoking Tobacco: Never Assessed Comments Unknown Sex and Gender Information Value Date Recorded Sex Assigned at Not on file 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 Gender Identity Not on file Sexual [...] on filedocumented in this encounter Care Teams Textiles Sales Representative Relationship Specialty Start Date End Date Calin Christina MD [address] [place] [address] PCP - General 09/18/18 11/13/21 Jaqueline Stark NP [address] [place] [address] PCP - General Internal Medicine 11/14/21 04/16/22 Calin Christina MD [address] [place] [address] PCP - General Family Medicine 04/17/22 04/19/22 Jaqueline Stark, ALIA [address] [place] [address] PCP - General Internal Medicine 04/20/22 05/18/24 Mary Spencer DO [address] [place] [address] [place] [address] PCP - General Family Medicine 05/19/24 Sultan Roly Elizondo MD [address] [facility] [place] [address] Consulting Physician Cardiovascular Disease 10/16/22 Carmen Singletary MD [address] [place] [address] Referring Physician Dermatology 10/16/22 documented as of this encounter
--- OUTSIDE RECORDS SUMMARY | 2025-01-27 13:37 | XMS_ITS | Encounter Summary ---
Author Organization [facility] Healthcare Address [address] [place] [address] Care Team Providers Care Rose Grading Supervisor Name Role Phone Sultan Roly Elizondo MD Unavailable [phone] Carmen Singletary MD Unavailable [phone] Mary Spencer DO Primary Care Provider + Encounter Details Date Type Department Care Team (Late st Contact Info) Description 01/25/2025 Orders Only [facility] Medical Group Cardiology [address] [facility] [address] [address] Sultan Roly Eilzondo MD [address] [place] [address] Social History Tobacco Use Types Packs/Day Years Used Date Smoking Tobacco: Every Day Cigarettes 1 58.7 Started: 1966 Smokeless Tobacco: Never Comments:Has smoked 1/4 pack s per day for the last 6-7 years. 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 Gender Identity Not on file Sexual Orientation Not on file documented as of this encounter Plan of Treatment Not on file documented as of this encounter Procedures Procedure Name Priority Date/Time Associated Diagnosis Comments QUANTIFERON-TB GOLD PLUS Routine 01/21/2025 2:27 PM CDT documented in this encounter Results * QuantiFERON-TB Gold Plus (01/21/2025 2:27 PM CDT) us Historical Provider LAB BLOOD ORDERABLES Edit ed Result - Final EXTERNAL LAB documented in this encounter Visit Diagnoses Not on filedocumented in this encounter Care Teams Rose Grading Supervisor Relationship Specialty Start Date End Date Mary Spencer DO [address] [place] [address] [place] [address] PCP - General Family Medicine 05/19/24 Sultan Roly Elizondo MD [address] [facility] [place] [address] Consulting Physician Cardiovascular Disease 10/16/22 Carmen Singletary MD [address] [place] [address] Referring Physician Dermatology 10/16/22 documented as of this encounter
--- OUTSIDE RECORDS SUMMARY | 2025-01-27 13:37 | XMS_ITS | Clinical Summary ---
Author Organization [facility] Address [address] [facility] [place] [address] Care Team Providers Care Work Over Rig Operator Name Role Phone Unavailable Primary Care Provider Unavailabl e Source Comments [facility],non-owned Affiliates and Associated Physician Practices is amultiple site organization consisting of ambulatory clinics and hospital sitesin [place], [place], [place] and [place]. This disclosure is being madepursuant to the Care Everywhere program and may not contain all information available regarding this patient. Last updated 18.[facility] [employer] Social History Tobacco Use Types Packs/Day Years Used Date Smoking Tobacco: Never Assessed Comments Unknown Sex and Gender Information Value Date Recorded Sex Assigned at Not on file Legal Sex Female 5:21 PM PHYSICAL CHEMIST Gender Identity Not on file Sexual Orientation [...] to complete this topic Insurance [employer] [facility] [place] Address: [facility] CLAIMS [address] [place] [id number] [employer]
--- OUTSIDE RECORDS SUMMARY | 2025-01-27 13:37 | XMS_ITS | Encounter Summary ---
Author Organization [facility] Facility Care Team Providers Care Industrial Chemist Name Role Phone Calin Christina MD Primary Care Provi hallie Jaqueline Stark CANDY SUPERVISOR Primary Care Provider Calin Christina MD Primary Care Provi hallie Jaqueline Stark CANDY SUPERVISOR Primary Care Provider Sultan Roly Elizondo MD Unavailable [phone] Carmen Singletary MD Unavailable [phone] Mary Spencer DO Primary Care Provider + Encounter Details Date Type Department Care Team (Latest Contact Info) Description 11/03/2017 Orders Only [facility] CLINCONV ProviderJosefina MD [address] [place] [address] Social History Tobacco Use Types Packs/Day Years Used Date Smoking Tobacco: Never Assessed Comments Unknown Sex and Gender Information Value Date Recorded Sex Assigned at Not on file 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 Gender Identity Not on file Sexual [...] on filedocumented in this encounter Care Teams Industrial Chemist Relationship Specialty Start Date End Date Calin Christina MD [address] [place] [address] PCP - General 09/18/18 11/13/21 Jaqueline Stark NP [address] [place] [address] PCP - General Internal Medicine 11/14/21 04/16/22 Calin Christina MD [address] [place] [address] PCP - General Family Medicine 04/17/22 04/19/22 Jaqueline Stark, ALIA [address] [place] [address] PCP - General Internal Medicine 04/20/22 05/18/24 Mary Spencer DO [address] [place] [address] [place] [address] PCP - General Family Medicine 05/19/24 Sultan Roly Elizondo MD [address] [facility] [place] [address] Consulting Physician Cardiovascular Disease 10/16/22 Carmen Singletary MD [address] [place] [address] Referring Physician Dermatology 10/16/22 documented as of this encounter
--- OUTSIDE RECORDS SUMMARY | 2025-01-27 13:37 | XMS_ITS | Encounter Summary ---
Author Organization [facility] Address [address] [place], [place] [address] [address] Care Team Providers Care Piece Work Checker Name Role Phone Unavailable Primary Care Provider Unavailabl e Encounter Details Date Type Department Care Team (Late st Contact Info) Description 08/13/2019 Lab Requisition [facility] DermPath Lab [address] [facility], [facility] [place] [address] Carmen Singletary MD [address] [facility] 3 [place] [address] Social History Tobacco Use Types Packs/Day Years Used Date Smoking Tobacco: Never Assessed Comments Unknown Sex and Gender Information Value Date Recorded Sex Assigned at Not on file 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 Female 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 Gender Identity Not on file Sexual Orientation Not on file documented as of this encounter Plan of Treatment Not on file documented as of this encounter Procedures Procedure Name Priority Date/Time Associated Diagnosis Comments DERMATOPATH TECHNICAL REPORT Routine 08/13/2019 12:00 AM CDT documented in this encounter Results * DERMATOPATH TECHNICAL REPORT (08/13/2019 12:00 AM CDT) Case Report Dermatopathology Report Case: [id number] Authorizing Provider: Carmen Singletary MD Collected: 08/13/2019 12:00 AM Ordering Location: [facility] Care DermPath Lab Received: 08/13/2019 02:22 PM Pathologist: Donte Guo MD Specimen: Skin, left mejia 0 2:22 PM CDT DERMATOPATHOLOGY LABORATORY Addendum 1 At the request of the diagnosing physician, technical component for Magdaleno-Ep4 was performed on block 5 at [facility] Dermatopathology Laboratory. 0 2:22 PM CDT DERMATOPATHOLOGY LABORATORY Addendum electronically signed by Donte Guo MD on 08/18/2019 at 1422 CDT Clinical History Bx proven SCC, well diff. 0 2:22 PM CDT DERMATOPATHOLOGY LABORATORY Gross Description Specimen A: Received is one formalin filled container labeled with the patient's name and designated left mejia.The specimen consists of an ellipse measuring [id number] and is oriented with the notch at [...] and submitted in cassettes 3-5. Jar 0. [facility] Dermatopathology [facility] performed the technical component only. [...] characteristic determined by the Dermatopathology Laboratory at [facility], directed by Dr. Pete Guo. These [...] DERMATOPATHOLOGY LABORATORY [facility] - Department of Dermatology [facility] [facility], 5th [place] [address], [facility] [phone] documented in this encounter Visit Diagnoses Not on filedocumented in this encounter
--- OUTSIDE RECORDS SUMMARY | 2025-01-27 13:37 | XMS_ITS | Encounter Summary ---
Author Organization [facility] Facility Care Team Providers Care Wash Barrel Leader Name Role Phone Calin Christina MD Primary Care Provi hallie Jaqueline Stark UROLOGIST PHYSICIAN Primary Care Provider Calin Christina MD Primary Care Provi hallie Jaqueline Stark UROLOGIST PHYSICIAN Primary Care Provider Sultan Roly Elizondo MD Unavailable [phone] Carmen Singletary MD Unavailable [phone] Mary Spencer DO Primary Care Provider + Encounter Details Date Type Department Care Team (Latest Contact Info) Description 10/30/2017 Orders Only [facility] CLINCONV ProviderJosefina MD [address] [place] [address] Social History Tobacco Use Types Packs/Day Years Used Date Smoking Tobacco: Never Assessed Comments Unknown Sex and Gender Information Value Date Recorded Sex Assigned at Not on file 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 Gender Identity Not on file Sexual Orientation [...] on filedocumented in this encounter Care Teams Wash Barrel Leader Relationship Specialty Start Date End Date Calin Christina MD [address] [place] [address] PCP - General 09/18/18 11/13/21 Jaqueline Stark NP [address] [place] [address] PCP - General Internal Medicine 11/14/21 04/16/22 Calin Christina MD [address] [place] [address] PCP - General Family Medicine 04/17/22 04/19/22 Jaqueline Stark, ALIA [address] [place] [address] PCP - General Internal Medicine 04/20/22 05/18/24 Mary Spencer DO [address] [place] [address] [place] [address] PCP - General Family Medicine 05/19/24 Sultan Roly Elizondo MD [address] [facility] [address] [place] [address] Consulting Physician Cardiovascular Disease 10/16/22 Carmen Singletary MD [address] [place] [address] Referring Physician Dermatology 10/16/22 documented as of this encounter
--- OUTSIDE RECORDS SUMMARY | 2025-01-27 13:37 | XMS_ITS | Encounter Summary ---
Author Organization [facility] Facility Care Team Providers Care Dowel Inspector Name Role Phone Calin Christina MD Primary Care Provi hallie Jaqueline Stark FINISHING INSPECTOR Primary Care Provider Calin Christina MD Primary Care Provi hallie Jaqueline Stark FINISHING INSPECTOR Primary Care Provider Sultan Roly Elizondo MD Unavailable [phone] Carmen Singletary MD Unavailable [phone] Mary Spencer DO Primary Care Provider + Encounter Details Date Type Department Care Team (Latest Contact Info) Description 11/20/2017 Orders Only [facility] CLINCONV ProviderJosefina MD [address] [place] [address] Social History Tobacco Use Types Packs/Day Years Used Date Smoking Tobacco: Never Assessed Comments Unknown Sex and Gender Information Value Date Recorded Sex Assigned at Not on file 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 Gender Identity Not on file Sexual Orientation [...] on filedocumented in this encounter Care Teams Dowel Inspector Relationship Specialty Start Date End Date Calin Christina MD [address] [place] [address] PCP - General 09/18/18 11/13/21 Jaqueline Stark NP [address] [place] [address] PCP - General Internal Medicine 11/14/21 04/16/22 Calin Christina MD [address] [place] [address] PCP - General Family Medicine 04/17/22 04/19/22 Jaqueline Stark NP [address] [place] [address] PCP - General Internal Medicine 04/20/22 05/18/24 Mary Spencer DO [address] [place] [address] [place] [address] PCP - General Family Medicine 05/19/24 Sultan Roly Elizondo MD [address] [facility] [address] [address] Consulting Physician Cardiovascular Disease 10/16/22 Carmen Singletary MD [address] [place] [address] Referring Physician Dermatology 10/16/22 documented as of this encounter
--- OUTSIDE RECORDS SUMMARY | 2025-01-27 13:37 | XMS_ITS | Encounter Summary ---
Author Organization [facility] Facility Care Team Providers Care Implementation Project Coordinator Name Role Phone Calin Christina MD Primary Care Provi hallie Jaqueline Stark CUSTOMER SERVICE ANALYST Primary Care Provider Calin Christina MD Primary Care Provi hallie Jaqueline Stark CUSTOMER SERVICE ANALYST Primary Care Provider Sultan Roly Elizondo MD Unavailable [phone] Carmen Singletary MD Unavailable [phone] Mary Spencer DO Primary Care Provider + Encounter Details Date Type Department Care Team (Latest Contact Info) Description 11/07/2017 Orders Only [facility] CLINCONV ProviderJosefina MD [address] [place] [address] Social History Tobacco Use Types Packs/Day Years Used Date Smoking Tobacco: Never Assessed Comments Unknown Sex and Gender Information Value Date Recorded Sex Assigned at Not on file 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 Gender Identity Not on file Sexual Orientation [...] on filedocumented in this encounter Care Teams Implementation Project Coordinator Relationship Specialty Start Date End Date Calin Christina MD [address] [place] [address] PCP - General 09/18/18 11/13/21 Jaqueline Stark NP [address] [place] [address] PCP - General Internal Medicine 11/14/21 04/16/22 Calin Christina MD [address] [place] [address] PCP - General Family Medicine 04/17/22 04/19/22 Jaqueline Stark, ALIA [address] [place] [address] PCP - General Internal Medicine 04/20/22 05/18/24 Mary Spencer DO [address] [place] [address] [place] [address] PCP - General Family Medicine 05/19/24 Sultan Roly Elizondo MD [address] [facility] [address] [place] [address] Consulting Physician Cardiovascular Disease 10/16/22 Carmen Singletary MD [address] [place] [address] Referring Physician Dermatology 10/16/22 documented as of this encounter
--- OUTSIDE RECORDS SUMMARY | 2025-01-27 13:37 | XMS_ITS | Encounter Summary ---
Author Organization [facility] Facility Care Team Providers Care Supervisor Plastering Name Role Phone Calin Christina MD Primary Care Provi hallie Jaqueline Stark PEER EDUCATOR Primary Care Provider Calin Christina MD Primary Care Provi hallie Jaqueline Stark PEER EDUCATOR Primary Care Provider Sultan Roly Elizondo MD Unavailable [phone] Carmen Singletary MD Unavailable [phone] Mary Spencer DO Primary Care Provider + Encounter Details Date Type Department Care Team (Latest Contact Info) Description 11/17/2017 Orders Only [facility] CLINCONV ProviderJosefina MD [address] [place] [address] Social History Tobacco Use Types Packs/Day Years Used Date Smoking Tobacco: Never Assessed Comments Unknown Sex and Gender Information Value Date Recorded Sex Assigned at Not on file 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 IMMIGRATION COORDINATOR Gender Identity Not on file Sexual [...] filedocumented in this encounter Care Teams Supervisor Plastering Relationship Specialty Start Date End Date Calin Christina MD [address] [place] [address] PCP - General 09/18/18 11/13/21 Jaqueline Stark NP [address] [place] [address] PCP - General Internal Medicine 11/14/21 04/16/22 Calin Christina MD [address] [place] [address] PCP - General Family Medicine 04/17/22 04/19/22 Jaqueline Stark, ALIA [address] [place] [address] PCP - General Internal Medicine 04/20/22 05/18/24 Mary Spencer DO [address] [place] [address] [place] [address] PCP - General Family Medicine 05/19/24 Sultan Roly Elizondo MD [address] [facility] [address] [place] [address] Consulting Physician Cardiovascular Disease 10/16/22 Carmen Singletary MD [address] [place] [address] Referring Physician Dermatology 10/16/22 documented as of this encounter
--- OUTSIDE RECORDS SUMMARY | 2025-01-27 13:37 | XMS_ITS | Encounter Summary ---
Author Organization [facility] Facility Care Team Providers Care Counter Supply Worker Name Role Phone Calin Christina MD Primary Care Provi hallie Jaqueline Stark CROCHET BEADER Primary Care Provider Calin Christina MD Primary Care Provi hallie Jaqueline Stark CROCHET BEADER Primary Care Provider Sultan Roly Elizondo MD Unavailable [phone] Carmen Singletary MD Unavailable [phone] Mary Spencer DO Primary Care Provider + Encounter Details Date Type Department Care Team (Latest Contact Info) Description 11/12/2017 Orders Only [facility] CLINCONV ProviderJosefina MD [address] [place] [address] Social History Tobacco Use Types Packs/Day Years Used Date Smoking Tobacco: Never Assessed Comments Unknown Sex and Gender Information Value Date Recorded Sex Assigned at Not on file 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 us Historical Provider [facility] Final Result documented in this encounter Visit Diagnoses Not on filedocumented in this encounter Care Teams Counter Supply Worker Relationship Specialty Start Date End Date Calin Christina MD [address] [place] [address] PCP - General 09/18/18 11/13/21 Jaqueline Stark NP [address] [place] [address] PCP - General Internal Medicine 11/14/21 04/16/22 Calin Christina MD [address] [place] [address] PCP - General Family Medicine 04/17/22 04/19/22 Jaqueline Stark, ALIA [address] [place] [address] PCP - General Internal Medicine 04/20/22 05/18/24 Mary Spencer DO [address] [place] [address] [place] [address] PCP - General Family Medicine 05/19/24 Sultan Roly Elizondo MD [address] [facility] [address] [place] [address] Consulting Physician Cardiovascular Disease 10/16/22 Carmen Singletary MD [address] [place] [address] Referring Physician Dermatology 10/16/22 documented as of this encounter
--- OUTSIDE RECORDS SUMMARY | 2025-01-27 13:37 | XMS_ITS | Encounter Summary ---
Author Organization [facility] Facility Care Team Providers Care Head Sugar Reprocess Operator Name Role Phone Calin Christina MD Primary Care Provi hallie Jaqueline Stark HEAD OF DATA Primary Care Provider Calin Christina MD Primary Care Provi hallie Jaqueline Stark HEAD OF DATA Primary Care Provider Sultan Roly Elizondo MD Unavailable [phone] Carmen Singletary MD Unavailable [phone] Mary Spencer DO Primary Care Provider + Encounter Details Date Type Department Care Team (Latest Contact Info) Description 11/18/2017 Orders Only [facility] CLINCONV ProviderJosefina MD [address] [place] [address] Social History Tobacco Use Types Packs/Day Years Used Date Smoking Tobacco: Never Assessed Comments Unknown Sex and Gender Information Value Date Recorded Sex Assigned at Not on file 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 BELLHOP Gender Identity Not on file Sexual Orientation [...] on filedocumented in this encounter Care Teams Head Sugar Reprocess Operator Relationship Specialty Start Date End Date Calin Christina MD [address] [place] [address] PCP - General 09/18/18 11/13/21 Jaqueline Stark NP [address] [place] [address] PCP - General Internal Medicine 11/14/21 04/16/22 Calin Christina MD [address] [place] [address] PCP - General Family Medicine 04/17/22 04/19/22 Jaqueline Stark, ALIA [address] [place] [address] PCP - General Internal Medicine 04/20/22 05/18/24 Mary Spencer DO [address] [place] [address] [place] [address] PCP - General Family Medicine 05/19/24 Sultan Roly Elizondo MD [address] [facility] [address] [place] [address] Consulting Physician Cardiovascular Disease 10/16/22 Carmen Singletary MD [address] [place] [address] Referring Physician Dermatology 10/16/22 documented as of this encounter
--- OUTSIDE RECORDS SUMMARY | 2025-01-27 13:37 | XMS_ITS | Encounter Summary ---
Author Organization [facility] Facility Care Team Providers Care Tin Assorter Name Role Phone Calin Christina MD Primary Care Provi hallie Jaqueline Stark ANESTHESIA RESIDENT Primary Care Provider Calin Christina MD Primary Care Provi hallie Jaqueline Stark ANESTHESIA RESIDENT Primary Care Provider Sultan Roly Elizondo MD Unavailable [phone] Carmen Singletary MD Unavailable [phone] Mary Spencer DO Primary Care Provider + Encounter Details Date Type Department Care Team (Latest Contact Info) Description 11/24/2017 Orders Only [facility] CLINCONV ProviderJosefina MD [address] [place] [address] Social History Tobacco Use Types Packs/Day Years Used Date Smoking Tobacco: Never Assessed Comments Unknown Sex and Gender Information Value Date Recorded Sex Assigned at Not on file 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 ABSTRACT SEARCHER Gender Identity Not on file Sexual Orientation [...] on filedocumented in this encounter Care Teams Tin Assorter Relationship Specialty Start Date End Date Calin Christina MD [address] [place] [address] PCP - General 09/18/18 11/13/21 Jaqueline Stark NP [address] [place] [address] PCP - General Internal Medicine 11/14/21 04/16/22 Calin Christina MD [address] [place] [address] PCP - General Family Medicine 04/17/22 04/19/22 Jaqueline Stark, ALIA [address] [place] [address] PCP - General Internal Medicine 04/20/22 05/18/24 Mary Spencer DO [address] [place] [address] [place] [address] PCP - General Family Medicine 05/19/24 Sultan Roly Elizondo MD [address] [facility] [address] [place] [address] Consulting Physician Cardiovascular Disease 10/16/22 Carmen Singletary MD [address] [place] [address] Referring Physician Dermatology 10/16/22 documented as of this encounter
--- OUTSIDE RECORDS SUMMARY | 2025-01-27 13:37 | XMS_ITS | Encounter Summary ---
Author Organization [facility] Facility Care Team Providers Care Crematorium Operator Name Role Phone Calin Christina MD Primary Care Provi hallie Jaqueline Stark THRESHING MACHINE OPERATOR Primary Care Provider Calin Christina MD Primary Care Provi hallie Jaqueline Stark THRESHING MACHINE OPERATOR Primary Care Provider Sultan Roly Elizondo MD Unavailable [phone] Carmen Singletary MD Unavailable [phone] Mary Spencer DO Primary Care Provider + Encounter Details Date Type Department Care Team (Latest Contact Info) Description 11/13/2017 Orders Only [facility] CLINCONV ProviderJosefina MD [address] [place] [address] Social History Tobacco Use Types Packs/Day Years Used Date Smoking Tobacco: Never Assessed Comments Unknown Sex and Gender Information Value Date Recorded Sex Assigned at Not on file 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 TIE PULLER Gender Identity Not on file Sexual Orientation [...] on filedocumented in this encounter Care Teams Crematorium Operator Relationship Specialty Start Date End Date Calin Christina MD [address] [place] [address] PCP - General 09/18/18 11/13/21 Jaqueline Stark NP [address] [place] [address] PCP - General Internal Medicine 11/14/21 04/16/22 Calin Christina MD [address] [place] [address] PCP - General Family Medicine 04/17/22 04/19/22 Jaqueline Stark, ALIA [address] [place] [address] PCP - General Internal Medicine 04/20/22 05/18/24 Mary Spencer DO [address] [place] [address] [place] [address] PCP - General Family Medicine 05/19/24 Sultan Roly Elizondo MD [address] [facility] [address] [place] [address] Consulting Physician Cardiovascular Disease 10/16/22 Carmen Singletary MD [address] [place] [address] Referring Physician Dermatology 10/16/22 documented as of this encounter
--- OUTSIDE RECORDS SUMMARY | 2025-01-27 13:37 | XMS_ITS | Encounter Summary ---
Author Organization [facility] Facility Care Team Providers Care Middle School Baseball Coach Name Role Phone Calin Christina MD Primary Care Provi hallie Jaqueline Stark BATCH TRUCKER Primary Care Provider Calin Christina MD Primary Care Provi hallie Jaqueline Stark BATCH TRUCKER Primary Care Provider Sultan Roly Elizondo MD Unavailable [phone] Carmen Singletary MD Unavailable [phone] Mary Spencer DO Primary Care Provider + Encounter Details Date Type Department Care Team (Latest Contact Info) Description 11/08/2017 Orders Only [facility] CLINCONV ProviderJosefina MD [address] [place] [address] Social History Tobacco Use Types Packs/Day Years Used Date Smoking Tobacco: Never Assessed Comments Unknown Sex and Gender Information Value Date Recorded Sex Assigned at Not on file 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 APPLICATION ASSISTANT Gender Identity Not on file Sexual [...] on filedocumented in this encounter Care Teams Middle School Baseball Coach Relationship Specialty Start Date End Date Calin Christina MD [address] [place] [address] PCP - General 09/18/18 11/13/21 Jaqueline Stark NP [address] [place] [address] PCP - General Internal Medicine 11/14/21 04/16/22 Calin Christina MD [address] [place] [address] PCP - General Family Medicine 04/17/22 04/19/22 Jaqueline Stark NP [address] [place] [address] PCP - General Internal Medicine 04/20/22 05/18/24 Mary Spencer DO [address] [place] [address] [place] [address] PCP - General Family Medicine 05/19/24 Sultan Roly Elizondo MD [address] [facility] [address] [address] Consulting Physician Cardiovascular Disease 10/16/22 Carmen Singletary MD [address] [place] [address] Referring Physician Dermatology 10/16/22 documented as of this encounter
--- OUTSIDE RECORDS SUMMARY | 2025-01-27 13:37 | XMS_ITS | Encounter Summary ---
Author Organization [facility] Facility Care Team Providers Care Smooth And Burr Worker Composites Name Role Phone Calin Christina MD Primary Care Provi hallie Jaqueline Stark JAVA WEB USER INTERFACE DEVELOPER Primary Care Provider Calin Christina MD Primary Care Provi hallie Jaqueline Stark JAVA WEB USER INTERFACE DEVELOPER Primary Care Provider Sultan Roly Elizondo MD Unavailable [phone] Carmen Singletary MD Unavailable [phone] Mary Spencer DO Primary Care Provider + Encounter Details Date Type Department Care Team (Latest Contact Info) Description 11/28/2017 Orders Only [facility] CLINCONV ProviderJosefina MD [address] [place] [address] Social History Tobacco Use Types Packs/Day Years Used Date Smoking Tobacco: Never Assessed Comments Unknown Sex and Gender Information Value Date Recorded Sex Assigned at Not on file 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 ASSISTANT DIRECTOR OF SECURITY Gender Identity Not on file Sexual Orientation [...] on filedocumented in this encounter Care Teams Smooth And Burr Worker Composites Relationship Specialty Start Date End Date Calin Christina MD [address] [place] [address] PCP - General 09/18/18 11/13/21 Jaqueline Stark NP [address] [place] [address] PCP - General Internal Medicine 11/14/21 04/16/22 Calin Christina MD [address] [place] [address] PCP - General Family Medicine 04/17/22 04/19/22 Jaqueline Stark NP [address] [place] [address] PCP - General Internal Medicine 04/20/22 05/18/24 Mary Spencer DO [address] [place] [address] [place] [address] PCP - General Family Medicine 05/19/24 Sultan Roly Elizondo MD [address] [facility] [address] [address] Consulting Physician Cardiovascular Disease 10/16/22 Carmen Singletary MD [address] [place] [address] Referring Physician Dermatology 10/16/22 documented as of this encounter
--- OUTSIDE RECORDS SUMMARY | 2025-01-27 13:37 | XMS_ITS | Encounter Summary ---
Author Organization [facility] Address [address] [place], [place] [address] [address] Care Team Providers Care Customizer Name Role Phone Unavailable Primary Care Provider Unavailabl e Encounter Details Date Type Department Care Team (Late st Contact Info) Description 01/01/2020 Lab Requisition [facility] DermPath Lab [address] [facility], [facility] [address] Carmen Singletary MD [address] [facility] 3 [place] [address] Social History Tobacco Use Types Packs/Day Years Used Date Smoking Tobacco: Never Assessed Comments Unknown Sex and Gender Information Value Date Recorded Sex Assigned at Not on file Legal Sex Female 5:21 PM RAND TACKER Gender Identity Not on file Sexual Orientation Not on file documented as of this encounter Plan of Treatment Not on file documented as of this encounter Procedures Procedure Name Priority Date/Time Associated Diagnosis Comments DERMATOPATHOLOGY Routine 12/31/2019 12:0 0 AM CDT documented in this encounter Results * DERMATOPATHOLOGY (12/31/2019 12:00 AM CDT) Case Report Dermatopathology Report Case: [id number] Authorizing Provider: Carmen Singletary MD Collected: 12/31/2019 12:00 AM Ordering Location: [facility] DermPath Lab Received: 01/01/2020 07:16 AM Pathologist: Nano Henderson MD Specimen: Skin, left chest 0 4:37 PM CDT DERMATOPATHOLOGY LABORATORY Final Diagnosis Specimen A. SKIN, left chest: SQUAMOUS CELL CARCINOMA, WELL DIFFERENTIATED (C44.529) NOT PRESENT AT MARGIN DERMAL SCAR (L90.5) 0 4:37 PM CDT DERMATOPATHOLOGY LABORATORY at 1637 CDT Clinical History R/O SCC, keratoacanthoma type; biopsy proven. Previus Bx:[id number]. 0 4:37 PM CDT DERMATOPATHOLOGY LABORATORY Gross Description Specimen A: Received is one formalin filled container labeled with the patient's name and designated left chest.The specimen consists of an ellipse measuring [id number] and is oriented with the notch at [...] characteristic determined by the Dermatopathology Laboratory at [facility], directed by Dr. Pete Guo. These tests need not be, and therefore are not, approved by the [place] Food and Drug Administration. The tests are used for clinical purposes. Billing Codes Specimen Charges Stain Charges 64191 1 0 4:37 PM CDT DERMATOPATHOLOGY LABORATORY Embedded Images 0 4:37 PM CDT DERMATOPATHOLOGY LABORATORY Pathology/Cytolog y TISSUE SPECIMEN FROM SKIN / Unknown 12/31/2019 01/01/2020 7:16 AM CDT us Carmen Singletary MD LAB - PATHOLOGY/CYTOLOGY ORD ERABLES Final Result DERMATOPATHOLOGY LABORATORY [facility] - Department of Dermatology [facility] [address] [place] [address], [address]rd Floor [address] [phone] documented in this encounter Visit Diagnoses Not on filedocumented in this encounter
--- OUTSIDE RECORDS SUMMARY | 2025-01-27 13:37 | XMS_ITS | Clinical Summary ---
Author Organization [facility] [address] Address [address] [place] [address] Care Team Providers Care Retail Store Manager Name Role Phone Sultan Roly Elizondo MD Unavailable [phone] Carmen Singletary MD Unavailable [phone] Mary Spencer DO Primary Care Provider + [...] Active butalbital-acetam inophen-caffeine- codeine (FIORICET WITH CODEINE) [phone] mg per capsule Take 1 capsule by [...] visit. Assessment & Plan (07/08/2020 3:22 PM GAS PROVER): Continue to have heart fluttering. The Inderal [...] cardiomyopathy. Assessment & Plan (07/07/2020 7:04 PM GAS PROVER): Stress echo 11/15/2017 was negative for ischemia. [...] LA. Assessment & Plan (07/07/2020 7:06 PM GAS PROVER): Variant hypertrophic cardiomyopathy. Asymmetrical septal hypertrophy with [...] LA. Assessment & Plan (07/07/2020 7:07 PM GAS PROVER): Recurrent episodes of PSVT on the monitor [...] Encounters Date Type Department Care Team Description 01/25/2025 Orders Only [facility] Cardiology [address] [facility] [address] [place] [address] Sultan Roly Elizondo MD 01/25/2025 Orders Only [facility] Cardiology [address] [facility] [address] [place] [address] Sultan Roly Elizondo MD 01/25/2025 Orders Only [facility] Cardiology [address] [facility] [address] [place] [phone] ProviderJosefina MD 12/28/2024 10:15 AM CDT Office Visit [facility] Cardiology [address] [facility] [address] [place] [address] Sultan Roly Elizondo MD Mixed hyperlipidemia (Primary [...] on file 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 GAS PROVER Gender Identity Not on file Sexual Orientation [...] 10/01/2034 10/01/2024 Pneumococcal vaccine 65+ Completed 07/26/2020, 1107/2017 Hepatitis C Screening Completed 09/05/2021 Colon Cancer Screening-CT Colonography Discontinued 11/17/2021, 09/27/2015, 09/27/2015 Colon Cancer Screening-DNA Stool Discontinued 11/17/2021, 09/27/2015, 09/27/2015 Colon Cancer Screening-FIT Discontinued 11/17, 09/27/2015, 09/27/2015, Additional history exists Colon Cancer Screening-Sigmoidoscopy Discontinued 11/17/2021, 09/27/2015, 09/27/2015 Covid-19 Vaccine Discontinued 02/07/2024, , 02/16/2023, Additional history exists Procedures Procedure Name Priority Date/Time Associated Diagnosis Comments QUANTIFERON-TB GOLD PLUS Routine 01/21/2025 2:27 PM CDT COMPREHENSIVE METABOLIC PANEL Routine 01/21/2025 1:33 PM CDT HEMOGLOBIN A1C Routine 01/21/2025 1:[address] CHEST WO CONTRAST F/U LUNG SCREEN PROTOCOL Schedule Routine, Read Routine (OP Routine) 07/13/2024 11:30 AM CDT Pulmonary nodule Abnormal screening CT of chest SCREENING MAMMOGRAM BILATERAL W GENARO Schedule Routine, Read Routine (OP Routine) 03/24/2024 9:24 AM GAS PROVER Encounter for screening mammogram for malignant neoplasm of breast DEXA AXIAL SKELETON BONE DENSITY 1 OR MORE SITES Schedule Routine, Read Routine (OP Routine) 01/29/2023 12:54 AM CDT Age-related osteoporosis without current pathological fracture COLONOSCOPY Routine 11/17/2021 HEPATITIS PANEL, ACUTE Routine 09/05/2021 10:55 AM CDT from Last 3 Months or Most Recently Relevant to Health Maintenance Results * QuantiFERON-TB Gold Plus (01/21/2025 2:27 PM CDT) us Historical Provider LAB BLOOD ORDERABLES Edit ed Result - Final EXTERNAL LAB * (ABNORMAL) Comprehensive metabolic panel (01/21/2025 1:33 PM CDT) SCRIBED Sodium 141 135 - 145 mmol/L EXTERNAL LAB SCRIBED Potassium 3.2(A) 3.3 - 5.2 mmol/L EXTERNAL LAB SCRIBED Chloride 106 97 - 110 mmol/L EXTERNAL LAB SCRIBED Carbon Dioxide 32 22 - 32 mmol/L EXTERNAL LAB SCRIBED Anion Gap 3 2 - 15 mmol/L EXTERNAL LAB SCRIBED Urea Nitrogen (BUN) 13 6 - 25 mg/dL EXTERNAL LAB SCRIBED Creatinine 0.90 0.60 - 1.10 mg/dL EXTERNAL LAB SCRIBED Glucose 91 70 - 199 mg/dL EXTERNAL LAB SCRIBED Calcium 9.6 8.5 - 10.3 mg/dL EXTERNAL LAB SCRIBED Bilirubin 0.6 0.1 - 1.2 mg/dL EXTERNAL LAB SCRIBED Plasma Protein 7.1 6.5 - 8.5 g/dL EXTERNAL LAB SCRIBED Albumin 3.9 3.5 - 5.0 g/dL EXTERNAL LAB SCRIBED Alkaline Phosphatase 110 40 - 130 Units/L EXTERNAL LAB SCRIBED Alanine Transaminase (ALT) 11 7 - 45 Units/L EXTERNAL LAB SCRIBED Aspartate Transaminase (AST) 25 10 - 45 Units/L EXTERNAL LAB SCRIBED eGFR 60 >60 mL/min/1.7 3 m2 EXTERNAL LAB Blood Historical Provider MD LAB BLOOD ORDERABLES Edit ed Result - Final EXTERNAL LAB * Hemoglobin A1c (01/21/2025 1:32 PM CDT) SCRIBED Hemoglobin A1c 5.0 4.0 - 5.6 % EXTERNAL LAB Blood [facility] Provider MD LAB BLOOD ORDERABLES Edit ed Result - Final EXTERNAL LAB * CT Chest WO Contrast F/U Lung [...] Cristobal Armijo M.D. AG: DEMARCUS Report ID: [id number] Reading Location: [id number] Procedure Note Cristobal Armijo MD - 07/16/2024 [...] Cristobal Armijo M.D. AG: DEMARCUS Report ID: [id number] Reading Location: [id number] us Jaqueline Stark NP IMG CT PROCEDURES Final Result * Screening Mammogram Bilateral W Genaro (03/24/2024 9:24 AM GAS PROVER) Anatomical Region Laterality Modality Breast Bilateral Mammography Impressions 03/24/2024 10:49 AM GAS PROVER BI-RADS ATLAS category (overall): 1 - Negative There is no mammographic evidence of malignancy. A 1 year screening mammogram is recommended. The patient has been or will be contacted. We recommend annual screening mammography for women at average risk of breast cancer beginning at age 40, based on guidelines of the [employer] [employer] (ACR Practice Parameter for the Performance of Screening and Diagnostic Mammography) and [place] [employer]. For women with and elevated risk of breast cancer, please refer to the ACR Practice Parameter for specific screening recommendations. The patient will be entered into a reminder system with a target due date of 1 year for her next screening exam. Narrative 03/24/2024 10:49 AM GAS PROVER Screening Mammogram Bilateral W Genaro: 03/24/24 The [...] breast. There has been no suspicious change. us Jaqueline Stark NP IMG MAMMO PROCEDURES Fi [...] given history of: screening for osteoporosis Postmenopausal Senior Software Tester/Model: [employer]elerator A (S/N [id number]) CLINICAL INFORMATION: Current height: 66.5 inches Maximum [...] Pavan Eller M.D. MF: VIVEK Report ID: [id number] Reading Location: [id number] Procedure Note Pavan Eller MD - 01/29/2023 EXAM DESCRIPTION: DEXA AXIAL SKELETON BONE DENSITY 1 OR MORE SITES REASON FOR STUDY: 72 y/o year old F with given history of: screeningfor osteoporosis Postmenopausal Senior Software Tester/Model: [employer]elerator A (S/N [id number]) CLINICAL INFORMATION: Current height: 66.5 inches Maximum [...] Pavan Eller M.D. MF: VIVEK Report ID: [id number] Reading Location: [id number] Jaqueline Stark NET MOBILE DEVELOPER IMG DXA PROCEDURES Marilia l Result * Colonoscopy (11/17/2021) Anatomical Region Laterality Modality Other 11/17/2021 Impressions 11/17/2021 Internal hemorrhoids Diverticulosis Colon polyps removed Repeat in 3 years Historical Provider MD ENDOSCOPY PROCEDURES Marilia l Result * Hepatitis panel, acute (09/05/2021 10:55 AM CDT) Hep A IgM Nonreactive Nonreactive [facility] Comment: Interpretive Data: If Hep A IgM Ab is reported as Equivocal, a new sample should be drawn in two weeks for testing. Current interpretive data was last revised on 19. Hep B core IgM Nonreactive Nonreactive [facility] Comment: Interpretive Data If HepB Core IgM Ab is reported as Equivocal, a new sample should be drawn in two weeks for testing. Current interpretive data was last revised on 19. Hep C Ab Nonreactive Nonreactive [facility] Comment: Interpretive Data Nonreactive: Antibodies to HCV [...] last revised on 2019. HepBsAg Nonreactive Nonreactive [facility] Blood 09/05/2021 10:5 5 AM CDT 09/05/2021 12:33 PM CDT Carmen Singletary MD LAB MICROBIOLOGY - GENERA L ORDERABLES Final Result [facility] [address] [facility] Department [place] [address] from Last 3 Months or Most Recently Relevant to Health Maintenance Insurance [facility] Care Teams Retail Store Manager Relationship Specialty Start Date End Date Mary Spencer DO [address] [place] [address] [place] [address] PCP - General Family Medicine 05/19/24 Sultan Roly Elizondo MD [address] [facility] [address] [address] Consulting Physician Cardiovascular Disease 10/16/22 Carmen Singletary MD [address] [place] [address] Referring Physician Dermatology 10/16/22
--- OUTSIDE RECORDS SUMMARY | 2025-01-27 13:37 | XMS_ITS | Encounter Summary ---
Author Organization [facility] Facility Care Team Providers Care Sander Operator Name Role Phone Calin Christina MD Primary Care Provi hallie Jaqueline Stark SILK WORKER Primary Care Provider Calin Christina MD Primary Care Provi hallie Jaqueline Stark SILK WORKER Primary Care Provider Sultan Roly Elizondo MD Unavailable [phone] Carmen Singletary MD Unavailable [phone] Mary Spencer DO Primary Care Provider + Encounter Details Date Type Department Care Team (Latest Contact Info) Description 11/02/2017 Orders Only [facility] CLINCONV ProviderJosefina MD [address] [place] [address] Social History Tobacco Use Types Packs/Day Years Used Date Smoking Tobacco: Never Assessed Comments Unknown Sex and Gender Information Value Date Recorded Sex Assigned at Not on file 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 DATA PROCESSING CONTROL CLERK Gender Identity Not on file Sexual [...] on filedocumented in this encounter Care Teams Sander Operator Relationship Specialty Start Date End Date Calin Christina MD [address] [place] [address] PCP - General 09/18/18 11/13/21 Jaqueline Stark NP [address] [place] [address] PCP - General Internal Medicine 11/14/21 04/16/22 Calin Christina MD [address] [place] [address] PCP - General Family Medicine 04/17/22 04/19/22 Jaqueline Stark, ALIA [address] [place] [address] PCP - General Internal Medicine 04/20/22 05/18/24 Mary Spencer DO [address] [place] [address] [place] [address] PCP - General Family Medicine 05/19/24 Sultan Roly Elizondo MD [address] [facility] [address] [place] [address] Consulting Physician Cardiovascular Disease 10/16/22 Carmen Singletary MD [address] [place] [address] Referring Physician Dermatology 10/16/22 documented as of this encounter
--- OUTSIDE RECORDS SUMMARY | 2025-01-27 13:37 | XMS_ITS | Encounter Summary ---
Author Organization [facility] Healthcare Address [address] [place] [address] Care Team Providers Care Brewery Technician Name Role Phone Sultan Roly Elizondo MD Unavailable [phone] Carmen Singletary MD Unavailable [phone] Mary Spencer DO Primary Care Provider + Encounter Details Date Type Department Care Team (Late st Contact Info) Description 01/25/2025 Orders Only [facility] Cardiology [address] [facility] [address] [place] [phone] Provider, MD Josefina [facility] [place] [address] Social History Tobacco Use Types Packs/Day Years Used Date Smoking Tobacco: Every Day Cigarettes 1 58.7 Started: 1967 Smokeless Tobacco: Never Comments:Has smoked 1/4 pack [...] on file 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 Gender Identity Not on file Sexual Orientation Not on file documented as of this encounter Plan of Treatment Not on file documented as of this encounter Procedures Procedure Name Priority Date/Time Associated Diagnosis Comments COMPREHENSIVE METABOLIC PANEL Routine 01/21/2025 1:33 PM CDT HEMOGLOBIN A1C Routine 01/21/2025 1:32 PM CDT documented in this encounter Results * (ABNORMAL) Comprehensive metabolic panel (01/21/2025 1:33 [...] >60 mL/min/1.7 3 m2 EXTERNAL LAB Blood us Historical Provider LAB BLOOD ORDERABLES Edit ed Result - Final EXTERNAL LAB * Hemoglobin A1c (01/21/2025 1:32 PM CDT) SCRIBED Hemoglobin A1c 5.0 4.0 - 5.6 % EXTERNAL LAB Blood us Historical Provider LAB BLOOD ORDERABLES Edit ed Result - Final EXTERNAL LAB documented in this encounter Visit Diagnoses Not on filedocumented in this encounter Care Teams Brewery Technician Relationship Specialty Start Date End Date Mary Spencer DO [address] [facility] [place] [address] PCP - General Family Medicine 05/19/24 Sultan Roly Elizondo MD [address] [facility] [place] [address] Consulting Physician Cardiovascular Disease 10/16/22 Carmen Singletary MD [facility] [place] [address] Referring Physician Dermatology 10/16/22 documented as of this encounter
--- OUTSIDE RECORDS SUMMARY | 2025-01-27 13:37 | XMS_ITS | Encounter Summary ---
Author Organization [facility] Address [address] [place] [address] [place] [address] Care Team Providers Care Army Manager Name Role Phone Unavailable Primary Care Provider Unavailabl e Encounter Details Date Type Department Care Team (Late st Contact Info) Description 12/14/2019 Lab Requisition [facility] DermPath Lab [address] [facility] [place] [address] Carmen Singletary MD [address] 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 Gender Identity Not on file Sexual Orientation Not on file documented as of this encounter Plan of Treatment Not on file documented as of this encounter Procedures Procedure Name Priority Date/Time Associated Diagnosis Comments DERMATOPATHOLOGY Routine 12/10/2019 12:0 0 AM CDT documented in this encounter Results * DERMATOPATHOLOGY (12/10/2019 12:00 AM CDT) Case Report Dermatopathology Report Case: [id number] Authorizing Provider: Carmen Singletary MD Collected: 12/10/2019 12:00 AM Ordering Location: [facility] DermPath Lab Received: 12/14/2019 12:22 PM [...] characteristic determined by the Dermatopathology Laboratory at [facility], directed by Dr. Pete Guo. These tests need not be, and therefore are not, approved by the [place] Food and Drug Administration. The tests are used for clinical purposes. Billing Codes Specimen Charges Stain Charges 96518 1 0 12:21 PM CDT DERMATOPATHOLOGY LABORATORY Embedded Images 0 12:21 PM CDT DERMATOPATHOLOGY LABORATORY Pathology/Cytolog y TISSUE SPECIMEN FROM SKIN / Unknown 12/10/2019 12/14/2019 12:22 PM CDT us Carmen Singletary MD LAB - PATHOLOGY/CYTOLOGY ORD ERABLES Final Result DERMATOPATHOLOGY LABORATORY [facility] - Department of Dermatology [facility]/[place] [address], [facility] [phone] documented in this encounter Visit Diagnoses Not on filedocumented in this encounter
--- OUTSIDE RECORDS SUMMARY | 2025-01-27 13:37 | XMS_ITS | Encounter Summary ---
Author Organization [facility] Facility Care Team Providers Care Preparole Counseling Aide Name Role Phone Calin Christina MD Primary Care Provi hallie Jaqueline Stark NEIGHBORHOOD WORKER Primary Care Provider Calin Christina MD Primary Care Provi hallie Jaqueline Stark NEIGHBORHOOD WORKER Primary Care Provider Sultan Roly Elizondo MD Unavailable [phone] Carmen Singletary MD Unavailable [phone] Mary Spencer DO Primary Care Provider + Encounter Details Date Type Department Care Team (Latest Contact Info) Description 11/25/2017 Orders Only [facility] CLINCONV ProviderJosefina MD [address] [place] [address] Social History Tobacco Use Types Packs/Day Years Used Date Smoking Tobacco: Never Assessed Comments Unknown Sex and Gender Information Value Date Recorded Sex Assigned at Not on file 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 Gender Identity Not on file Sexual [...] on filedocumented in this encounter Care Teams Preparole Counseling Aide Relationship Specialty Start Date End Date Calin Christina MD [address] [place] [address] PCP - General 09/18/18 11/13/21 Jaqueline Stark NP [address] [place] [address] PCP - General Internal Medicine 11/14/21 04/16/22 Calin Christina MD [address] [place] [address] PCP - General Family Medicine 04/17/22 04/19/22 Jaqueline Stark, ALIA [address] [place] [address] PCP - General Internal Medicine 04/20/22 05/18/24 Mary Spencer DO [address] [place] [address] [place] [address] PCP - General Family Medicine 05/19/24 Sultan Roly Elizondo MD [address] [facility] [address] [place] [address] Consulting Physician Cardiovascular Disease 10/16/22 Carmen Singletary MD [address] [place] [address] Referring Physician Dermatology 10/16/22 documented as of this encounter
--- OUTSIDE RECORDS SUMMARY | 2025-01-27 13:37 | XMS_ITS | Encounter Summary ---
Author Organization [facility] Facility Care Team Providers Care Marketing Sales Supervisor Name Role Phone Calin Christina MD Primary Care Provi hallie Jaqueline Stark THERMAL CUTTER HELPER Primary Care Provider Calin Christina MD Primary Care Provi hallie Jaqueline Stark THERMAL CUTTER HELPER Primary Care Provider Sultan Roly Elizondo MD Unavailable [phone] Carmen Singletary MD Unavailable [phone] Mary Spencer DO Primary Care Provider + Encounter Details Date Type Department Care Team (Latest Contact Info) Description 11/19/2017 Orders Only [facility] CLINCONV ProviderJosefina MD [address] [place] [address] Social History Tobacco Use Types Packs/Day Years Used Date Smoking Tobacco: Never Assessed Comments Unknown Sex and Gender Information Value Date Recorded Sex Assigned at Not on file 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 Gender Identity Not on file Sexual [...] on filedocumented in this encounter Care Teams Marketing Sales Supervisor Relationship Specialty Start Date End Date Calin Christina MD [address] [place] [address] PCP - General 09/18/18 11/13/21 Jaqueline Stark NP [address] [place] [address] PCP - General Internal Medicine 11/14/21 04/16/22 Calin Christina MD [address] [place] [address] PCP - General Family Medicine 04/17/22 04/19/22 Jaqueline Stark, ALIA [address] [place] [address] PCP - General Internal Medicine 04/20/22 05/18/24 Mary Spencer DO [address] [place] [address] [place] [address] PCP - General Family Medicine 05/19/24 Sultan Roly Elizondo MD [address] [facility] [place] [address] Consulting Physician Cardiovascular Disease 10/16/22 Carmen Singletary MD [address] [place] [address] Referring Physician Dermatology 10/16/22 documented as of this encounter
--- OUTSIDE RECORDS SUMMARY | 2025-01-27 13:37 | XMS_ITS | Encounter Summary ---
Author Organization [facility] Facility Care Team Providers Care Manager Software Development Name Role Phone Calin Christina MD Primary Care Provi hallie Jaqueline Stark MENTALLY IMPAIRED TEACHER Primary Care Provider Calin Christina MD Primary Care Provi hallie Jaqueline Stark MENTALLY IMPAIRED TEACHER Primary Care Provider Sultan Roly Elizondo MD Unavailable [phone] Carmen Singletary MD Unavailable [phone] Mary Spencer DO Primary Care Provider + Encounter Details Date Type Department Care Team (Latest Contact Info) Description 11/01/2017 Orders Only [facility] CLINCONV ProviderJosefina MD [address] [place] [address] Social History Tobacco Use Types Packs/Day Years Used Date Smoking Tobacco: Never Assessed Comments Unknown Sex and Gender Information Value Date Recorded Sex Assigned at Not on file 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 Gender Identity Not on file Sexual Orientation [...] on filedocumented in this encounter Care Teams Manager Software Development Relationship Specialty Start Date End Date Calin Christina MD [address] [place] [address] PCP - General 09/18/18 11/13/21 Jaqueline Stark NP [address] [place] [address] PCP - General Internal Medicine 11/14/21 04/16/22 Calin Christina MD [address] [place] [address] PCP - General Family Medicine 04/17/22 04/19/22 Jaqueline Stark, ALIA [address] [place] [address] PCP - General Internal Medicine 04/20/22 05/18/24 Mary Spencer DO [address] [place] [address] [place] [address] PCP - General Family Medicine 05/19/24 Sultan Roly Elizondo MD [address] [facility] [address] [place] [address] Consulting Physician Cardiovascular Disease 10/16/22 Carmen Singletary MD [address] [place] [address] Referring Physician Dermatology 10/16/22 documented as of this encounter
--- OUTSIDE RECORDS SUMMARY | 2025-01-27 13:37 | XMS_ITS | Encounter Summary ---
Author Organization [facility] Facility Care Team Providers Care Nurse First Aid Name Role Phone Calin Christina MD Primary Care Provi hallie Jaqueline Stark BIOSTATISTICS MANAGER Primary Care Provider Calin Christina MD Primary Care Provi hallie Jaqueline Stark BIOSTATISTICS MANAGER Primary Care Provider Sultan Roly Elizondo MD Unavailable [phone] Carmen Singletary MD Unavailable [phone] Mary Spencer DO Primary Care Provider + Encounter Details Date Type Department Care Team (Latest Contact Info) Description 11/15/2017 Orders Only [facility] CLINCONV ProviderJosefina MD [address] [place] [address] Social History Tobacco Use Types Packs/Day Years Used Date Smoking Tobacco: Never Assessed Comments Unknown Sex and Gender Information Value Date Recorded Sex Assigned at Not on file 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 Gender Identity Not on file Sexual [...] filedocumented in this encounter Care Teams Nurse First Aid Relationship Specialty Start Date End Date Calin Christina MD [address] [place] [address] PCP - General 09/18/18 11/13/21 Jaqueline Stark NP [address] [place] [address] PCP - General Internal Medicine 11/14/21 04/16/22 Calin Christina MD [address] [place] [address] PCP - General Family Medicine 04/17/22 04/19/22 Jaqueline Stark, ALIA [address] [place] [address] PCP - General Internal Medicine 04/20/22 05/18/24 Mary Spencer DO [address] [place] [address] [place] [address] PCP - General Family Medicine 05/19/24 Sultan Roly Elizondo MD [address] [facility] [address] [place] [address] Consulting Physician Cardiovascular Disease 10/16/22 Carmen Singletary MD [address] [place] [address] Referring Physician Dermatology 10/16/22 documented as of this encounter
--- OUTSIDE RECORDS SUMMARY | 2025-01-27 13:37 | XMS_ITS | Encounter Summary ---
Author Organization [facility] Address [address] [place] [address] [place] [address] Care Team Providers Care Erp Programmer Name Role Phone Unavailable Primary Care Provider Unavailabl e Encounter Details Date Type Department Care Team (Late st Contact Info) Description 07/17/2019 Lab Requisition [facility] DermPath Lab [address] [facility], [facility] [place] [id number] [phone] Carmen Singletary MD [address] [facility] [address] [place] [address] Social History Tobacco Use Types Packs/Day Years Used Date Smoking Tobacco: Never Assessed Comments Unknown Sex and Gender Information Value Date Recorded Sex Assigned at Not on file 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 Gender Identity Not on file Sexual Orientation Not on file documented as of this encounter Plan of Treatment Not on file documented as of this encounter Procedures Procedure Name Priority Date/Time Associated Diagnosis Comments DERMATOPATHOLOGY Routine 07/16/2019 12:0 0 AM CDT documented in this encounter Results * DERMATOPATHOLOGY (07/16/2019 12:00 AM CDT) Case Report Dermatopathology Report Case: [id number] Authorizing Provider: Carmen Singletary MD Collected: 07/16/2019 12:00 AM Ordering Location: [facility] DermPath Lab Received: 07/17/2019 07:28 AM Pathologist: [...] specimen consists of a shave biopsy measuring 46o45n6 mm, bisected. Jar 0. 0 3:53 PM [...] characteristic determined by the Dermatopathology Laboratory at [facility], directed by Dr. Pete Guo. These tests need not be, and therefore are not, approved by the [place] Food and Drug Administration. The tests are used for clinical purposes. Billing Codes Specimen Charges Stain Charges 32420 1 0 3:53 PM CDT DERMATOPATHOLOGY LABORATORY Embedded Images 0 3:53 PM CDT DERMATOPATHOLOGY LABORATORY Pathology/Cytolog y TISSUE SPECIMEN FROM SKIN / Unknown 07/16/2019 07/17/2019 7:28 AM CDT us Carmen Singletary MD LAB - PATHOLOGY/CYTOLOGY ORD ERABLES Final Result DERMATOPATHOLOGY LABORATORY [facility] - Department of Dermatology [address] [place] [address], [address]th [place] [address], [facility] [phone] documented in this encounter Visit Diagnoses Not on filedocumented in this encounter
--- OUTSIDE RECORDS SUMMARY | 2025-01-27 13:37 | XMS_ITS | Encounter Summary ---
Author Organization [facility] Facility Care Team Providers Care Fish Roe Technician Name Role Phone Calin Christina MD Primary Care Provi hallie Jaqueline Stark SHOT BLASTER Primary Care Provider Calin Christina MD Primary Care Provi hallie Jaqueline Stark SHOT BLASTER Primary Care Provider Sultan Roly Elizondo MD Unavailable [phone] Carmen Singletary MD Unavailable [phone] Mary Spencer DO Primary Care Provider + Encounter Details Date Type Department Care Team (Latest Contact Info) Description 11/21/2017 Orders Only [facility] CLINCONV ProviderJosefina MD [address] [place] [address] Social History Tobacco Use Types Packs/Day Years Used Date Smoking Tobacco: Never Assessed Comments Unknown Sex and Gender Information Value Date Recorded Sex Assigned at Not on file 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 Gender Identity Not on file Sexual Orientation [...] on filedocumented in this encounter Care Teams Fish Roe Technician Relationship Specialty Start Date End Date Calin Christina MD [address] [place] [address] PCP - General 09/18/18 11/13/21 Jaqueline Stark NP [address] [place] [address] PCP - General Internal Medicine 11/14/21 04/16/22 Calin Christina MD [address] [place] [address] PCP - General Family Medicine 04/17/22 04/19/22 Jaqueline Stark, ALIA [address] [place] [address] PCP - General Internal Medicine 04/20/22 05/18/24 Mary Spencer DO [address] [place] [address] [place] [address] PCP - General Family Medicine 05/19/24 Sultan Roly Elizondo MD [address] [facility] [address] [place] [address] Consulting Physician Cardiovascular Disease 10/16/22 Carmen Singletary MD [address] [place] [address] Referring Physician Dermatology 10/16/22 documented as of this encounter
--- OUTSIDE RECORDS SUMMARY | 2025-01-27 13:37 | XMS_ITS | Encounter Summary ---
Author Organization [facility] Facility Care Team Providers Care Salvage Engineering Technician Name Role Phone Calni Christina MD Primary Care Provi hallie Jaqueline Stark DRYWALL HANGER Primary Care Provider Calin Christina MD Primary Care Provi hallie Jaqueline Stark DRYWALL HANGER Primary Care Provider Sultan Roly Elizondo MD Unavailable [phone] Carmen Singletary MD Unavailable [phone] Mary Spencer DO Primary Care Provider + Encounter Details Date Type Department Care Team (Latest Contact Info) Description 11/23/2017 Orders Only [facility] CLINCONV ProviderJosefina MD [address] [place] [address] Social History Tobacco Use Types Packs/Day Years Used Date Smoking Tobacco: Never Assessed Comments Unknown Sex and Gender Information Value Date Recorded Sex Assigned at Not on file 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 Gender Identity Not on file Sexual [...] on filedocumented in this encounter Care Teams Salvage Engineering Technician Relationship Specialty Start Date End Date Calin Christina MD [address] [place] [address] PCP - General 09/18/18 11/13/21 Jaqueline Stark NP [address] [place] [address] PCP - General Internal Medicine 11/14/21 04/16/22 Calin Christina MD [address] [place] [address] PCP - General Family Medicine 04/17/22 04/19/22 Jaqueline Stark, ALIA [address] [place] [address] PCP - General Internal Medicine 04/20/22 05/18/24 Mary Spencer DO [address] [place] [address] [place] [address] PCP - General Family Medicine 05/19/24 Sultan Roly Elizondo MD [address] [facility] [place] [address] Consulting Physician Cardiovascular Disease 10/16/22 Carmen Singletary MD [address] [place] [address] Referring Physician Dermatology 10/16/22 documented as of this encounter
--- OUTSIDE RECORDS SUMMARY | 2025-01-27 13:37 | XMS_ITS | Encounter Summary ---
Author Organization [facility] Facility Care Team Providers Care It Network Engineer Name Role Phone Calin Christina MD Primary Care Provi hallie Jaqueline Stark TRANSITIONAL CARE MANAGER Primary Care Provider Calin Christina MD Primary Care Provi hallie Jaqueline Stark TRANSITIONAL CARE MANAGER Primary Care Provider Sultan Roly Elizondo MD Unavailable [phone] Carmen Singletary MD Unavailable [phone] Mary Spencer DO Primary Care Provider + Encounter Details Date Type Department Care Team (Latest Contact Info) Description 11/09/2017 Orders Only [facility] CLINCONV ProviderJosefina MD [address] [place] [address] Social History Tobacco Use Types Packs/Day Years Used Date Smoking Tobacco: Never Assessed Comments Unknown Sex and Gender Information Value Date Recorded Sex Assigned at Not on file 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 Gender Identity Not on file Sexual Orientation [...] filedocumented in this encounter Care Teams It Network Engineer Relationship Specialty Start Date End Date Calin Christina MD [address] [place] [address] PCP - General 09/18/18 11/13/21 Jaqueline Stark NP [address] [place] [address] PCP - General Internal Medicine 11/14/21 04/16/22 Calin Christina MD [address] [place] [address] PCP - General Family Medicine 04/17/22 04/19/22 Jaqueline Stark, ALIA [address] [place] [address] PCP - General Internal Medicine 04/20/22 05/18/24 Mary Spencer DO [address] [place] [address] [place] [address] PCP - General Family Medicine 05/19/24 Sultan Roly Elizondo MD [address] [facility] [address] [place] [address] Consulting Physician Cardiovascular Disease 10/16/22 Carmen Singletary MD [address] [place] [address] Referring Physician Dermatology 10/16/22 documented as of this encounter
--- OUTSIDE RECORDS SUMMARY | 2025-01-27 13:37 | XMS_ITS | Encounter Summary ---
Author Organization [facility] Healthcare Address [address] [place] [address] Care Team Providers Care Tractor Operator Name Role Phone Sultan Roly Elizondo MD Unavailable [phone] Carmen Singletary MD Unavailable [phone] Mary Spencer DO Primary Care Provider + Encounter Details Date Type Department Care Team (Late st Contact Info) Description 01/25/2025 Orders Only [facility] Medical Group Cardiology [address] [facility] [address] [address] Sultan Roly Elizondo MD [address] [place] [address] Social History Tobacco Use Types Packs/Day [...] on file 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 Gender Identity Not on file Sexual Orientation Not on file documented as of this encounter Plan of Treatment Not on file documented as of this encounter Visit Diagnoses Not on filedocumented in this encounter Care Teams Tractor Operator Relationship Specialty Start Date End Date Mary Spencer DO [address] [facility] [address] [place] [address] PCP - General Family Medicine 05/19/24 Sultan Roly Elizondo MD [address] [facility] [address] [address] Consulting Physician Cardiovascular Disease 10/16/22 Carmen Singletary MD [facility] [place] [address] Referring Physician Dermatology 10/16/22 documented as of this encounter
--- OUTSIDE RECORDS SUMMARY | 2025-01-27 13:37 | XMS_ITS | Encounter Summary ---
Author Organization [facility] Facility Care Team Providers Care Technologist Development Name Role Phone Calin Christina MD Primary Care Provi hallie Jaqueline Stark RED CROSS EXECUTIVE DIRECTOR Primary Care Provider Calin Christina MD Primary Care Provi hallie Jaqueline Stark RED CROSS EXECUTIVE DIRECTOR Primary Care Provider Sultan Roly Elizondo MD Unavailable [phone] Carmen Singletary MD Unavailable [phone] Mary Spencer DO Primary Care Provider + Encounter Details Date Type Department Care Team (Latest Contact Info) Description 11/12/2016 Orders Only [facility] CLINCONV ProviderJosefina MD [address] [place] [address] Social History Tobacco Use Types Packs/Day Years Used Date Smoking Tobacco: Never Assessed Comments Unknown Sex and Gender Information Value Date Recorded Sex Assigned at Not on file 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 Gender Identity Not on file Sexual [...] on filedocumented in this encounter Care Teams Technologist Development Relationship Specialty Start Date End Date Calin Christina MD [address] [place] [address] PCP - General 09/18/18 11/13/21 Jaqueline Stark NP [address] [place] [address] PCP - General Internal Medicine 11/14/21 04/16/22 Calin Christina MD [address] [place] [address] PCP - General Family Medicine 04/17/22 04/19/22 Jaqueline Stark, ALIA [address] [place] [address] PCP - General Internal Medicine 04/20/22 05/18/24 Mary Spencer DO [address] [place] [address] [place] [address] PCP - General Family Medicine 05/19/24 Sultan Roly Elizondo MD [address] [facility] [address] [place] [address] Consulting Physician Cardiovascular Disease 10/16/22 Carmen Singletary MD [address] [place] [address] Referring Physician Dermatology 10/16/22 documented as of this encounter
--- NOTE | 2025-01-27 14:32 | REHSTMBS ---
Assessment and note entered by Ale Madrigal, HEAD MIXER Modified Barium Swallow Evaluation Feeding Type Recommended Oral Food Consistency Regular, Level 7 Liquid Consistency Thin (0) ST Clinical Summary The patient is a 74 year old female referred for a MBS study secondary to persistent dysphagia ( sticking sensation within her throat) over the past several months with pills and some food. The patient reports feeling the sensation even when not consuming food. She reports previously being on omeprazole but that she discontinued use several months ago and has been using Pepcid instead for approximately 10 days. The patient was positioned in a lateral view and presented the following consistencies: 5cc/tsp thin liquid barium, cup trials thin liquid barium, pudding mixed with barium paste, and cracker coated with barium paste. Oral Stage: Oral preparation and transit was viewed to be timely for all consistencies. Pharyngeal Stage: When presented all the above consistencies swallow initiation was completed in a timely manner without viewed aspiration or penetration. No residual was viewed to remain in the valleculae or pyriform sinus. Recommend consideration of a barium swallow given patients reported symptoms. Thank you for the consult.
== END 2025-01-27 13:32 | disposition home or self-care (01) ==
PROVIDERS: PCP Family Medicine; Visit Provider Family Medicine
DX: R13.10 Dysphagia, unspecified (principal)
CPT/HCPCS: 74230; 92611

== ENCOUNTER 2025-02-18 08:40 | Outpatient (CLI) | payer OTHER, SELFPAY ==
--- NOTE | ~2025-02-18 | XR_ITS ---
EXAMINATION: XR barium swallow DATE: 02/18/2025 09:36 INDICATION: Dysphagia. Food getting stuck in the throat. TECHNIQUE: The patient drank thick barium, gas-producing crystals, and thin barium. Fluoroscopic spot radiographs of the hypopharynx and esophagus were obtained. A total of 878 fluoroscopic images were recorded. Fluoroscopy exposure time was 1.9 minutes. Total DAP was 4.872 Gycm^2. COMPARISON: None. FINDINGS: The pharynx is symmetric and without evidence of mass lesion or mucosal irregularity. The esophagus is normal without mass or stricture. Esophageal motility is normal. There is no hiatal hernia. There was no gastroesophageal reflux with provocative maneuvers. IMPRESSION: 1. Normal esophagram. Reviewed, dictated and finalized at location A. IMPRESSION: 1. Normal esophagram.
--- NOTE | ~2025-02-18 | CT_ITS ---
EXAMINATION:CT lung screening DATE: 02/18/2025 09:52 INDICATION: Personal history of nicotine dependence. Pulmonary nodules. TECHNIQUE: Computed tomography (CT) of the chest was performed without intravenous contrast. Automated exposure control and iterative reconstruction technique were employed. The dose-length product (DLP) was 68.81 mGy-cm. COMPARISON: None. FINDINGS: There is moderate emphysema. There is a 6 mm part-solid in right middle lobe. There is a 7 mm nodule in left lower lobe. There is a 6 mm nodule in left lower lobe. No pleural effusion. The heart size is normal. There are coronary artery calcifications. No pericardial effusion. There is ectasia of ascending aorta measuring 4.0 cm. There are cysts of left kidney measuring up to 17 mm. There is a 1.5 cm mass in left kidney. There is moderate thoracic spondylosis. There are bridging endplate osteophytes at multiple levels in the spine, consistent with diffuse idiopathic skeletal hyperostosis (DISH). IMPRESSION: 1. Lung-RADS category 3S: Probably benign. Further evaluation is recommended with noncontrast low-dose chest CT in 6 months. 2. 1.5 cm left kidney mass, which may be a hemorrhagic cyst or less likely renal cell carcinoma. Abdomen CT or MRI without and with contrast is recommended. Reviewed, dictated and finalized at location E. IMPRESSION: 1. Lung-RADS category 3S: Probably benign. Further evaluation is recommended wi th noncontrast low-dose chest CT in 6 months. 2. 1.5 cm left kidney mass, which may be a hemorrhagic cyst or less likely antonio l cell carcinoma. Abdomen CT or MRI without and with contrast is recommended.
--- OUTSIDE RECORDS SUMMARY | 2025-02-18 09:01 | XMS_ITS | Encounter Summary ---
Author Organization [facility] Address [address] [place], [place] [address] [address] Care Team Providers Care Asset Manager Name Role Phone Unavailable Primary Care Provider Unavailabl e Encounter Details Date Type Department Care Team (Late st Contact Info) Description 03/04/2024 Lab Requisition [facility] - DermPath Lab [address] [facility], [place] [address] Carmen Singletary MD [address] [facility] 3 [place] [address] Social History Tobacco Use Types Packs/Day Years Used Date Smoking Tobacco: Never Assessed Comments Unknown Sex and Gender Information Value Date Recorded Sex Assigned at Not on file 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 Gender Identity Not on file Sexual Orientation Not on file documented as of this encounter Plan of Treatment Not on file documented as of this encounter Procedures Procedure Name Priority Date/Time Associated Diagnosis Comments DERMATOPATHOLOGY Routine 03/04/2024 10:2 8 AM CDT documented in this encounter Results * DERMATOPATHOLOGY (03/04/2024 10:28 AM CDT) Case Report Dermatopathology Report Case: [id number] Authorizing Provider: Carmen Singletary MD Collected: 03/04/2024 10:28 AM Ordering Location: [facility] Physician [facility] - Received: 03/05/2024 07:21 AM DermPath Lab Pathologist: Monica Terrell MD Specimen: Skin, right index 4 5:30 PM [facility] DERMATOPATHOLOGY LABORATORY Final Diagnosis Specimen A. SKIN, right index: PALISADED AND NECROBIOTIC GRANULOMATOUS DERMATITIS, SUPERFICIAL PORTIONS OF (L92.0) (see microscopic description and comment) 4 5:30 PM [facility] DERMATOPATHOLOGY LABORATORY at 1730 CIVIL STRUCTURAL DESIGNER Clinical History Favor GA; annular pink plaque 5:30 PM [facility] DERMATOPATHOLOGY LABORATORY Gross Description Specimen A: Received is one formalin filled container labeled with the patient's name and designated right index. The specimen consists of a shave biopsy measuring 8x5x1 mm. Jar 0. 5:30 PM [facility] DERMATOPATHOLOGY LABORATORY Microscopic Description Specimen A. SKIN, [...] annulare. Clinicopathologic correlation is recommended. 5:30 PM [facility] DERMATOPATHOLOGY LABORATORY Disclaimer An external and internal positive and negative controls are appropriate for the histochemical, immunohistochemical and immunofluorescence stain(s) in this case (if any), except where stated explicitly. The performance characteristics of the stain(s) cited in this report were developed and its performance characteristic determined by the Dermatopathology Laboratory at [facility], directed by Dr. Pete Guo. These tests need not be, and therefore are not, approved by the [place] Food and Drug Administration. The tests are used for clinical purposes. Billing Codes Specimen Charges Stain Charges 05614 1 [id number] [id number] 48545 1 1 1 5:30 PM [facility] DERMATOPATHOLOGY LABORATORY Embedded Images 5:30 PM [facility] DERMATOPATHOLOGY LABORATORY Pathology/Cytolo gy TISSUE SPECIMEN FROM SKIN / Unknown 03/04/2024 10:28 AM CDT 03/05/2024 7:21 AM CDT us Carmen Singletary MD LAB - PATHOLOGY/CYTOLOGY ORD ERABLES Final Result DERMATOPATHOLOGY LABORATORY [facility] - Department of Dermatology [address], [address] [phone] documented in this encounter Visit Diagnoses Not on filedocumented in this encounter
--- OUTSIDE RECORDS SUMMARY | 2025-02-18 09:01 | XMS_ITS | Clinical Summary ---
Author Organization [facility] Address [address] [facility] [place] [address] Care Team Providers Care Impersonator Character Name Role Phone Unavailable Primary Care Provider Unavailabl e Source Comments [facility],non-owned Affiliates and Associated Physician Practices is amultiple site organization consisting of ambulatory clinics and hospital sitesin [place], [place], [place] and [place]. This disclosure is being madepursuant to the Care Everywhere program and may not contain all information available regarding this patient. 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
--- OUTSIDE RECORDS SUMMARY | 2025-02-18 09:01 | XMS_ITS | Encounter Summary ---
Author Organization [facility] Address [address] [place], [place] [address] [address] Care Team Providers Care Blindstitch Lapel Padder Name Role Phone Unavailable Primary Care Provider Unavailabl e Encounter Details Date Type Department Care Team (Late st Contact Info) Description 01/01/2020 Lab Requisition [facility] DermPath Lab [address] [facility], [facility] [place] [address] Carmen Singletary MD [address] [facility] 3 [place] [address] Social History Tobacco Use Types Packs/Day Years Used Date Smoking Tobacco: Never Assessed Comments Unknown Sex and Gender Information Value Date Recorded Sex Assigned at Not on file 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 Gender Identity Not on file Sexual Orientation Not on file documented as of this encounter Plan of Treatment Not on file documented as of this encounter Procedures Procedure Name Priority Date/Time Associated Diagnosis Comments DERMATOPATHOLOGY Routine 12/31/2019 12:0 0 AM CDT documented in this encounter Results * DERMATOPATHOLOGY (12/31/2019 12:00 AM CDT) Case Report Dermatopathology Report Case: [id number] Authorizing Provider: Carmen Singletary MD Collected: 12/31/2019 12:00 AM Ordering Location: [facility] DermPath Lab Received: 01/01/2020 07:16 AM Pathologist: Nano Henderson MD Specimen: Skin, left chest 0 4:37 PM CDT DERMATOPATHOLOGY LABORATORY Final Diagnosis Specimen A. SKIN, left chest: SQUAMOUS CELL CARCINOMA, WELL DIFFERENTIATED (C44.529) NOT PRESENT AT MARGIN DERMAL SCAR (L90.5) 0 4:37 PM CDT DERMATOPATHOLOGY LABORATORY at 1637 CDT Clinical History R/O SCC, keratoacanthoma type; biopsy proven. Previus Bx:[id number]. 0 4:37 PM CDT DERMATOPATHOLOGY LABORATORY Gross Description Specimen A: Received is one formalin filled container labeled with the patient's name and designated left chest.The specimen consists of an ellipse measuring 21l61u8os and is oriented with the notch at [...] characteristic determined by the Dermatopathology Laboratory at [facility], directed by Dr. Pete Guo. These tests need not be, and therefore are not, approved by the [place] Food and Drug Administration. The tests are used for clinical purposes. Billing Codes Specimen Charges Stain Charges 93620 1 0 4:37 PM CDT DERMATOPATHOLOGY LABORATORY Embedded Images 0 4:37 PM CDT DERMATOPATHOLOGY LABORATORY Pathology/Cytolog y TISSUE SPECIMEN FROM SKIN / Unknown 12/31/2019 01/01/2020 7:16 AM CDT us Carmen Singletary MD LAB - PATHOLOGY/CYTOLOGY ORD ERABLES Final Result DERMATOPATHOLOGY LABORATORY [facility] - Department of Dermatology [facility] Medicine [address] [place] [address], [address] [phone] documented in this encounter Visit Diagnoses Not on filedocumented in this encounter
--- OUTSIDE RECORDS SUMMARY | 2025-02-18 09:02 | XMS_ITS | Encounter Summary ---
Author Organization [facility] Address [address] [place] [address] [place] [address] Care Team Providers Care Pari Mutual Ticket Checker Name Role Phone Unavailable Primary Care Provider Unavailabl e Encounter Details Date Type Department Care Team (Late st Contact Info) Description 07/17/2019 Lab Requisition [facility] DermPath Lab [address] [facility], [facility] [place] [address] [phone] Carmen Singletary MD [address] [facility] 3 [place] [address] Social History Tobacco Use Types Packs/Day Years Used Date Smoking Tobacco: Never Assessed Comments Unknown Sex and Gender Information Value Date Recorded Sex Assigned at Not on file 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 Gender Identity Not on file Sexual Orientation Not on file documented as of this encounter Plan of Treatment Not on file documented as of this encounter Procedures Procedure Name Priority Date/Time Associated Diagnosis Comments DERMATOPATHOLOGY Routine 07/16/2019 12:0 0 AM CDT documented in this encounter Results * DERMATOPATHOLOGY (07/16/2019 12:00 AM CDT) Case Report Dermatopathology Report Case: [id number] Authorizing Provider: Carmen Singletary MD Collected: 07/16/2019 12:00 AM Ordering Location: [facility] DermPath Lab Received: 07/17/2019 07:28 AM [...] specimen consists of a shave biopsy measuring 70s25b2 mm, bisected. Jar 0. 0 3:53 PM [...] purposes. Billing Codes Specimen Charges Stain Charges 02630 1 0 3:53 PM CDT DERMATOPATHOLOGY LABORATORY Embedded Images 0 3:53 PM CDT DERMATOPATHOLOGY LABORATORY Pathology/Cytolog y TISSUE SPECIMEN FROM SKIN / Unknown 07/16/2019 07/17/2019 7:28 AM CDT us Carmen Singletary MD LAB - PATHOLOGY/CYTOLOGY ORD ERABLES Final Result DERMATOPATHOLOGY LABORATORY [facility] - Department of Dermatology [address] [place] [address], 5th [place] [address], [facility] [phone] documented in this encounter Visit Diagnoses Not on filedocumented in this encounter
--- OUTSIDE RECORDS SUMMARY | 2025-02-18 09:02 | XMS_ITS | Encounter Summary ---
Author Organization [facility] Address [address] [place] [address] [place] [address] Care Team Providers Care Salesperson Corsets Name Role Phone Unavailable Primary Care Provider Unavailabl e Encounter Details Date Type Department Care Team (Late st Contact Info) Description 12/14/2019 Lab Requisition [facility] DermPath Lab [address] [facility], [facility] [place] [address] Carmen Singletary MD [address] 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 Billing Codes Specimen Charges Stain Charges 48934 1 0 12:21 PM CDT DERMATOPATHOLOGY LABORATORY Embedded Images 0 12:21 PM CDT DERMATOPATHOLOGY LABORATORY Pathology/Cytolog y TISSUE SPECIMEN FROM SKIN / Unknown 12/10/2019 12/14/2019 12:22 PM CDT us Carmen Singletary MD LAB - PATHOLOGY/CYTOLOGY ORD ERABLES Final Result DERMATOPATHOLOGY LABORATORY [facility] - Department of Dermatology [facility] [place] [address], [facility] [phone] documented in this encounter Visit Diagnoses Not on filedocumented in this encounter
--- OUTSIDE RECORDS SUMMARY | 2025-02-18 09:02 | XMS_ITS | Encounter Summary ---
Author Organization [facility] Address [address] [place], [place] [address] [address] Care Team Providers Care Porter Luggage Name Role Phone Unavailable Primary Care Provider Unavailabl e Encounter Details Date Type Department Care Team (Late st Contact Info) Description 08/13/2019 Lab Requisition [facility] DermPath Lab [address] [facility], [facility] [place] [address] Carmen Singletary MD [address] [facility] 3 [place] [address] Social History Tobacco Use Types Packs/Day Years Used Date Smoking Tobacco: Never Assessed Comments Unknown Sex and Gender Information Value Date Recorded Sex Assigned at Not on file 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 Gender Identity Not on file Sexual Orientation Not on file documented as of this encounter Plan of Treatment Not on file documented as of this encounter Procedures Procedure Name Priority Date/Time Associated Diagnosis Comments DERMATOPATH TECHNICAL REPORT Routine 08/13/2019 12:00 AM CDT documented in this encounter Results * DERMATOPATH TECHNICAL REPORT (08/13/2019 12:00 AM CDT) Case Report Dermatopathology Report Case: [id number] Authorizing Provider: Carmen Singletary MD Collected: 08/13/2019 12:00 AM Ordering Location: [facility] Care DermPath Lab Received: 08/13/2019 02:22 PM Pathologist: Donte Guo MD Specimen: Skin, left mejia 0 2:22 PM CDT DERMATOPATHOLOGY LABORATORY Addendum 1 At the request of the diagnosing physician, technical component for Magdaleno-Ep4 was performed on block 5 at [facility] Dermatopathology Laboratory. 0 2:22 PM CDT DERMATOPATHOLOGY LABORATORY Addendum electronically signed by Donte Guo MD on 08/18/2019 at 1422 CDT Clinical History Bx proven SCC, well diff. 0 2:22 PM CDT DERMATOPATHOLOGY LABORATORY Gross Description Specimen A: Received is one formalin filled container labeled with the patient's name and designated left mejia.The specimen consists of an ellipse measuring 17c98d7vh and is oriented with the notch at [...] and submitted in cassettes 3-5. Jar 0. [facility] Dermatopathology Laboratory performed the technical component [...] characteristic determined by the Dermatopathology Laboratory at [facility], directed by Dr. Pete Guo. These [...] DERMATOPATHOLOGY LABORATORY [facility] - Department of Dermatology [facility] [facility], 5th [place] [address], [facility] [phone] documented in this encounter Visit Diagnoses Not on filedocumented in this encounter
[2025-02-18 11:01] LABS: Anion Gap 7 mmol/L (4-12); Blood Urea Nitrogen 15 mg/dL (7-17); Calcium 9.8 mg/dL (8.4-10.2); Carbon Dioxide 31 mmol/L (22-30); Chloride 105 mmol/L (98-107); Estimated Glomerular Filt Rate 54; Glucose 91 mg/dL (65-110); Potassium 3.8 mmol/L (3.4-5.0); Sodium 143 mmol/L (137-145)
== END 2025-02-18 08:41 | disposition home or self-care (01) ==
PROVIDERS: PCP Family Medicine; Visit Provider Family Medicine
DX: E87.6 Hypokalemia (principal); R13.10 Dysphagia, unspecified; Z87.891 Personal history of nicotine dependence; N28.89 Other specified disorders of kidney and ureter
CPT/HCPCS: 36415; 71271; 74220; 80048

== ENCOUNTER 2025-03-02 13:32 | Outpatient (CLI) | payer OTHER, SELFPAY ==
--- NOTE | ~2025-03-02 | CT_ITS ---
EXAMINATION: CT abdomen wo/w con DATE: 03/02/2025 14:01 INDICATION: Kidney mass. TECHNIQUE: Computed tomography (CT) of the abdomen was performed without and with 100 mL Omnipaque 350 intravenous contrast. Automated exposure control and iterative reconstruction technique were employed. The dose-length product was 405.12 mGy-cm. COMPARISON: Chest CT 02/18/2025 FINDINGS: The visualized portions of the lung bases demonstrate emphysema and chronic interstitial lung disease. No pleural effusion. The heart size is normal. No pericardial effusion. The liver is normal. There are gallstones in the gallbladder, which is normal in size. The spleen, pancreas, adrenal glands, and right kidney are normal. There are cysts and hemorrhagic cysts in left kidney measuring up to 1.9 cm. There are no dilated loops of bowel. There are no pathologically enlarged lymph nodes. There is no free intraperitoneal fluid. There is severe lower lumbar spondylosis. There is moderate thoracic spondylosis. IMPRESSION: 1. Benign cysts in left kidney. Reviewed, dictated and finalized at location E.
--- OUTSIDE RECORDS SUMMARY | 2025-03-02 15:36 | XMS_ITS | Encounter Summary ---
Author Organization [facility] Facility Care Team Providers Care Treasurer Name Role Phone Calin Christina MD Primary Care Provi hallie Jaqueline Stark LOG DATA TECHNICIAN Primary Care Provider Calin Christina MD Primary Care Provi hallie Jaqueline Stark LOG DATA TECHNICIAN Primary Care Provider Sultan Roly Elizondo MD Unavailable [phone] Carmen Singletary MD Unavailable [phone] Mary Spencer DO Primary Care Provider + Encounter Details Date Type Department Care Team (Latest Contact Info) Description 11/18/2017 Orders Only [facility] CLINCONV ProviderJosefina MD [address] [place] [address] Social History Tobacco Use Types Packs/Day Years Used Date Smoking Tobacco: Never Assessed Comments Unknown Sex and Gender Information Value Date Recorded Sex Assigned at Not on file 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 Gender Identity Not on file Sexual Orientation [...] on filedocumented in this encounter Care Teams Treasurer Relationship Specialty Start Date End Date Calin hCristina MD [address] [place] [address] PCP - General 09/18/18 11/13/21 Jaqueline Stark NP [address] [place] [address] PCP - General Internal Medicine 11/14/21 04/16/22 Calin Christina MD [address] [place] [address] PCP - General Family Medicine 04/17/22 04/19/22 Jaqueline Stark, ALIA [address] [place] [address] PCP - General Internal Medicine 04/20/22 05/18/24 Mary Spencer DO [address] [place] [address] [place] [address] PCP - General Family Medicine 05/19/24 Sultan Roly Elizondo MD [address] [facility] [place] [address] Consulting Physician Cardiovascular Disease 10/16/22 Carmen Singletary MD [address] [place] [address] Referring Physician Dermatology 10/16/22 documented as of this encounter
--- OUTSIDE RECORDS SUMMARY | 2025-03-02 15:36 | XMS_ITS | Clinical Summary ---
Author Organization [facility] Address [address] [place] [address] Care Team Providers Care Cocoa Milling Machine Operator Name Role Phone Unavailable Primary Care Provider Unavailabl e Source Comments [facility],non-owned Affiliates and Associated Physician Practices is amultiple site organization consisting of ambulatory clinics and hospital sitesin [place], [place], [place] and [place]. This disclosure is being madepursuant to the Care Everywhere program and may not contain all information available regarding this patient. 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 CLAIMS [address] [place] [phone] [employer]
--- OUTSIDE RECORDS SUMMARY | 2025-03-02 15:36 | XMS_ITS | Encounter Summary ---
Author Organization [facility] Facility Care Team Providers Care Director Asset Name Role Phone Calin Christina MD Primary Care Provi hallie Jaqueline Stark GLOBAL VP CREATIVE + CONTENT MARKETING Primary Care Provider Calin Christina MD Primary Care Provi hallie Jaqueline Stark GLOBAL VP CREATIVE + CONTENT MARKETING Primary Care Provider Sultan Roly Elizondo MD Unavailable [phone] Carmen Singletary MD Unavailable [phone] Mary Spencer DO Primary Care Provider + Encounter Details Date Type Department Care Team (Latest Contact Info) Description 11/17/2017 Orders Only [facility] CLINCONV ProviderJosefina MD [address] [place] [address] Social History Tobacco Use Types Packs/Day Years Used Date Smoking Tobacco: Never Assessed Comments Unknown Sex and Gender Information Value Date Recorded Sex Assigned at Not on file 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 Gender Identity Not on file Sexual [...] on filedocumented in this encounter Care Teams Director Asset Relationship Specialty Start Date End Date Calin Christina MD [address] [place] [address] PCP - General 09/18/18 11/13/21 Jaqueline Stark NP [address] [place] [address] PCP - General Internal Medicine 11/14/21 04/16/22 Calin Christina MD [address] [place] [address] PCP - General Family Medicine 04/17/22 04/19/22 Jaqueline Stark, ALIA [address] [place] [address] PCP - General Internal Medicine 04/20/22 05/18/24 Mary Spencer DO [address] [place] [address] [place] [address] PCP - General Family Medicine 05/19/24 Sultan Roly Elizondo MD [address] [facility] [place] [address] Consulting Physician Cardiovascular Disease 10/16/22 Carmen Singletary MD [address] [place] [address] Referring Physician Dermatology 10/16/22 documented as of this encounter
--- OUTSIDE RECORDS SUMMARY | 2025-03-02 15:37 | XMS_ITS | Encounter Summary ---
Author Organization [facility] Address [address] [place], [place] [address] [address] Care Team Providers Care Chief Scientist Name Role Phone Unavailable Primary Care Provider Unavailabl e Encounter Details Date Type Department Care Team (Late st Contact Info) Description 03/04/2024 Lab Requisition [facility] - DermPath Lab [address] [facility], [place] [address] Carmen Singletary MD [address] [facility] 3 [place] [address] Social History Tobacco Use Types Packs/Day Years Used Date Smoking Tobacco: Never Assessed Comments Unknown Sex and Gender Information Value Date Recorded Sex Assigned at Not on file Legal Sex Female 5:21 PM 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 Gender Identity Not on file Sexual Orientation Not on file documented as of this encounter Plan of Treatment Not on file documented as of this encounter Procedures Procedure Name Priority Date/Time Associated Diagnosis Comments DERMATOPATHOLOGY Routine 03/04/2024 10:2 8 AM CDT documented in this encounter Results * DERMATOPATHOLOGY (03/04/2024 10:28 AM CDT) Case Report Dermatopathology Report Case: [id number] Authorizing Provider: Carmen Singletary MD Collected: 03/04/2024 10:28 AM Ordering Location: [facility] Physician [facility] - Received: 03/05/2024 07:21 AM DermPath Lab Pathologist: Monica Terrell MD Specimen: Skin, right index 4 5:30 PM [facility] DERMATOPATHOLOGY LABORATORY Final Diagnosis Specimen A. 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 The specimen consists of a shave biopsy measuring 8x5x1 mm. Jar 0. 5:30 PM [facility] DERMATOPATHOLOGY LABORATORY Microscopic Description Specimen [...] annulare. Clinicopathologic correlation is recommended. 5:30 PM [facility] DERMATOPATHOLOGY LABORATORY Disclaimer An external and internal positive and negative controls are appropriate for the histochemical, immunohistochemical and immunofluorescence stain(s) in this case (if any), except where stated explicitly. The performance characteristics of the stain(s) cited in this report were developed and its performance characteristic determined by the Dermatopathology Laboratory at [facility], directed by Dr. Pete Guo. These tests need not be, and therefore are not, approved by the [place] Food and Drug Administration. The tests are used for clinical purposes. Billing Codes Specimen Charges Stain Charges 43468 1 88814 [id number] 02444 1 1 1 5:30 PM [facility] DERMATOPATHOLOGY LABORATORY Embedded Images 5:30 PM [facility] DERMATOPATHOLOGY LABORATORY Pathology/Cytolo gy TISSUE SPECIMEN FROM SKIN / Unknown 03/04/2024 10:28 AM CDT 03/05/2024 7:21 AM CDT us Carmen Singletary MD LAB - PATHOLOGY/CYTOLOGY ORD ERABLES Final Result DERMATOPATHOLOGY LABORATORY [facility] - Department of Dermatology [address], 3rd Floor [address] [phone] documented in this encounter Visit Diagnoses Not on filedocumented in this encounter
--- OUTSIDE RECORDS SUMMARY | 2025-03-02 15:37 | XMS_ITS | Encounter Summary ---
Author Organization [facility] Facility Care Team Providers Care Shuttle Hand Name Role Phone Calin Christina MD Primary Care Provi hallie Jaqueline Stark RETAIL CLIENT SOLUTIONS CONSULTANT Primary Care Provider Calin Christina MD Primary Care Provi hallie Jaqueline Stark RETAIL CLIENT SOLUTIONS CONSULTANT Primary Care Provider Sultan Roly Elizondo MD Unavailable [phone] Carmen Singletary MD Unavailable [phone] Mary Spencer DO Primary Care Provider + Encounter Details Date Type Department Care Team (Latest Contact Info) Description 11/16/2017 Orders Only [facility] CLINCONV ProviderJosefina MD [address] [place] [address] Social History Tobacco Use Types Packs/Day Years Used Date Smoking Tobacco: Never Assessed Comments Unknown Sex and Gender Information Value Date Recorded Sex Assigned at Not on file 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 Gender Identity Not on file Sexual [...] on filedocumented in this encounter Care Teams Shuttle Hand Relationship Specialty Start Date End Date Calin Christina MD [address] [place] [address] PCP - General 09/18/18 11/13/21 Jaqueline Stark NP [address] [place] [address] PCP - General Internal Medicine 11/14/21 04/16/22 Calin Christina MD [address] [place] [address] PCP - General Family Medicine 04/17/22 04/19/22 Jaqueline [place], ALIA [address] [place] [address] PCP - General Internal Medicine 04/20/22 05/18/24 Mary Spencer DO [address] [place] [address] [place] [address] PCP - General Family Medicine 05/19/24 Sultan Roly Elizondo MD [address] [facility] [address] [place] [address] Consulting Physician Cardiovascular Disease 10/16/22 Carmen Singletary MD [address] [place] [address] Referring Physician Dermatology 10/16/22 documented as of this encounter
--- OUTSIDE RECORDS SUMMARY | 2025-03-02 15:37 | XMS_ITS | Encounter Summary ---
Author Organization [facility] Facility Care Team Providers Care Investigator Operator Name Role Phone Calin Christina MD Primary Care Provi hallie Jaqueline Stark PROFESSIONAL SERVICES CONSULTANT Primary Care Provider Calin Christina MD Primary Care Provi hallie Jaqueline Stark PROFESSIONAL SERVICES CONSULTANT Primary Care Provider Sultan Roly Elizondo MD Unavailable [phone] Carmen Singletary MD Unavailable [phone] Mary Spencer DO Primary Care Provider + Encounter Details Date Type Department Care Team (Latest Contact Info) Description 11/14/2017 Orders Only [facility] CLINCONV ProviderJosefina MD [address] [place] [address] Social History Tobacco Use Types Packs/Day Years Used Date Smoking Tobacco: Never Assessed Comments Unknown Sex and Gender Information Value Date Recorded Sex Assigned at Not on file 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 Gender Identity Not on file Sexual [...] on filedocumented in this encounter Care Teams Investigator Operator Relationship Specialty Start Date End Date Calin Christina MD [address] [place] [address] PCP - General 09/18/18 11/13/21 Jaqueline [place] NP [address] [place] [address] PCP - General Internal Medicine 11/14/21 04/16/22 Calin Christina MD [address] [place] [address] PCP - General Family Medicine 04/17/22 04/19/22 Jaqueline [place], ALIA [address] [place] [address] PCP - General Internal Medicine 04/20/22 05/18/24 Mary Spencer DO [address] [place] [address] [place] [address] PCP - General Family Medicine 05/19/24 Sultan Roly Elizondo MD [address] [facility] [place] [address] Consulting Physician Cardiovascular Disease 10/16/22 Carmen Singletary MD [address] [place] [address] Referring Physician Dermatology 10/16/22 documented as of this encounter
--- OUTSIDE RECORDS SUMMARY | 2025-03-02 15:37 | XMS_ITS | Encounter Summary ---
Author Organization [facility] Facility Care Team Providers Care Galvanometer Assembler Name Role Phone Calin Christina MD Primary Care Provi hallie Jaqueline Stark THEATRE ARTS PROFESSOR Primary Care Provider Calin Christina MD Primary Care Provi hallie Jaqueline [place] THEATRE ARTS PROFESSOR Primary Care Provider Sultan Roly Elizondo MD Unavailable [phone] Carmen Singletary MD Unavailable [phone] Mary Spencer DO Primary Care Provider + Encounter Details Date Type Department Care Team (Latest Contact Info) Description 11/11/2017 Orders Only [facility] CLINCONV ProviderJosefina MD [address] [place] [address] Social History Tobacco Use Types Packs/Day Years Used Date Smoking Tobacco: Never Assessed Comments Unknown Sex and Gender Information Value Date Recorded Sex Assigned at Not on file 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 ACUTE CARE CERTIFIED NURSING ASSISTANT Gender Identity Not on file Sexual [...] on filedocumented in this encounter Care Teams Galvanometer Assembler Relationship Specialty Start Date End Date Calin Christina MD [address] [place] [address] PCP - General 09/18/18 11/13/21 Jaqueline [place] NP [address] [place] [address] PCP - General Internal Medicine 11/14/21 04/16/22 Calin Christina MD [address] [place] [address] PCP - General Family Medicine 04/17/22 04/19/22 Jaqueline [place], ALIA [address] [place] [address] PCP - General Internal Medicine 04/20/22 05/18/24 Mary Spencer DO [address] [place] [address] [place] [address] PCP - General Family Medicine 05/19/24 Sultan Roly Elizondo MD [address] [facility] [address] [place] [address] Consulting Physician Cardiovascular Disease 10/16/22 Carmen Singletary MD [address] [place] [address] Referring Physician Dermatology 10/16/22 documented as of this encounter
--- OUTSIDE RECORDS SUMMARY | 2025-03-02 15:37 | XMS_ITS | Encounter Summary ---
Author Organization [facility] Address [address] [place], [place] [address] [address] Care Team Providers Care Healthcare Marketer Name Role Phone Unavailable Primary Care Provider Unavailabl e Encounter Details Date Type Department Care Team (Late st Contact Info) Description 01/01/2020 Lab Requisition [facility] DermPath Lab [address] [facility] [place] [address] Carmen Singletary MD [address] [facility] 3 [place] [address] Social History Tobacco Use Types Packs/Day Years Used Date Smoking Tobacco: Never Assessed Comments Unknown Sex and Gender Information Value Date Recorded Sex Assigned at Not on file 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 Gender Identity Not on file Sexual Orientation Not on file documented as of this encounter Plan of Treatment Not on file documented as of this encounter Procedures Procedure Name Priority Date/Time Associated Diagnosis Comments DERMATOPATHOLOGY Routine 12/31/2019 12:0 0 AM CDT documented in this encounter Results * DERMATOPATHOLOGY (12/31/2019 12:00 AM CDT) Case Report Dermatopathology Report Case: [id number] Authorizing Provider: Carmen Singletary MD Collected: 12/31/2019 12:00 AM Ordering Location: [facility] DermPath Lab Received: 01/01/2020 07:16 AM Pathologist: Nano Henderson MD Specimen: Skin, left chest 0 4:37 PM CDT DERMATOPATHOLOGY LABORATORY Final Diagnosis Specimen A. SKIN, left chest: SQUAMOUS CELL CARCINOMA, WELL DIFFERENTIATED (C44.529) NOT PRESENT AT MARGIN DERMAL SCAR (L90.5) 0 4:37 PM CDT DERMATOPATHOLOGY LABORATORY at 1637 CDT Clinical History R/O SCC, keratoacanthoma type; biopsy proven. Previus Bx:[id number]. 0 4:37 PM CDT DERMATOPATHOLOGY LABORATORY Gross Description Specimen A: Received is one formalin filled container labeled with the patient's name and designated left chest.The specimen consists of an ellipse measuring 39r46f1yd and is oriented with the notch at [...] determined by the Dermatopathology Laboratory at [facility], directed by Dr. Pete Guo. These tests need not be, and therefore are not, approved by the [place] Food and Drug Administration. The tests are used for clinical purposes. Billing Codes Specimen Charges Stain Charges 39386 1 0 4:37 PM CDT DERMATOPATHOLOGY LABORATORY Embedded Images 0 4:37 PM CDT DERMATOPATHOLOGY LABORATORY Pathology/Cytolog y TISSUE SPECIMEN FROM SKIN / Unknown 12/31/2019 01/01/2020 7:16 AM CDT us Carmen Singletary MD LAB - PATHOLOGY/CYTOLOGY ORD ERABLES Final Result DERMATOPATHOLOGY LABORATORY [facility] - Department of Dermatology [facility] Medicine [address] [place] [address], [address]rd Floor [address] [phone] documented in this encounter Visit Diagnoses Not on filedocumented in this encounter
--- OUTSIDE RECORDS SUMMARY | 2025-03-02 15:37 | XMS_ITS | Encounter Summary ---
Author Organization [facility] Facility Care Team Providers Care Hydrochloric Acid Operator Name Role Phone Calin Christina MD Primary Care Provi hallie Jaqueline [place] LAP WELDER Primary Care Provider Calin Christina MD Primary Care Provi hallie Jaqueline Stark LAP WELDER Primary Care Provider Sultan Roly Elizondo MD Unavailable [phone] Carmen Singletary MD Unavailable [phone] Mary Spencer DO Primary Care Provider + Encounter Details Date Type Department Care Team (Latest Contact Info) Description 11/08/2017 Orders Only [facility] CLINCONV ProviderJosefina MD [address] [place] [address] Social History Tobacco Use Types Packs/Day Years Used Date Smoking Tobacco: Never Assessed Comments Unknown Sex and Gender Information Value Date Recorded Sex Assigned at Not on file 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 REHABILITATION SERVICES COORDINATOR Gender Identity Not on file Sexual [...] on filedocumented in this encounter Care Teams Hydrochloric Acid Operator Relationship Specialty Start Date End Date Calin Christina MD [address] [place] [address] PCP - General 09/18/18 11/13/21 Jaqueline [place] NP [address] [place] [address] PCP - General Internal Medicine 11/14/21 04/16/22 Calin Christina MD [address] [place] [address] PCP - General Family Medicine 04/17/22 04/19/22 Jaqueline [place] NP [address] [place] [address] PCP - General Internal Medicine 04/20/22 05/18/24 Mary Spencer DO [address] [place] [address] [place] [address] PCP - General Family Medicine 05/19/24 Sultan Roly Elizondo MD [address] [facility] [address] [address] Consulting Physician Cardiovascular Disease 10/16/22 Carmen Singletary MD [address] [place] [address] Referring Physician Dermatology 10/16/22 documented as of this encounter
--- OUTSIDE RECORDS SUMMARY | 2025-03-02 15:37 | XMS_ITS | Encounter Summary ---
Author Organization [facility] Facility Care Team Providers Care Forest Supervisor Name Role Phone Calin Christina MD Primary Care Provi hallie Jaqueline [place] GLASS CHECKER Primary Care Provider Calin Christina MD Primary Care Provi hallie Jaqueline [place] GLASS CHECKER Primary Care Provider Sultan Roly Elizondo MD Unavailable [phone] Carmen Singletary MD Unavailable [phone] Mary Spencer DO Primary Care Provider + Encounter Details Date Type Department Care Team (Latest Contact Info) Description 11/03/2017 Orders Only [facility] CLINCONV ProviderJosefina MD [address] [place] [address] Social History Tobacco Use Types Packs/Day Years Used Date Smoking Tobacco: Never Assessed Comments Unknown Sex and Gender Information Value Date Recorded Sex Assigned at Not on file 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 Gender Identity Not on file Sexual [...] on filedocumented in this encounter Care Teams Forest Supervisor Relationship Specialty Start Date End Date Calin Christina MD [address] [place] [address] PCP - General 09/18/18 11/13/21 Jaqueline [place] NP [address] [place] [address] PCP - General Internal Medicine 11/14/21 04/16/22 Calin Christina MD [address] [place] [address] PCP - General Family Medicine 04/17/22 04/19/22 Jaqueline [place], ALIA [address] [place] [address] PCP - General Internal Medicine 04/20/22 05/18/24 Mary Spencer DO [address] [place] [address] [place] [address] PCP - General Family Medicine 05/19/24 Sultan Roly Elizondo MD [address] [facility] [address] [place] [address] Consulting Physician Cardiovascular Disease 10/16/22 Carmen Singletary MD [address] [place] [address] Referring Physician Dermatology 10/16/22 documented as of this encounter
--- OUTSIDE RECORDS SUMMARY | 2025-03-02 15:37 | XMS_ITS | Encounter Summary ---
Author Organization [facility] Address [address] [place] [address] [place] [address] Care Team Providers Care Wet Mix Operator Name Role Phone Unavailable Primary Care Provider Unavailabl e Encounter Details Date Type Department Care Team (Late st Contact Info) Description 12/14/2019 Lab Requisition [facility] DermPath Lab [address] [facility] [place] [address] Carmen Singletary MD [address] [facility] 3 [place] [address] Social History Tobacco Use Types Packs/Day Years Used Date Smoking Tobacco: Never Assessed Comments Unknown Sex and Gender Information Value Date Recorded Sex Assigned at Not on file Legal Sex Female 5:21 PM FRIT COATER Gender Identity Not on file Sexual Orientation Not on file documented as of this encounter Plan of Treatment Not on file documented as of this encounter Procedures Procedure Name Priority Date/Time Associated Diagnosis Comments DERMATOPATHOLOGY Routine 12/10/2019 12:0 0 AM CDT documented in this encounter Results * DERMATOPATHOLOGY (12/10/2019 12:00 AM CDT) Case Report Dermatopathology Report Case: [id number] Authorizing Provider: Carmen Singletary MD Collected: 12/10/2019 12:00 AM Ordering Location: [facility] Care DermPath Lab Received: 12/14/2019 12:22 [...] characteristic determined by the Dermatopathology Laboratory at [facility], directed by Dr. Pete Guo. These tests need not be, and therefore are not, approved by the [place] Food and Drug Administration. The tests are used for clinical purposes. Billing Codes Specimen Charges Stain Charges 73312 1 0 12:21 PM CDT DERMATOPATHOLOGY LABORATORY Embedded Images 0 12:21 PM CDT DERMATOPATHOLOGY LABORATORY Pathology/Cytolog y TISSUE SPECIMEN FROM SKIN / Unknown 12/10/2019 12/14/2019 12:22 PM CDT us Carmen Singletary MD LAB - PATHOLOGY/CYTOLOGY ORD ERABLES Final Result DERMATOPATHOLOGY LABORATORY [facility] - Department of Dermatology [facility] [place] [place] [address], [facility] [phone] documented in this encounter Visit Diagnoses Not on filedocumented in this encounter
--- OUTSIDE RECORDS SUMMARY | 2025-03-02 15:37 | XMS_ITS | Encounter Summary ---
Author Organization [facility] Facility Care Team Providers Care Cardiovascular Technician Name Role Phone Calin Christina MD Primary Care Provi hallie Jaqueline Stark CAR STORER Primary Care Provider Calin Christina MD Primary Care Provi hallie Jaqueline Stark CAR STORER Primary Care Provider Sultan Roly Elizondo MD Unavailable [phone] Carmen Singletary MD Unavailable [phone] Mary Spencer DO Primary Care Provider + Encounter Details Date Type Department Care Team (Latest Contact Info) Description 11/07/2017 Orders Only [facility] CLINCONV ProviderJosefina MD [address] [place] [address] Social History Tobacco Use Types Packs/Day Years Used Date Smoking Tobacco: Never Assessed Comments Unknown Sex and Gender Information Value Date Recorded Sex Assigned at Not on file 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 Gender Identity Not on file Sexual Orientation [...] on filedocumented in this encounter Care Teams Cardiovascular Technician Relationship Specialty Start Date End Date Calin Christina MD [address] [place] [address] PCP - General 09/18/18 11/13/21 Jaqueline [place] NP [address] [place] [address] PCP - General Internal Medicine 11/14/21 04/16/22 Calin Christina MD [address] [place] [address] PCP - General Family Medicine 04/17/22 04/19/22 Jaqueline [place], ALIA [address] [place] [address] PCP - General Internal Medicine 04/20/22 05/18/24 Mary Spencer DO [address] [place] [address] [place] [address] PCP - General Family Medicine 05/19/24 Sultan Roly Elizondo MD [address] [facility] [place] [address] Consulting Physician Cardiovascular Disease 10/16/22 Carmen Singletary MD [address] [place] [address] Referring Physician Dermatology 10/16/22 documented as of this encounter
--- OUTSIDE RECORDS SUMMARY | 2025-03-02 15:37 | XMS_ITS | Encounter Summary ---
Author Organization [facility] Facility Care Team Providers Care Shuttle Operator Name Role Phone Calin Christina MD Primary Care Provi hallie Jaqueline [place] GROUT MACHINE TENDER Primary Care Provider Calin Christina MD Primary Care Provi hallie Jaqueline Stark GROUT MACHINE TENDER Primary Care Provider Sultan Roly Elizondo MD Unavailable [phone] Carmen Singletary MD Unavailable [phone] Mary Spencer DO Primary Care Provider + Encounter Details Date Type Department Care Team (Latest Contact Info) Description 11/15/2017 Orders Only [facility] CLINCONV ProviderJosefina MD [address] [place] [address] Social History Tobacco Use Types Packs/Day Years Used Date Smoking Tobacco: Never Assessed Comments Unknown Sex and Gender Information Value Date Recorded Sex Assigned at Not on file 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 Gender Identity Not on file Sexual [...] filedocumented in this encounter Care Teams Shuttle Operator Relationship Specialty Start Date End Date Calin Christina MD [address] [place] [address] PCP - General 09/18/18 11/13/21 Jaqueline [place] NP [address] [place] [address] PCP - General Internal Medicine 11/14/21 04/16/22 Calin Christina MD [address] [place] [address] PCP - General Family Medicine 04/17/22 04/19/22 Jaqueline [place], ALIA [address] [place] [address] PCP - General Internal Medicine 04/20/22 05/18/24 Mary Spencer DO [address] [place] [address] [place] [address] PCP - General Family Medicine 05/19/24 Sultan Roly Elizondo MD [address] [facility] [address] [place] [address] Consulting Physician Cardiovascular Disease 10/16/22 Carmen Singletary MD [address] [place] [address] Referring Physician Dermatology 10/16/22 documented as of this encounter
--- OUTSIDE RECORDS SUMMARY | 2025-03-02 15:37 | XMS_ITS | Encounter Summary ---
Author Organization [facility] Address [address] [place], [place] [address] [address] Care Team Providers Care Corn Chip Maker Name Role Phone Unavailable Primary Care Provider Unavailabl e Encounter Details Date Type Department Care Team (Late st Contact Info) Description 08/13/2019 Lab Requisition [facility] DermPath Lab [address] [facility], [facility] [place] [address] Carmen Singletary MD [address] [facility] 3 [place] [address] Social History Tobacco Use Types Packs/Day Years Used Date Smoking Tobacco: Never Assessed Comments Unknown Sex and Gender Information Value Date Recorded Sex Assigned at Not on file Legal Sex Female 5:21 PM UROLOGIST MD Gender Identity Not on file Sexual Orientation Not on file documented as of this encounter Plan of Treatment Not on file documented as of this encounter Procedures Procedure Name Priority Date/Time Associated Diagnosis Comments DERMATOPATH TECHNICAL REPORT Routine 08/13/2019 12:00 AM CDT documented in this encounter Results * DERMATOPATH TECHNICAL REPORT (08/13/2019 12:00 AM CDT) Case Report Dermatopathology Report Case: [id number] Authorizing Provider: Carmen Singletary MD Collected: 08/13/2019 12:00 AM Ordering Location: [facility] Care DermPath Lab Received: 08/13/2019 02:22 PM Pathologist: Donte Guo MD Specimen: Skin, left mejia 0 2:22 PM CDT DERMATOPATHOLOGY LABORATORY Addendum 1 At the request of the diagnosing physician, technical component for Magdaleno-Ep4 was performed on block 5 at [facility] Dermatopathology Laboratory. 0 2:22 PM CDT DERMATOPATHOLOGY LABORATORY Addendum electronically signed by Donte Guo MD on 08/18/2019 at 1422 CDT Clinical History Bx proven SCC, well diff. 0 2:22 PM CDT DERMATOPATHOLOGY LABORATORY Gross Description Specimen A: Received is one formalin filled container labeled with the patient's name and designated left mejia.The specimen consists of an ellipse measuring 32p14r5mc and is oriented with the notch at [...] and submitted in cassettes 3-5. Jar 0. [facility] Dermatopathology Laboratory performed the technical component only. [...] characteristic determined by the Dermatopathology Laboratory at [facility], directed by Dr. Pete Guo. These tests [...] DERMATOPATHOLOGY LABORATORY [facility] - Department of Dermatology [facility] [facility], 5th [place] [address], [facility] [phone] documented in this encounter Visit Diagnoses Not on filedocumented in this encounter
--- OUTSIDE RECORDS SUMMARY | 2025-03-02 15:37 | XMS_ITS | Encounter Summary ---
Author Organization [facility] Facility Care Team Providers Care Lab Technologist Name Role Phone Calin Christina MD Primary Care Provi hallie Jaqueline Stark MACHINE MAINTENANCE REPAIRER Primary Care Provider Calin Christina MD Primary Care Provi hallie Jaqueline Stark MACHINE MAINTENANCE REPAIRER Primary Care Provider Sultan Roly Elizondo MD Unavailable [phone] Carmen Singletary MD Unavailable [phone] Mary Spencer DO Primary Care Provider + Encounter Details Date Type Department Care Team (Latest Contact Info) Description 11/13/2017 Orders Only [facility] CLINCONV ProviderJosefina MD [address] [place] [address] Social History Tobacco Use Types Packs/Day Years Used Date Smoking Tobacco: Never Assessed Comments Unknown Sex and Gender Information Value Date Recorded Sex Assigned at Not on file 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/FITNESS COORDINATOR Gender Identity Not on file Sexual [...] on filedocumented in this encounter Care Teams Lab Technologist Relationship Specialty Start Date End Date Calin Christina MD [address] [place] [address] PCP - General 09/18/18 11/13/21 Jaqueline Stark NP [address] [place] [address] PCP - General Internal Medicine 11/14/21 04/16/22 Calin Christina MD [address] [place] [address] PCP - General Family Medicine 04/17/22 04/19/22 Jaqueline Stark, ALIA [address] [place] [address] PCP - General Internal Medicine 04/20/22 05/18/24 Mary Spencer DO [address] [place] [address] [place] [address] PCP - General Family Medicine 05/19/24 Sultan Roly Elizondo MD [address] [facility] [place] [address] Consulting Physician Cardiovascular Disease 10/16/22 Carmen Singletary MD [address] [place] [address] Referring Physician Dermatology 10/16/22 documented as of this encounter
--- OUTSIDE RECORDS SUMMARY | 2025-03-02 15:37 | XMS_ITS | Encounter Summary ---
Author Organization [facility] Facility Care Team Providers Care Director Of Acquisitions Name Role Phone Calin Christina MD Primary Care Provi hallie Jaqueline Stark CUSTOMER SERVICE COORDINATOR Primary Care Provider Calin Christina MD Primary Care Provi hallie Jaqueline Stark CUSTOMER SERVICE COORDINATOR Primary Care Provider Sultan Roly Elizondo MD Unavailable [phone] Carmen Singletary MD Unavailable [phone] Mary Spencer DO Primary Care Provider + Encounter Details Date Type Department Care Team (Latest Contact Info) Description 11/04/2017 Orders Only [facility] CLINCONV ProviderJosefina MD [address] [place] [address] Social History Tobacco Use Types Packs/Day Years Used Date Smoking Tobacco: Never Assessed Comments Unknown Sex and Gender Information Value Date Recorded Sex Assigned at Not on file 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 MANAGER Gender Identity Not on file Sexual [...] filedocumented in this encounter Care Teams Director Of Acquisitions Relationship Specialty Start Date End Date Calin Christina MD [address] [place] [address] PCP - General 09/18/18 11/13/21 Jaqueline Stark NP [address] [place] [address] PCP - General Internal Medicine 11/14/21 04/16/22 Calin Christina MD [address] [place] [address] PCP - General Family Medicine 04/17/22 04/19/22 Jaqueline Stark, ALIA [address] [place] [address] PCP - General Internal Medicine 04/20/22 05/18/24 Mary Spencer DO [address] [place] [address] [place] [address] PCP - General Family Medicine 05/19/24 Sultan Roly Elizondo MD [address] [facility] [address] [place] [address] Consulting Physician Cardiovascular Disease 10/16/22 Carmen Singletary MD [address] [place] [address] Referring Physician Dermatology 10/16/22 documented as of this encounter
--- OUTSIDE RECORDS SUMMARY | 2025-03-02 15:37 | XMS_ITS | Encounter Summary ---
Author Organization [facility] Facility Care Team Providers Care Parts Expediter Name Role Phone Calin Christina MD Primary Care Provi hallie Jaqueline Stark SENIOR STEREO COMPILER TEAM LEAD Primary Care Provider Calin Christina MD Primary Care Provi hallie Jaqueline Stark SENIOR STEREO COMPILER TEAM LEAD Primary Care Provider Sultan Roly Elizondo MD Unavailable [phone] Carmen Singletary MD Unavailable [phone] Mary Spencer DO Primary Care Provider + Encounter Details Date Type Department Care Team (Latest Contact Info) Description 11/20/2017 Orders Only [facility] CLINCONV ProviderJosefina MD [address] [place] [address] Social History Tobacco Use Types Packs/Day Years Used Date Smoking Tobacco: Never Assessed Comments Unknown Sex and Gender Information Value Date Recorded Sex Assigned at Not on file 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 Gender Identity Not on file Sexual [...] on filedocumented in this encounter Care Teams Parts Expediter Relationship Specialty Start Date End Date Calin Christina MD [address] [place] [address] PCP - General 09/18/18 11/13/21 Jaqueline Stark NP [address] [place] [address] PCP - General Internal Medicine 11/14/21 04/16/22 Calin Christina MD [address] [place] [address] PCP - General Family Medicine 04/17/22 04/19/22 Jaqueline Stark NP [address] [place] [address] PCP - General Internal Medicine 04/20/22 05/18/24 Mary Spencer DO [address] [place] [address] [place] [address] PCP - General Family Medicine 05/19/24 Sultan Roly Elizondo MD [address] [facility] [address] [address] Consulting Physician Cardiovascular Disease 10/16/22 Carmen Singletary MD [address] [place] [address] Referring Physician Dermatology 10/16/22 documented as of this encounter
--- OUTSIDE RECORDS SUMMARY | 2025-03-02 15:37 | XMS_ITS | Encounter Summary ---
Author Organization [facility] Facility Care Team Providers Care Drop Pit Worker Name Role Phone Calin Christina MD Primary Care Provi hallie Jaqueline Stark WIRE BOUND BOX MACHINE OPERATOR Primary Care Provider Calin Christina MD Primary Care Provi hallie Jaqueline Stark WIRE BOUND BOX MACHINE OPERATOR Primary Care Provider Sultan Roly Elizondo MD Unavailable [phone] Carmen Singletary MD Unavailable [phone] Mary Spencer DO Primary Care Provider + Encounter Details Date Type Department Care Team (Latest Contact Info) Description 11/19/2017 Orders Only [facility] CLINCONV ProviderJosefina MD [address] [place] [address] Social History Tobacco Use Types Packs/Day Years Used Date Smoking Tobacco: Never Assessed Comments Unknown Sex and Gender Information Value Date Recorded Sex Assigned at Not on file 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 Gender Identity Not on file Sexual [...] on filedocumented in this encounter Care Teams Drop Pit Worker Relationship Specialty Start Date End Date Calin Christina MD [address] [place] [address] PCP - General 09/18/18 11/13/21 Jaqueline Stark NP [address] [place] [address] PCP - General Internal Medicine 11/14/21 04/16/22 Calin Christina MD [address] [place] [address] PCP - General Family Medicine 04/17/22 04/19/22 Jaqueline Stark, ALIA [address] [place] [address] PCP - General Internal Medicine 04/20/22 05/18/24 Mary Spencer DO [address] [place] [address] [place] [address] PCP - General Family Medicine 05/19/24 Sultan Roly Elizondo MD [address] [facility] [address] [place] [address] Consulting Physician Cardiovascular Disease 10/16/22 Carmen Singletary MD [address] [place] [address] Referring Physician Dermatology 10/16/22 documented as of this encounter
--- OUTSIDE RECORDS SUMMARY | 2025-03-02 15:37 | XMS_ITS | Encounter Summary ---
Author Organization [facility] Address [address] [place] [address] [place] [address] Care Team Providers Care Rigging Up Man Name Role Phone Unavailable Primary Care Provider Unavailabl e Encounter Details Date Type Department Care Team (Late st Contact Info) Description 07/17/2019 Lab Requisition [facility] DermPath Lab [address] [facility], [facility] [place] [place] [phone] Carmen Singletary MD [address] [facility] 3 [place] [address] Social History Tobacco Use Types Packs/Day Years Used Date Smoking Tobacco: Never Assessed Comments Unknown Sex and Gender Information Value Date Recorded Sex Assigned at Not on file Legal Sex Female 5:21 PM CLEANING TEAM MEMBER Gender Identity Not on file Sexual Orientation Not on file documented as of this encounter Plan of Treatment Not on file documented as of this encounter Procedures Procedure Name Priority Date/Time Associated Diagnosis Comments DERMATOPATHOLOGY Routine 07/16/2019 12:0 0 AM CDT documented in this encounter Results * DERMATOPATHOLOGY (07/16/2019 12:00 AM CDT) Case Report Dermatopathology Report Case: [id number] Authorizing Provider: Carmen Singletary MD Collected: 07/16/2019 12:00 AM Ordering Location: [facility] DermPath Lab Received: 07/17/2019 07:28 AM Pathologist: [...] specimen consists of a shave biopsy measuring 92p26q2 mm, bisected. Jar 0. 0 3:53 PM [...] determined by the Dermatopathology Laboratory at [facility], directed by Dr. Pete Guo. These tests need not be, and therefore are not, approved by the [place] Food and Drug Administration. The tests are used for clinical purposes. Billing Codes Specimen Charges Stain Charges 30790 1 0 3:53 PM CDT DERMATOPATHOLOGY LABORATORY Embedded Images 0 3:53 PM CDT DERMATOPATHOLOGY LABORATORY Pathology/Cytolog y TISSUE SPECIMEN FROM SKIN / Unknown 07/16/2019 07/17/2019 7:28 AM CDT us Carmen Singletary MD LAB - PATHOLOGY/CYTOLOGY ORD ERABLES Final Result DERMATOPATHOLOGY LABORATORY [facility] - Department of Dermatology [address] [place] [address], 5th [place] [address], [facility] [phone] documented in this encounter Visit Diagnoses Not on filedocumented in this encounter
--- OUTSIDE RECORDS SUMMARY | 2025-03-02 15:38 | XMS_ITS | Encounter Summary ---
Author Organization [facility] Facility Care Team Providers Care Science Intern Name Role Phone Calin Christina MD Primary Care Provi hallie Jaqueline Stark STOCK TRACER Primary Care Provider Calin Christina MD Primary Care Provi hallie Jaqueline Stark STOCK TRACER Primary Care Provider Sultan Roly Elizondo MD Unavailable [phone] Carmen Singletary MD Unavailable [phone] Mary Spencer DO Primary Care Provider + Encounter Details Date Type Department Care Team (Latest Contact Info) Description 11/28/2017 Orders Only [facility] CLINCONV ProviderJosefina MD [address] [place] [address] Social History Tobacco Use Types Packs/Day Years Used Date Smoking Tobacco: Never Assessed Comments Unknown Sex and Gender Information Value Date Recorded Sex Assigned at Not on file 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 Gender Identity Not on file Sexual [...] on filedocumented in this encounter Care Teams Science Intern Relationship Specialty Start Date End Date Calin Christina MD [address] [place] [address] PCP - General 09/18/18 11/13/21 Jaqueline Stark NP [address] [place] [address] PCP - General Internal Medicine 11/14/21 04/16/22 Calin Christina MD [address] [place] [address] PCP - General Family Medicine 04/17/22 04/19/22 Jaqueline Stark NP [address] [place] [address] PCP - General Internal Medicine 04/20/22 05/18/24 Mary Spencer DO [address] [place] [address] [place] [address] PCP - General Family Medicine 05/19/24 Sultan Roly Elizondo MD [address] [facility] [address] [address] Consulting Physician Cardiovascular Disease 10/16/22 Carmen Singletary MD [address] [place] [address] Referring Physician Dermatology 10/16/22 documented as of this encounter
--- OUTSIDE RECORDS SUMMARY | 2025-03-02 15:38 | XMS_ITS | Encounter Summary ---
Author Organization [facility] Facility Care Team Providers Care Marketing Services Specialist Name Role Phone Calin Christina MD Primary Care Provi hallie Jaqueline Stark ADVERTISING SALES CONSULTANT Primary Care Provider Calin Christina MD Primary Care Provi hallie Jaqueline Stark ADVERTISING SALES CONSULTANT Primary Care Provider Sultan Roly Elizondo MD Unavailable [phone] Carmen Singletary MD Unavailable [phone] Mary Spencer DO Primary Care Provider + Encounter Details Date Type Department Care Team (Latest Contact Info) Description 11/12/2016 Orders Only [facility] CLINCONV ProviderJosefina MD [address] [place] [address] Social History Tobacco Use Types Packs/Day Years Used Date Smoking Tobacco: Never Assessed Comments Unknown Sex and Gender Information Value Date Recorded Sex Assigned at Not on file 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 IMPORT/EXPORT SPECIALIST Gender Identity Not on file Sexual [...] filedocumented in this encounter Care Teams Marketing Services Specialist Relationship Specialty Start Date End Date Calin Christina MD [address] [place] [address] PCP - General 09/18/18 11/13/21 Jaqueline Stark NP [address] [place] [address] PCP - General Internal Medicine 11/14/21 04/16/22 Calin Christina MD [address] [place] [address] PCP - General Family Medicine 04/17/22 04/19/22 Jaqueline Stark, ALIA [address] [place] [address] PCP - General Internal Medicine 04/20/22 05/18/24 Mary Spencer DO [address] [place] [address] [place] [address] PCP - General Family Medicine 05/19/24 Sultan Roly Elizondo MD [address] [facility] [address] [place] [address] Consulting Physician Cardiovascular Disease 10/16/22 Carmen Singletary MD [address] [place] [address] Referring Physician Dermatology 10/16/22 documented as of this encounter
--- OUTSIDE RECORDS SUMMARY | 2025-03-02 15:38 | XMS_ITS | Encounter Summary ---
Author Organization [facility] Facility Care Team Providers Care Chief Cardiopulmonary Technologist Name Role Phone Calin Christina MD Primary Care Provi hallie Jaqueline Stark SUPERVISOR WHEEL SHOP Primary Care Provider Calin Christina MD Primary Care Provi hallie Jaqueline Stark SUPERVISOR WHEEL SHOP Primary Care Provider Sultan Roly Elizondo MD Unavailable [phone] Carmen Singletary MD Unavailable [phone] Mary Spencer DO Primary Care Provider + Encounter Details Date Type Department Care Team (Latest Contact Info) Description 11/12/2017 Orders Only [facility] CLINCONV ProviderJosefina MD [address] [place] [address] Social History Tobacco Use Types Packs/Day Years Used Date Smoking Tobacco: Never Assessed Comments Unknown Sex and Gender Information Value Date Recorded Sex Assigned at Not on file 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 NURSERY WORKER Gender Identity Not on file Sexual [...] on filedocumented in this encounter Care Teams Chief Cardiopulmonary Technologist Relationship Specialty Start Date End Date Calin Christina MD [address] [place] [address] PCP - General 09/18/18 11/13/21 Jaqueline tSark NP [address] [place] [address] PCP - General Internal Medicine 11/14/21 04/16/22 Calin Christina MD [address] [place] [address] PCP - General Family Medicine 04/17/22 04/19/22 Jaqueline Stark, ALIA [address] [place] [address] PCP - General Internal Medicine 04/20/22 05/18/24 Mary Specner DO [address] [place] [address] [place] [address] PCP - General Family Medicine 05/19/24 Sultan Roly Elizondo MD [address] [facility] [address] [place] [address] Consulting Physician Cardiovascular Disease 10/16/22 Carmen Singletary MD [address] [place] [address] Referring Physician Dermatology 10/16/22 documented as of this encounter
--- OUTSIDE RECORDS SUMMARY | 2025-03-02 15:38 | XMS_ITS | Encounter Summary ---
Author Organization [facility] Facility Care Team Providers Care Cleaner And Presser Name Role Phone Calin Christina MD Primary Care Provi hallie Jaqueline Stark MANAGER MARKETING COMMUNICATION Primary Care Provider Calin Christina MD Primary Care Provi hallie Jaqueline Stark MANAGER MARKETING COMMUNICATION Primary Care Provider Sultan Roly Elizondo MD Unavailable [phone] Carmen Singletary MD Unavailable [phone] Mary Spencer DO Primary Care Provider + Encounter Details Date Type Department Care Team (Latest Contact Info) Description 11/09/2017 Orders Only [facility] CLINCONV ProviderJosefina MD [address] [place] [address] Social History Tobacco Use Types Packs/Day Years Used Date Smoking Tobacco: Never Assessed Comments Unknown Sex and Gender Information Value Date Recorded Sex Assigned at Not on file 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 Gender Identity Not on file Sexual [...] on filedocumented in this encounter Care Teams Cleaner And Presser Relationship Specialty Start Date End Date Calin Christina MD [address] [place] [address] PCP - General 09/18/18 11/13/21 Jaqueline Stark NP [address] [place] [address] PCP - General Internal Medicine 11/14/21 04/16/22 Calin Christina MD [address] [place] [address] PCP - General Family Medicine 04/17/22 04/19/22 Jaqueline Stark, ALIA [address] [place] [address] PCP - General Internal Medicine 04/20/22 05/18/24 Mary Spencer DO [address] [place] [address] [place] [address] PCP - General Family Medicine 05/19/24 Sultan Roly Elizondo MD [address] [facility] [place] [address] Consulting Physician Cardiovascular Disease 10/16/22 Carmen Singletary MD [address] [place] [address] Referring Physician Dermatology 10/16/22 documented as of this encounter
--- OUTSIDE RECORDS SUMMARY | 2025-03-02 15:38 | XMS_ITS | Encounter Summary ---
Author Organization [facility] Facility Care Team Providers Care Water Server Name Role Phone Calin Christina MD Primary Care Provi hallie Jaqueline Stark HOTEL OR MOTEL ROOM SERVICE SUPERVISOR Primary Care Provider Calin Christina MD Primary Care Provi hallie Jaqueline Stark HOTEL OR MOTEL ROOM SERVICE SUPERVISOR Primary Care Provider Sultan Roly Elizondo MD Unavailable [phone] Carmen Singletary MD Unavailable [phone] Mary Spencer DO Primary Care Provider + Encounter Details Date Type Department Care Team (Latest Contact Info) Description 11/25/2017 Orders Only [facility] CLINCONV ProviderJosefina MD [address] [place] [address] Social History Tobacco Use Types Packs/Day Years Used Date Smoking Tobacco: Never Assessed Comments Unknown Sex and Gender Information Value Date Recorded Sex Assigned at Not on file 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 Gender Identity Not on file Sexual Orientation [...] filedocumented in this encounter Care Teams Water Server Relationship Specialty Start Date End Date Calin Christina MD [address] [place] [address] PCP - General 09/18/18 11/13/21 Jaqueline Stark NP [address] [place] [address] PCP - General Internal Medicine 11/14/21 04/16/22 Calin Christina MD [address] [place] [address] PCP - General Family Medicine 04/17/22 04/19/22 Jaqueline Stark, ALIA [address] [place] [address] PCP - General Internal Medicine 04/20/22 05/18/24 Mary Spencer DO [address] [place] [address] [place] [address] PCP - General Family Medicine 05/19/24 Sultan Roly Elizondo MD [address] [facility] [address] [place] [address] Consulting Physician Cardiovascular Disease 10/16/22 Carmen Singletary MD [address] [place] [address] Referring Physician Dermatology 10/16/22 documented as of this encounter
--- OUTSIDE RECORDS SUMMARY | 2025-03-02 15:38 | XMS_ITS | Encounter Summary ---
Author Organization [facility] Care Team Providers Care Corporate Fitness Program Coordinator Name Role Phone Calin Christina MD Primary Care Provi hallie Jaqueline Stark DENTAL ASSISTANT TEACHER Primary Care Provider Calin Christina MD Primary Care Provi hallie Jaqueline Stark DENTAL ASSISTANT TEACHER Primary Care Provider Sultan Roly Elizondo MD Unavailable [phone] Carmen Singletary MD Unavailable [phone] Mary Spencer DO Primary Care Provider + Encounter Details Date Type Department Care Team (Latest Contact Info) Description 11/24/2017 Orders Only [facility] CLINCONV ProviderJosefina MD [address] [place] [address] Social History Tobacco Use Types Packs/Day Years Used Date Smoking Tobacco: Never Assessed Comments Unknown Sex and Gender Information Value Date Recorded Sex Assigned at Not on file 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 COMMUNICATIONS ELECTRICIAN SUPERVISOR Gender Identity Not on file Sexual [...] on filedocumented in this encounter Care Teams Corporate Fitness Program Coordinator Relationship Specialty Start Date End Date Calin Christina MD [address] [place] [address] PCP - General 09/18/18 11/13/21 Jaqueline Stark NP [address] [place] [address] PCP - General Internal Medicine 11/14/21 04/16/22 Calin Christina MD [address] [place] [address] PCP - General Family Medicine 04/17/22 04/19/22 Jaqueline Stark, ALIA [address] [place] [address] PCP - General Internal Medicine 04/20/22 05/18/24 Mary Spencer DO [address] [place] [address] [place] [address] PCP - General Family Medicine 05/19/24 Sultan Roly Elizondo MD [address] [facility] [address] [place] [address] Consulting Physician Cardiovascular Disease 10/16/22 Carmen Singletary MD [address] [place] [address] Referring Physician Dermatology 10/16/22 documented as of this encounter
--- OUTSIDE RECORDS SUMMARY | 2025-03-02 15:38 | XMS_ITS | Encounter Summary ---
Author Organization [facility] Care Team Providers Care Special Inspector Name Role Phone Calin Christina MD Primary Care Provi hallie Jaqueline Stark VP DIRECTOR OF FINANCE Primary Care Provider Calin Christina MD Primary Care Provi hallie Jaqueline Stark VP DIRECTOR OF FINANCE Primary Care Provider Sultan Roly Elizondo MD Unavailable [phone] Carmen Singletary MD Unavailable [phone] Mary Spencer DO Primary Care Provider + Encounter Details Date Type Department Care Team (Latest Contact Info) Description 11/10/2017 Orders Only [facility] CLINCONV ProviderJosefina MD [address] [place] [address] Social History Tobacco Use Types Packs/Day Years Used Date Smoking Tobacco: Never Assessed Comments Unknown Sex and Gender Information Value Date Recorded Sex Assigned at Not on file 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 CONTENT 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 Gender Identity Not on file Sexual [...] on filedocumented in this encounter Care Teams Special Inspector Relationship Specialty Start Date End Date Calin Christina MD [address] [place] [address] PCP - General 09/18/18 11/13/21 Jaqueline Stark NP [address] [place] [address] PCP - General Internal Medicine 11/14/21 04/16/22 Calin Christina MD [address] [place] [address] PCP - General Family Medicine 04/17/22 04/19/22 Jaqueline Stark NP [address] [place] [address] PCP - General Internal Medicine 04/20/22 05/18/24 Mary Spencer DO [address] [place] [address] [place] [address] PCP - General Family Medicine 05/19/24 Sultan Roly Elizondo MD [address] [facility] [address] [address] Consulting Physician Cardiovascular Disease 10/16/22 Carmen Singletary MD [address] [place] [address] Referring Physician Dermatology 10/16/22 documented as of this encounter
--- OUTSIDE RECORDS SUMMARY | 2025-03-02 15:38 | XMS_ITS | Encounter Summary ---
Author Organization [facility] Care Team Providers Care Grinder Operator Name Role Phone Calin Christina MD Primary Care Provi hallie Jaqueline Stark HOSE BUILDER Primary Care Provider Calin Christina MD Primary Care Provi hallie Jaquleine Stark HOSE BUILDER Primary Care Provider Sultan Roly Elizondo MD Unavailable [phone] Carmen Singletary MD Unavailable [phone] Mary Spencer DO Primary Care Provider + Encounter Details Date Type Department Care Team (Latest Contact Info) Description 11/21/2017 Orders Only [facility] CLINCONV ProviderJosefina MD [address] [place] [address] Social History Tobacco Use Types Packs/Day Years Used Date Smoking Tobacco: Never Assessed Comments Unknown Sex and Gender Information Value Date Recorded Sex Assigned at Not on file 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 HOSPITAL TRAY SERVICE WORKER Gender Identity Not on file Sexual [...] on filedocumented in this encounter Care Teams Grinder Operator Relationship Specialty Start Date End Date Calin Christina MD [address] [place] [address] PCP - General 09/18/18 11/13/21 Jaqueline Stark NP [address] [place] [address] PCP - General Internal Medicine 11/14/21 04/16/22 Calin Christina MD [address] [place] [address] PCP - General Family Medicine 04/17/22 04/19/22 Jaqueline Stark, ALIA [address] [place] [address] PCP - General Internal Medicine 04/20/22 05/18/24 Mary Spencer DO [address] [place] [address] [place] [address] PCP - General Family Medicine 05/19/24 Sultan Roly Elizondo MD [address] [facility] [address] [place] [address] Consulting Physician Cardiovascular Disease 10/16/22 Carmen Singletary MD [address] [place] [address] Referring Physician Dermatology 10/16/22 documented as of this encounter
--- OUTSIDE RECORDS SUMMARY | 2025-03-02 15:38 | XMS_ITS | Encounter Summary ---
Author Organization [facility] Care Team Providers Care Director Of Operations For Therapy Name Role Phone Calin Christina MD Primary Care Provi hallie Jaqueline Stark COMMUNITY DEVELOPMENT PLANNER Primary Care Provider Calin Christina MD Primary Care Provi hallie Jaqueline Stark COMMUNITY DEVELOPMENT PLANNER Primary Care Provider Sultan Roly Elizondo MD Unavailable [phone] Carmen Singletary MD Unavailable [phone] Mary Spencer DO Primary Care Provider + Encounter Details Date Type Department Care Team (Latest Contact Info) Description 11/01/2017 Orders Only [facility] CLINCONV ProviderJosefina MD [address] [place] [address] Social History Tobacco Use Types Packs/Day Years Used Date Smoking Tobacco: Never Assessed Comments Unknown Sex and Gender Information Value Date Recorded Sex Assigned at Not on file 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 Gender Identity Not on file Sexual [...] in this encounter Care Teams Director Of Operations For Therapy Relationship Specialty Start Date End Date Calin Christina MD [address] [place] [address] PCP - General 09/18/18 11/13/21 Jaqueline Stark NP [address] [place] [address] PCP - General Internal Medicine 11/14/21 04/16/22 Calin Christina MD [address] [place] [address] PCP - General Family Medicine 04/17/22 04/19/22 Jaqueline Stark, ALIA [address] [place] [address] PCP - General Internal Medicine 04/20/22 05/18/24 Mary Spencer DO [address] [place] [address] [place] [address] PCP - General Family Medicine 05/19/24 Sultan Roly Elizondo MD [address] [facility] [address] [place] [address] Consulting Physician Cardiovascular Disease 10/16/22 Carmen Singletary MD [address] [place] [address] Referring Physician Dermatology 10/16/22 documented as of this encounter
--- OUTSIDE RECORDS SUMMARY | 2025-03-02 15:38 | XMS_ITS | Encounter Summary ---
Author Organization [facility] Care Team Providers Care Medical Management Trainer Name Role Phone Calin Christina MD Primary Care Provi hallie Jaqueline Stark PERCH MENDER Primary Care Provider Calin Christina MD Primary Care Provi hallie Jaqueline Stark PERCH MENDER Primary Care Provider Sultan Roly Elizondo MD Unavailable [phone] Carmen Singletary MD Unavailable [phone] Mary Spencer DO Primary Care Provider + Encounter Details Date Type Department Care Team (Latest Contact Info) Description 11/27/2017 Orders Only [facility] CLINCONV ProviderJosefina MD [address] [place] [address] Social History Tobacco Use Types Packs/Day Years Used Date Smoking Tobacco: Never Assessed Comments Unknown Sex and Gender Information Value Date Recorded Sex Assigned at Not on file 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 MAN Gender Identity Not on file Sexual Orientation [...] on filedocumented in this encounter Care Teams Medical Management Trainer Relationship Specialty Start Date End Date Calin Christina MD [address] [place] [address] PCP - General 09/18/18 11/13/21 Jaqueline Stark NP [address] [place] [address] PCP - General Internal Medicine 11/14/21 04/16/22 Calin Christina MD [address] [place] [address] PCP - General Family Medicine 04/17/22 04/19/22 Jaqueline Stark NP [address] [place] [address] PCP - General Internal Medicine 04/20/22 05/18/24 Mary Spencer DO [address] [place] [address] [place] [address] PCP - General Family Medicine 05/19/24 Sultan Roly Elizondo MD [address] [facility] [address] [address] Consulting Physician Cardiovascular Disease 10/16/22 Carmen Singletary MD [address] [place] [address] Referring Physician Dermatology 10/16/22 documented as of this encounter
--- OUTSIDE RECORDS SUMMARY | 2025-03-02 15:38 | XMS_ITS | Encounter Summary ---
Author Organization [facility] Care Team Providers Care Senior Net Architect Name Role Phone Calin Christina MD Primary Care Provi hallie Jaqueline Stark HORSE TRADER Primary Care Provider Calin Christina MD Primary Care Provi hallie Jaqueline Stark HORSE TRADER Primary Care Provider Sultan Roly Elizondo MD Unavailable [phone] Carmen Singletary MD Unavailable [phone] Mary Spencer DO Primary Care Provider + Encounter Details Date Type Department Care Team (Latest Contact Info) Description 11/23/2017 Orders Only [facility] CLINCONV ProviderJosefina MD [address] [place] [address] Social History Tobacco Use Types Packs/Day Years Used Date Smoking Tobacco: Never Assessed Comments Unknown Sex and Gender Information Value Date Recorded Sex Assigned at Not on file 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 Gender Identity Not on file Sexual [...] on filedocumented in this encounter Care Teams Senior Net Architect Relationship Specialty Start Date End Date Calin Christina MD [address] [place] [address] PCP - General 09/18/18 11/13/21 Jaqueline Stark NP [address] [place] [address] PCP - General Internal Medicine 11/14/21 04/16/22 Calin Christina MD [address] [place] [address] PCP - General Family Medicine 04/17/22 04/19/22 Jaqueline Stark, ALIA [address] [place] [address] PCP - General Internal Medicine 04/20/22 05/18/24 Mary Spencer DO [address] [place] [address] [place] [address] PCP - General Family Medicine 05/19/24 Sultan Roly Elizondo MD [address] [facility] [address] [place] [address] Consulting Physician Cardiovascular Disease 10/16/22 Carmen Singletary MD [address] [place] [address] Referring Physician Dermatology 10/16/22 documented as of this encounter
--- OUTSIDE RECORDS SUMMARY | 2025-03-02 15:38 | XMS_ITS | Encounter Summary ---
Author Organization [facility] Care Team Providers Care Division Controller Name Role Phone Calin Christina MD Primary Care Provi hallie Jaqueline Stark ICT ACCOUNT MANAGER Primary Care Provider Calin Christina MD Primary Care Provi hallie Jaqueline Stark ICT ACCOUNT MANAGER Primary Care Provider Sultan Roly Elizondo MD Unavailable [phone] Carmen Singletary MD Unavailable [phone] Mary Spencer DO Primary Care Provider + Encounter Details Date Type Department Care Team (Latest Contact Info) Description 11/22/2017 Orders Only [facility] CLINCONV ProviderJosefina MD [address] [place] [address] Social History Tobacco Use Types Packs/Day Years Used Date Smoking Tobacco: Never Assessed Comments Unknown Sex and Gender Information Value Date Recorded Sex Assigned at Not on file 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 Gender Identity Not on file Sexual Orientation [...] on filedocumented in this encounter Care Teams Division Controller Relationship Specialty Start Date End Date Calin Christina MD [address] [place] [address] PCP - General 09/18/18 11/13/21 Jaqueline Stark NP [address] [place] [address] PCP - General Internal Medicine 11/14/21 04/16/22 Calin Christina MD [address] [place] [address] PCP - General Family Medicine 04/17/22 04/19/22 Jaqueline Stark, ALIA [address] [place] [address] PCP - General Internal Medicine 04/20/22 05/18/24 Mary Spencer DO [address] [place] [address] [place] [address] PCP - General Family Medicine 05/19/24 Sultan Roly Elizondo MD [address] [facility] [place] [address] Consulting Physician Cardiovascular Disease 10/16/22 Carmen Singletary MD [address] [place] [address] Referring Physician Dermatology 10/16/22 documented as of this encounter
--- OUTSIDE RECORDS SUMMARY | 2025-03-02 15:38 | XMS_ITS | Clinical Summary ---
Author Organization [facility] [address] Address [address] [place] [address] Care Team Providers Care Manager Internet Retails Sales Name Role Phone Sultan Roly Elizondo MD Unavailable [phone] Carmen Singletary MD Unavailable [phone] Mary Spencer DO Primary Care Provider + [...] Active butalbital-acetam inophen-caffeine- codeine (FIORICET WITH CODEINE) 23-839-75-30 mg per capsule Take 1 capsule by [...] visit. Assessment & Plan (07/08/2020 3:22 PM PREBOARDER): Continue to have heart fluttering. The Inderal [...] cardiomyopathy. Assessment & Plan (07/07/2020 7:04 PM PREBOARDER): Stress echo 11/15/2017 was negative for ischemia. [...] LA. Assessment & Plan (07/07/2020 7:06 PM PREBOARDER): Variant hypertrophic cardiomyopathy. Asymmetrical septal hypertrophy with [...] LA. Assessment & Plan (07/07/2020 7:07 PM PREBOARDER): Recurrent episodes of PSVT on the monitor [...] Encounters Date Type Department Care Team Description 02/03/2025 Results Follow-Up [facility] [address] [place] [address] [address] Sultan Roly Elizondo MD Lipid panel 02/03/2025 Orders Only [facility] [address] [place] [phone] Sultan Roly Elizondo MD 01/25/2025 Orders Only [facility] [address] [place] [phone] Sultan Roly Elizondo MD 01/25/2025 Orders Only [facility] [address] [place] [phone] Sultan Roly Elizondo MD 01/25/2025 Orders Only [facility] [address] [place] [address] [place] [phone] ProviderJosefina MD 12/28/2024 10:15 AM CDT Office Visit [facility] [address] [place] [phone] Sultan Roly Elizondo MD Mixed hyperlipidemia (Primary [...] PPV23 07/26/2020 Sars-cov-2 Covid-19 Mrna, Bi valent, Original/diogenes Ba.1 02/16/2023 ZOSTER Recombinant 10/07/2021 Surgical History [...] Date Smoking Tobacco: Every Day Cigarettes 1 58.8 Started: 1966 Smokeless Tobacco: Never Tobacco Cessation:Ready [...] on file 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 PREBOARDER Gender Identity Not on file Sexual Orientation [...] Procedure Name Priority Date/Time Associated Diagnosis Comments LIPID PANEL Routine 02/03/2025 4:42 PM CDT LIPID PANEL Routine 02/03/2025 4:39 PM CDT QUANTIFERON-TB GOLD PLUS Routine 01/21/2025 2:27 PM CDT COMPREHENSIVE METABOLIC PANEL Routine 01/21/2025 1:33 PM CDT HEMOGLOBIN A1C Routine 01/21/2025 1:[address] CHEST WO CONTRAST F/U LUNG SCREEN PROTOCOL Schedule Routine, Read Routine (OP Routine) 07/13/2024 11:30 AM CDT Pulmonary nodule Abnormal screening CT of chest SCREENING MAMMOGRAM BILATERAL W GENARO Schedule Routine, Read Routine (OP Routine) 03/24/2024 9:24 AM PREBOARDER Encounter for screening mammogram for malignant neoplasm of breast DEXA AXIAL SKELETON BONE DENSITY 1 OR MORE SITES Schedule Routine, Read Routine (OP Routine) 01/29/2023 12:54 AM CDT Age-related osteoporosis without current pathological fracture COLONOSCOPY Routine 11/17/2021 HEPATITIS PANEL, ACUTE Routine 09/05/2021 10:55 AM CDT from Last 3 Months or Most Recently Relevant to Health Maintenance Results * Lipid panel (02/03/2025 4:42 PM CDT) SCRIBED Cholesterol, Total 130 30 - 199 mg/dL EXTERNAL LAB SCRIBED Triglycerides 79 <=149 mg/dL EXTERNAL LAB SCRIBED HDL 63 >=40 mg/dL EXTERNAL LAB SCRIBED LDL 37 <=129 mg/dL EXTERNAL LAB Scribed Non-HDL Cholesterol 0 NONE mg/dL EXTERNAL LAB SCRIBED Total Cholesterol/HDL Ratio 0 NONE EXTERNAL LAB Blood Sultan Roly Elizondo MD LAB BLOOD ORDERABLES Edited R esult - Final Performing Organization Address City/[facility]/ZIP Co de Phone Number EXTERNAL LAB * Lipid panel (02/03/2025 4:39 PM CDT) Blood Sultan Roly Elizondo MD LAB BLOOD ORDERABLES Final Re sult * QuantiFERON-TB Gold Plus (01/21/2025 2:27 PM CDT) [facility] LAB BLOOD ORDERABLES Edit ed Result - Final Performing Organization Address City/[facility] Co de Phone Number EXTERNAL LAB * (ABNORMAL) Comprehensive metabolic panel [...] >60 mL/min/1.7 3 m2 EXTERNAL LAB Blood [facility] Provider MD LAB BLOOD ORDERABLES Edit ed Result - Final EXTERNAL LAB * Hemoglobin A1c (01/21/2025 1:32 PM CDT) SCRIBED Hemoglobin A1c 5.0 4.0 - 5.6 % EXTERNAL LAB Blood Historical Provider MD LAB BLOOD ORDERABLES Edit ed Result - Final Performing Organization Address City/[facility] Co de Phone Number EXTERNAL LAB * CT Chest WO Contrast [...] Electronically signed by Cristobal Armijo M.D. AG: DEMARCSU Report ID: [id number] Reading Location: [place] [address] Procedure Note Cristobal Armijo MD - 07/16/2024 [...] Cristobal Armijo M.D. AG: DEMARCUS Report ID: [id number] Reading Location: [place] [address] Jaqueline Stark NP IMG CT PROCEDURES Final Result * Screening Mammogram Bilateral W Genaro (03/24/2024 9:24 AM PREBOARDER) Anatomical Region Laterality Modality Breast Bilateral Mammography Impressions 03/24/2024 10:49 AM PREBOARDER BI-RADS ATLAS category (overall): 1 - Negative There is no mammographic evidence of malignancy. A 1 year screening mammogram is recommended. The patient has been or will be contacted. We recommend annual screening mammography for women at average risk of breast cancer beginning at age 40, based on guidelines of the [employer] (ACR Practice Parameter for the Performance of Screening and Diagnostic Mammography) and [employer]. For women with and elevated risk of breast cancer, please refer to the ACR Practice Parameter for specific screening recommendations. The patient will be entered into a reminder system with a target due date of 1 year for her next screening exam. Narrative 03/24/2024 10:49 AM PREBOARDER Screening Mammogram Bilateral W Genaro: 03/24/24 The [...] given history of: screening for osteoporosis Postmenopausal Career Services Representative/Model: wmbly A (S/N [id number]) CLINICAL INFORMATION: Current height: 66.5 inches Maximum [...] Pavan Eller M.D. MF: VIVEK Report ID: [id number] Reading Location: [id number] Procedure Note Pavan Eller MD - 01/29/2023 EXAM DESCRIPTION: DEXA AXIAL SKELETON BONE DENSITY 1 OR MORE SITES REASON FOR STUDY: 72 y/o year old F with given history of: screeningfor osteoporosis Postmenopausal Career Services Representative/Model: Hologic Horizon A (S/N [id number]) CLINICAL INFORMATION: Current height: 66.5 inches Maximum [...] Pavan Eller M.D. MF: VIVEK Report ID: [id number] Reading Location: [id number] Jaqueline Stark AGRICULTURAL ENGINEERING TECHNOLOGIST IMG DXA PROCEDURES Marilia l Result * Colonoscopy (11/17/2021) Anatomical Region Laterality Modality Other 11/17/2021 Impressions 11/17/2021 Internal hemorrhoids Diverticulosis Colon polyps removed Repeat in 3 years Historical Provider MD ENDOSCOPY PROCEDURES Marilia l Result * Hepatitis panel, acute (09/05/2021 10:55 AM CDT) Hep A IgM Nonreactive Nonreactive [facility] Comment: Interpretive Data: If Hep A IgM Ab is reported as Equivocal, a new sample should be drawn in two weeks for testing. Current interpretive data was last revised on 19. Hep B core IgM Nonreactive Nonreactive [facility] Comment: Interpretive Data If HepB Core IgM Ab is reported as Equivocal, a new sample should be drawn in two weeks for testing. Current interpretive data was last revised on 19. Hep C Ab Nonreactive Nonreactive [facility] Comment: Interpretive Data Nonreactive: [...] last revised on 2019. HepBsAg Nonreactive Nonreactive [facility] Blood 09/05/2021 10:5 5 AM CDT 09/05/2021 12:33 PM CDT Carmen Singletary MD LAB MICROBIOLOGY - GENERA L ORDERABLES Final Result [facility] [address] [facility] Department [place] [address] from Last 3 Months or Most Recently Relevant to Health Maintenance Insurance [facility] Care Teams Manager Internet Retails Sales Relationship Specialty Start Date End Date Mary Spencer DO [facility] [facility] [place] [address] PCP - General Family Medicine 05/19/24 Sultan Roly Elizondo MD [address] [facility] [place] [address] Consulting Physician Cardiovascular Disease 10/16/22 Carmen Singletary MD [facility] [place] [address] Referring Physician Dermatology 10/16/22
--- OUTSIDE RECORDS SUMMARY | 2025-03-02 15:39 | XMS_ITS | Encounter Summary ---
Author Organization [facility] Healthcare Address [address] [place] [address] Care Team Providers Care Reinforcing Steel Erector Name Role Phone Sultan Roly Elizondo MD Unavailable [phone] Carmen Singletary MD Unavailable [phone] Mary Spencer DO Primary Care Provider + Encounter Details Date Type Department Care Team (Late st Contact Info) Description 02/03/2025 Results Follow-Up [facility] Medical Group Cardiology [address] [facility] [address] [address] [place] [address] [place] [address] Lipid panel Social History Tobacco Use Types Packs/Day Years Used Date Smoking Tobacco: Every Day Cigarettes 1 58.8 Started: 1966 Smokeless Tobacco: Never Comments:Has smoked [...] on file 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 Gender Identity Not on file Sexual Orientation Not on file documented as of this encounter Miscellaneous Notes * Result Encounter Note - Alfredo Mccullough MA - 02/04/2025 10:48 AM CDT Patient notified documented in this encounter Plan of Treatment Not on file documented as of this encounter Visit Diagnoses Not on filedocumented in this encounter Care Teams Reinforcing Steel Erector Relationship Specialty Start Date End Date Mary Spencer DO [address] [place] [address] PCP - General Family Medicine 05/19/24 Sultan Roly Elizondo MD [address] [facility] [place] [address] Consulting Physician Cardiovascular Disease 10/16/22 Carmen Singletary MD [address] [place] [address] Referring Physician Dermatology 10/16/22 documented as of this encounter
--- OUTSIDE RECORDS SUMMARY | 2025-03-02 15:39 | XMS_ITS | Encounter Summary ---
Author Organization [facility] Facility Care Team Providers Care Director University Name Role Phone Calin Christina MD Primary Care Provi hallie Jaqueline Stark SERVICE CENTER MANAGER Primary Care Provider Calin Christina MD Primary Care Provi hallie Jaqueline Stark SERVICE CENTER MANAGER Primary Care Provider Sultan Roly Elizondo MD Unavailable [phone] Carmen Singletary MD Unavailable [phone] Mary Spencer DO Primary Care Provider + Encounter Details Date Type Department Care Team (Latest Contact Info) Description 11/02/2017 Orders Only [facility] CLINCONV ProviderJosefina MD [address] [place] [address] Social History Tobacco Use Types Packs/Day Years Used Date Smoking Tobacco: Never Assessed Comments Unknown Sex and Gender Information Value Date Recorded Sex Assigned at Not on file 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 HOSTESS HOST Gender Identity Not on file Sexual Orientation [...] filedocumented in this encounter Care Teams Director University Relationship Specialty Start Date End Date Calin Christina MD [address] [place] [address] PCP - General 09/18/18 11/13/21 Jaqueline Stark NP [address] [place] [address] PCP - General Internal Medicine 11/14/21 04/16/22 Calin Christina MD [address] [place] [address] PCP - General Family Medicine 04/17/22 04/19/22 Jaqueline Stark, ALIA [address] [place] [address] PCP - General Internal Medicine 04/20/22 05/18/24 Mary Spencer DO [address] [place] [address] [place] [address] PCP - General Family Medicine 05/19/24 Sultan Roly Elizondo MD [address] [facility] [address] [place] [address] Consulting Physician Cardiovascular Disease 10/16/22 Carmen Singletary MD [address] [place] [address] Referring Physician Dermatology 10/16/22 documented as of this encounter
--- OUTSIDE RECORDS SUMMARY | 2025-03-02 15:39 | XMS_ITS | Clinical Summary ---
Author Organization [facility] Address [address] [place] [address] Care Team Providers Care Gasoline Truck Operator Name Role Phone Calin Christina MD [...] Vaccine: 50+ Years (2 of 2 - PCV20 or PCV21) 03/08/2019 03/08/2018 Mammogram Screening 09/30/2021 10/01/2019, 10/25/2017 COVID-19 Vaccine ( - 2024-2 6 season) 2025 Influenza Adult (#1) 2025 03/08/2018 RSV Immunization or 60+ Years (1 - 1-dose 75+ series) 2025 Hepatitis C Completed 10/20/2015 Dexa Scan (General) Completed 10/25/2017 Hepatitis A Vaccines Aged Out No long er eligible based on patient's age to complete this topic Meningococcal B Vaccine Aged Out No l [...] Osteoporosis. Bilateral total femur bone density: Osteoporosis Calin Christina MD DEXA Final Result * HEPATITIS C ANTIBODY (10/20/2015 4:07 PM CDT) HEPATITIS C AB NON-REACTI VE NON-REACTI VE 10/21/2015 5:51 PM CDT [facility] Comment: TEST[place] [address] SERUM OR PLASMA SPECIMEN / Unknown 10/20/2015 4:07 PM CDT 10/20/2015 4:56 PM CDT us Generic Conversion Md [facility] Final R esult [facility] [address] [place] [address], [place] [phone] from Last 3 Months or Most Recently Relevant to Health Maintenance Insurance [employer] Care Teams Gasoline Truck Operator Relationship Specialty Start Date End Date Calin Christina MD [facility] - General 09/24/16
--- OUTSIDE RECORDS SUMMARY | 2025-03-02 15:39 | XMS_ITS | Encounter Summary ---
Author Organization [facility] Medical Group Address [address] [facility] [address] [place] [address] Care Team Providers Care Color Dipper Name Role Phone Calin Christina MD Primary Care Provi hallie Jaqueline Stark LOAN TELLER Primary Care Provider Calin Christina MD Primary Care Provi hallie Jaqueline Stark LOAN TELLER Primary Care Provider Sultan Roly Elizondo MD Unavailable [phone] Carmen Singletary MD Unavailable [phone] Mayr Spencer DO Primary Care Provider + Encounter Details Date Type Department Care Team (Late st Contact Info) Description 09/27/2015 Orders Only [facility] Information Management [address] [place] [address] Scanning, Provider Social History Tobacco Use Types Packs/Day Years Used Date Smoking Tobacco: Never Assessed Comments Unknown Sex and Gender Information Value Date Recorded Sex Assigned at Not on file 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 Gender Identity Not on file Sexual Orientation [...] on filedocumented in this encounter Care Teams Color Dipper Relationship Specialty Start Date End Date Calin Christina MD [address] [place] [address] PCP - General 09/18/18 11/13/21 Jaqueline Stark, ALIA [address] [place] [address] PCP - General Internal Medicine 11/14/21 04/16/22 Calin Christina MD [address] [place] [address] PCP - General Family Medicine 04/17/22 04/19/22 Jaqueline Stark, LOAN TELLER [address] [place] [address] PCP - General Internal Medicine 04/20/22 05/18/24 Mary Spencer DO [address] [place] [address] [place] [address] PCP - General Family Medicine 05/19/24 Sultan Roly Elizondo MD [address] [facility] [place] [address] Consulting Physician Cardiovascular Disease 10/16/22 Carmen Singletary [place] [address] Referring Physician Dermatology 10/16/22 documented as of this encounter
--- OUTSIDE RECORDS SUMMARY | 2025-03-02 15:39 | XMS_ITS | Encounter Summary ---
Author Organization [facility] Facility Care Team Providers Care Guest Experience Specialist Name Role Phone Calin Christina MD Primary Care Provi hallie Jqaueline Stark REGIONAL COMMERCIAL SALES MANAGER Primary Care Provider Calin Christina MD Primary Care Provi hallie Jaqueline Stark REGIONAL COMMERCIAL SALES MANAGER Primary Care Provider Sultan Roly Elizondo MD Unavailable [phone] Carmen Singletary MD Unavailable [phone] Mary Spencer DO Primary Care Provider + Encounter Details Date Type Department Care Team (Latest Contact Info) Description 10/20/2015 Orders Only [facility] CLINCONV ProviderJosefina MD [address] [place] [place] [address] Social History Tobacco Use Types Packs/Day Years Used Date Smoking Tobacco: Never Assessed Comments Unknown Sex and Gender Information Value Date Recorded Sex Assigned at Not on file 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 TEAROOM HOSTESS Gender Identity Not on file Sexual Orientation [...] on filedocumented in this encounter Care Teams Guest Experience Specialist Relationship Specialty Start Date End Date Calin Christina MD [address] [place], [place] [address] PCP - General 09/18/18 11/13/21 Jaqueline Stark NP [address] [place], [place] [address] PCP - General Internal Medicine 11/14/21 04/16/22 Calin Christina MD [address] [place], [place] [address] PCP - General Family Medicine 04/17/22 04/19/22 Jaqueline Stark NP [facility] [place] [address] PCP - General Internal Medicine 04/20/22 05/18/24 Mary Spencer DO [address] [place] [address] [address] [place] [address] PCP - General Family Medicine 05/19/24 Sultan Roly Elizondo MD [address] [facility] [place] [address] Consulting Physician Cardiovascular Disease 10/16/22 Carmen Singletary MD [address] [place] [address] Referring Physician Dermatology 10/16/22 documented as of this encounter
--- OUTSIDE RECORDS SUMMARY | 2025-03-02 15:39 | XMS_ITS | Encounter Summary ---
Author Organization [facility] Facility Care Team Providers Care Aids Nurse Name Role Phone Calin Christina MD Primary Care Provi hallie Jaqueline Stark AUTO SUSPENSION AND STEERING MECHANIC Primary Care Provider Calin Christina MD Primary Care Provi hallie Jaqueline Stark AUTO SUSPENSION AND STEERING MECHANIC Primary Care Provider Sultan Roly Elizondo MD Unavailable [phone] Carmen Singletary MD Unavailable [phone] Mary Spencer DO Primary Care Provider + Encounter Details Date Type Department Care Team (Latest Contact Info) Description 09/27/2015 Orders Only [facility] CLINCONV ProviderJosefina MD [address] [place] [address] Social History Tobacco Use Types Packs/Day Years Used Date Smoking Tobacco: Never Assessed Comments Unknown Sex and Gender Information Value Date Recorded Sex Assigned at Not on file 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 Gender Identity Not on file Sexual Orientation [...] on filedocumented in this encounter Care Teams Aids Nurse Relationship Specialty Start Date End Date Calin Christina MD [address] [place] [address] PCP - General 09/18/18 11/13/21 Jaqueline Stark NP [address] [place] [address] PCP - General Internal Medicine 11/14/21 04/16/22 Calin Christina MD [address] [place] [address] PCP - General Family Medicine 04/17/22 04/19/22 Jaqueline Stark, ALIA [address] [place] [address] PCP - General Internal Medicine 04/20/22 05/18/24 Mary Spencer DO [address] [place] [address] [place] [address] PCP - General Family Medicine 05/19/24 [place] [address] [place] [address] [place] [address] Consulting Physician Cardiovascular Disease 10/16/22 Carmen Singletary MD [address] [place] [address] Referring Physician Dermatology 10/16/22 documented as of this encounter
--- OUTSIDE RECORDS SUMMARY | 2025-03-02 15:39 | XMS_ITS | Encounter Summary ---
Author Organization [facility] Facility Care Team Providers Care Toggle Press Operator Name Role Phone Calin Christina MD Primary Care Provi hallie Jaqueline Stark SADDLE AND HARNESS MAKER Primary Care Provider Calin Christina MD Primary Care Provi hallie Jaqueline Stark SADDLE AND HARNESS MAKER Primary Care Provider Sultan Roly Elizondo MD Unavailable [phone] Carmen Singletary MD Unavailable [phone] Mary Spencer DO Primary Care Provider + Encounter Details Date Type Department Care Team (Latest Contact Info) Description 10/30/2017 Orders Only [facility] CLINCONV ProviderJosefina MD [address] [place] [address] Social History Tobacco Use Types Packs/Day Years Used Date Smoking Tobacco: Never Assessed Comments Unknown Sex and Gender Information Value Date Recorded Sex Assigned at Not on file 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 Gender Identity Not on file Sexual Orientation [...] on filedocumented in this encounter Care Teams Toggle Press Operator Relationship Specialty Start Date End Date Calin Christina MD [address] [place] [address] PCP - General 09/18/18 11/13/21 Jaqueline Stark NP [address] [place] [address] PCP - General Internal Medicine 11/14/21 04/16/22 Calin Christina MD [address] [place] [address] PCP - General Family Medicine 04/17/22 04/19/22 Jaqueline Stark, ALIA [address] [place] [address] PCP - General Internal Medicine 04/20/22 05/18/24 Mary Spencer DO [address] [place] [address] [place] [address] PCP - General Family Medicine 05/19/24 Sultan Roly Elizondo MD [address] [facility] [place] [address] Consulting Physician Cardiovascular Disease 10/16/22 Carmen Singletary MD [address] [place] [address] Referring Physician Dermatology 10/16/22 documented as of this encounter
--- OUTSIDE RECORDS SUMMARY | 2025-03-02 15:39 | XMS_ITS | Encounter Summary ---
Author Organization [facility] Facility Care Team Providers Care Patrol Guard Name Role Phone Calin Christina MD Primary Care Provi hallie Jaqueline Stark MACHINE TECH Primary Care Provider Calin Christina MD Primary Care Provi hallie Jaqueline Stark MACHINE TECH Primary Care Provider Sultan Roly Elizondo MD Unavailable [phone] Carmen Singletary MD Unavailable [phone] Mary Spencer DO Primary Care Provider + Encounter Details Date Type Department Care Team (Latest Contact Info) Description 10/31/2017 Orders Only [facility] CLINCONV ProviderJosefina MD [address] [place] [address] Social History Tobacco Use Types Packs/Day Years Used Date Smoking Tobacco: Never Assessed Comments Unknown Sex and Gender Information Value Date Recorded Sex Assigned at Not on file 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 Gender Identity Not on file Sexual [...] on filedocumented in this encounter Care Teams Patrol Guard Relationship Specialty Start Date End Date Calin Christina MD [address] [place] [address] PCP - General 09/18/18 11/13/21 Jaqueline Stark NP [address] [place] [address] PCP - General Internal Medicine 11/14/21 04/16/22 Calin Christina MD [address] [place] [address] PCP - General Family Medicine 04/17/22 04/19/22 Jaqueline Stark, ALIA [address] [place] [address] PCP - General Internal Medicine 04/20/22 05/18/24 Mary Spencer DO [address] [place] [address] [place] [address] PCP - General Family Medicine 05/19/24 Sultan Roly Elizondo MD [address] [facility] [place] [address] Consulting Physician Cardiovascular Disease 10/16/22 Carmen Singletary MD [address] [place] [address] Referring Physician Dermatology 10/16/22 documented as of this encounter
== END 2025-03-02 13:33 | disposition home or self-care (01) ==
PROVIDERS: PCP Family Medicine; Visit Provider Family Medicine
DX: N20.0 Calculus of kidney (principal); N28.89 Other specified disorders of kidney and ureter; R93.429 Abnormal radiologic findings on diagnostic imaging of unspecified kidney
CPT/HCPCS: 74170; Q9967

== ENCOUNTER 2025-03-24 01:29 | Day surgery (SDC) | payer OTHER, SELFPAY ==
[2025-03-11 12:38] VITALS: BMI 22.1
[2025-03-24 13:23] VITALS: BP 128/82; PULSE 72; RESP 18; TEMP 36.6; O2SAT 99
[2025-03-24] MEDS: LACTATED RINGERS 1,000 ML 150 ML IV CONT (13:37)
[2025-03-24] MEDS: SIMETHICONE ORAL SUSPENSION 20 MG/0.3 ML 30 ML BOTTLE 1.8 ML PO (13:38)
--- NOTE | 2025-03-24 14:09 | WPDANESEPPF ---
Anes - Initial Pre Proc Eval Procedure: Operation Date: 03/24/25 14:15 Proposed Procedures p EGD & Screening Colonoscopy - Arnav Dan MD Date/Time: 03/24/25 14:09 Surgeon: Arnav Dan MD Pre Op Diagnosis: Dysphagia, screening for neoplasm Patient Data Age: 74 Gender: F Height: 1.7 m Weight: 65.2 kg Last Vital Signs Temp 36.6 C 03/24/25 13:23 Pulse 72 03/24/25 13:23 Resp 18 03/24/25 13:23 BP 128/82 03/24/25 13:23 Pulse Ox 99 03/24/25 13:23 O2 Del Method Room Air 03/24/25 13:23 Allergies Allergy/AdvReac Type Severity Reaction Status Date / Time erythromycin base Allergy Mild CAUSES Verified 03/24/25 13:22 DIARRHEA Home Medications ?Medication ?Instructions ?Recorded ?Confirmed ?Type clobetasol 0.05 % scalp solution 1 applic topical DAILY 10/31/21 03/11/25 History propranolol 120 mg capsule,24 1 cap PO BID 10/31/21 03/24/25 History hr,extended release betamethasone dipropionate 0.05 % 1 ea topical DAILY 06/03/24 03/11/25 History lotion cholecalciferol (vitamin D3) 50 50 mcg PO DAILY 06/03/24 03/11/25 History mcg (2,000 unit) capsule docusate sodium 100 mg capsule 100 mg PO DAILY 06/03/24 03/11/25 History (Stool Softener) magnesium 200 mg tablet 200 mg PO DAILY 06/03/24 03/11/25 History mecobalamin (vitamin B12) 1,000 1,000 mcg PO DAILY 06/03/24 03/11/25 History mcg chewable tablet risankizumab-rzaa subcut .q 12 weeks 06/03/24 03/04/25 History rosuvastatin 10 mg tablet 10 mg PO DAILY 06/03/24 03/11/25 History trazodone 50 mg tablet 50 mg PO QHS 06/03/24 03/11/25 History butalbital 50 mg-acetaminophen 325 1 cap PO BID PRN Headache #120 caps 10/22/24 03/11/25 Rx mg-caffeine 40 mg-codeine 30 mg cap rizatriptan 10 mg tablet 10 mg PO DAILY PRN Migraine 10/22/24 03/11/25 Rx Headache #9 tabs meloxicam 15 mg tablet 15 mg PO DAILY #90 tabs 03/04/25 03/11/25 Rx omeprazole 40 mg capsule,delayed 40 mg PO DAILY #90 caps 03/04/25 03/11/25 Rx release tramadol 50 mg tablet See Rx Instructions .Route 03/04/25 03/11/25 Rx .COMPLEX PRN Pain #28 tabs raloxifene 60 mg tablet 60 mg PO DAILY #90 tabs 03/15/25 Rx Patient hx anesthesia problems: none Family hx anesthesia problems: none Results Review: All pre-operative results and documents have been reviewed as part of the pre-operative evaluation. [facility] Past Medical History Medical History Psoriasis Thyroid disorder Heart disease Migraine COPD (chronic obstructive pulmonary disease) Arthritis History of skin cancer Irregular heart beat Hypertrophic cardiomyopathy Surgical History Surgical History Status post surgical removal of malignant neoplasm of skin Family History Family History Father Alcoholism Carcinoma of colon Sibling Alcoholism Cervical cancer Other Throat cancer Child Social History Social History Social History: Caffeine-3 cups daily Years smoked: 55 Smoking status: Current every day smoker Tobacco type: cigarettes Alcohol intake: never Substance use: never Substance use type: does not use Do You Feel Safe in your Home?: Yes Lack of Transportation: No Lack of Food: Never True Current Housing: I Have Housing Concerned About Future Housing: No Difficulty Paying Gas/Electric Bills: No Difficulty Paying for Meds: No Currently Unemployed: No Education: High School Diploma/GED Difficulty w/ Childcare or Family Care: YES Living arrangements: with family Additional living arrangements comments: PT IS [facility] Occupation/Education: retired Gender identity (if verbalized by the patient): Female Spiritual care concerns: No Agree to blood products: Yes Anes - Eval Final PreProcedure Day of Procedure 03/24/25 14:09 Patient weight: normal Heart: regular rate and rhythm Lungs: clear to auscultation Airway: Mallampati scale class 1 Neurological: alert and oriented Last oral intake: >/= 8 hours ASA classification: III Emergent: no Anesthetic plan: proceed Anesthesia type and monitoring: general GIVS and standard monitoring Results Review: All pre-operative results and documents have been reviewed as part of the pre-operative evaluation. Informed Consent: The patient's anesthetic plan and its attendant risks and benefits were discussed with the patient/family/POA. Questions were solicited and answers provided to the satisfaction of the patient/family/POA.
--- NOTE | 2025-03-24 14:11 | PM.IMHP ---
H&P: HPI History of Present Illness Date/Time: 03/24/25 14:11 Chief Complaint: History of colon polyps-dysphagia Narrative: patient is referred for EGD and colonoscopy. She started to have intermittent dysphagia to solid food and some pills a few months ago. No dysphagia to liquids. In addition, she had her last colonoscopy 3 years ago finding some adenomas. Review of Systems Review of Systems: All systems reviewed & are unremarkable except as noted in HPI and below PMFSH Past Medical History Medical History Psoriasis Thyroid disorder Heart disease Migraine COPD (chronic obstructive pulmonary disease) Arthritis History of skin cancer Irregular heart beat Hypertrophic cardiomyopathy Surgical History Surgical History Status post surgical removal of malignant neoplasm of skin Family History Family History Father Alcoholism Carcinoma of colon Sibling Alcoholism Cervical cancer Other Throat cancer Child Social History Social History Social History: Caffeine-3 cups daily Years smoked: 55 Smoking status: Current every day smoker Tobacco type: cigarettes Alcohol intake: never Substance use: never Substance use type: does not use Do You Feel Safe in your Home?: Yes Lack of Transportation: No Lack of Food: Never True Current Housing: I Have Housing Concerned About Future Housing: No Difficulty Paying Gas/Electric Bills: No Difficulty Paying for Meds: No Currently Unemployed: No Education: High School Diploma/GED Difficulty w/ Childcare or Family Care: YES Living arrangements: with family Additional living arrangements comments: PT IS [employer] FOR [facility] Occupation/Education: retired Gender identity (if verbalized by the patient): Female Spiritual care concerns: No Agree to blood products: Yes Meds Home Medications and Allergies Home Medications ?Medication ?Instructions ?Recorded ?Confirmed ?Type clobetasol 0.05 % scalp solution 1 applic topical DAILY 10/31/21 03/11/25 History propranolol 120 mg capsule,24 1 cap PO BID 10/31/21 03/24/25 History hr,extended release betamethasone dipropionate 0.05 % 1 ea topical DAILY 06/03/24 03/11/25 History lotion cholecalciferol (vitamin D3) 50 50 mcg PO DAILY 06/03/24 03/11/25 History mcg (2,000 unit) capsule docusate sodium 100 mg capsule 100 mg PO DAILY 06/03/24 03/11/25 History (Stool Softener) magnesium 200 mg tablet 200 mg PO DAILY 06/03/24 03/11/25 History mecobalamin (vitamin B12) 1,000 1,000 mcg PO DAILY 06/03/24 03/11/25 History mcg chewable tablet risankizumab-rzaa subcut .q 12 weeks 06/03/24 03/04/25 History rosuvastatin 10 mg tablet 10 mg PO DAILY 06/03/24 03/11/25 History trazodone 50 mg tablet 50 mg PO QHS 06/03/24 03/11/25 History butalbital 50 mg-acetaminophen 325 1 cap PO BID PRN Headache #120 caps 10/22/24 03/11/25 Rx mg-caffeine 40 mg-codeine 30 mg cap rizatriptan 10 mg tablet 10 mg PO DAILY PRN Migraine 10/22/24 03/11/25 Rx Headache #9 tabs meloxicam 15 mg tablet 15 mg PO DAILY #90 tabs 03/04/25 03/11/25 Rx omeprazole 40 mg capsule,delayed 40 mg PO DAILY #90 caps 03/04/25 03/11/25 Rx release tramadol 50 mg tablet See Rx Instructions .Route 03/04/25 03/11/25 Rx .COMPLEX PRN Pain #28 tabs raloxifene 60 mg tablet 60 mg PO DAILY #90 tabs 03/15/25 Rx Allergies Allergy/AdvReac Type Severity Reaction Status Date / Time erythromycin base Allergy Mild CAUSES Verified 03/24/25 13:22 DIARRHEA Vital Signs Vital Signs - 24 hr 03/24/25 13:23 Temperature 98 F Pulse Rate 72 Respiratory Rate 18 Blood Pressure 128/82 Pulse Oximetry 99 Oxygen Delivery Room Air Exam Const: General: cooperative and healthy appearing Resp: Effort & Inspection: normal respiratory effort and able to speak in complete sentences Auscultation: clear to auscultation bilaterally Cardio: Rate: regular rate Rhythm: regular rhythm GI: Inspection: normal to inspection GI Palp: No No hepatosplenomegaly present Auscultation: normal bowel sounds Rectal Exam: deferred Skin: General skin exam: normal color Psych: Appearance: grossly normal Mental Status: mental status grossly normal Assessment and Plan Assessment and plan (1) History of colon polyps: Code(s): Z86.010 - Personal history of colon polyps Status: Acute Assessment and Plan: The patient is deemed a good candidate for the procedure. Consent signed. Will proceed. (2) Dysphagia: Qualifiers: Dysphagia type: unspecified Qualified Code(s): R13.10 - Dysphagia, unspecified Code(s): R13.10 - Dysphagia, unspecified Status: Acute
--- NOTE | 2025-03-24 14:23 | S_PTH ---
PATIENT: Theresa Funes LOC: [facility] U#:[id number] AGE/SX: 74/F ROOM: RE03/24/[address]: Arnav Dan MD : 1950 BED: DIS: 03/24/2025 SPEC #: [id number] RECD: 03/25/25 09:24 STATUS: TERESA REThee #: [id number] PILLO: 03/24/25 14:[address]: Arnav Dan DEPT: [facility] Surgical RECD BY: Meredith Hawk ENTERED: 03/25/25 09:25 SP TYPE: Surgical OTHR DR: Mary Spencer, DO Tissues: A - Esophageal Biopsy B - Colon Polypectomy C - Colon Polypectomy D - Colon Polypectomy E - Colon Polypectomy F - Colon Polypectomy G - Rectal Polyp Procedures: Hematoxylin and Eosin Stain Gross and Microscopic Level 4
--- NOTE | 2025-03-24 14:28 | SUR.OPER ---
EGD END TIME 1424 COLONOSCOPY START TIME 1434
[2025-03-24 15:00] VITALS: BP 103/67; PULSE 67; RESP 28; O2SAT 99
[2025-03-24 15:10] VITALS: BP 121/71; PULSE 64; RESP 21; O2SAT 98
[2025-03-24 15:20] VITALS: BP 133/83; PULSE 73; RESP 20; O2SAT 97
== END 2025-03-24 15:30 | disposition home or self-care (01) ==
PROVIDERS: PCP Family Medicine; Referring Provider Family Medicine; Visit Provider Internal Medicine Gastroenterology
PROC: 0DJ08ZZ Inspection of Upper Intestinal Tract, Via Natural or Artificial Opening Endoscopic (ICD-10-PCS; CPT 45378; principal; 2025-03-24 14:15)
DX: Z12.11 Encounter for screening for malignant neoplasm of colon (principal); D12.2 Benign neoplasm of ascending colon; D12.3 Benign neoplasm of transverse colon; D12.0 Benign neoplasm of cecum; D12.4 Benign neoplasm of descending colon; D12.5 Benign neoplasm of sigmoid colon; K63.5 Polyp of colon; K62.1 Rectal polyp; K64.8 Other hemorrhoids; K57.30 Diverticulosis of large intestine without perforation or abscess without bleeding; K21.00 Gastro-esophageal reflux disease with esophagitis, without bleeding; J44.9 Chronic obstructive pulmonary disease, unspecified; I42.2 Other hypertrophic cardiomyopathy; E07.9 Disorder of thyroid, unspecified; I51.9 Heart disease, unspecified; L40.9 Psoriasis, unspecified; I49.9 Cardiac arrhythmia, unspecified; M19.90 Unspecified osteoarthritis, unspecified site; F17.210 Nicotine dependence, cigarettes, uncomplicated; Z79.891 Long term (current) use of opiate analgesic; Z79.810 Long term (current) use of selective estrogen receptor modulators (SERMs); Z98.890 Other specified postprocedural states; Z85.828 Personal history of other malignant neoplasm of skin; Z80.0 Family history of malignant neoplasm of digestive organs; Z80.49 Family history of malignant neoplasm of other genital organs; Z80.1 Family history of malignant neoplasm of trachea, bronchus and lung
CPT/HCPCS: 43239; 45385; 88305; J2003; J2704; J7120